=== PATIENT | female | born 1955 | race African-American/Black ===

== ENCOUNTER 2020-08-30 08:56 | Outpatient (REF) | payer MEDICARE, SELFPAY ==
[2020-08-30 11:25] LABS: Estimated Average Glucose 146 mg/dL; Hemoglobin A1c % 6.7 %
[2020-08-30 11:32] LABS: Alanine Aminotransferase 9 U/L (0-31); Albumin Level 4.3 g/dL (3.5-5.0); Alkaline Phosphatase 56 U/L (39-117); Anion Gap 15 (12-20); Aspartate Amino Transferase 13 U/L (5-31); Bilirubin Total 0.3 mg/dL (0.0-1.0); Blood Urea Nitrogen 20 mg/dL (9-16); Calcium 9.5 mg/dL (8.4-10.2); Carbon Dioxide 25 mmol/L (22-29); Chloride 104 mmol/L (96-108); Cholesterol 144 mg/dL; Estimated Glomerular Filt Rate 48; Glucose Fasting 126 mg/dL (60-99); HDL Cholesterol 45 mg/dL; LDL Cholesterol Calculated 78 mg/dl; Potassium 3.9 mmol/l (3.3-5.1); Sodium 140 mmol/L (135-145); Total Protein 7.3 g/dL (6.5-8.0); Triglycerides 109 mg/dL
[2020-08-30 12:05] LABS: Creatinine Urine 165.56 mg/dL; Microalbum/Creatinine Ratio Ur 262.7 ug/mg cr
== END 2020-08-30 08:57 | disposition home or self-care (01) ==
LOC: HO.HMGCLDS 08:56
PROVIDERS: PCP Internal Medicine; Visit Provider Internal Medicine
DX: R31.9 Hematuria, unspecified (principal); E11.9 Type 2 diabetes mellitus without complications; E78.5 Hyperlipidemia, unspecified; I10 Essential (primary) hypertension
CPT/HCPCS: 80053; 80061; 82043; 83036

== ENCOUNTER 2020-10-10 12:57 | Outpatient (REF) | payer MEDICARE, SELFPAY ==
[2020-10-10 14:23] LABS: Glucose Urine UA NEG (NEG); Leukocyte Esterase Urine NEG (NEG); Nitrite Urine NEG (NEG); Specific Gravity - Urine 1.025 (1.005-1.025); Urine Blood NEG (NEG); Urine Ketones NEG (NEG); Urine Protein TRACE MG/DL (NEG-TRACE)
[2020-10-10 14:26] LABS: Appearance Urine CLEAR; Color Urine YELLOW
== END 2020-10-10 12:58 | disposition home or self-care (01) ==
LOC: HO.HMGCLDS 12:57
PROVIDERS: PCP Internal Medicine; Visit Provider Internal Medicine
DX: R82.71 Bacteriuria (principal); I10 Essential (primary) hypertension
CPT/HCPCS: 81003

== ENCOUNTER 2020-11-24 15:08 | Outpatient (REF) | payer MEDICARE, SELFPAY ==
[2020-11-24 17:06] LABS: Alanine Aminotransferase 10 U/L (0-31); Albumin Level 4.4 g/dL (3.5-5.0); Alkaline Phosphatase 62 U/L (39-117); Anion Gap 18 (12-20); Aspartate Amino Transferase 12 U/L (5-31); Bilirubin Total 0.2 mg/dL (0.0-1.0); Blood Urea Nitrogen 16 mg/dL (9-16); Calcium 9.6 mg/dL (8.4-10.2); Carbon Dioxide 22 mmol/L (22-29); Chloride 102 mmol/L (96-108); Estimated Glomerular Filt Rate 39; Glucose Random 171 mg/dL (60-115); Potassium 4.3 mmol/l (3.3-5.1); Sodium 138 mmol/L (135-145); Total Protein 7.4 g/dL (6.5-8.0)
[2020-11-24 17:08] LABS: B Type Natriuretic Peptide 208 pg/mL (<100)
[2020-11-24 17:18] LABS: Digoxin 0.8 ng/mL (0.8-2.0)
[2020-11-24 17:22] LABS: TSH reflex Free T4 1.08 mIU/mL (0.32-4.0)
== END 2020-11-24 15:09 | disposition home or self-care (01) ==
LOC: HO.HMGCLDS 15:08
PROVIDERS: PCP Internal Medicine; Visit Provider Internal Medicine
DX: R10.9 Unspecified abdominal pain (principal); R00.2 Palpitations; C54.1 Malignant neoplasm of endometrium; I48.91 Unspecified atrial fibrillation; I11.9 Hypertensive heart disease without heart failure
CPT/HCPCS: 36415; 80053; 80162; 83880; 84443

== ENCOUNTER 2020-12-08 10:05 | Outpatient (REF) | payer MEDICARE, SELFPAY ==
--- NOTE | 2020-12-08 10:07 | CT_ITS ---
EXAMINATION: CT ABDOMEN AND PELVIS WITH CONTRAST CLINICAL INFORMATION: Malignant neoplasm of the endometrium. COMPARISON: None TECHNIQUE: Multidetector volumetric images were obtained from the superior aspect of the liver through the pubic symphysis following administration 85 mL of Omnipaque 350 intravenous contrast. Sagittal and coronal reformatted images were obtained on the technologist's workstation. Oral contrast: No This CT examination was performed using dose optimization techniques as appropriate, variously including the following: *Automated exposure control *Adjustment of mA and/or kV according to patient size (this includes techniques or standardized protocols for targeted exams where dose is matched to indication/reason for exam; i.e. extremities or head) *Use of iterative reconstruction technique DLP: 680 mGy-cm FINDINGS: LUNG BASES: The lung bases are clear. The heart size is normal. There is a small hiatal hernia. LIVER, GALLBLADDER, AND BILIARY TREE: The liver is normal in size, shape, and hypoattenuation. There is a punctate 6 mm nodule right hepatic lobe segment 7 image 14/3. A 4 mm hypodensity right hepatic lobe segment 6 image 25/3. These are too small to correctly characterized. The gallbladder is unremarkable with no evidence of radiopaque gallstones, gallbladder wall thickening, or obvious pericholecystic inflammatory changes. PANCREAS: Unremarkable. SPLEEN: Unremarkable. ADRENAL GLANDS: There is a right adrenal 1.3 cm lesion measuring 26 Hounsfield units. The left adrenal gland lateral limb is mildly enlarged without focal nodule. KIDNEYS AND URETERS: The kidneys are normal size, shape and position. No focal lesion, enhancement, radiopaque calculi or hydronephrosis seen. There is minimal cortical thinning along the posterior cortex upper pole right kidney. BLADDER: Unremarkable. GASTROINTESTINAL TRACT: There is scattered stool and gas seen throughout the colon without any significant distention. The small bowel loops are normal caliber. Appendix is not seen. The stomach is nondistended. ABDOMINAL WALL: No significant hernia is appreciated. LYMPH NODES: No abnormal retroperitoneal lymph node or mass seen. VASCULAR: There are arthritic changes involving both common iliac arteries with mild ectasia. The abdominal aorta is normal caliber. PELVIC VISCERA: The uterus is not visualized likely surgically removed or atrophic. No abnormal inguinal or iliac lymph nodes or free fluid seen. OSSEOUS STRUCTURES: No lytic or sclerotic process seen. There is vacuum disc phenomena with disc degenerative changes L3-L4, L4-L5 disc level. There is minimal grade 1 anterol[address] L4 over L5. [address]/CT abdomen pelvis w con IMPRESSION: No acute intra-abdominal process seen. No abnormal lymphadenopathy or mass visualized. The uterus is small or atrophic and appears neutral. Punctate hypodensities in the liver, too small to correctly characterize.
[2020-12-08] MEDS: iohexoL 350 MG/ML 100 ML INFUS..BTL 85 ML IV (10:41)
== END 2020-12-08 10:06 | disposition home or self-care (01) ==
LOC: HO.CT 10:05
PROVIDERS: PCP Internal Medicine; Visit Provider Internal Medicine
DX: R10.9 Unspecified abdominal pain (principal); C54.1 Malignant neoplasm of endometrium; R63.4 Abnormal weight loss
CPT/HCPCS: 74177; Q9967

== ENCOUNTER → 2020-12-27 09:37 | Outpatient (REF) | payer MEDICARE, SELFPAY ==
--- NOTE | 2020-12-27 09:40 | ECG_ITS ---
Hook-up date: 2020-12-27 11:03:00 Duration: 27:34:00 Test Indications: UNSPECIFIED AFIB Medications: 215598 QRS complexes 2345 Ventricular ectopics which represent 2 % of total QRS comp. * Supraventricular ectopics which represent % of total QRS comp. * Paced QRS complexs which represent % of total QRS comp. VENTRICULAR ECTOPY 2341 Isolated 3 Bigeminal Cycles 2 Couplets 0 Runs 0 Beats in Runs * Beats LONGEST at * BPM at :: -- * Beats FASTEST at * BPM at :: -- SUPRAVENTRICULAR ECTOPY * Isolated * Couplets * Runs * Beats in Runs * Beats LONGEST at * BPM at :: -- * Beats FASTEST at * BPM at :: -- HEART RATES 32 MIN at 04:53:25 2020-12-28 74 AVG 152 MAX at 22:20:00 2020-12-27 LONGEST RR 2.6880 secs at 06:50:47 2020-12-28 S-T LEVELS Channel 1 - 128 mm at 11:03:00 2020-12-27 - 128 mm at 11:03:00 2020-12-27 Channel 2 - 128 mm at 11:03:00 2020-12-27 - 128 mm at 11:03:00 2020-12-27 Channel 3 - 128 mm at 03:02:21 -- - 128 mm at 03:02:21 Underlying rhythm is atrial fibrillation; Average rate 74/min; range 32-152/min; Most of the rates seem to be 60-100/min; Occasional PVCs - about 2345 over 27 Hrs (2%); mostly isolated; 2 couplets; no runs; Patient did not report any symptoms in the diary Referred By: Marisela Oscar Overread By: SHARON CORDOBA
--- NOTE | 2020-12-27 09:40 | CA_ITS ---
Transthoracic Echocardiogram Patient (Last, First, Middle): Blaire Murray, Gender: Female Date of : 1955 Age: 65 Procedure Date: 12/27/2020 Procedure Type: Transthoracic Echocardiogram Location: OP Height: 162.56 cm Weight: 113.4 kg BSA: 2.15 m2 Heart Rate: bpm BP: 132 / 82 mmHg Linoleum Floor Installer: DSG Referring MD: Marisela Oscar MD Symptoms: I48.91 - Unspecified atrial fibrillation Study Quality: Fair ECG Rhythm: Atrial Fibrillation Conclusions: - The left ventricular systolic function is normal. The visually estimated ejection fraction is between 60-65%. - The left atrium is moderately dilated. - There is mild tricuspid valve regurgitation. - Moderate pulmonary hypertension is present. Findings Left Ventricle Normal left ventricular cavity size. There is mildly increased left ventricular wall thickness. The left ventricular systolic function is normal. The visually estimated ejection fraction is between 60-65%. There is no evidence of regional wall motion abnormalities. Diastolic function is indeterminate on the basis of available data. Right Ventricle Normal right ventricular cavity size. There is mildly decreased right ventricular systolic function. Atria The left atrium is moderately dilated. The right atrium is normal in size. Aortic Valve There is a normal trileaflet aortic valve. There is no aortic valve stenosis. There is no aortic valve regurgitation. Mitral Valve The mitral valve appears normal. There is trace mitral valve regurgitation. There is no mitral valve stenosis. Pulmonic Valve The pulmonic valve was not well visualized. Tricuspid Valve Normal tricuspid valve structure. There is mild tricuspid valve regurgitation. The right ventricular systolic pressure is 57 mmHg. Moderate pulmonary hypertension is present. Great Vessels The asc aorta is normal in size. Venous The inferior vena cava is normal in size and collapses greater than 50% with inspiration. Pericardium/Pleural There is no evidence of pericardial effusion. Prior Study Comparison No prior study available for comparison. Measurements 2D Linear Measurements IVSd: 1.10 0.6-0.9/0.6-1.0 cm LVIDd: 4.79 3.9-5.3/4.2-5.9 cm LVIDd Index: 2.23 2.4-3.2/2.2-3.1 cm/m2 LVIDs: 2.93 2.0-3.6 cm LVPWd: 1.08 0.7-1.1 cm Ao Root: 2.70 2.1-3.5 cm LA Diam: 4.80 2.7-3.8/3.0-4.0 cm LAIDs Index: 2.23 1.5-2.3 cm/m2 LV Mass: 237.85 67-162/88-224 g LV Mass Index: 110.63 43-95/49-115 g/m2 LVOT Diam: 2.00 3.0+(-)1.3 cm 2D Systolic Function EF 4C: 74.80 >55% Mitral Valve MV Pk E: 1.20 MV Decel Time: 232.00 E'Lateral: 9.55 E'Medial: 5.55 E/E' Med: 21.60 E/E' Lat: 12.60 PHT: 68.00 MVA PHT: 3.[address] [place]: 5.26 Aortic Valve AoV Pk Grayson: 1.49 AoV Mn Grayson: 0.74 AoV VTI: 0.21 AoV Pk Grad: 9.00 Aov Mn Grad: 3.00 ROSANNE Cont.VTI: 3.43 LVOT LVOT Pk Grayson: 1.13 LVOT Mn Grayson: 0.70 LVOT VTI: 0.23 LVOT Pk Grad: 5.00 LVOT Mn Grad: 2.00 LVOT Diam: 2.00 LVOT Area: 3.14 Diastolic Function MV Pk E: 1.20 E'Medial: 5.55 E/E' Med: 21.60 E' Laterial: 9.55 E/E' Lat: 12.60 Tricuspid Valve TR Pk Grayson: 3.66 TR Pk Grad: 54.00 RA Press: 3.00 RVSP: 57.00 Great Vessels Aorta Ao Root-2D: 2.70 2.0-3.7 cm Ao Asc: 2.60 2.1-3.4 cm Updated in Other Vendor System with Status of Final Philip Pacheco MD electronically signed on 12/27/2020 3:40:32 PM with status of Final
== END ==
LOC: HO.CARD 09:37
PROVIDERS: PCP Internal Medicine; Visit Provider Internal Medicine
DX: R00.2 Palpitations (principal); I48.91 Unspecified atrial fibrillation; I11.0 Hypertensive heart disease with heart failure; R10.9 Unspecified abdominal pain; C54.1 Malignant neoplasm of endometrium
CPT/HCPCS: 93226; 93306

== ENCOUNTER 2021-03-22 10:26 | Outpatient (REF) | payer MEDICARE, SELFPAY ==
[2021-03-22 14:08] LABS: Hematocrit 36.5 % (37-47); Hemoglobin 11.5 g/dl (12.0-16.0); Mean Corpuscular HGB Conc 31.5 g/dl (31.0-35.0); Mean Corpuscular Hemoglobin 30.3 pg (27.0-33.0); Mean Corpuscular Volume 96.1 fL (80-98); Mean Platelet Volume 11.6 fL (9.4-12.3); Platelet Count 290 X10*3/uL (160-400); Red Cell Distribution Width 14.2 % (11.0-16.0); White Blood Count 10.8 X10*3/uL (4.8-10.8)
[2021-03-22 14:20] LABS: Estimated Average Glucose 183 mg/dL
[2021-03-22 14:32] LABS: Alanine Aminotransferase 10 U/L (0-31); Albumin Level 4.3 g/dL (3.5-5.0); Alkaline Phosphatase 62 U/L (39-117); Anion Gap 19 (12-20); Aspartate Amino Transferase 12 U/L (5-31); Bilirubin Total 0.4 mg/dL (0.0-1.0); Blood Urea Nitrogen 22 mg/dL (9-16); Calcium 9.3 mg/dL (8.4-10.2); Carbon Dioxide 23 mmol/L (22-29); Chloride 103 mmol/L (96-108); Cholesterol 124 mg/dL; Estimated Glomerular Filt Rate 36; Glucose Fasting 189 mg/dL (60-99); HDL Cholesterol 46 mg/dL; LDL Cholesterol Calculated 51 mg/dl; Potassium 3.7 mmol/L (3.3-5.1); Sodium 141 mmol/L (135-145); Total Protein 7.2 g/dL (6.5-8.0); Triglycerides 137 mg/dL
[2021-03-22 14:41] LABS: Creatinine Urine 140.45 mg/dL; Microalbum/Creatinine Ratio Ur 217.8 ug/mg cr
== END 2021-03-22 10:27 | disposition home or self-care (01) ==
LOC: HO.HMGCLDS 10:26
PROVIDERS: PCP Internal Medicine; Visit Provider Internal Medicine
DX: E11.9 Type 2 diabetes mellitus without complications (principal); E78.5 Hyperlipidemia, unspecified; I10 Essential (primary) hypertension; I48.91 Unspecified atrial fibrillation
CPT/HCPCS: 36415; 80053; 80061; 82043; 83036; 85027

== ENCOUNTER 2021-03-31 10:01 | Outpatient (REF) | payer MEDICARE, SELFPAY ==
[2021-03-31 11:58] LABS: Anion Gap 16 (12-20); Blood Urea Nitrogen 32 mg/dL (9-16); Calcium 9.8 mg/dL (8.4-10.2); Carbon Dioxide 23 mmol/L (22-29); Chloride 105 mmol/L (96-108); Estimated Glomerular Filt Rate 32; Glucose Random 207 mg/dL (60-115); Potassium 4.4 mmol/L (3.3-5.1); Sodium 140 mmol/L (135-145)
== END 2021-03-31 10:02 | disposition home or self-care (01) ==
LOC: HO.HMGCLDS 10:01
PROVIDERS: PCP Internal Medicine; Visit Provider Internal Medicine
DX: N18.30 Chronic kidney disease, stage 3 unspecified (principal)
CPT/HCPCS: 36415; 80048

== ENCOUNTER 2021-06-21 10:21 | Outpatient (REF) | payer MEDICARE, SELFPAY ==
[2021-06-21 11:57] LABS: Estimated Average Glucose 183 mg/dL
[2021-06-21 15:35] LABS: Alanine Aminotransferase 11 U/L (0-31); Albumin Level 4.2 g/dL (3.5-5.0); Alkaline Phosphatase 47 U/L (39-117); Anion Gap 16 (12-20); Aspartate Amino Transferase 16 U/L (5-31); Bilirubin Total 0.4 mg/dL (0.0-1.0); Blood Urea Nitrogen 23 mg/dL (9-16); Calcium 9.1 mg/dL (8.4-10.2); Carbon Dioxide 22 mmol/L (22-29); Chloride 107 mmol/L (96-108); Estimated Glomerular Filt Rate 38; Glucose Fasting 181 mg/dL (60-99); Potassium 4.4 mmol/L (3.3-5.1); Sodium 141 mmol/L (135-145); Total Protein 6.9 g/dL (6.5-8.0)
== END 2021-06-21 10:22 | disposition home or self-care (01) ==
LOC: HO.HMGCLDS 10:21
PROVIDERS: PCP Internal Medicine; Visit Provider Internal Medicine
DX: E11.9 Type 2 diabetes mellitus without complications (principal); I10 Essential (primary) hypertension
CPT/HCPCS: 36415; 80053; 83036

== ENCOUNTER 2021-06-27 09:56 | Outpatient (REF) | payer MEDICARE, SELFPAY ==
--- NOTE | ~2021-06-27 | XR_ITS ---
EXAMINATION: XR HIP, RIGHT XR HIP, LEFT CLINICAL INFORMATION: Pain in each hip COMPARISON: CT abdomen and pelvis from 12/08/2020. TECHNIQUE: Right hip, 2 views Left hip, 2 views FINDINGS: At the right hip, the femoral head is well-positioned within the intact acetabulum. The joint space is normal. No degenerative or inflammatory changes at the hip. No proximal femoral fracture or osteonecrosis. At the right sacroiliac joint, there is vacuum joint phenomenon and subarticular sclerosis. Also, mild subarticular sclerosis and osteophytosis are noted at the pubic symphysis. Patient has a large body habitus. At the left hip, the femoral head is well-positioned within the intact acetabulum. The left hip joint space is maintained. There is no evidence of a significant degenerative or inflammatory arthropathy. No proximal femoral fracture or osteonecrosis. There is vacuum phenomenon, subarticular sclerosis and mild osteophyte formation at the left sacroiliac joint. XR/XR hip RT min 2V IMPRESSION: * No significant findings at either hip. No fracture or malalignment. * In this obese patient, there is chronic degenerative and/or stress related subarticular sclerosis at the sacroiliac joints and pubic symphysis. No acute osseous injury.
--- NOTE | ~2021-06-27 | XR_ITS ---
EXAMINATION: XR HIP, RIGHT XR HIP, LEFT CLINICAL INFORMATION: Pain in each hip COMPARISON: CT abdomen and pelvis from 12/08/2020. TECHNIQUE: Right hip, 2 views Left hip, 2 views FINDINGS: At the right hip, the femoral head is well-positioned within the intact acetabulum. The joint space is normal. No degenerative or inflammatory changes at the hip. No proximal femoral fracture or osteonecrosis. At the right sacroiliac joint, there is vacuum joint phenomenon and subarticular sclerosis. Also, mild subarticular sclerosis and osteophytosis are noted at the pubic symphysis. Patient has a large body habitus. At the left hip, the femoral head is well-positioned within the intact acetabulum. The left hip joint space is maintained. There is no evidence of a significant degenerative or inflammatory arthropathy. No proximal femoral fracture or osteonecrosis. There is vacuum phenomenon, subarticular sclerosis and mild osteophyte formation at the left sacroiliac joint. XR/XR hip LT min 2V IMPRESSION: * No significant findings at either hip. No fracture or malalignment. * In this obese patient, there is chronic degenerative and/or stress related subarticular sclerosis at the sacroiliac joints and pubic symphysis. No acute osseous injury.
== END 2021-06-27 09:57 | disposition home or self-care (01) ==
LOC: HO.HMGCX 09:56
PROVIDERS: PCP Internal Medicine; Visit Provider Internal Medicine
DX: M25.551 Pain in right hip (principal); M25.552 Pain in left hip; E11.9 Type 2 diabetes mellitus without complications; E78.5 Hyperlipidemia, unspecified; I48.91 Unspecified atrial fibrillation; N18.30 Chronic kidney disease, stage 3 unspecified
CPT/HCPCS: 73502

== ENCOUNTER → 2021-07-31 11:06 | Outpatient (BNVA) | payer MEDICARE, SELFPAY | PROVIDERS: Visit Provider Dietitian, Registered | DX: E11.9 Type 2 diabetes mellitus without complications (principal) | CPT/HCPCS: 97802 ==

== ENCOUNTER → 2021-08-01 08:52 | Outpatient (BNVA) | payer MEDICARE, SELFPAY | PROVIDERS: Visit Provider Physician Assistant | DX: M25.551 Pain in right hip (principal); M25.552 Pain in left hip; M54.16 Radiculopathy, lumbar region | CPT/HCPCS: 99202 ==

== ENCOUNTER 2021-08-16 10:34 | Outpatient (REF) | payer MEDICARE, SELFPAY | END 2021-08-16 10:35 | disposition home or self-care (01) | LOC: HO.HMGCLDS 10:34 | PROVIDERS: PCP Internal Medicine; Visit Provider Internal Medicine | DX: Z13.89 Encounter for screening for other disorder (principal) ==

== ENCOUNTER 2021-08-21 12:35 | Outpatient (REF) | payer MEDICARE, SELFPAY ==
[2021-08-21 14:27] LABS: Blood Urea Nitrogen 24 mg/dL (9-16); Estimated Glomerular Filt Rate 39
== END 2021-08-21 12:36 | disposition home or self-care (01) ==
LOC: HO.HMGCLDS 12:35
PROVIDERS: PCP Internal Medicine; Visit Provider Internal Medicine
DX: N18.30 Chronic kidney disease, stage 3 unspecified (principal)
CPT/HCPCS: 36415; 82565; 84520

== ENCOUNTER 2021-08-25 09:57 | Outpatient (REF) | payer MEDICARE, SELFPAY ==
--- NOTE | ~2021-08-25 | XR_ITS ---
EXAMINATION: XR LUMBOSACRAL SPINE CLINICAL INFORMATION: Spondylosis without myelopathy or radiculopathy. COMPARISON: None TECHNIQUE: Three views of the lumbosacral spine. FINDINGS: There is normal lumbar lordosis. There is grade 1 anterolisthesis at L4-L5. The rest of the vertebral alignment is normal. There is loss of the L3-L4 and L4-L5 disc heights with moderate right L4-L5 and T11-T12 facet joint arthropathy. No visible acute fracture or dislocation. No lytic process. The paravertebral soft tissues are normal. XR/XR lumbar spine 2-3V IMPRESSION: Grade 1 anterolisthesis L4 over L5 with degenerative disc changes at the L3-L4 and L5-S1 disc levels. Moderate right L4-L5 and T11-T12 facet joint arthropathy and hypertrophy.
== END 2021-08-25 09:58 | disposition home or self-care (01) ==
LOC: HO.XRAY 09:57
PROVIDERS: PCP Internal Medicine; Visit Provider Internal Medicine
DX: M47.817 Spondylosis without myelopathy or radiculopathy, lumbosacral region (principal); M46.1 Sacroiliitis, not elsewhere classified
CPT/HCPCS: 72100; 99202

== ENCOUNTER → 2021-09-11 11:48 | Outpatient (BNVA) | payer MEDICARE, SELFPAY | PROVIDERS: PCP Internal Medicine; Visit Provider Dietitian, Registered | DX: E11.9 Type 2 diabetes mellitus without complications (principal) | CPT/HCPCS: 97803 ==

== ENCOUNTER 2021-09-13 06:21 | Outpatient (REF) | payer MEDICARE, SELFPAY ==
--- NOTE | ~2021-09-13 | FL_ITS ---
EXAMINATION: XR FLUOROSCOPY WITH IMAGES CLINICAL INFORMATION: Sacroiliitis. COMPARISON: None. TECHNIQUE: Fluoroscopy performed by Nela Hughes NP. Fluoroscopy time: 0.2 minutes DAP: 2 Gycm2 Images: 2 FINDINGS: PA and lateral images of the left sacrum demonstrate a needle projecting over the inferior left sacroiliac joint. FL/FL guidance in treatment room IMPRESSION: Fluoroscopy guidance for pain management procedure.
== END 2021-09-13 06:22 | disposition home or self-care (01) ==
LOC: HO.RADIR 06:21
PROVIDERS: Visit Provider Internal Medicine
DX: M46.1 Sacroiliitis, not elsewhere classified (principal); Z79.899 Other long term (current) drug therapy
CPT/HCPCS: 27096; J1040

== ENCOUNTER → 2021-09-22 08:51 | Outpatient (BNVA) | payer MEDICARE, OTHER, SELFPAY | PROVIDERS: PCP Internal Medicine; Visit Provider Internal Medicine | DX: M47.817 Spondylosis without myelopathy or radiculopathy, lumbosacral region (principal); M54.16 Radiculopathy, lumbar region; M46.1 Sacroiliitis, not elsewhere classified | CPT/HCPCS: 99212 ==

== ENCOUNTER 2021-10-25 11:00 | Outpatient (RCR) | payer MEDICARE, OTHER, SELFPAY ==
--- NOTE | 2021-10-09 12:49 | MHC.PT.EP ---
[facility] [place] Office [place] Office [place] Office [address] Jules Altamirano [address] [phone] F: [phone] F: [phone] F: [phone] F: [phone] Physical Therapy Plan of Care Date of Evaluation: Date of Surgery: Diagnosis: This is a 66 yo female presenting to skilled PT with a script for sacroiliitis, lumbosacral spondylosis Assessment: This is a 66 yo female presenting to skilled PT with a script for sacroiliitis, lumbosacral spondylosis. Patient reporting her pain has been ongoing forever . 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 She had an injection in the SIJ at the end of August which improved intensity but pain increases with walking and laying on the L side still (seeing pain management and is returning there for a more formal injection on 11/01). Pain is located at the L low back/buttock, laterally down the L leg and into the L gastroc. Pain is achy, like a tooth ache in your leg . Denies numbness and tingling. Assessment reveals pain that ranges up to an 8/10. She demos decreased lumbar and hip ROM, decreased core and glut strength, impaired gait pattern with ? lateral shift and forward flexed posture, impaired joint mobility with s/s ? SIJ involvement as well as gross functional decline with sitting, walking and laying on the L side. She is a good candidate for skilled PT 2x/wk for 6 wks. Frequency and Duration: The patient will be seen 2x/wk for 6wks Short Term Goals: I in HEP Centralize symptoms in 2 weeks Demo proper TAC without cues from PT Sleep through the night without waking from pain Correction Goals: Demos functional ROM and strength Improve oswestry by at least 10 points Improve pain at the worst to no more than 2/10 Demo proper lifting techniques without increase in pain or radiating symptoms Treatment Plan: Modalities to reduce pain, spasms and effusion. Manual therapy to restore motion and function. Therapeutic exercise to improve strength and flexibility. Neuromuscular re-education for posture and balance. Therapeutic activities to return to functional activities of daily living. Electronically signed by: Blaire Rodgers PT Please sign and return to therapist. Thank you for your referral.
--- NOTE | 2021-11-06 13:12 | MHC.PT.DC ---
[facility] [place] Office [place] Office [place] Office [address] Jules Altamirano [address] [phone] F: [phone] F: [phone] F: [phone] F: [phone] Physical Therapy Discharge Report Diagnosis: This is a 66 yo female presenting to skilled PT with a script for sacroiliitis, lumbosacral spondylosis Date of Surgery: Date of Evaluation: 10/09/21 Date of Discharge: 11/06/21 Treatments to Date: 2 Cancellations to Date: 0 No Shows to Date: 0 Discharge Status: Independent with HEP Patient Elected to Stop Discharge Summary: DC 11/06: Patient called to DC for now. She is worried about covid varient. She reports that she has an HEP to continue in the mean time and will call to rebook when ready. DC to HEP 10/25: Patient needed rest breaks throughout the session. Her R knee is locked in slight flexion and she was educated on how this effects her pain and balance. Updated HEP once more with education on symptoms and rest breaks/days. Plan to add wall slides, sit<>stands next session, trial stepper This is a 66 yo female presenting to skilled PT with a script for sacroiliitis, lumbosacral spondylosis. Patient reporting her pain has been ongoing forever . 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 She had an injection in the SIJ at the end of August which improved intensity but pain increases with walking and laying on the L side still (seeing pain management and is returning there for a more formal injection on 11/01). Pain is located at the L low back/buttock, laterally down the L leg and into the L gastroc. Pain is achy, like a tooth ache in your leg . Denies numbness and tingling. Assessment reveals pain that ranges up to an 8/10. She demos decreased lumbar and hip ROM, decreased core and glut strength, impaired gait pattern with ? lateral shift and forward flexed posture, impaired joint mobility with s/s ? SIJ involvement as well as gross functional decline with sitting, walking and laying on the L side. She is a good candidate for skilled PT 2x/wk for 6 wks. Electronically signed by: Blaire Rodgers, PT Please sign and return to therapist. Thank you for your referral.
== END 2021-11-06 11:51 | disposition home or self-care (01) ==
LOC: HO.PTCHIC 11:00
PROVIDERS: Visit Provider Internal Medicine
DX: M46.1 Sacroiliitis, not elsewhere classified (principal); M47.817 Spondylosis without myelopathy or radiculopathy, lumbosacral region
CPT/HCPCS: 97110; 97112; 97162

== ENCOUNTER → 2021-10-30 11:29 | Outpatient (BNVA) | payer MEDICARE, SELFPAY | PROVIDERS: PCP Internal Medicine; Visit Provider Dietitian, Registered | DX: E11.22 Type 2 diabetes mellitus with diabetic chronic kidney disease (principal); N18.30 Chronic kidney disease, stage 3 unspecified | CPT/HCPCS: 97803 ==

== ENCOUNTER 2021-11-01 06:13 | Outpatient (REF) | payer MEDICARE, SELFPAY ==
--- NOTE | ~2021-11-01 | FL_ITS ---
EXAMINATION: XR FLUOROSCOPY WITH IMAGES CLINICAL INFORMATION: M47.817 - Spondylosis without myelopathy or radiculopathy COMPARISON: Radiographs lumbar spine 08/25/2021 TECHNIQUE: Fluoroscopy performed by Dr. Eb Tang. Fluoroscopy time: 0.9 minutes DAP: 12.5 Gycm2 Images: 4 FINDINGS: There are spinal needles overlying the outer left L4 and L5 neural foramen. There is contrast seen in the respective nerve sheaths. Some early transforaminal epidural extension is suggested. No visible vascular communication. Degenerative changes again seen lower lumbar spine similar to prior radiographs. FL/FL guidance in treatment room IMPRESSION: Fluoroscopy for pain management procedures.
== END 2021-11-01 06:14 | disposition home or self-care (01) ==
LOC: HO.RADIR 06:13
PROVIDERS: Visit Provider Internal Medicine
DX: M46.1 Sacroiliitis, not elsewhere classified (principal); M54.16 Radiculopathy, lumbar region; M47.817 Spondylosis without myelopathy or radiculopathy, lumbosacral region; I10 Essential (primary) hypertension; I48.91 Unspecified atrial fibrillation; E78.5 Hyperlipidemia, unspecified; Z88.8 Allergy status to other drugs, medicaments and biological substances; Z79.84 Long term (current) use of oral hypoglycemic drugs; Z79.899 Other long term (current) drug therapy
CPT/HCPCS: 64483; 64484; Q9967

== ENCOUNTER → 2021-11-24 09:36 | Outpatient (BNVA) | payer MEDICARE, SELFPAY | PROVIDERS: PCP Internal Medicine; Visit Provider Internal Medicine | DX: M54.16 Radiculopathy, lumbar region (principal) | CPT/HCPCS: Q3014 ==

== ENCOUNTER → 2022-01-29 11:40 | Outpatient (BNVA) | payer MEDICARE, SELFPAY | PROVIDERS: PCP Internal Medicine; Visit Provider Dietitian, Registered | DX: E11.22 Type 2 diabetes mellitus with diabetic chronic kidney disease (principal); N18.30 Chronic kidney disease, stage 3 unspecified; Z71.3 Dietary counseling and surveillance | CPT/HCPCS: 97803 ==

== ENCOUNTER 2022-01-30 07:44 | Outpatient (REF) | payer MEDICARE, SELFPAY ==
[2022-01-30 12:04] LABS: Estimated Average Glucose 169 mg/dL; Hemoglobin A1c % 7.5 %
[2022-01-30 12:18] LABS: Alanine Aminotransferase 13 U/L (0-31); Alkaline Phosphatase 49 U/L (39-117); Anion Gap 15 (12-20); Aspartate Amino Transferase 16 U/L (5-31); Bilirubin Total 0.2 mg/dL (0.0-1.0); Blood Urea Nitrogen 25 mg/dL (9-16); Calcium 9.5 mg/dL (8.4-10.2); Carbon Dioxide 22 mmol/L (22-29); Chloride 107 mmol/L (96-108); Cholesterol 120 mg/dL; Estimated Glomerular Filt Rate 32; Glucose Fasting 194 mg/dL (60-99); HDL Cholesterol 38 mg/dL; LDL Cholesterol Calculated 64 mg/dl; Potassium 4.4 mmol/L (3.3-5.1); Sodium 140 mmol/L (135-145); Total Protein 6.7 g/dL (6.5-8.0); Triglycerides 90 mg/dL
[2022-01-30 12:38] LABS: Microalbum/Creatinine Ratio Ur 86.5 ug/mg cr
== END 2022-01-30 07:45 | disposition home or self-care (01) ==
LOC: HO.HMGCLDS 07:44
PROVIDERS: Visit Provider Internal Medicine
DX: E11.9 Type 2 diabetes mellitus without complications (principal); E78.5 Hyperlipidemia, unspecified; N18.30 Chronic kidney disease, stage 3 unspecified
CPT/HCPCS: 36415; 80053; 80061; 82043; 83036

== ENCOUNTER 2022-05-02 09:21 | Outpatient (REF) | payer MEDICARE, SELFPAY ==
[2022-05-02 11:17] LABS: Estimated Average Glucose 160 mg/dL; Hemoglobin A1c % 7.2 %
[2022-05-02 11:19] LABS: Alanine Aminotransferase 12 U/L (0-31); Alkaline Phosphatase 53 U/L (39-117); Anion Gap 15 (12-20); Aspartate Amino Transferase 14 U/L (5-31); Bilirubin Total 0.3 mg/dL (0.0-1.0); Blood Urea Nitrogen 19 mg/dL (9-16); Calcium 8.9 mg/dL (8.4-10.2); Carbon Dioxide 22 mmol/L (22-29); Chloride 108 mmol/L (96-108); Cholesterol 112 mg/dL; Estimated Glomerular Filt Rate 34; Glucose Fasting 165 mg/dL (60-99); HDL Cholesterol 39 mg/dL; LDL Cholesterol Calculated 52 mg/dl; Potassium 3.9 mmol/L (3.3-5.1); Sodium 141 mmol/L (135-145); Total Protein 6.6 g/dL (6.5-8.0); Triglycerides 105 mg/dL
[2022-05-02 11:39] LABS: TSH reflex Free T4 1.16 uIU/mL (0.32-4.0)
[2022-05-02 11:57] LABS: Creatinine Urine 163.47 mg/dL; Microalbum/Creatinine Ratio Ur 176.7 ug/mg cr
== END 2022-05-02 09:22 | disposition home or self-care (01) ==
LOC: HO.HMGCLDS 09:21
PROVIDERS: Visit Provider Internal Medicine
DX: I12.9 Hypertensive chronic kidney disease with stage 1 through stage 4 chronic kidney disease, or unspecified chronic kidney disease (principal); E11.22 Type 2 diabetes mellitus with diabetic chronic kidney disease; N18.30 Chronic kidney disease, stage 3 unspecified
CPT/HCPCS: 36415; 80053; 80061; 82043; 83036; 84443

== ENCOUNTER 2022-08-15 10:56 | Outpatient (REF) | payer MEDICARE, SELFPAY ==
[2022-08-15 14:18] LABS: Estimated Average Glucose 169 mg/dL; Hemoglobin A1c % 7.5 %
[2022-08-15 14:52] LABS: Alanine Aminotransferase 19 U/L (0-31); Albumin Level 4.2 g/dL (3.5-5.0); Alkaline Phosphatase 55 U/L (39-117); Anion Gap 17 (12-20); Aspartate Amino Transferase 20 U/L (5-31); Bilirubin Total < 0.2 mg/dL (0.0-1.0); Blood Urea Nitrogen 29 mg/dL (9-16); Calcium 9.1 mg/dL (8.4-10.2); Carbon Dioxide 19 mmol/L (22-29); Chloride 108 mmol/L (96-108); Cholesterol 130 mg/dL; Estimated Glomerular Filt Rate 30; Glucose Fasting 208 mg/dL (60-99); HDL Cholesterol 43 mg/dL; LDL Cholesterol Calculated 69 mg/dl; Potassium 4.3 mmol/L (3.3-5.1); Sodium 140 mmol/L (135-145); Total Protein 6.8 g/dL (6.5-8.0); Triglycerides 91 mg/dL
[2022-08-15 15:04] LABS: Creatinine Urine 145.47 mg/dL; Microalbum/Creatinine Ratio Ur 129.9 ug/mg cr
== END 2022-08-15 10:57 | disposition home or self-care (01) ==
LOC: HO.HMGCLDS 10:56
PROVIDERS: PCP Internal Medicine; Visit Provider Internal Medicine
DX: E11.9 Type 2 diabetes mellitus without complications (principal); I10 Essential (primary) hypertension; I48.91 Unspecified atrial fibrillation; E78.5 Hyperlipidemia, unspecified
CPT/HCPCS: 36415; 80053; 80061; 82043; 83036

== ENCOUNTER 2022-09-21 13:22 | Outpatient (REF) | payer MEDICARE, SELFPAY ==
[2022-09-21 15:10] LABS: Anion Gap 16 (12-20); Blood Urea Nitrogen 21 mg/dL (9-16); Calcium 9.2 mg/dL (8.4-10.2); Carbon Dioxide 20 mmol/L (22-29); Chloride 110 mmol/L (96-108); Estimated Glomerular Filt Rate 32; Glucose Random 159 mg/dL (60-115); Potassium 4.3 mmol/L (3.3-5.1); Sodium 142 mmol/L (135-145)
== END 2022-09-21 13:23 | disposition home or self-care (01) ==
LOC: HO.HMGCLDS 13:22
PROVIDERS: PCP Internal Medicine; Visit Provider Internal Medicine
DX: I12.9 Hypertensive chronic kidney disease with stage 1 through stage 4 chronic kidney disease, or unspecified chronic kidney disease (principal); E11.22 Type 2 diabetes mellitus with diabetic chronic kidney disease; N18.30 Chronic kidney disease, stage 3 unspecified
CPT/HCPCS: 36415; 80048

== ENCOUNTER → 2022-11-14 11:15 | Outpatient (BNVA) | payer MEDICARE, SELFPAY | PROVIDERS: PCP Internal Medicine; Visit Provider Nurse Practitioner Family | DX: Z01.818 Encounter for other preprocedural examination (principal); K59.01 Slow transit constipation | CPT/HCPCS: 99202 ==

== ENCOUNTER 2022-12-21 11:46 | Outpatient (REF) | payer MEDICARE, SELFPAY ==
[2022-12-21 13:51] LABS: MANUAL DIFF FLAG NO
[2022-12-21 13:53] LABS: Hematocrit 38.3 % (37.0-47.0); Mean Corpuscular HGB Conc 31.3 g/dl (31.0-35.0); Mean Corpuscular Hemoglobin 29.8 pg (27.0-33.0); Red Blood Count 4.03 X10*6/uL (4.20-5.50); Red Cell Distribution Width 15.1 % (11.0-16.0); White Blood Count 8.3 X10*3/uL (4.8-10.8)
[2022-12-21 13:54] LABS: Basophils Absolute Auto 0.1 X10*3/uL (0.0-0.2); Basophils Percent Auto 0.8 % (0-2); Eosinophils Absolute Auto 0.4 X10*3/uL (0.0-0.4); Eosinophils Percent Auto 4.8 % (0-4); Imm Gran Abs Auto 0.02 X10*3/uL (0.00-0.03); Imm Gran Pct Auto 0.2 % (0.0-0.4); Lymphocytes Percent Auto 36.6 % (20-40); Mean Platelet Volume 11.5 fL (9.4-12.3); Monocytes Absolute Auto 0.7 X10*3/uL (0.1-1.2); Monocytes Percent Auto 8.5 % (2-11); Neutrophils Absolute Auto 4.1 x10*3/uL (2.0-8.3); Neutrophils Percent Auto 49.1 % (45-73); Platelet Count 247 X10*3/uL (160-400)
[2022-12-21 14:15] LABS: Alanine Aminotransferase 18 U/L (0-31); Albumin Level 3.9 g/dL (3.5-5.0); Alkaline Phosphatase 68 U/L (39-117); Anion Gap 14 (12-20); Aspartate Amino Transferase 17 U/L (5-31); Bilirubin Total 0.3 mg/dL (0.0-1.0); Blood Urea Nitrogen 25 mg/dL (9-16); Calcium 9.3 mg/dL (8.4-10.2); Carbon Dioxide 22 mmol/L (22-29); Chloride 110 mmol/L (96-108); Cholesterol 123 mg/dL; Estimated Glomerular Filt Rate 33; Glucose Fasting 110 mg/dL (60-99); HDL Cholesterol 38 mg/dL; LDL Cholesterol Calculated 71 mg/dl; Sodium 142 mmol/L (135-145); Total Protein 6.3 g/dL (6.5-8.0); Triglycerides 70 mg/dL
[2022-12-21 14:31] LABS: TSH reflex Free T4 0.91 uIU/mL (0.32-4.0)
[2022-12-21 14:39] LABS: Estimated Average Glucose 151 mg/dL; Hemoglobin A1c % 6.9 %
== END 2022-12-21 11:47 | disposition home or self-care (01) ==
LOC: HO.HMGCLDS 11:46
PROVIDERS: PCP Internal Medicine; Visit Provider Internal Medicine
DX: I12.9 Hypertensive chronic kidney disease with stage 1 through stage 4 chronic kidney disease, or unspecified chronic kidney disease (principal); E11.22 Type 2 diabetes mellitus with diabetic chronic kidney disease; N18.30 Chronic kidney disease, stage 3 unspecified; I48.91 Unspecified atrial fibrillation; E78.5 Hyperlipidemia, unspecified
CPT/HCPCS: 36415; 80053; 80061; 83036; 84443; 85025

== ENCOUNTER 2023-01-14 10:29 | Outpatient (REF) | payer MEDICARE, SELFPAY ==
--- NOTE | ~2023-01-14 | US_ITS ---
EXAMINATION: US SOFT TISSUE HEAD/NECK CLINICAL INFORMATION: Localized enlarged lymph nodes. COMPARISON: None. TECHNIQUE: Linear transducer grayscale and color Doppler examination of the neck lymph nodes. FINDINGS: There are bilateral neck lymph nodes visualized. Right Neck Lymph Nodes: Level II measures 0.94 x 0.4 cm 0.61 cm. There is normal architecture. Level II measures 0.8 x 0.56 x 0.73 cm. There is normal architecture. Level IB measures 0.65-0 0.42 x 0.57 cm. It has normal architecture. Level IB measures 0.59 x 0.46 x 0.40 cm and has normal architecture. Level IB measures 0.76 x 0.40 x 0.90 cm. It has normal architecture. Level IA measures 0.45 x 0.27 x 0.44 cm and has normal architecture. Level IA measures 0.36 x 0.41 x 0.40 cm and has normal architecture. Left Neck Lymph Nodes: Level IB node measures 1.1 x 0.62 x 1.1 cm. It has normal architecture. Level IB lymph node measures 1.1 x 0.45 x 0.4 cm. It has normal architecture. ADDITIONAL FINDINGS: No additional abnormality seen. US/US soft tiss head and/or neck IMPRESSION: Benign bilateral neck lymph nodes.
--- NOTE | ~2023-01-14 | US_ITS ---
EXAMINATION: Noninvasive assessment of the bilateral lower extremities with ARTERIAL DUPLEX CLINICAL INFORMATION: Peripheral arterial disease TECHNIQUE: Duplex Doppler techniques with waveform analysis and measurement of velocities in the bilateral common femoral, profunda femoris, superficial femoral, popliteal and tibial arteries were performed. COMPARISON: None FINDINGS: DIRECT DUPLEX DOPPLER FINDINGS: RIGHT LEG: Common femoral artery: 123 cm/s, phasicity: Triphasic Profunda femoris artery: 88.5 cm/s, phasicity: Triphasic Superficial femoral artery (proximal): 101 cm/s, phasicity: Triphasic Superficial femoral artery (mid): 78.0 cm/s, phasicity: Biphasic Superficial femoral artery (distal): 88.5 cm/s, phasicity: Triphasic Popliteal artery: 65.1 cm/s, phasicity: Biphasic Posterior tibial artery: 124 cm/s, phasicity: Triphasic Peroneal artery: 57.0 cm/s, phasicity: Biphasic LEFT LEG: Common femoral artery: 122 cm/s, phasicity: Triphasic Profunda femoris artery: 66 cm/s, phasicity: Biphasic Superficial femoral artery (proximal): 123 cm/s, phasicity: Triphasic Superficial femoral artery (mid): 73.9 cm/s, phasicity: Biphasic Superficial femoral artery (distal): 82.1 cm/s, phasicity: Biphasic Popliteal artery: 47.9 cm/s, phasicity: Biphasic Posterior tibial artery: 76.8 cm/s, phasicity: Biphasic Peroneal artery: 75.8 cm/s, phasicity: Biphasic US/US arterial duplex LE BI IMPRESSION: Right leg: Patent arterial duplex Doppler without significant stenosis or arterial occlusion Left leg: Patent arterial duplex Doppler without significant stenosis or arterial occlusion
== END 2023-01-14 10:30 | disposition home or self-care (01) ==
LOC: HO.HMGCX 10:29
PROVIDERS: PCP Internal Medicine; Visit Provider Internal Medicine
DX: R59.0 Localized enlarged lymph nodes (principal); E11.22 Type 2 diabetes mellitus with diabetic chronic kidney disease; I12.9 Hypertensive chronic kidney disease with stage 1 through stage 4 chronic kidney disease, or unspecified chronic kidney disease; N18.30 Chronic kidney disease, stage 3 unspecified; E78.5 Hyperlipidemia, unspecified; I48.91 Unspecified atrial fibrillation; I73.9 Peripheral vascular disease, unspecified
CPT/HCPCS: 76536; 93925

== ENCOUNTER → 2023-01-16 12:59 | Outpatient (BNVA) | payer MEDICARE, SELFPAY | PROVIDERS: PCP Internal Medicine; Referring Provider Internal Medicine; Visit Provider Internal Medicine | DX: Z01.810 Encounter for preprocedural cardiovascular examination (principal); I48.19 Other persistent atrial fibrillation; E11.9 Type 2 diabetes mellitus without complications; E78.5 Hyperlipidemia, unspecified; I10 Essential (primary) hypertension | CPT/HCPCS: 93005; 99202 ==

== ENCOUNTER → 2023-01-28 08:26 | Outpatient (REF) | payer MEDICARE, SELFPAY ==
--- NOTE | ~2023-01-28 | NM_ITS ---
Myocardial perfusion study Indication: Atrial fibrillation to evaluate for myocardial ischemia Technique: The patient was brought in for a Lexiscan perfusion study on 01/28/2023. Patient performed low-level exercise and was injected 0.4 mg of Lexiscan intravenously. Within a minute of injection, 35 mCi of sestamibi was given intravenously. Images were obtained using the SPECT gamma camera interlaced with the gating device. Images were obtained in supine position. Resting perfusion study was performed on 01/31/2023. Patient was administered 35 mCi of sestamibi intravenously at rest. Images were then obtained in supine position. Images obtained with and without CT attenuation. Total DLP 140 mGy-cm. Images were processed with the software and compared side to side in short axis, horizontal long axis and vertical long axis views. Findings: The stress perfusion study showed both attenuated as well as non attenuated corrected images show normal uptake of radiotracer in all segments of LV myocardium.. The gated study shows normal LV systolic function with calculated LVEF of 64%. LV cavity is normal in size. The gated study shows normal systolic wall thickening and contraction of segments. Resting study shows attenuated corrected images show normal uptake of radiotracer in all segments of LV myocardium. Gating at rest reveals normal systolic wall motion with ejection fraction at 59%. The findings are consistent with normal myocardial perfusion. NM/NM cassy perf SPECT rest & str Impression: 1. Myocardial perfusion imaging study shows normal myocardial perfusion 2. Gated LVEF is 4% 3. Transient ischemic dilatation not present EKG is nondiagnostic for ischemia
--- NOTE | 2023-01-28 08:28 | CA_ITS ---
Acquisition Time: 2023-01-28 08:30:21 Total Exercise Time: 00:02:00 Test Indications: Dyspnea Medications: SEE H Protocol: LEXISCAN Max HR: 072 BPM 47% of Pred: 153 BPM Max BP: 134/078 mmHG Max Work Load: 1.0 METS Pharmacological stress test with Lexiscan injection, while sitting and kicking her legs, with mild sob, no chest discomfort, with isolated PVCs, with normotensive response to injection, with nondiagnostic EKG for ischemia. In recovery she was treated with Aminophylline 75mg IVP to reverse Lexiscan. Nuclear images pending. Test reviewed with Dr Gray. Referred By: Philip Pacheco Overread By: VERN ALICIA
== END ==
LOC: HO.CARD 08:26
PROVIDERS: PCP Internal Medicine; Visit Provider Internal Medicine
DX: I48.19 Other persistent atrial fibrillation (principal)
CPT/HCPCS: 78452; 93017; A9500; J0280; J2785

== ENCOUNTER 2023-02-08 12:14 | Outpatient (REF) | payer MEDICARE, SELFPAY ==
[2023-02-08 16:15] LABS: Digoxin 0.3 ng/mL (0.8-2.0)
== END 2023-02-08 12:15 | disposition home or self-care (01) ==
LOC: HO.HMGCLDS 12:14
PROVIDERS: PCP Internal Medicine; Visit Provider Internal Medicine
DX: I48.19 Other persistent atrial fibrillation (principal); Z79.899 Other long term (current) drug therapy
CPT/HCPCS: 36415; 80162

== ENCOUNTER 2023-02-12 08:57 | Day surgery (SDC) | payer MEDICARE, SELFPAY ==
[2023-02-07 14:42] VITALS: BMI 36.2
--- NOTE | 2023-02-11 13:22 | P.CONAN_ITS ---
HPI - Anesthesia Eval Consult details Narrative: 67yo F for Colonoscopy Cardiac cleared after nuc stress Eliquis for afib PMFSH Active Problems Active Problems: All Active Problems (Updated 02/07/23 @ 14:49 by Elva Montoya RN) Lumbar radiculopathy (Acute) Axillary adenopathy (Acute) Claudication (Acute) Persistent atrial fibrillation (Acute) Preoperative cardiovascular examination (Acute) Lumbar and sacral spondyloarthritis (Acute) Sacroiliitis (Acute) Hip pain, bilateral (Acute) CKD (chronic kidney disease) stage 3, GFR 30-59 ml/min (Acute) Annual physical exam (Acute) Dysplastic nevus (Acute) Weight loss (Acute) Palpitations (Acute) Endometrial ca (Acute) Abdominal pain (Acute) Diastolic dysfunction (Acute) Hyperlipidemia (Acute) Diabetes (Acute) Atrial fibrillation (Acute) ASB (asymptomatic bacteriuria) (Acute) Hypertension (Acute) Past Medical History Medical History (Updated 02/25/23 @ 14:58 by Tania Lundberg NP) ASB (asymptomatic bacteriuria) Atrial fibrillation CKD (chronic kidney disease) stage 3, GFR 30-59 ml/min Diabetes Diastolic dysfunction Dysplastic nevus Endometrial ca GERD (gastroesophageal reflux disease) Hip pain, bilateral History of uterine cancer Hyperlipidemia Hypertension Lumbar and sacral spondyloarthritis Morbid obesity SUE on CPAP Palpitations Sacroiliitis Family History Family History Father No problems noted. Mother HTN (hypertension) Diabetes mellitus Breast cancer Surgical History Surgical History H/O colonoscopy History of total abdominal hysterectomy and bilateral salpingo-oophorectomy S/P MARGARITA (total abdominal hysterectomy) Social History Social History Housing: House Are you a primary child care lead teacher to a significant other at home: No Do you presently have visiting nurse or other home services: No Alcohol intake: current Alcohol intake frequency: holidays/special occasions only Patient Tobacco Use Status: Never used Tobacco e-Cigarette/Vaping Use: Never Used Advance Directives: Yes Advance Directives on File: Yes Advance Directives Date on File: 02/12/23 Current occupational status: retired Current occupation: rt handed Cognitive needs: No Hearing needs: No Vision needs: No Meds Allergies Allergy/AdvReac Type Severity Reaction Status Date / Time No Known Allergies Allergy Verified 02/07/23 14:47 Home Medications Medication Instructions Recorded Confirmed Last Taken Type metformin 500 mg tablet 500 mg PO BIDWM 01/16/23 02/25/23 02/24/23 History diltiazem HCl 360 mg capsule,24 360 mg PO BEDTIME 02/07/23 02/25/23 02/24/23 History hr,extended release (Tiadylt ER) metoprolol succinate 200 mg 200 mg PO BEDTIME 02/07/23 02/25/23 02/24/23 History tablet,extended release 24 hr rosuvastatin 40 mg tablet 40 mg PO BEDTIME 02/07/23 02/25/23 02/24/23 History polyethylene glycol 3350 17 17 g PO DAILY 02/25/23 02/25/23 02/24/23 History gram/dose oral powder (Gavilax) Exam Exam Date and Time: February 11, 2023 1322 Height,Weight and Vital Signs: Height 5 ft 4 in Weight 95.708 kg Pertinent Lab Results Pertinent Lab Results: Laboratory Tests 12/21/22 12/21/22 11:51 11:51 WBC 8.3 Hgb 12.0 Hct 38.3 Plt Count 247 Sodium 142 Potassium 4.0 Chloride 110 H Carbon Dioxide 22 BUN 25 H Creatinine 1.58 H Narrative Narrative: EKG 01/2023 atrial fibrillation at 78/Min; cannot exclude old anterior infarct; nonspecific ST-T changes ECHO 2020 Conclusions: - The left ventricular systolic function is normal.? The visually estimated ejection fraction is between 60-65%. ? - The left atrium is moderately dilated. ? - There is mild tricuspid valve regurgitation. ? - Moderate pulmonary hypertension is present.? ?? NM cassy perf SPECT rest & str 01/2023 Impression: ? 1.? Myocardial perfusion imaging study shows normal myocardial perfusion 2.? Gated LVEF is 4% 3. Transient ischemic dilatation not present ? EKG is nondiagnostic for ischemia Assessment and Plan Assessment Anesthesia Assessment: Chart Reviewed
--- NOTE | 2023-02-12 09:09 | HO.ANESPROP2 ---
[facility] Active Problems Active Problems: All Active Problems (Updated 02/07/23 @ 14:49 by Elva Montoya RN) Lumbar radiculopathy (Acute) Axillary adenopathy (Acute) Claudication (Acute) Persistent atrial fibrillation (Acute) Preoperative cardiovascular examination (Acute) Lumbar and sacral spondyloarthritis (Acute) Sacroiliitis (Acute) Hip pain, bilateral (Acute) CKD (chronic kidney disease) stage 3, GFR 30-59 ml/min (Acute) Annual physical exam (Acute) Dysplastic nevus (Acute) Weight loss (Acute) Palpitations (Acute) Endometrial ca (Acute) Abdominal pain (Acute) Diastolic dysfunction (Acute) Hyperlipidemia (Acute) Diabetes (Acute) Atrial fibrillation (Acute) ASB (asymptomatic bacteriuria) (Acute) Hypertension (Acute) Past Medical History Medical History Abdominal pain Annual physical exam ASB (asymptomatic bacteriuria) Atrial fibrillation CKD (chronic kidney disease) stage 3, GFR 30-59 ml/min Diabetes Diastolic dysfunction Dysplastic nevus Endometrial ca GERD (gastroesophageal reflux disease) Hip pain, bilateral History of postoperative nausea History of uterine cancer Hyperlipidemia Hypertension Lumbar and sacral spondyloarthritis Morbid obesity SUE on CPAP Palpitations Sacroiliitis Weight loss Family History Family History Father No problems noted. Mother HTN (hypertension) Diabetes mellitus Breast cancer Family history of problems with anesthesia: No Surgical History Surgical History H/O colonoscopy History of total abdominal hysterectomy and bilateral salpingo-oophorectomy S/P MARGARITA (total abdominal hysterectomy) History of Problems with Anesthesia: No Social History Social History Housing: House Are you a primary director long term care to a significant other at home: No Do you presently have visiting nurse or other home services: No Alcohol intake: current Alcohol intake frequency: holidays/special occasions only Patient Tobacco Use Status: Never used Tobacco e-Cigarette/Vaping Use: Never Used Have you been hit, kicked, punched, or otherwise hurt by someone within the past year? If so, by whom?: No Are you DNR?: No Advance Directives: No Advance Directives Information Provided: Yes Advance Directives on File: No Recently lost weight without trying: No Current occupational status: retired Current occupation: rt handed Cognitive needs: No Hearing needs: No Vision needs: No Meds Allergies Allergy/AdvReac Type Severity Reaction Status Date / Time No Known Allergies Allergy Verified 02/07/23 14:47 Active Medications: Current Medications Lactated Ringer's (Lr) 1,000 mls @ 100 mls/hr IVCONT .Q10H [facility] Home Medications Medication Instructions Recorded Confirmed Last Taken Type metformin 500 mg tablet 500 mg PO BID 01/16/23 02/07/23 Unknown History diltiazem HCl 360 mg capsule,24 360 mg PO DAILY 02/07/23 02/07/23 02/12/23 History hr,extended release (Tiadylt ER) metoprolol succinate 200 mg 200 mg PO BEDTIME 02/07/23 02/07/23 Unknown History tablet,extended release 24 hr rosuvastatin 40 mg tablet 40 mg PO BEDTIME 02/07/23 02/07/23 Unknown History Exam Exam Date and Time: February 12, 2023 0909 Height,Weight and Vital Signs: Height 5 ft 4 in Weight 95.708 kg Assessment and Plan Assessment Anesthesia Assessment: Anesthesia Plan Discussed, Smoking Cess. Discussed and Chart Reviewed Final Anesthetic Review Family History of Problems with Anesthesia: No History of Problems with Anesthesia: No NPO: Yes ASA Class: III Final Preanesthetic Review: No Changes in Pt Med Stat, Meds/Allgs Chart Reviewed, Consent Obtained/Reviewed and Anes Risks/Benef Reviewed Patient Risk: Low Procedure Risk: Low Anesthetic Plan Anesthetic Plan: MAC: Disposition: Standard PACU
[2023-02-12 09:14] VITALS: BP 157/85; PULSE 71; RESP 28; TEMP 36.9; O2SAT 92
[2023-02-12] MEDS: Lactated Ringers 1,000 ML 100 ML IVCONT (09:32)
[2023-02-12 09:39] LABS: Glucose, Whole Blood 95 mg/dL (60-115)
--- NOTE | 2023-02-12 09:39 | P.HPSUR_ITS ---
Pre-Procedural Eval Section A Date of Service: 02/12/23 Section B Chief Complaint: screening Relevant Family History (Specify if Yes): No Relevant Social History: None Present Medications: see Short Stay Collaborative assessment Medical History: Significant History (Abdominal pain Annual physical exam ASB (asymptomatic bacteriuria) Atrial fibrillation CKD (chronic kidney disease) stage 3, GFR 30-59 ml/min Diabetes Diastolic dysfunction Dysplastic nevus Endometrial ca GERD (gastroesophageal reflux disease) Hip pain, bilateral History of postoperative nausea Hist) History of Previous Operations: Relevant previous surgery/procedure and date(s) (H/O colonoscopy History of total abdominal hysterectomy and bilateral salpingo- oophorectomy S/P MARGARITA (total abdominal hysterectomy)) Allergies: Allergies Allergy/AdvReac Type Severity Reaction Status Date / Time No Known Allergies Allergy Verified 02/07/23 14:47 Review of Systems Sugical H&P ROS: Negative: Constitution, Cardiovascular, Respiratory, Neurological, Psychiatric, Hem-Onc, Allergic/Immunologic, Gastrointestinal, Genitourinary, Musculoskeletal, Integumentary, Endocrine and Eyes/Ears/Nose/Throat Exam Surgical H&P Exam: Normal: HEENT, Normal: Heart, Normal: Lungs, Normal: Extremities, Normal: Abdomen, Normal: Skin and Normal: Neurological Plan Diagnosis/Plan: Unchanged I have reviewed the history and physical and performed a pertinent physical examination on my patient. No changes have occurred unless specified. Time Spent With Patient Time: Total time managing care of this patient today ____ minutes.
--- NOTE | 2023-02-12 09:42 | W.PM.OPN ---
Operative Note Operative Note Date of Service: 02/12/23 Narrative: Operative Information Procedure Description: Colonoscopy Indication: screening Anesthesia: MAC COLONOSCOPY Instrument: Olympus variable stiffness pediatric scope 190L Colonoscopy Monitoring: Vital signs and clinical assessment, continuous EKG monitoring, Pulse oximetry, Carbon Dioxide monitoring and blood pressure monitoring were done throughout the procedure. Colon withdrawal time was 17 minutes. Procedure: The patient was placed in the left lateral decubitis position and pre-procedure medications were administered. After a digital rectal examination of the ano-rectum, the video colonoscope was inserted into the rectum and advanced through the colon to the cecum/TI. The colonoscope was slowly withdrawn in a retrograde panoramic fashion and the colon mucosa was carefully examined including a retroflexed view of the rectum. Findings and interventions are described below. Procedure Difficulty: moderate due to redundant colon Findings: Terminal Ileum-not intubated but valve was normal on retroflexion Cecum: 4-6 mm sessile polyp removed with cold forcpes Ascending Colon: few diverticula seen Transverse Colon -normal Descending Colon:normal Sigmoid Colon: few diverticula seen, 10-11 mm sessile polyp removed with cold snare Rectum: Retroflexion with small internal hemorrhoids, grade I Anorectum - normal Colon preparation: [place] Bowel Preparation Scale Right colon; 1-2 Transverse colon: 2 Left colon; 1-2 (0 = Unprepared colon segment with mucosa not seen due to solid stool that cannot be cleared. 1 = Portion of mucosa of the colon segment seen, but other areas of the colon segment not well seen due to staining, residual stool and/or opaque liquid. 2 = Minor amount of residual staining, small fragments of stool and/or opaque liquid, but mucosa of colon segment seen well. 3 = Entire mucosa of colon segment seen well with no residual staining, small fragments of stool or opaque liquid) Impression and Post Procedure Diagnosis: polyps internal hemorrhoids diverticular disease Plan: High fiber diet leaflet Avoid straining at stool, epsom salts and sitz bath, anusol supps or cream Repeat Colonoscopy in 3 years due to fair prep in some areas or earlier if clinically indicated restart apixiban tomorrow Above findings were reviewed with the patient and relevant handouts were provided if indicated.
--- NOTE | 2023-02-12 10:16 | HO.ANESPROP2 ---
[facility] Active Problems Active Problems: All Active Problems (Updated 02/07/23 @ 14:49 by Elva Montoya RN) Lumbar radiculopathy (Acute) Axillary adenopathy (Acute) Claudication (Acute) Persistent atrial fibrillation (Acute) Preoperative cardiovascular examination (Acute) Lumbar and sacral spondyloarthritis (Acute) Sacroiliitis (Acute) Hip pain, bilateral (Acute) CKD (chronic kidney disease) stage 3, GFR 30-59 ml/min (Acute) Annual physical exam (Acute) Dysplastic nevus (Acute) Weight loss (Acute) Palpitations (Acute) Endometrial ca (Acute) Abdominal pain (Acute) Diastolic dysfunction (Acute) Hyperlipidemia (Acute) Diabetes (Acute) Atrial fibrillation (Acute) ASB (asymptomatic bacteriuria) (Acute) Hypertension (Acute) Past Medical History Medical History Abdominal pain Annual physical exam ASB (asymptomatic bacteriuria) Atrial fibrillation CKD (chronic kidney disease) stage 3, GFR 30-59 ml/min Diabetes Diastolic dysfunction Dysplastic nevus Endometrial ca GERD (gastroesophageal reflux disease) Hip pain, bilateral History of postoperative nausea History of uterine cancer Hyperlipidemia Hypertension Lumbar and sacral spondyloarthritis Morbid obesity SUE on CPAP Palpitations Sacroiliitis Weight loss Family History Family History Father No problems noted. Mother HTN (hypertension) Diabetes mellitus Breast cancer Family history of problems with anesthesia: No Surgical History Surgical History H/O colonoscopy History of total abdominal hysterectomy and bilateral salpingo-oophorectomy S/P MARGARITA (total abdominal hysterectomy) History of Problems with Anesthesia: No Social History Social History Housing: House Are you a primary medicare sales executive to a significant other at home: No Do you presently have visiting nurse or other home services: No Alcohol intake: current Alcohol intake frequency: holidays/special occasions only Patient Tobacco Use Status: Never used Tobacco e-Cigarette/Vaping Use: Never Used Have you been hit, kicked, punched, or otherwise hurt by someone within the past year? If so, by whom?: No Are you DNR?: No Advance Directives: No Advance Directives Information Provided: Yes Advance Directives on File: No Recently lost weight without trying: No Current occupational status: retired Current occupation: rt handed Cognitive needs: No Hearing needs: No Vision needs: No Meds Allergies Allergy/AdvReac Type Severity Reaction Status Date / Time No Known Allergies Allergy Verified 02/07/23 14:47 Active Medications: Current Medications Lactated Ringer's (Lr) 1,000 mls @ 100 mls/hr IVCONT .Q10H [facility] Last Admin: 02/12/23 09:32 Dose: 100 mls/hr Home Medications Medication Instructions Recorded Confirmed Last Taken Type metformin 500 mg tablet 500 mg PO BID 01/16/23 02/07/23 Unknown History diltiazem HCl 360 mg capsule,24 360 mg PO DAILY 02/07/23 02/07/23 02/12/23 History hr,extended release (Tiadylt ER) metoprolol succinate 200 mg 200 mg PO BEDTIME 02/07/23 02/07/23 Unknown History tablet,extended release 24 hr rosuvastatin 40 mg tablet 40 mg PO BEDTIME 02/07/23 02/07/23 Unknown History Exam Exam Date and Time: February 12, 2023 1016 Height,Weight and Vital Signs: Height 5 ft 4 in Weight 95.708 kg Last Vital Signs Temp 98.4 F 02/12/23 09:14 Pulse 71 02/12/23 09:14 Resp 28 H 02/12/23 09:14 BP 157/85 H 02/12/23 09:14 Pulse Ox 92 02/12/23 09:14 O2 Del Method Room Air 02/12/23 09:14 Pertinent Lab Results Pertinent Lab Results: Laboratory Tests 02/12/23 09:35 POC Glucose 95 Airway Mallampati Class: II TM Dist: >3cm Neck ROM: Full Heart: irreg Lungs: CTA Assessment and Plan Final Anesthetic Review Family History of Problems with Anesthesia: No History of Problems with Anesthesia: No ASA Class: III Final Preanesthetic Review: Meds/Allgs Chart Reviewed, Consent Obtained/Reviewed and Anes Risks/Benef Reviewed Patient Risk: Intermediate Procedure Risk: Low Anesthetic Plan Anesthetic Plan: MAC: Disposition: Standard PACU
[2023-02-12 10:28] VITALS: BP 102/62; PULSE 90; RESP 18; TEMP 36.9; O2SAT 95
[2023-02-12 10:45] VITALS: BP 121/82; PULSE 124; RESP 20; TEMP 36.1; O2SAT 96
--- NOTE | 2023-02-12 10:48 | HO.POSTANES ---
Post Anesthesia Evaluation Post Anesthesia Evaluation Vital Signs: Vital Signs Temp Pulse Resp BP Pulse Ox O2 Del Method O2 Flow Rate 02/12/23 10:45 97.0 F 124 H 20 121/82 96 Room Air 02/12/23 10:28 98.5 F 90 18 102/62 95 Simple Mask 4 02/12/23 09:14 98.4 F 71 28 H 157/85 H 92 Room Air Anesthesia: Monitored Mental Status: Awake Pain Control: Satisfactory Nausea/Vomiting: None Hydration: Adequate Anesthesia-Related Issues: No Anes. Related Issues
== END 2023-02-12 11:21 | disposition home or self-care (01) ==
PROVIDERS: PCP Internal Medicine; Visit Provider Internal Medicine Gastroenterology
PROC: 0DJD8ZZ Inspection of Lower Intestinal Tract, Via Natural or Artificial Opening Endoscopic (ICD-10-PCS; CPT 45378; principal; 2023-02-12 10:10)
DX: Z12.11 Encounter for screening for malignant neoplasm of colon (principal); D12.0 Benign neoplasm of cecum; K63.5 Polyp of colon; K57.30 Diverticulosis of large intestine without perforation or abscess without bleeding; K64.0 First degree hemorrhoids; K59.01 Slow transit constipation; E11.22 Type 2 diabetes mellitus with diabetic chronic kidney disease; I12.9 Hypertensive chronic kidney disease with stage 1 through stage 4 chronic kidney disease, or unspecified chronic kidney disease; N18.30 Chronic kidney disease, stage 3 unspecified; E78.5 Hyperlipidemia, unspecified; G47.33 Obstructive sleep apnea (adult) (pediatric); I48.91 Unspecified atrial fibrillation; E66.01 Morbid (severe) obesity due to excess calories; Z68.34 Body mass index [BMI] 34.0-34.9, adult; R60.0 Localized edema; Z79.01 Long term (current) use of anticoagulants; Z99.89 Dependence on other enabling machines and devices; Z79.84 Long term (current) use of oral hypoglycemic drugs; Z79.899 Other long term (current) drug therapy; Z85.42 Personal history of malignant neoplasm of other parts of uterus; Z90.710 Acquired absence of both cervix and uterus
CPT/HCPCS: 45385; 45380; 82947; 88305

== ENCOUNTER 2023-02-25 11:07 | Inpatient (IN) | payer MEDICARE, SELFPAY ==
--- NOTE | ~2023-02-25 | XR_ITS ---
EXAMINATION: XR CHEST CLINICAL INFORMATION: CHF exacerbation COMPARISON: None available. TECHNIQUE: 2 views of the chest were obtained. FINDINGS: The cardiac silhouette is enlarged. There is pulmonary venous redistribution. The lungs are otherwise clear. There is a a small right pleural effusion. There is no left pleural effusion. There is no pneumothorax. There are degenerative changes of the spine. XR/XR chest 2V IMPRESSION: Enlarged cardiac silhouette, pulmonary venous redistribution and right pleural effusion. Findings are suggestive of CHF.
[2023-02-25 11:16] VITALS: BP 152/89; PULSE 74; RESP 20; TEMP 36.7; O2SAT 95; BMI 36.2
--- NOTE | 2023-02-25 11:20 | ECG_ITS ---
Test Reason : sob Blood Pressure : / mmHG Vent. Rate : 060 BPM Atrial Rate : 000 BPM P-R Int : 000 ms QRS Dur : 080 ms QT Int : 354 ms P-R-T Axes : 000 -12 191 degrees QTc Int : 354 ms Atrial fibrillation with premature ventricular or aberrantly conducted complexes Low voltage QRS Nonspecific T wave abnormality Abnormal ECG No previous ECGs available Referred By: Phuc [place] Electronically Signed By:OSIRIS CHRISTOPHER MD
--- NOTE | 2023-02-25 11:21 | ED_ITS ---
HPI - General Adult General Chief complaint: Dyspnea <CHHAYA Winters - Last Filed: 03/04/23 09:22> Stated complaint: sob <CHHAYA Winters - Last Filed: 03/04/23 09:22> Time Seen by Provider: 02/25/23 14:15 <CHHAYA Winters - Last Filed: 03/04/23 09:22> Source: patient <Rohini Marsh NP - Last Filed: 02/25/23 16:12> Mode of arrival: ambulatory <Rohini Marsh NP - Last Filed: 02/25/23 16:12> Limitations: no limitations <Rohini Marsh NP - Last Filed: 02/25/23 16:12> History of Present Illness HPI narrative: This is a 67-year-old female with a history AFib on Eliquis, chronic kidney disease, diabetes, high cholesterol, hypertension with no known history of congestive heart failure who presents to the ER with complaints of intermittent shortness of breath with exertion over the last 6 months. Since Saturday patient reports she has had worsening shortness of breath since Saturday with orthopnea and shortness of breath at rest with no reports of cough for fever or chest pain. She also reports she has had increasing leg swelling and weight gain but unable to quantify how much weight. <Rohini Marsh NP - Last Filed: 02/25/23 16:12> Related Data Home medications: Home Medications Medication Instructions Recorded Confirmed metformin 500 mg tablet 500 mg PO BIDWM 01/16/23 02/25/23 metoprolol succinate 200 mg 200 mg PO BEDTIME 02/07/23 02/25/23 tablet,extended release 24 hr rosuvastatin 40 mg tablet 40 mg PO BEDTIME 02/07/23 02/25/23 polyethylene glycol 3350 17 17 g PO DAILY 02/25/23 02/25/23 gram/dose oral powder (Gavilax) Previous Rx's Medication Instructions Recorded blood sugar diagnostic (Blood #100 ea 08/04/21 Glucose Test strips) lancets 28 gauge (FreeStyle #100 ea 08/04/21 Lancets) blood-glucose meter #1 ea 08/07/21 hydralazine 50 mg tablet 50 mg PO BID #180 tabs 07/24/22 apixaban 5 mg tablet (Eliquis) 5 mg PO BID #180 tabs 09/24/22 dapagliflozin 10 mg tablet 10 mg PO DAILY #90 tabs 09/24/22 (Farxiga) docusate sodium 100 mg capsule 100 mg PO BEDTIME #90 caps 11/14/22 digoxin 125 mcg (0.125 mg) tablet 125 mcg PO .QOD #45 tabs 01/21/23 (Digox) diltiazem HCl 180 mg 180 mg PO DAILY 30 days #30 caps 02/28/23 capsule,extended release 24 hr (Cardizem CD) furosemide 20 mg tablet (Lasix) 20 mg PO DAILY #45 tabs 02/28/23 lisinopril 20 mg tablet 20 mg PO DAILY 30 days #30 tabs 02/28/23 spironolactone 25 mg tablet 25 mg PO DAILY 30 days #30 tabs 02/28/23 <CHHAYA Winters - Last Filed: 03/04/23 09:22> Allergies/adverse reactions: Allergies Allergy/AdvReac Type Severity Reaction Status Date / Time No Known Allergies Allergy Verified 02/07/23 14:47 <CHHAYA Winters - Last Filed: 03/04/23 09:22> Review of Systems Review of Systems: Yes all other systems are reviewed and are negative <Rohini Marsh NP - Last Filed: 02/25/23 16:12> Constitutional: Constitutional: Reports no additional constitutional co mplaints, Denies body ache(s), Denies chills, Denies fever(s), Denies headache(s) and Denies weakness <Rohini Marsh NP - Last Filed: 02/25/23 16:12> Eyes: Eyes: Reports no additional eye complaints and Denies change in vision <Rohini Marsh NP - Last Filed: 02/25/23 16:12> ENT: Reports system reviewed and no additional complaints, except as documented, Denies dizziness, Denies headache(s), Denies nasal congestion, Denies nasal discharge and Denies neck pain <Rohini Marsh NP - Last Filed: 02/25/23 16:12> Cardiovascular: Cardiovascular: Reports no additional cardiovascular complaints, Denies chest pain, Reports leg edema, Reports dyspnea, Reports dyspnea on exertion and Reports orthopnea <Rohini Marsh NP - Last Filed: 02/25/23 16:12> Respiratory: Respiratory: Reports no additional respiratory complaints, Denies cough, Reports dyspnea and Reports dyspnea on exertion <Rohini Marsh NP - Last Filed: 02/25/23 16:12> Gastrointestinal: Gastrointestinal: Reports no additional gastrointestinal co mplaints, Denies abdominal pain, Denies diarrhea, Denies nausea and Denies vomiting <Rohini Marsh NP - Last Filed: 02/25/23 16:12> Genitourinary: Genitourinary: Reports no additional female genitourinary complaints and Denies urinary incontinence <Rohini Marsh NP - Last Filed: 02/25/23 16:12> Musculoskeletal: Musculoskeletal: Reports no additional musculoskeletal complaints, Denies back pain, Denies arthralgias, Denies joint swelling, Denies neck pain, Denies numbness and Denies tingling <Rohini Marsh NP - Last Filed: 02/25/23 16:12> Integumentary/Breasts: Skin/Breast: Reports system reviewed and no additional complaints, except as docu and Denies rash <Rohini Marsh NP - Last Filed: 02/25/23 16:12> Neurologic: Reports system reviewed and no additional complaints, except as documented, Denies dizziness, Denies headache(s), Denies numbness, Denies tingling and Denies weakness <Rohini Marsh NP - Last Filed: 02/25/23 16:12> FOR[facility]LY [facility], [facility] Past Medical History Attestation statement: The following information was validated with the patient. <Rohini Marsh NP - Last Filed: 02/25/23 16:12> Source: old records reviewed and nursing notes reviewed <JABARI Gutiérrez t Filed: 02/25/23 16:12> Medical History: Medical History ASB (asymptomatic bacteriuria) Atrial fibrillation CKD (chronic kidney disease) stage 3, GFR 30-59 ml/min Diabetes Diastolic dysfunction Dysplastic nevus Endometrial ca GERD (gastroesophageal reflux disease) Hip pain, bilateral History of uterine cancer Hyperlipidemia Hypertension Lumbar and sacral spondyloarthritis Morbid obesity SUE on CPAP Palpitations Sacroiliitis <CHHAYA Winters - Last Filed: 03/04/23 09:22> Surgical History: Surgical History H/O colonoscopy History of total abdominal hysterectomy and bilateral salpingo-oophorectomy S/P MARGARITA (total abdominal hysterectomy) <CHHAYA Winters - Last Filed: 03/04/23 09:22> Family History Family History: Family History Father No problems noted. Mother HTN (hypertension) Diabetes mellitus Breast cancer <CHHAYA Winters - Last Filed: 03/04/23 09:22> Social History Social History: Social History Household Members: Spouse Housing: House Are you a primary care transitions nurse to a significant other at home: No Do you presently have visiting nurse or other home services: No Alcohol intake: current Alcohol intake frequency: holidays/special occasions only Patient Tobacco Use Status: Never used Tobacco e-Cigarette/Vaping Use: Never Used Advance Directives Date on File: 02/12/23 service: No Current occupational status: retired Current occupation: rt handed Cognitive needs: No Hearing needs: No Vision needs: No <CHHAYA Winters - Last Filed: 03/04/23 09:22> Physical Exam ED Vital Signs: Vital Signs - 24 hr 02/25/23 11:16 02/25/23 14:21 Temperature 98.0 F Pulse Rate 74 77 Respiratory Rate 20 42 H Blood Pressure 152/89 H 164/106 H Pulse Oximetry 95 92 Oxygen Delivery Method Room Air BMI result Body Mass Index 36.2 <CHHAYA Winters - Last Filed: 03/04/23 09:22> Vital Signs - 24 hr 02/25/23 11:16 02/25/23 14:21 Temperature 98.0 F Pulse Rate 74 77 Respiratory Rate 20 42 H Blood Pressure 152/89 H 164/106 H Pulse Oximetry 95 92 Oxygen Delivery Method Room Air BMI result Body Mass Index 36.2 <Rohini Marsh NP - Last Filed: 02/25/23 16:12> Const General: cooperative, healthy appearing, comfortable and no acute distress <Rohini Marsh EMERGENCY VEHICLE DRIVER - Last Filed: 02/25/23 16:12> Orientation/consciousness: patient oriented x3 <Rohini Marsh EMERGENCY VEHICLE DRIVER - Last Filed: 02/25/23 16:12> Limitations: no limitations <Rohini Marsh EMERGENCY VEHICLE DRIVER - Last Filed: 02/25/23 16:12> HENMT Head: Yes normal to inspection <Rohini Marsh, EMERGENCY VEHICLE DRIVER - Last Filed: 02/25/23 16:12> Ears: hearing grossly normal bilaterally <Rohini Marsh EMERGENCY VEHICLE DRIVER - Last Filed: 02/25/23 16:12> Eyes General: appearance normal, both eyes and all related structures <Rohini Marsh EMERGENCY VEHICLE DRIVER - Last Filed: 02/25/23 16:12> Pupils: Equal, round and reactive pupils present <Rohini Marsh EMERGENCY VEHICLE DRIVER - Last Filed: 02/25/23 16:12> Neck Neck: Yes normal visual inspection, Yes full ROM and Yes JVD <Rohini Marsh EMERGENCY VEHICLE DRIVER - Last Filed: 02/25/23 16:12> Chest Chest palpation & inspection: normal inspection of the chest <Rohini Marsh EMERGENCY VEHICLE DRIVER - Last Filed: 02/25/23 16:12> Resp Other: Tachypnea, crackles <Rohini Marsh EMERGENCY VEHICLE DRIVER - Last Filed: 02/25/23 16:12> Cardio Rate: regular rate <Rohini Marsh EMERGENCY VEHICLE DRIVER - Last Filed: 02/25/23 16:12> Rhythm: abnormal rhythm irregularly irregular <Rohini Marsh EMERGENCY VEHICLE DRIVER - Last Filed: 02/25/23 16:12> Peripheral pulses: Peripheral pulses 2+ throughout <Rohini Marsh EMERGENCY VEHICLE DRIVER - Last Filed: 02/25/23 16:12> GI Inspection: Yes normal to inspection <Rohini Marsh EMERGENCY VEHICLE DRIVER - Last Filed: 02/25/23 16:12> Palpation (GI): Soft to palpation and nontender <Rohini Marsh EMERGENCY VEHICLE DRIVER - Last Filed: 02/25/23 16:12> General: Yes no CVA tenderness <Rohini Marsh NP - Last Filed: 02/25/23 16:12> Back/Spine/Pelvis Back: no CVA tenderness <Rohini Marsh NP - Last Filed: 02/25/23 16:12> Thoracic/Lumbar Spine: thoracic and lumbar spine normal to inspection <Rohini Marsh NP - Last Filed: 02/25/23 16:12> Skin General skin exam: no rashes or lesions noted <Rohini Marsh EMERGENCY VEHICLE DRIVER - Last Filed: 02/25/23 16:12> Neuro General: patient oriented x3 and moves all extremities <Rohini Marsh NP - Last Filed: 02/25/23 16:12> Cranial nerves: Yes Equal, round and reactive pupils present <Rohini Marsh NP - Last Filed: 02/25/23 16:12> Cognition (Neuro): normal cognition <Rohini Marsh NP - Last Filed: 02/25/23 16:12> Extrem Other: Bilateral pedal edema nonpitting <Rohini Marsh NP - Last Filed: 02/25/23 16:12> Course Course Course Narrative: RME: 67 yold female presents to the ED for SOB and bilateral leg swellings for one year. bilateral lower exam positive for pitting edema. 02 saturation 92 to 93% on room air. only use CPAP at night to sleep. pmh of sleep apena. Nurse Green spoke with nurse Block to bring patient in to next available bed. labs and chest xray orderd <CHHAYA Winters - Last Filed: 03/04/23 09:22> Reevaluation(s) Reevaluation #1: Labs show acute on chronic renal failure likely secondary to fluid overload, elevated BNP, indeterminate troponin. Will trend troponin. Will give 40 mg of IV Lasix. Chest x-ray consistent with fluid overload. Anticipate admission <Rohini Marsh NP - Last Filed: 02/25/23 16:12> Medications Administered Discontinued Medications Generic Name Dose Route Start Last Admin Trade Name Freq PRN Reason Stop Dose Admin Apixaban 5 mg 02/25/23 21:00 02/28/23 10:31 Apixaban 5 Mg Tablet PO 5 mg BID CHAD Administration Atorvastatin Calcium 80 mg 02/25/23 21:00 02/27/23 20:45 Atorvastatin Calcium 80 Mg Tablet PO 80 mg BEDTIME CHAD Administration Digoxin 0.125 mg 02/26/23 09:00 02/28/23 10:32 Digoxin 0.125 Mg Tablet PO 0.125 mg Q48H CHAD Administration Docusate Sodium 100 mg 02/25/23 21:00 02/27/23 20:46 Docusate Sodium 100 Mg Capsule PO 100 mg BEDTIME CHAD Administration Empagliflozin 10 mg 02/26/23 09:00 02/28/23 10:32 Empagliflozin 10 Mg Tablet PO 10 mg DAILY CHAD Administration Furosemide 40 mg 02/25/23 14:33 02/25/23 14:51 Furosemide 40 Mg/4 Ml Vial IVPUSH 02/25/23 14:34 40 mg STAT STA Administration Protocol Furosemide 40 mg 02/25/23 18:00 02/28/23 12:10 Furosemide 40 Mg/4 Ml Vial IVPUSH Not Given BID@0900,1800 [facility] Protocol Hydralazine HCl 50 mg 02/25/23 17:00 02/28/23 10:31 Hydralazine Hcl 50 Mg Tablet PO 50 mg TID CHAD Administration Protocol Insulin Human Lispro 0 unit 02/26/23 16:30 02/28/23 12:13 Insulin Lispro 100 Unit/Ml 3 Ml Vial SUBCUT 2 unit QIDACHS [facility] Administration Protocol Lidocaine 1 patch 02/28/23 10:41 02/28/23 12:19 Lidocaine 4 % Patch Adh..Patch TRANSDERMA 02/28/23 10:42 1 patch ONCE ONE Administration Protocol Magnesium Hydroxide 30 ml 02/27/23 14:51 02/27/23 15:27 Milk Of Magnesia 30 Ml Oral.Susp PO 02/27/23 14:52 30 ml ONCE ONE Administration Metoprolol Succinate 200 mg 02/25/23 21:00 02/27/23 20:45 Metoprolol Succinate Er 100 Mg Tab.Er.24h PO 200 mg BEDTIME CHAD Administration Protocol Polyethylene Glycol 17 gm 02/26/23 09:00 02/27/23 09:38 Polyethylene Glycol 3350 17 Gm Powd.Pack PO 17 gm DAILY CHAD Administration Polyethylene Glycol 17 gm 02/27/23 15:00 02/28/23 10:29 Polyethylene Glycol 3350 17 Gm Powd.Pack PO Not Given DAILY CHAD Sodium Chloride 3 ml 02/25/23 16:00 02/28/23 10:32 0.9 % Sodium Chloride Flush 3 Ml Syringe IVFLUSH 3 ml QSHIFT CHAD Administration Spironolactone 25 mg 02/28/23 09:00 02/28/23 10:32 Spironolactone 25 Mg Tablet PO 25 mg DAILY CHAD Administration Protocol <CHHAYA Winters - Last Filed: 03/04/23 09:22> Medications Administered Discontinued Medications Generic Name Dose Route Start Last Admin Trade Name Freq PRN Reason Stop Dose Admin Apixaban 5 mg 02/25/23 21:00 02/28/23 10:31 Apixaban 5 Mg Tablet PO 5 mg BID CHAD Administration Atorvastatin Calcium 80 mg 02/25/23 21:00 02/27/23 20:45 Atorvastatin Calcium 80 Mg Tablet PO 80 mg BEDTIME CHAD Administration Digoxin 0.125 mg 02/26/23 09:00 02/28/23 10:32 Digoxin 0.125 Mg Tablet PO 0.125 mg Q48H CHAD Administration Docusate Sodium 100 mg 02/25/23 21:00 02/27/23 20:46 Docusate Sodium 100 Mg Capsule PO 100 mg BEDTIME CHAD Administration Empagliflozin 10 mg 02/26/23 09:00 02/28/23 10:32 Empagliflozin 10 Mg Tablet PO 10 mg DAILY CHAD Administration Furosemide 40 mg 02/25/23 14:33 02/25/23 14:51 Furosemide 40 Mg/4 Ml Vial IVPUSH 02/25/23 14:34 40 mg STAT STA Administration Protocol Furosemide 40 mg 02/25/23 18:00 02/28/23 12:10 Furosemide 40 Mg/4 Ml Vial IVPUSH Not Given BID@0900,1800 [facility] Protocol Hydralazine HCl 50 mg 02/25/23 17:00 02/28/23 10:31 Hydralazine Hcl 50 Mg Tablet PO 50 mg TID CHAD Administration Protocol Insulin Human Lispro 0 unit 02/26/23 16:30 02/28/23 12:13 Insulin Lispro 100 Unit/Ml 3 Ml Vial SUBCUT 2 unit QIDACHS CHAD Administration Protocol Lidocaine 1 patch 02/28/23 10:41 02/28/23 12:19 Lidocaine 4 % Patch Adh..Patch TRANSDERMA 02/28/23 10:42 1 patch ONCE ONE Administration Protocol Magnesium Hydroxide 30 ml 02/27/23 14:51 02/27/23 15:27 Milk Of Magnesia 30 Ml Oral.Susp PO 02/27/23 14:52 30 ml ONCE ONE Administration Metoprolol Succinate 200 mg 02/25/23 21:00 02/27/23 20:45 Metoprolol Succinate Er 100 Mg Tab.Er.24h PO 200 mg BEDTIME CHAD Administration Protocol Polyethylene Glycol 17 gm 02/26/23 09:00 02/27/23 09:38 Polyethylene Glycol 3350 17 Gm Powd.Pack PO 17 gm DAILY CHAD Administration Polyethylene Glycol 17 gm 02/27/23 15:00 02/28/23 10:29 Polyethylene Glycol 3350 17 Gm Powd.Pack PO Not Given DAILY CHAD Sodium Chloride 3 ml 02/25/23 16:00 02/28/23 10:32 0.9 % Sodium Chloride Flush 3 Ml Syringe IVFLUSH 3 ml QSHIFT CHAD Administration Spironolactone 25 mg 02/28/23 09:00 02/28/23 10:32 Spironolactone 25 Mg Tablet PO 25 mg DAILY CHAD Administration Protocol <Rohini Marsh NP - Last Filed: 02/25/23 16:12> Medical Decision Making Medical Decision Making MDM Narrative: 67-year-old female with multiple medical problems who presents with acute on chronic shortness of breath since Saturday now with shortness of breath at rest and orthopnea with weight gain and leg swelling bilaterally with no known history of congestive heart failure. On exam patient has crackles, tachypnea, bilateral lower leg swelling, JVD. Patient will need EKG, labs, chest x-ray, COVID screen <Rohini Marsh NP - Last Filed: 02/25/23 16:12> Differential Diagnosis Differential Diagnoses: The differential diagnosis associated with the presentation includes < JABARI Gutiérrez Last Filed: 02/25/23 16:12> Low concern for PE as patient is anticoagulated on Eliquis and compliant with medication Congestive heart failure ACS <Rohini Marsh NP - Last Filed: 02/25/23 16:12> Consult Healthcare Provider Management of the patient was discussed with: Hospitalist <Rohini Marsh NP - Last Filed: 02/25/23 16:12> I spoke with Tania MELTON who accepted admission for diuresis, further management <Rohini Marsh NP - Last Filed: 02/25/23 16:12> Lab Data MDM Lab Attestation statement: I reviewed the patient's lab results. <Rohini Marsh NP - Last Filed: 02/25/23 16:12> Result Diagrams: 02/25/23 11:53 02/25/23 11:53 <Phuc Camarillo PA - Last Filed: 03/04/23 09:22> Labs: Lab Results 02/25/23 02/25/23 02/25/23 Range/Units 11:53 11:53 11:53 WBC 7.9 (4.8-10.8) X10*3/uL RBC 3.97 L (4.20-5.50) X10*6/uL Hgb 11.9 L (12.0-16.0) g/dl Hct 37.3 (37.0-47.0) % MCV 94.0 (80.0-98.0) fL MCH 30.0 (27.0-33.0) pg MCHC 31.9 (31.0-35.0) g/dl RDW 16.0 (11.0-16.0) % Plt Count 227 (160-400) X10*3/uL MPV 11.2 (9.4-12.3) fL Immature Gran % (Auto) 0.1 (0.0-0.4) % Neut % (Auto) 64.4 (45-73) % Lymph % (Auto) 23.7 (20-40) % [place] % (Auto) 7.8 (2-11) % Eos % (Auto) 3.4 (0-4) % Baso % (Auto) 0.6 (0-2) % Lymph # (Auto) 1.9 (1.2-4.9) X10*3/uL [place] # (Auto) 0.6 (0.1-1.2) X10*3/uL Eos # (Auto) 0.3 (0.0-0.4) X10*3/uL Baso # (Auto) 0.1 (0.0-0.2) X10*3/uL Abs Immat Gran (auto) 0.01 (0.00-0.03) X10*3/uL Absolute Neuts (auto) 5.1 (2.0-8.3) x10*3/uL Absolute Nucleated RBC 0.000 (0.0-0.012) X10*3/uL Nucleated RBC % (auto) 0.0 (0.0-0.2) /100WBC PT 17.0 H (10.0-13.1) SEC INR 1.5 H (0.9-1.1) APTT 34.0 (26.0-36.4) SEC Sodium 146 H (135-145) mmol/L Potassium 4.7 (3.3-5.1) mmol/L Chloride 115 H (96-108) mmol/L Carbon Dioxide 25 (22-29) mmol/L Anion Gap 11 L (12-20) BUN 24 H (9-16) mg/dL Creatinine 1.77 H (0.5-1.4) mg/dL Estim Creat Clear Calc 34.6 Estimated GFR 29 Random Glucose 149 H (60-115) mg/dL Calcium 9.4 (8.4-10.2) mg/dL Total Bilirubin 0.5 (0.0-1.0) mg/dL AST 29 (5-31) U/L ALT 27 (0-31) U/L Alkaline Phosphatase 77 (39-117) U/L Troponin I High Sens (<3.5-17.0) ng/L B-Natriuretic Peptide (<100) pg/mL Total Protein 6.3 L (6.5-8.0) g/dL Albumin 3.8 (3.5-5.0) g/dL Influenza Type A (PCR) (Negative) Influenza Type B (PCR) (Negative) RSV RNA Qual (PCR) (Negative) SARS-CoV-2 RNA (RT-PCR) (Negative) 02/25/23 02/25/23 02/25/23 Range/Units 11:53 11:53 11:53 WBC (4.8-10.8) X10*3/uL RBC (4.20-5.50) X10*6/uL Hgb (12.0-16.0) g/dl Hct (37.0-47.0) % MCV (80.0-98.0) fL MCH (27.0-33.0) pg MCHC (31.0-35.0) g/dl RDW (11.0-16.0) % Plt Count (160-400) X10*3/uL MPV (9.4-12.3) fL Immature Gran % (Auto) (0.0-0.4) % Neut % (Auto) (45-73) % Lymph % (Auto) (20-40) % [place] % (Auto) (2-11) % Eos % (Auto) (0-4) % Baso % (Auto) (0-2) % Lymph # (Auto) (1.2-4.9) X10*3/uL [place] # (Auto) (0.1-1.2) X10*3/uL Eos # (Auto) (0.0-0.4) X10*3/uL Baso # (Auto) (0.0-0.2) X10*3/uL Abs Immat Gran (auto) (0.00-0.03) X10*3/uL Absolute Neuts (auto) (2.0-8.3) x10*3/uL Absolute Nucleated RBC (0.0-0.012) X10*3/uL Nucleated RBC % (auto) (0.0-0.2) /100WBC PT (10.0-13.1) SEC INR (0.9-1.1) APTT (26.0-36.4) SEC Sodium (135-145) mmol/L Potassium (3.3-5.1) mmol/L Chloride (96-108) mmol/L Carbon Dioxide (22-29) mmol/L Anion Gap (12-20) BUN (9-16) mg/dL Creatinine (0.5-1.4) mg/dL Estim Creat Clear Calc Estimated GFR Random Glucose (60-115) mg/dL Calcium (8.4-10.2) mg/dL Total Bilirubin (0.0-1.0) mg/dL AST (5-31) U/L ALT (0-31) U/L Alkaline Phosphatase (39-117) U/L Troponin I High Sens 26.9 H (<3.5-17.0) ng/L B-Natriuretic Peptide 1498 H (<100) pg/mL Total Protein (6.5-8.0) g/dL Albumin (3.5-5.0) g/dL Influenza Type A (PCR) NEGATIVE (Negative) Influenza Type B (PCR) NEGATIVE (Negative) RSV RNA Qual (PCR) NEGATIVE (Negative) SARS-CoV-2 RNA (RT-PCR) NEGATIVE (Negative) <CHHAYA Winters - Last Filed: 03/04/23 09:22> Lab Results 02/25/23 02/25/23 02/25/23 Range/Units 11:53 11:53 11:53 WBC 7.9 (4.8-10.8) X10*3/uL RBC 3.97 L (4.20-5.50) X10*6/uL Hgb 11.9 L (12.0-16.0) g/dl Hct 37.3 (37.0-47.0) % MCV 94.0 (80.0-98.0) fL MCH 30.0 (27.0-33.0) pg MCHC 31.9 (31.0-35.0) g/dl RDW 16.0 (11.0-16.0) % Plt Count 227 (160-400) X10*3/uL MPV 11.2 (9.4-12.3) fL Immature Gran % (Auto) 0.1 (0.0-0.4) % Neut % (Auto) 64.4 (45-73) % Lymph % (Auto) 23.7 (20-40) % [place] % (Auto) 7.8 (2-11) % Eos % (Auto) 3.4 (0-4) % Baso % (Auto) 0.6 (0-2) % Lymph # (Auto) 1.9 (1.2-4.9) X10*3/uL [place] # (Auto) 0.6 (0.1-1.2) X10*3/uL Eos # (Auto) 0.3 (0.0-0.4) X10*3/uL Baso # (Auto) 0.1 (0.0-0.2) X10*3/uL Abs Immat Gran (auto) 0.01 (0.00-0.03) X10*3/uL Absolute Neuts (auto) 5.1 (2.0-8.3) x10*3/uL Absolute Nucleated RBC 0.000 (0.0-0.012) X10*3/uL Nucleated RBC % (auto) 0.0 (0.0-0.2) /100WBC PT 17.0 H (10.0-13.1) SEC INR 1.5 H (0.9-1.1) APTT 34.0 (26.0-36.4) SEC Sodium 146 H (135-145) mmol/L Potassium 4.7 (3.3-5.1) mmol/L Chloride 115 H (96-108) mmol/L Carbon Dioxide 25 (22-29) mmol/L Anion Gap 11 L (12-20) BUN 24 H (9-16) mg/dL Creatinine 1.77 H (0.5-1.4) mg/dL Estim Creat Clear Calc 34.6 Estimated GFR 29 Random Glucose 149 H (60-115) mg/dL Calcium 9.4 (8.4-10.2) mg/dL Total Bilirubin 0.5 (0.0-1.0) mg/dL AST 29 (5-31) U/L ALT 27 (0-31) U/L Alkaline Phosphatase 77 (39-117) U/L Troponin I High Sens (<3.5-17.0) ng/L B-Natriuretic Peptide (<100) pg/mL Total Protein 6.3 L (6.5-8.0) g/dL Albumin 3.8 (3.5-5.0) g/dL Influenza Type A (PCR) (Negative) Influenza Type B (PCR) (Negative) RSV RNA Qual (PCR) (Negative) SARS-CoV-2 RNA (RT-PCR) (Negative) 02/25/23 02/25/23 02/25/23 Range/Units 11:53 11:53 11:53 WBC (4.8-10.8) X10*3/uL RBC (4.20-5.50) X10*6/uL Hgb (12.0-16.0) g/dl Hct (37.0-47.0) % MCV (80.0-98.0) fL MCH (27.0-33.0) pg MCHC (31.0-35.0) g/dl RDW (11.0-16.0) % Plt Count (160-400) X10*3/uL MPV (9.4-12.3) fL Immature Gran % (Auto) (0.0-0.4) % Neut % (Auto) (45-73) % Lymph % (Auto) (20-40) % [place] % (Auto) (2-11) % Eos % (Auto) (0-4) % Baso % (Auto) (0-2) % Lymph # (Auto) (1.2-4.9) X10*3/uL [place] # (Auto) (0.1-1.2) X10*3/uL Eos # (Auto) (0.0-0.4) X10*3/uL Baso # (Auto) (0.0-0.2) X10*3/uL Abs Immat Gran (auto) (0.00-0.03) X10*3/uL Absolute Neuts (auto) (2.0-8.3) x10*3/uL Absolute Nucleated RBC (0.0-0.012) X10*3/uL Nucleated RBC % (auto) (0.0-0.2) /100WBC PT (10.0-13.1) SEC INR (0.9-1.1) APTT (26.0-36.4) SEC Sodium (135-145) mmol/L Potassium (3.3-5.1) mmol/L Chloride (96-108) mmol/L Carbon Dioxide (22-29) mmol/L Anion Gap (12-20) BUN (9-16) mg/dL Creatinine (0.5-1.4) mg/dL Estim Creat Clear Calc Estimated GFR Random Glucose (60-115) mg/dL Calcium (8.4-10.2) mg/dL Total Bilirubin (0.0-1.0) mg/dL AST (5-31) U/L ALT (0-31) U/L Alkaline Phosphatase (39-117) U/L Troponin I High Sens 26.9 H (<3.5-17.0) ng/L B-Natriuretic Peptide 1498 H (<100) pg/mL Total Protein (6.5-8.0) g/dL Albumin (3.5-5.0) g/dL Influenza Type A (PCR) NEGATIVE (Negative) Influenza Type B (PCR) NEGATIVE (Negative) RSV RNA Qual (PCR) NEGATIVE (Negative) SARS-CoV-2 RNA (RT-PCR) NEGATIVE (Negative) <Rohini Marsh NP - Last Filed: 02/25/23 16:12> Independent Interpretation I performed an independent interpretation of an: EKG and Plain X-Ray <Rohini Marsh NP - Last Filed: 02/25/23 16:12> Interpretation: I indepedentely reviewed the EKG which shows AFib with a rate of 60, normal QRS, normal QT I independently reviewed the chest x-ray and agree with radiologist's report of congestive heart failure <Rohini Marsh NP - Last Filed: 02/25/23 16:12> Radiology Impression Discussion of test interpretation with radiology: I have reviewed the radiologist's reading. <Rohini Marsh NP - Last Filed: 02/25/23 16:12> Discharge Plan Discharge Clinical Impression: Acute on chronic kidney failure, CHF (congestive heart failure) <CHHAYA Winters - Last Filed: 03/04/23 09:22> Patient Disposition: Admitted As Inpatient <CHHAYA Winters - Last Filed: 03/04/23 09:22> Interventions: Admission Worksheet (ED) Last Done: 02/25/23 16:16 <CHHAYA Winters - Last Filed: 03/04/23 09:22> Discharge Date/Time: 02/25/23 16:17 <CHHAYA Winters - Last Filed: 03/04/23 09:22>
[2023-02-25 11:57] LABS: MANUAL DIFF FLAG NO
[2023-02-25 11:59] LABS: Basophils Absolute Auto 0.1 X10*3/uL (0.0-0.2); Basophils Percent Auto 0.6 % (0-2); Eosinophils Absolute Auto 0.3 X10*3/uL (0.0-0.4); Eosinophils Percent Auto 3.4 % (0-4); Hematocrit 37.3 % (37.0-47.0); Hemoglobin 11.9 g/dl (12.0-16.0); Imm Gran Abs Auto 0.01 X10*3/uL (0.00-0.03); Imm Gran Pct Auto 0.1 % (0.0-0.4); Lymphocytes Absolute Auto 1.9 X10*3/uL (1.2-4.9); Lymphocytes Percent Auto 23.7 % (20-40); Mean Corpuscular HGB Conc 31.9 g/dl (31.0-35.0); Mean Platelet Volume 11.2 fL (9.4-12.3); Monocytes Absolute Auto 0.6 X10*3/uL (0.1-1.2); Monocytes Percent Auto 7.8 % (2-11); Neutrophils Absolute Auto 5.1 x10*3/uL (2.0-8.3); Neutrophils Percent Auto 64.4 % (45-73); Platelet Count 227 X10*3/uL (160-400); Red Blood Count 3.97 X10*6/uL (4.20-5.50); White Blood Count 7.9 X10*3/uL (4.8-10.8)
[2023-02-25 12:05] LABS: INTERNATIONAL NORM RATIO 1.5 (0.9-1.1)
[2023-02-25 12:13] LABS: Alanine Aminotransferase 27 U/L (0-31); Albumin Level 3.8 g/dL (3.5-5.0); Alkaline Phosphatase 77 U/L (39-117); Anion Gap 11 (12-20); Aspartate Amino Transferase 29 U/L (5-31); Bilirubin Total 0.5 mg/dL (0.0-1.0); Blood Urea Nitrogen 24 mg/dL (9-16); Calcium 9.4 mg/dL (8.4-10.2); Carbon Dioxide 25 mmol/L (22-29); Chloride 115 mmol/L (96-108); Creatinine Clr Calc Pharmacy 34.6; Estimated Glomerular Filt Rate 29; Glucose Random 149 mg/dL (60-115); Potassium 4.7 mmol/L (3.3-5.1); Sodium 146 mmol/L (135-145); Total Protein 6.3 g/dL (6.5-8.0)
[2023-02-25 12:19] LABS: B Type Natriuretic Peptide 1498 pg/mL (<100); Troponin-I High Sensitivity 26.9 ng/L (<3.5-17.0)
[2023-02-25 12:46] LABS: Influenza A PCR NEGATIVE (Negative); Influenza B PCR NEGATIVE (Negative); Resp Syncy Virus RNA Qual PCR NEGATIVE (Negative); SARS COV2 PCR INHOUSE NEGATIVE (Negative)
[2023-02-25 14:21] VITALS: BP 164/106; PULSE 77; RESP 42; O2SAT 92
--- NOTE | 2023-02-25 14:49 | PM.IMHP ---
History of Present Illness Date of Service: 02/25/23 Chief Complaint: SOB 67-year-old presenting to the ER with complaints intermittent shortness of breath over the last 6 months mostly with exertion and ambulation. No other symptoms other than that. She reported worsening dyspnea since Saturday, now with orthopnea. She did report some weight gain and increasing lower extremity edema. She denied chest pain, nausea, vomiting, diarrhea, fever, chills, sick contact, recent travel. In the ED, Sodium 146, BNP 1498, troponin 26.[address] wave abnormalities. Chest x-ray showing enlarged cardiac silhouette with pulmonary venous redistribution and right pleural effusion suggestive of congestive heart failure. Mild elevation in blood pressure. She was given IV Lasix in the ER. She will be on further management and treatment of acute congestive heart failure. Review of Systems Review of Systems: Denies any recent fever chills or decrease in appetite respiratory See HPI cardiovascular denied chest pain gastrointestinal denies any dysphagia abdominal pain nausea vomiting or diarrhea genitourinary denies any dysuria frequency or hematuria musculoskeletal denies any joint pain or swelling neuropsych denies any weakness or seizures all other systems reviewed are negative [facility] [place] Medical History (Updated 02/25/23 @ 14:58 by Tania Lundberg NP) ASB (asymptomatic bacteriuria) Atrial fibrillation CKD (chronic kidney disease) stage 3, GFR 30-59 ml/min Diabetes Diastolic dysfunction Dysplastic nevus Endometrial ca GERD (gastroesophageal reflux disease) Hip pain, bilateral History of uterine cancer Hyperlipidemia Hypertension Lumbar and sacral spondyloarthritis Morbid obesity SUE on CPAP Palpitations Sacroiliitis Family History Father No problems noted. Mother HTN (hypertension) Diabetes mellitus Breast cancer Surgical History H/O colonoscopy History of total abdominal hysterectomy and bilateral salpingo-oophorectomy S/P MARGARITA (total abdominal hysterectomy) Social History Household Members: Spouse Housing: House Are you a primary day care home provider to a significant other at home: No Do you presently have visiting nurse or other home services: No Alcohol intake: current Alcohol intake frequency: holidays/special occasions only Patient Tobacco Use Status: Never used Tobacco Smoked in Last 30 Days: No e-Cigarette/Vaping Use: Never Used Use of substances other than those prescribed or required for medical reasons: No Have you been hit, kicked, punched, or otherwise hurt by someone within the past year? If so, by whom?: No Do you feel safe in your current relationship?: Yes Is there a partner from a previous relationship who is making you feel unsafe now?: No Are you made to feel afraid or neglected: No Advance Directives: Yes Advance Directives on File: Yes Advance Directives Date on File: 02/12/23 Do you have thoughts of harming others: None Do you have a plan to hurt others: No Plan Recently lost weight without trying: No Nutrition Risks: No Nutritional Risk Patient : No : No Poor oral hygiene: No service: No Current occupational status: retired Current occupation: rt handed Cognitive needs: No Hearing needs: No Vision needs: No Meds Allergies Allergy/AdvReac Type Severity Reaction Status Date / Time No Known Allergies Allergy Verified 02/07/23 14:47 Active Medications: Current Medications Pharmacy Consult (Consult Rx Perform Med Rec) 1 each MISCELLANE ONCE PRN PRN Reason: Consult order Home Medications Medication Instructions Recorded Confirmed Last Taken Type metformin 500 mg tablet 500 mg PO BIDWM 01/16/23 02/25/23 02/24/23 History diltiazem HCl 360 mg capsule,24 360 mg PO BEDTIME 02/07/23 02/25/23 02/24/23 History hr,extended release (Tiadylt ER) metoprolol succinate 200 mg 200 mg PO BEDTIME 02/07/23 02/25/23 02/24/23 History tablet,extended release 24 hr rosuvastatin 40 mg tablet 40 mg PO BEDTIME 02/07/23 02/25/23 02/24/23 History polyethylene glycol 3350 17 17 g PO DAILY 02/25/23 02/25/23 02/24/23 History gram/dose oral powder (Gavilax) Physical Exam Vital Signs and Narrative: Vital Signs: Last Vital Signs Temp 98.0 F 02/25/23 11:16 Pulse 77 02/25/23 14:21 Resp 42 H 02/25/23 14:21 BP 164/106 H 02/25/23 14:21 Pulse Ox 92 02/25/23 14:21 O2 Del Method Room Air 02/25/23 14:21 BMI result Body Mass Index 36.2 Appearing in no acute distress head is normocephalic atraumatic eyes pupils are PERRLA sclera is anicteric mouth throat mucous membranes are intact and moist neck is supple no lymphadenopathy, no JVD noted lung sounds are clear to auscultation heart IRIR positive bowel sounds, abdomen is soft, nontender neuro patient is alert x3, no focal deficits Results Labs 02/25/23 11:53 02/25/23 11:53 Labs: Laboratory Results - last 24 hr 02/25/23 02/25/23 02/25/23 11:53 11:53 11:53 MCV 94.0 MCH 30.0 MCHC 31.9 RDW 16.0 Plt Count 227 MPV 11.2 Immature Gran % (Auto) 0.1 Neut % (Auto) 64.4 Lymph % (Auto) 23.7 Antelope % (Auto) 7.8 Eos % (Auto) 3.4 Baso % (Auto) 0.6 Lymph # (Auto) 1.9 Antelope # (Auto) 0.6 Eos # (Auto) 0.3 Baso # (Auto) 0.1 Abs Immat Gran (auto) 0.01 Absolute Neuts (auto) 5.1 Absolute Nucleated RBC 0.000 Nucleated RBC % (auto) 0.0 PT 17.0 H INR 1.5 H APTT 34.0 Anion Gap 11 L Estim Creat Clear Calc 34.6 Estimated GFR 29 Random Glucose 149 H Calcium 9.4 Total Bilirubin 0.5 AST 29 ALT 27 Alkaline Phosphatase 77 Troponin I High Sens B-Natriuretic Peptide Total Protein 6.3 L Albumin 3.8 Influenza Type A (PCR) Influenza Type B (PCR) RSV RNA Qual (PCR) SARS-CoV-2 RNA (RT-PCR) 02/25/23 02/25/23 02/25/23 11:53 11:53 11:53 MCV MCH MCHC RDW Plt Count MPV Immature Gran % (Auto) Neut % (Auto) Lymph % (Auto) Antelope % (Auto) Eos % (Auto) Baso % (Auto) Lymph # (Auto) Antelope # (Auto) Eos # (Auto) Baso # (Auto) Abs Immat Gran (auto) Absolute Neuts (auto) Absolute Nucleated RBC Nucleated RBC % (auto) PT INR APTT Anion Gap Estim Creat Clear Calc Estimated GFR Random Glucose Calcium Total Bilirubin AST ALT Alkaline Phosphatase Troponin I High Sens 26.9 H B-Natriuretic Peptide 1498 H Total Protein Albumin Influenza Type A (PCR) NEGATIVE Influenza Type B (PCR) NEGATIVE RSV RNA Qual (PCR) NEGATIVE SARS-CoV-2 RNA (RT-PCR) NEGATIVE Imaging Radiologist's Impressions: Impressions Chest X-Ray 02/25/23 11:30 IMPRESSION: Enlarged cardiac silhouette, pulmonary venous redistribution and right pleural effusion. Findings are suggestive of CHF. Assessment and Plan (1) Acute on chronic kidney failure: Status: Acute 67 year old women admitted with acute CHF worsening over the last 2 days but present with sob for over 6 months. Acute CHF, unspecified BNP 1498 IV lasix BID cardiology consult echocardiogram daily weights, intake and output Hypernatremia mild secondary to fluid overload diurese ABDOULAYE on CKD 4 Secondary to fluid overload diurese diabetes 2 ss, ada diet Afib On eliquis, digoxin, diltiazem, metoprolol Hypertension elevated bp continue home medications DVT prophylaxis with Sofíaquraquel Attending Dr. Healy full code Patient required 2 inpatient midnights for treatment of acute congestive heart failure requiring IV diuretics and Cardiology follow-up Time Spent With Patient Time: Total time managing care of this patient today ____ minutes. Quality Stroke Does the patient have a stroke diagnosis?: No VTE Prior VTE?: No VTE Risk Level:: Medical - moderate - high VTE Device Contraindication: Treatment Not Indicated VTE Drug Contraindication: N/A - Med Ordered
[2023-02-25] MEDS: Furosemide 40 MG/4 ML VIAL IVPUSH ×2 (14:51→18:21)
--- NOTE | 2023-02-25 14:58 | PHA.MEDREC ---
Pharmacy Consult ? Medication Reconciliation Pharmacy has completed the medication reconciliation. Med rec complete using list provided by patient. Spoke to patient to confirm medications and verified against claim history.
[2023-02-25 15:29] VITALS: BP 171/91; PULSE 94; RESP 40; O2SAT 92
[2023-02-25 16:28] VITALS: BMI 37.8
[2023-02-25] MEDS: 0.9 % Sodium Chloride Flush 3 ML SYRINGE IVFLUSH ×2 (16:33→21:34)
[2023-02-25 16:59] LABS: Glucose, Whole Blood 119 mg/dL (60-115)
[2023-02-25] MEDS: hydrALAZINE HCl 50 MG TABLET PO ×2 (18:21→21:33)
[2023-02-25 20:00] VITALS: BP 155/98; PULSE 100; RESP 20; TEMP 36.9; O2SAT 92
[2023-02-25 20:54] LABS: Glucose, Whole Blood 154 mg/dL (60-115)
[2023-02-25] MEDS: Metoprolol Succinate ER 100 MG TAB.ER.24H 200 MG PO (21:32)
[2023-02-25] MEDS: Apixaban 5 MG TABLET PO (21:33)
[2023-02-25] MEDS: Docusate Sodium 100 MG CAPSULE PO (21:33)
[2023-02-25] MEDS: Atorvastatin Calcium 80 MG TABLET PO (21:33)
[2023-02-25 23:58] VITALS: BP 145/81; PULSE 96; RESP 20; TEMP 36.1; O2SAT 91
[2023-02-26 03:30] VITALS: BP 137/86; PULSE 98; RESP 20; TEMP 36.6; O2SAT 91
--- NOTE | 2023-02-26 07:00 | CA_ITS ---
Transthoracic Echocardiogram Patient (Last, First, Middle): Blaire Murray, Gender: Female Date of : 1955 Age: 67 Procedure Date: 02/26/2023 Procedure Type: Transthoracic Echocardiogram Location: [facility] – [place] Height: 162.56 cm Weight: 95.71 kg BSA: 2.00 m2 Heart Rate: bpm BP: 171 / 91 mmHg [employer]or: EPI Referring MD: Tania Lundberg NP Research Assistant Professor: Brandon Dowell MD Symptoms: chf Study Quality: Fair ECG Rhythm: Atrial Fibrillation Conclusions: - 1. Normal LV systolic function with mild LVH with possible restrictive filling pattern 2. Severe biatrial enlargement 3. Moderately dilated right ventricle with reduced systolic function 4. Moderate to severe tricuspid regurgitation 5. Severely elevated right ventricular systolic pressure and significant elevated right atrial pressures 6. No gross pericardial effusion Findings Left Ventricle Normal left ventricular size and systolic function. There is mildly increased left ventricular wall thickness. The visually estimated ejection fraction is between 55-60%. There is a flattened septum in systole consistent with right ventricular pressure overload. Spectral Doppler is indicative of a restrictive filling pattern. Right Ventricle Moderately increased right ventricular cavity size. There is mildly decreased right ventricular systolic function. Atria The left atrium is severely dilated. There is no evidence of interatrial shunt. The right atrium is severely dilated. Aortic Valve Normal aortic valve structure and function. There is no aortic valve stenosis. There is no aortic valve regurgitation. Mitral Valve There is mild anterior and posterior mitral leaflet thickening. There is trace mitral valve regurgitation. There is no mitral valve stenosis. Pulmonic Valve The pulmonic valve is likely normal. There is mild to moderate pulmonic valve regurgitation. Tricuspid Valve Normal tricuspid valve structure. There is moderate to severe tricuspid valve regurgitation. Significantly elevated right atrial pressure. Severe pulmonary hypertension is present. Great Vessels All visible segments of the aorta are normal in size. The pulmonary artery was not well visualized. Venous The inferior vena cava is moderately dilated and does not collapse with inspiration. Pericardium/Pleural There is no evidence of pericardial effusion. Prior Study Comparison Changes noted compared to prior study dated: 12/27/2020. tricuspid regurgitation worse with significantly elevated right ventricular systolic pressure Measurements 2D Linear Measurements IVSd: 1.27 0.6-0.9/0.6-1.0 cm LVIDd: 4.27 3.9-5.3/4.2-5.9 cm LVIDd Index: 2.14 2.4-3.2/2.2-3.1 cm/m2 LVIDs: 2.67 2.0-3.6 cm LVPWd: 1.25 0.7-1.1 cm Ao Root: 2.80 2.1-3.5 cm LA Diam: 5.20 2.7-3.8/3.0-4.0 cm LAIDs Index: 2.60 1.5-2.3 cm/m2 LV Mass: 244.60 67-162/88-224 g LV Mass Index: 122.30 43-95/49-115 g/m2 LVOT Diam: 2.00 3.0+(-)1.3 cm Mitral Valve MV Pk E: 1.20 MV Decel Time: 189.00 E'Lateral: 10.20 E'Medial: 6.64 E/E' Med: 18.10 E/E' Lat: 11.80 PHT: 55.00 MVA PHT: 4.00 Decel [place]: 6.38 Aortic Valve AoV Pk Grayson: 1.46 AoV Mn Grayson: 0.83 AoV VTI: 0.24 AoV Pk Grad: 9.00 Aov Mn Grad: 4.00 ROSANNE Cont.VTI: 1.91 LVOT LVOT Pk Grayson: 0.83 LVOT Mn Grayson: 0.49 LVOT VTI: 0.15 LVOT Pk Grad: 3.00 LVOT Mn Grad: 1.00 LVOT Diam: 2.00 LVOT Area: 3.14 Diastolic Function MV Pk E: 1.20 E'Medial: 6.64 E/E' Med: 18.10 E' Laterial: 10.20 E/E' Lat: 11.80 Right Ventricle TAPSE (mm): 20.00 TVS' Grayson: 9.00 Tricuspid Valve TR Pk Grayson: 4.64 TR Pk Grad: 86.00 RA Press: 15.00 RVSP: 101.00 Great Vessels Aorta Ao Root-2D: 2.80 2.0-3.7 cm Ao Asc: 2.70 2.1-3.4 cm Pulmonary Valve PV Pk Grayson: 1.03 Peak PV Grad: 4.00 Updated in Other Vendor System with Status of Final Brandon Dowell MD electronically signed on 02/26/2023 11:51:28 AM with status of Final
[2023-02-26 07:24] LABS: Alanine Aminotransferase 24 U/L (0-31); Albumin Level 3.6 g/dL (3.5-5.0); Alkaline Phosphatase 73 U/L (39-117); Anion Gap 13 (12-20); Aspartate Amino Transferase 26 U/L (5-31); Bilirubin Total 0.4 mg/dL (0.0-1.0); Blood Urea Nitrogen 24 mg/dL (9-16); Calcium 9.1 mg/dL (8.4-10.2); Carbon Dioxide 25 mmol/L (22-29); Chloride 110 mmol/L (96-108); Estimated Glomerular Filt Rate 33; Glucose Random 118 mg/dL (60-115); Potassium 3.8 mmol/L (3.3-5.1); Sodium 144 mmol/L (135-145); Total Protein 5.8 g/dL (6.5-8.0)
[2023-02-26 08:00] VITALS: BP 125/75; PULSE 90; RESP 18; TEMP 36.6; O2SAT 94
--- NOTE | 2023-02-26 09:51 | MHC.CM.PN ---
IMM given 02/26/23. Pt admitted with dx CHF. D/C plan to return home self care once medically cleared. Pt independent, lives with /HCP Luis who will transport. PCP: Marisela Oscar Vax: x 3 PfizerCedric Moderna
[2023-02-26] MEDS: Digoxin 0.125 MG TABLET PO (09:58)
[2023-02-26] MEDS: polyethylene glycoL 3350 17 GM POWD.PACK PO (09:58)
[2023-02-26] MEDS: hydrALAZINE HCl 50 MG TABLET PO ×3 (09:58→20:44)
[2023-02-26] MEDS: Empagliflozin 10 MG TABLET PO (09:58)
[2023-02-26] MEDS: Furosemide 40 MG/4 ML VIAL IVPUSH ×2 (09:59→17:21)
[2023-02-26] MEDS: Apixaban 5 MG TABLET PO ×2 (09:59→20:43)
[2023-02-26] MEDS: 0.9 % Sodium Chloride Flush 3 ML SYRINGE IVFLUSH ×3 (09:59→20:45)
--- NOTE | 2023-02-26 10:49 | HO.PM.IMPN ---
Subjective Subjective Date of Service: 02/26/23 Review of Systems Follow up CHF still with some mild sob especially with ambulation no chest pain ambulating in room Physical Exam Vital Signs: Vital Signs: Last Vital Signs Temp 97.8 F 02/26/23 08:00 Pulse 90 02/26/23 08:00 Resp 18 02/26/23 08:00 BP 125/75 02/26/23 08:00 Pulse Ox 94 02/26/23 08:00 O2 Del Method Room Air 02/26/23 08:00 BMI result Body Mass Index 37.8 Appearing in no acute distress lung sounds are clear to auscultation heart regular rate rhythm, clear S1, S2 positive bowel sounds, abdomen is soft, nontender neuro patient is alert x3, no focal deficits Objective Data Active Medications Acetaminophen (Acetaminophen 325 Mg Tablet) 650 mg PO Q6H PRN PRN Reason: Pain, Mild (Pain Scale 1-3) Apixaban (Apixaban 5 Mg Tablet) 5 mg PO BID [facility] Last Admin: 02/26/23 09:59 Dose: 5 mg Documented By: LORI Atorvastatin Calcium (Atorvastatin Calcium 80 Mg Tablet) 80 mg PO BEDTIME [facility] Last Admin: 02/25/23 21:33 Dose: 80 mg Documented By: ANNIE Digoxin (Digoxin 0.125 Mg Tablet) 0.125 mg PO Q48H [facility] Last Admin: 02/26/23 09:58 Dose: 0.125 mg Documented By: LORI Diltiazem HCl (Diltiazem Hcl Cd 180 Mg Cap.Er.24h) 360 mg PO BEDTIME [facility]; Protocol Docusate Sodium (Docusate Sodium 100 Mg Capsule) 100 mg PO BEDTIME [facility] Last Admin: 02/25/23 21:33 Dose: 100 mg Documented By: ANNIE Empagliflozin (Empagliflozin 10 Mg Tablet) 10 mg PO DAILY [facility] Last Admin: 02/26/23 09:58 Dose: 10 mg Documented By: LORI Furosemide (Furosemide 40 Mg/4 Ml Vial) 40 mg IVPUSH BID@0900,1800 [facility]; Protocol Last Admin: 02/26/23 09:59 Dose: 40 mg Documented By: LORI Hydralazine HCl (Hydralazine Hcl 50 Mg Tablet) 50 mg PO TID [facility]; Protocol Last Admin: 02/26/23 09:58 Dose: 50 mg Documented By: LORI Lisinopril (Lisinopril 40 Mg Tablet) 40 mg PO DAILY [facility]; Protocol Metoprolol Succinate (Metoprolol Succinate Er 100 Mg Tab.Er.24h) 200 mg PO BEDTIME [facility]; Protocol Last Admin: 02/25/23 21:32 Dose: 200 mg Documented By: ANNIE Ondansetron HCl (Ondansetron Hcl 4 Mg/2 Ml Vial) 4 mg IVPUSH Q8H PRN PRN Reason: Nausea and Vomiting Pharmacy Consult (Consult Rx Perform Med Rec) 1 each MISCELLANE ONCE PRN PRN Reason: Consult order Polyethylene Glycol (Polyethylene Glycol 3350 17 Gm Powd.Pack) 17 gm PO DAILY [facility] Last Admin: 02/26/23 09:58 Dose: 17 gm Documented By: LORI Sodium Chloride (0.9 % Sodium Chloride Flush 3 Ml Syringe) 3 ml IVFLUSH QSHIFT [facility] Last Admin: 02/26/23 09:59 Dose: 3 ml Documented By: LORI Labs 02/25/23 11:53 02/26/23 06:34 Labs: Laboratory Results - last 24 hr 02/25/23 02/25/23 02/25/23 11:53 11:53 11:53 MCV 94.0 MCH 30.0 MCHC 31.9 RDW 16.0 Plt Count 227 MPV 11.2 Immature Gran % (Auto) 0.1 Neut % (Auto) 64.4 Lymph % (Auto) 23.7 Barton % (Auto) 7.8 Eos % (Auto) 3.4 Baso % (Auto) 0.6 Lymph # (Auto) 1.9 Barton # (Auto) 0.6 Eos # (Auto) 0.3 Baso # (Auto) 0.1 Abs Immat Gran (auto) 0.01 Absolute Neuts (auto) 5.1 Absolute Nucleated RBC 0.000 Nucleated RBC % (auto) 0.0 PT 17.0 H INR 1.5 H APTT 34.0 Anion Gap 11 L Estim Creat Clear Calc 34.6 Estimated GFR 29 POC Glucose Random Glucose 149 H Calcium 9.4 Total Bilirubin 0.5 AST 29 ALT 27 Alkaline Phosphatase 77 Troponin I High Sens B-Natriuretic Peptide Total Protein 6.3 L Albumin 3.8 Influenza Type A (PCR) Influenza Type B (PCR) RSV RNA Qual (PCR) SARS-CoV-2 RNA (RT-PCR) 02/25/23 02/25/23 02/25/23 11:53 11:53 11:53 MCV MCH MCHC RDW Plt Count MPV Immature Gran % (Auto) Neut % (Auto) Lymph % (Auto) Barton % (Auto) Eos % (Auto) Baso % (Auto) Lymph # (Auto) Barton # (Auto) Eos # (Auto) Baso # (Auto) Abs Immat Gran (auto) Absolute Neuts (auto) Absolute Nucleated RBC Nucleated RBC % (auto) PT INR APTT Anion Gap Estim Creat Clear Calc Estimated GFR POC Glucose Random Glucose Calcium Total Bilirubin AST ALT Alkaline Phosphatase Troponin I High Sens 26.9 H B-Natriuretic Peptide 1498 H Total Protein Albumin Influenza Type A (PCR) NEGATIVE Influenza Type B (PCR) NEGATIVE RSV RNA Qual (PCR) NEGATIVE SARS-CoV-2 RNA (RT-PCR) NEGATIVE 02/25/23 02/25/23 02/25/23 16:42 16:52 20:04 MCV MCH MCHC RDW Plt Count MPV Immature Gran % (Auto) Neut % (Auto) Lymph % (Auto) Barton % (Auto) Eos % (Auto) Baso % (Auto) Lymph # (Auto) Barton # (Auto) Eos # (Auto) Baso # (Auto) Abs Immat Gran (auto) Absolute Neuts (auto) Absolute Nucleated RBC Nucleated RBC % (auto) PT INR APTT Anion Gap Estim Creat Clear Calc Estimated GFR POC Glucose 119 H 154 H Random Glucose Calcium Total Bilirubin AST ALT Alkaline Phosphatase Troponin I High Sens 22.0 H B-Natriuretic Peptide Total Protein Albumin Influenza Type A (PCR) Influenza Type B (PCR) RSV RNA Qual (PCR) SARS-CoV-2 RNA (RT-PCR) 02/26/23 06:34 MCV MCH MCHC RDW Plt Count MPV Immature Gran % (Auto) Neut % (Auto) Lymph % (Auto) Barton % (Auto) Eos % (Auto) Baso % (Auto) Lymph # (Auto) Barton # (Auto) Eos # (Auto) Baso # (Auto) Abs Immat Gran (auto) Absolute Neuts (auto) Absolute Nucleated RBC Nucleated RBC % (auto) PT INR APTT Anion Gap 13 Estim Creat Clear Calc 40.0 Estimated GFR 33 POC Glucose Random Glucose 118 H Calcium 9.1 Total Bilirubin 0.4 AST 26 ALT 24 Alkaline Phosphatase 73 Troponin I High Sens B-Natriuretic Peptide Total Protein 5.8 L Albumin 3.6 Influenza Type A (PCR) Influenza Type B (PCR) RSV RNA Qual (PCR) SARS-CoV-2 RNA (RT-PCR) Assessment and Plan (1) CHF exacerbation: Status: Acute Plan 67 year old women admitted with acute CHF worsening over the last 2 days but present with sob for over 6 months. Acute HFpEF BNP 1498 initially IV lasix BID, if poor response consider lasix drip cardiology following daily weights, intake and output echo>pulm htn, will need right heart cath and other medication adjustments, to be discussed with cardiology o/p. EF 55-60%, severe biatrial enlargement Hypernatremia. Resolved mild secondary to fluid overload diurese ABDOULAYE on CKD 4. Trending down Secondary to fluid overload, cardiorenal syndrome continue to diurese add aldactone when renal function improves as per cardiology diabetes 2 ss, ada diet Afib on eliquis, digoxin, diltiazem (hold for acute CHF), metoprolol Hypertension elevated bp continue home medications DVT prophylaxis with Eliquis Attending Dr. Jean-Baptiste full code Patient required 2 inpatient midnights for treatment of acute congestive heart failure requiring IV diuretics and Cardiology follow-up Time Spent With Patient Time: Total time managing care of this patient today ____ minutes. Quality Stroke Does the patient have a stroke diagnosis?: No VTE Prior VTE?: No VTE Risk Level:: Medical - moderate - high VTE Device Contraindication: Treatment Not Indicated VTE Drug Contraindication: N/A - Med Ordered
--- NOTE | 2023-02-26 11:11 | PM.CNCAR ---
History of Present Illness History of Present Illness Date of Service: 02/26/23 Requesting physician: Tania Lundberg Consult reason: congestive heart failure Chief complaint: CHF Narrative: I was consulted to see Blaire in cardiology consultation today for worsening shortness of breath and congestive heart failure. She is a 67-year-old female who was seen recently by Dr. Pacheco for perioperative cardiovascular clearance prior to colonoscopy. As per the note patient has had chronic persistent atrial fibrillation for greater than 10 years. After discussing the patient she says she is to follow with the offal trimmer in [facility] she has not seen for many years and recently was referred here for preoperative cardiovascular risk stratification. That time she was having some leg edema but no significant worsening shortness of breath. She did always have exertional shortness of breath, however the last week or so she has sudden worsening of her shortness with exertion eventually culminating in shortness of breath at rest and orthopnea. She also had leg edema and says has about 9-10 lb weight gain. She came to the hospital for the symptoms. She had a recent myocardial perfusion imaging which was within normal limits. Echocardiogram done couple years ago at shown normal LV ejection fraction but moderate pulmonary hypertension biatrial enlargement. Echocardiogram being done at bedside while I was talking to her showed still preserved LV ejection fraction but shows dilated right-sided chambers with reduced systolic function and significantly elevated right ventricular systolic pressure consistent with severe pulmonary hypertension. Patient still appears to be mildly short of breath. Overnight appears to have had negative balance of 530 cc. She has received Lasix 40 mg IV push x1 and is getting b.i.d. dosing. Her creatinine on admission was 1.77 and this morning was 1.55 which has improved with diuresis which is expected. She does see Dr. Burris for Nephrology and chronic kidney disease. She also has diabetes, hypertension. No obvious history of myocardial infarction. History of rheumatologic disorder. Review of Systems Constitutional: Constitutional: Reports no additional constitutional complaints Cardiovascular: Cardiovascular: Denies chest pain, Reports leg edema, Denies palpitations, Reports dyspnea, Reports dyspnea on exertion and Reports orthopnea Respiratory: Respiratory: Reports dyspnea and Reports dyspnea on exertion Gastrointestinal: Gastrointestinal: Reports no additional gastrointestinal complaints Musculoskeletal: Musculoskeletal: Reports no additional musculoskeletal complaints Integumentary/Breasts: Skin/Breast: Reports system reviewed and no additional complaints, except as docu Neurologic: Reports system reviewed and no additional complaints, except as documented Psychiatric: Psychiatric: Reports no additional psychiatric complaints Endocrine: Endocrine: Reports no additional endocrine complaints and Denies palpitations PMFSH Past Medical History Medical History ASB (asymptomatic bacteriuria) Atrial fibrillation CKD (chronic kidney disease) stage 3, GFR 30-59 ml/min Diabetes Diastolic dysfunction Dysplastic nevus Endometrial ca GERD (gastroesophageal reflux disease) Hip pain, bilateral History of uterine cancer Hyperlipidemia Hypertension Lumbar and sacral spondyloarthritis Morbid obesity SUE on CPAP Palpitations Sacroiliitis Family History Family History Father No problems noted. Mother HTN (hypertension) Diabetes mellitus Breast cancer Surgical History Surgical History H/O colonoscopy History of total abdominal hysterectomy and bilateral salpingo-oophorectomy S/P MARGARITA (total abdominal hysterectomy) Social History Social History Household Members: Spouse Housing: House Are you a primary respiratory care program director to a significant other at home: No Do you presently have visiting nurse or other home services: No Alcohol intake: current Alcohol intake frequency: holidays/special occasions only Patient Tobacco Use Status: Never used Tobacco Smoked in Last 30 Days: No e-Cigarette/Vaping Use: Never Used Use of substances other than those prescribed or required for medical reasons: No Have you been hit, kicked, punched, or otherwise hurt by someone within the past year? If so, by whom?: No Do you feel safe in your current relationship?: Yes Is there a partner from a previous relationship who is making you feel unsafe now?: No Are you made to feel afraid or neglected: No Advance Directives: Yes Advance Directives on File: Yes Advance Directives Date on File: 02/12/23 Do you have thoughts of harming others: None Do you have a plan to hurt others: No Plan Recently lost weight without trying: No Nutrition Risks: No Nutritional Risk Patient : No : No Poor oral hygiene: No service: No Current occupational status: retired Current occupation: rt handed Cognitive needs: No Hearing needs: No Vision needs: No Meds Allergies Allergy/AdvReac Type Severity Reaction Status Date / Time No Known Allergies Allergy Verified 02/07/23 14:47 Active Medications: Current Medications Acetaminophen (Acetaminophen 325 Mg Tablet) 650 mg PO Q6H PRN PRN Reason: Pain, Mild (Pain Scale 1-3) Apixaban (Apixaban 5 Mg Tablet) 5 mg PO BID [facility] Last Admin: 02/26/23 09:59 Dose: 5 mg Atorvastatin Calcium (Atorvastatin Calcium 80 Mg Tablet) 80 mg PO BEDTIME [facility] Last Admin: 02/25/23 21:33 Dose: 80 mg Digoxin (Digoxin 0.125 Mg Tablet) 0.125 mg PO Q48H [facility] Last Admin: 02/26/23 09:58 Dose: 0.125 mg Diltiazem HCl (Diltiazem Hcl Cd 180 Mg Cap.Er.24h) 360 mg PO BEDTIME [facility]; Protocol Docusate Sodium (Docusate Sodium 100 Mg Capsule) 100 mg PO BEDTIME [facility] Last Admin: 02/25/23 21:33 Dose: 100 mg Empagliflozin (Empagliflozin 10 Mg Tablet) 10 mg PO DAILY [facility] Last Admin: 02/26/23 09:58 Dose: 10 mg Furosemide (Furosemide 40 Mg/4 Ml Vial) 40 mg IVPUSH BID@0900,1800 [facility]; Protocol Last Admin: 02/26/23 09:59 Dose: 40 mg Hydralazine HCl (Hydralazine Hcl 50 Mg Tablet) 50 mg PO TID [facility]; Protocol Last Admin: 02/26/23 09:58 Dose: 50 mg Lisinopril (Lisinopril 40 Mg Tablet) 40 mg PO DAILY [facility]; Protocol Metoprolol Succinate (Metoprolol Succinate Er 100 Mg Tab.Er.24h) 200 mg PO BEDTIME [facility]; Protocol Last Admin: 02/25/23 21:32 Dose: 200 mg Ondansetron HCl (Ondansetron Hcl 4 Mg/2 Ml Vial) 4 mg IVPUSH Q8H PRN PRN Reason: Nausea and Vomiting Pharmacy Consult (Consult Rx Perform Med Rec) 1 each MISCELLANE ONCE PRN PRN Reason: Consult order Polyethylene Glycol (Polyethylene Glycol 3350 17 Gm Powd.Pack) 17 gm PO DAILY [facility] Last Admin: 02/26/23 09:58 Dose: 17 gm Sodium Chloride (0.9 % Sodium Chloride Flush 3 Ml Syringe) 3 ml IVFLUSH QSHIFT [facility] Last Admin: 02/26/23 09:59 Dose: 3 ml Home Medications Medication Instructions Recorded Confirmed Last Taken Type metformin 500 mg tablet 500 mg PO BIDWM 01/16/23 02/25/23 02/24/23 History diltiazem HCl 360 mg capsule,24 360 mg PO BEDTIME 02/07/23 02/25/23 02/24/23 History hr,extended release (Tiadylt ER) metoprolol succinate 200 mg 200 mg PO BEDTIME 02/07/23 02/25/23 02/24/23 History tablet,extended release 24 hr rosuvastatin 40 mg tablet 40 mg PO BEDTIME 02/07/23 02/25/23 02/24/23 History polyethylene glycol 3350 17 17 g PO DAILY 02/25/23 02/25/23 02/24/23 History gram/dose oral powder (Gavilax) Physical Exam Vital Signs: Vital Signs: Last Vital Signs Temp 97.8 F 02/26/23 08:00 Pulse 90 02/26/23 08:00 Resp 18 02/26/23 08:00 BP 125/75 02/26/23 08:00 Pulse Ox 94 02/26/23 08:00 O2 Del Method Room Air 02/26/23 08:00 BMI result Body Mass Index 37.8 Const: General: cooperative, alert, awake and in distress mild and respiratory Nutritional Appearance: obese Orientation/consciousness: patient oriented x3 HEENT: Head: Yes normocephalic and Yes atraumatic Neck: Neck: Yes trachea midline, Yes supple and Yes JVD Resp: Effort & Inspection: normal respiratory effort Auscultation: no rales and diminished lung sounds Cardio: Jugular venous distension: JVD Palpation: heave (RV heave) Rhythm: abnormal rhythm irregularly irregular Heart sounds: S1 normal heart sound present, S2 normal heart sound present, no click, no gallops and Murmur heart sound present systolic GI: Auscultation: normal bowel sounds Skin: General skin exam: no rashes or lesions noted Neuro: General: patient oriented x3 and no focal motor deficits Extrem: General: No clubbing, No cyanosis and Yes edema Psych: Appearance: grossly normal Objective Labs and Meds 02/25/23 11:53 02/26/23 06:34 Lab results: Laboratory Results - last 24 hr 02/25/23 02/25/23 02/25/23 11:53 11:53 11:53 WBC 7.9 RBC 3.97 L Hgb 11.9 L Hct 37.3 MCV 94.0 MCH 30.0 MCHC 31.9 RDW 16.0 Plt Count 227 MPV 11.2 Immature Gran % (Auto) 0.1 Neut % (Auto) 64.4 Lymph % (Auto) 23.7 [place] % (Auto) 7.8 Eos % (Auto) 3.4 Baso % (Auto) 0.6 Lymph # (Auto) 1.9 [place] # (Auto) 0.6 Eos # (Auto) 0.3 Baso # (Auto) 0.1 Abs Immat Gran (auto) 0.01 Absolute Neuts (auto) 5.1 Absolute Nucleated RBC 0.000 Nucleated RBC % (auto) 0.0 PT 17.0 H INR 1.5 H APTT 34.0 Sodium 146 H Potassium 4.7 Chloride 115 H Carbon Dioxide 25 Anion Gap 11 L BUN 24 H Creatinine 1.77 H Estim Creat Clear Calc 34.6 Estimated GFR 29 POC Glucose Random Glucose 149 H Calcium 9.4 Total Bilirubin 0.5 AST 29 ALT 27 Alkaline Phosphatase 77 Troponin I High Sens B-Natriuretic Peptide Total Protein 6.3 L Albumin 3.8 Influenza Type A (PCR) Influenza Type B (PCR) RSV RNA Qual (PCR) SARS-CoV-2 RNA (RT-PCR) 02/25/23 02/25/23 02/25/23 11:53 11:53 11:53 WBC RBC Hgb Hct MCV MCH MCHC RDW Plt Count MPV Immature Gran % (Auto) Neut % (Auto) Lymph % (Auto) [place] % (Auto) Eos % (Auto) Baso % (Auto) Lymph # (Auto) [place] # (Auto) Eos # (Auto) Baso # (Auto) Abs Immat Gran (auto) Absolute Neuts (auto) Absolute Nucleated RBC Nucleated RBC % (auto) PT INR APTT Sodium Potassium Chloride Carbon Dioxide Anion Gap BUN Creatinine Estim Creat Clear Calc Estimated GFR POC Glucose Random Glucose Calcium Total Bilirubin AST ALT Alkaline Phosphatase Troponin I High Sens 26.9 H B-Natriuretic Peptide 1498 H Total Protein Albumin Influenza Type A (PCR) NEGATIVE Influenza Type B (PCR) NEGATIVE RSV RNA Qual (PCR) NEGATIVE SARS-CoV-2 RNA (RT-PCR) NEGATIVE 02/25/23 02/25/2302/25/23 16:42 16:52 20:04 WBC RBC Hgb Hct MCV MCH MCHC RDW Plt Count MPV Immature Gran % (Auto) Neut % (Auto) Lymph % (Auto) [place] % (Auto) Eos % (Auto) Baso % (Auto) Lymph # (Auto) [place] # (Auto) Eos # (Auto) Baso # (Auto) Abs Immat Gran (auto) Absolute Neuts (auto) Absolute Nucleated RBC Nucleated RBC % (auto) PT INR APTT Sodium Potassium Chloride Carbon Dioxide Anion Gap BUN Creatinine Estim Creat Clear Calc Estimated GFR POC Glucose 119 H 154 H Random Glucose Calcium Total Bilirubin AST ALT Alkaline Phosphatase Troponin I High Sens 22.0 H B-Natriuretic Peptide Total Protein Albumin Influenza Type A (PCR) Influenza Type B (PCR) RSV RNA Qual (PCR) SARS-CoV-2 RNA (RT-PCR) 02/26/23 06:34 WBC RBC Hgb Hct MCV MCH MCHC RDW Plt Count MPV Immature Gran % (Auto) Neut % (Auto) Lymph % (Auto) [place] % (Auto) Eos % (Auto) Baso % (Auto) Lymph # (Auto) [place] # (Auto) Eos # (Auto) Baso # (Auto) Abs Immat Gran (auto) Absolute Neuts (auto) Absolute Nucleated RBC Nucleated RBC % (auto) PT INR APTT Sodium 144 Potassium 3.8 Chloride 110 H Carbon Dioxide 25 Anion Gap 13 BUN 24 H Creatinine 1.57 H Estim Creat Clear Calc 40.0 Estimated GFR 33 POC Glucose Random Glucose 118 H Calcium 9.1 Total Bilirubin 0.4 AST 26 ALT 24 Alkaline Phosphatase 73 Troponin I High Sens B-Natriuretic Peptide Total Protein 5.8 L Albumin 3.6 Influenza Type A (PCR) Influenza Type B (PCR) RSV RNA Qual (PCR) SARS-CoV-2 RNA (RT-PCR) EKG shows atrial fibrillation with aberrantly conducted complexes with non specific ST T wave changes Imaging Radiologist's impression: Impressions Chest X-Ray 02/25/23 11:30 IMPRESSION: Enlarged cardiac silhouette, pulmonary venous redistribution and right pleural effusion. Findings are suggestive of CHF. Assessment and Plan (1) CHF exacerbation: Status: Acute Patient presents with congestive heart failure decompensation and echocardiogram shows severe pulmonary hypertension with predominant right heart failure findings although has pulmonary hypertension most likely related to chronic atrial fibrillation and LV diastolic dysfunction. Overall poor prognosis significant pulmonary hypertension was discussed with her. She requires continue diuresis. Will continue Lasix 40 mg IV b.i.d. and if she has tepid response continue consider switching to IV Lasix drip. Continue to monitor renal function which is improved with diuresis which is expected as her acute kidney injury is most likely related to cardiorenal syndrome from renal venous congestion as well as possible reduce forward stroke volume. Continue diuresis. Would add Jardiance 10 mg to her regimen. Continue rate control strategy. In the long run not sure if she would be able to pursue rhythm control approach given the chronic nature of atrial fibrillation biatrial enlargement. However this will need to be pursued. Given her significant pulmonary hypertension will require right heart catheterization which will be done as an outpatient. Will review the echocardiogram in details later today. If creatinine improves further would add Aldactone to her regimen as well. (2) Persistent atrial fibrillation: Status: Acute Persistent and appears to be chronic atrial fibrillation for greater than 10 years. Likelihood of maintaining rhythm is extremely low however given her heart failure syndrome and her age can consider pursuing it with amiodarone loading but to be done as an outpatient. Continue current rate control approach. Continue full oral anticoagulation. This will be a discussion that will need to have as an outpatient. Will follow with her. Thank you for allowing me to partake in the care Time Spent With Patient Time: Total time managing care of this patient today ____ minutes. Procedures Date of Service Date of Service: 02/26/23
[2023-02-26 11:15] VITALS: BP 137/82; PULSE 82; RESP 20; TEMP 36.1; O2SAT 95
--- NOTE | 2023-02-26 11:48 | PC.NURSE ---
pt had 11 beast of VT. pt is Afib on tele at the baseline. On assessment, pt is asymptomatic, denied SOB or chest pain. pt reported that she was using the commode and brushed her teeth at that time. JABARI Lundberg notified.
[2023-02-26 15:56] VITALS: BP 158/87; PULSE 98; RESP 18; TEMP 37.1; O2SAT 98
[2023-02-26 16:22] LABS: Glucose, Whole Blood 97 mg/dL (60-115)
[2023-02-26 20:00] VITALS: BP 158/78; PULSE 89; RESP 18; TEMP 36.7; O2SAT 100
[2023-02-26 20:12] LABS: Glucose, Whole Blood 146 mg/dL (60-115)
[2023-02-26] MEDS: Metoprolol Succinate ER 100 MG TAB.ER.24H 200 MG PO (20:43)
[2023-02-26] MEDS: Docusate Sodium 100 MG CAPSULE PO (20:44)
[2023-02-26] MEDS: Atorvastatin Calcium 80 MG TABLET PO (20:44)
[2023-02-27] VITALS (10 sets, daily range): BP systolic 133–165; BP diastolic 86–100; PULSE 74–106; RESP 17–20; TEMP 36.3–37; O2SAT 92–100
--- NOTE | 2023-02-27 04:14 | PC.NURSE ---
VSS. BP's trending up this am. Pt slept in bed with at bedside, sleeping in the recliner overnight. Telemetry remains Afib 80's-90's. HS POC did not require insulin coverage. Pt stated her stool softner is not working and would lie it increased. I told her I would pass this along in report. No c/o pain/sob. Will continue to monitor.
[2023-02-27 07:27] LABS: Anion Gap 15 (12-20); Blood Urea Nitrogen 23 mg/dL (9-16); Calcium 9.4 mg/dL (8.4-10.2); Carbon Dioxide 27 mmol/L (22-29); Chloride 107 mmol/L (96-108); Creatinine Clr Calc Pharmacy 46.8; Estimated Glomerular Filt Rate 39; Glucose Random 85 mg/dL (60-115); Potassium 3.4 mmol/L (3.3-5.1); Sodium 146 mmol/L (135-145)
[2023-02-27 07:32] LABS: B Type Natriuretic Peptide 2034 pg/mL (<100)
[2023-02-27 07:42] LABS: Glucose, Whole Blood 92 mg/dL (60-115)
--- NOTE | 2023-02-27 09:00 | P.PNIM_ITS ---
Subjective Subjective Date of Service: 02/27/23 Interval History: patient seen and examined at bedside. She states that she is feeling significantly better. Shortness of breath improved, lower extremity edema improved.complaining of constipation pt ambulating with some sob, no cp, no abd pain, no n/v, no diarrhea. no urinary symptoms Review of Systems Review of Systems: Yes all other systems are reviewed and are negative Physical Exam Vital Signs: Vital Signs: Last Vital Signs Temp 97.4 F 02/27/23 07:18 Pulse 87 02/27/23 07:18 Resp 17 02/27/23 07:18 BP 165/100 H 02/27/23 04:00 Pulse Ox 97 02/27/23 07:18 O2 Del Method Room Air 02/27/23 07:18 BMI result Body Mass Index 37.8 Const: Other: Alert and oriented x3 Resp: Other: clear to auscultations bilaterally, normal respiratory effort Cardio: Other: normal rate, GI: Other: abdomen is soft, nontender Extrem: Other: trace pedal edema Objective Data Active Medications Acetaminophen (Acetaminophen 325 Mg Tablet) 650 mg PO Q6H PRN PRN Reason: Pain, Mild (Pain Scale 1-3) Apixaban (Apixaban 5 Mg Tablet) 5 mg PO BID [facility] Last Admin: 02/26/23 20:43 Dose: 5 mg Documented By: LAYTON Atorvastatin Calcium (Atorvastatin Calcium 80 Mg Tablet) 80 mg PO BEDTIME [facility] Last Admin: 02/26/23 20:44 Dose: 80 mg Documented By: LAYTON Digoxin (Digoxin 0.125 Mg Tablet) 0.125 mg PO Q48H [facility] Last Admin: 02/26/23 09:58 Dose: 0.125 mg Documented By: LORI Diltiazem HCl (Diltiazem Hcl Cd 180 Mg Cap.Er.24h) 360 mg PO BEDTIME [facility]; Protocol Docusate Sodium (Docusate Sodium 100 Mg Capsule) 100 mg PO BEDTIME [facility] Last Admin: 02/26/23 20:44 Dose: 100 mg Documented By: LAYTON Empagliflozin (Empagliflozin 10 Mg Tablet) 10 mg PO DAILY [facility] Last Admin: 02/26/23 09:58 Dose: 10 mg Documented By: LORI Furosemide (Furosemide 40 Mg/4 Ml Vial) 40 mg IVPUSH BID@0900,1800 [facility]; Protocol Last Admin: 02/26/23 17:21 Dose: 40 mg Documented By: LORI Glucose (Glucose Gel 15 Gm Gel..Gram.) 15 gm PO Q15M PRN; Protocol PRN Reason: per Hypoglycemia Standing Ord. Hydralazine HCl (Hydralazine Hcl 50 Mg Tablet) 50 mg PO TID [facility]; Protocol Last Admin: 02/26/23 20:44 Dose: 50 mg Documented By: LAYTON Dextrose (D10) 250 mls @ 750 mls/hr IV Q15M PRN; Protocol PRN Reason: per Hypoglycemia Standing Ord. Insulin Human Lispro (Insulin Lispro 100 Unit/Ml 3 Ml Vial) 0 unit SUBCUT QIDACHS [facility]; Protocol Last Admin: 02/27/23 07:54 Dose: Not Given Documented By: KALEB Non-Admin Reason: No Insulin Coverage Lisinopril (Lisinopril 40 Mg Tablet) 40 mg PO DAILY [facility]; Protocol Metoprolol Succinate (Metoprolol Succinate Er 100 Mg Tab.Er.24h) 200 mg PO BEDTIME [facility]; Protocol Last Admin: 02/26/23 20:43 Dose: 200 mg Documented By: LAYTON Ondansetron HCl (Ondansetron Hcl 4 Mg/2 Ml Vial) 4 mg IVPUSH Q8H PRN PRN Reason: Nausea and Vomiting Pharmacy Consult (Consult Rx Perform Med Rec) 1 each MISCELLANE ONCE PRN PRN Reason: Consult order Polyethylene Glycol (Polyethylene Glycol 3350 17 Gm Powd.Pack) 17 gm PO DAILY [facility] Last Admin: 02/26/23 09:58 Dose: 17 gm Documented By: LORI Sodium Chloride (0.9 % Sodium Chloride Flush 3 Ml Syringe) 3 ml IVFLUSH QSHIFT [facility] Last Admin: 02/26/23 20:45 Dose: 3 ml Documented By: LAYTON Labs 02/25/23 11:53 02/27/23 06:29 Labs: Laboratory Results - last 24 hr 02/26/23 02/26/23 02/27/23 16:19 20:07 06:29 Anion Gap 15 Estim Creat Clear Calc 46.8 Estimated GFR 39 POC Glucose 97 146 H Random Glucose 85 Calcium 9.4 B-Natriuretic Peptide 02/27/23 02/27/23 06:29 07:22 Anion Gap Estim Creat Clear Calc Estimated GFR POC Glucose 92 Random Glucose Calcium B-Natriuretic Peptide 2034 H Assessment and Plan (1) CHF exacerbation: Status: Acute (2) Acute on chronic kidney failure: Status: Acute Plan 67 year old women admitted with acute CHF worsening over the last 2 days but present with sob for over 6 months. # Acute HFpEF exacerbation - BNP 1498 initially , increased today, although symptoms improving -will continue IV lasix BID - Daily weight, strict I&O, Low sodium diet - cardiology following - echo>pulm htn, will need right heart cath and other medication adjustments, to be discussed with cardiology o/p. EF 55-60%, severe biatrial enlargement - will add aldactone 25 mg - continue Jiardance # Hypernatremia - Resolved - mild, secondary to fluid overload - continue to diurese - follow bmp #ABDOULAYE on CKD 4. - improving to bl - Secondary to fluid overload, cardiorenal syndrome - continue to diurese - follow bmp #diabetes 2 - LDSSI - diabetic diet # hx of persistent Afib - continue on eliquis, digoxin, diltiazem on hold for acute CHF), metoprolol # Hypertension - elevated bp - continue home medications - will need better bp control - aldactone added DVT prophylaxis with Eliquis full code Patient required 2 inpatient midnights for treatment of acute congestive heart failure requiring IV diuretics and Cardiology follow-up Time Spent With Patient Time: Total time managing care of this patient today ____ minutes. Quality Stroke Does the patient have a stroke diagnosis?: No VTE Prior VTE?: No VTE Risk Level:: Medical - moderate - high VTE Device Contraindication: Treatment Not Indicated VTE Drug Contraindication: N/A - Med Ordered
[2023-02-27] MEDS: polyethylene glycoL 3350 17 GM POWD.PACK PO ×2 (09:38→15:27)
[2023-02-27] MEDS: Furosemide 40 MG/4 ML VIAL IVPUSH ×2 (09:39→17:28)
[2023-02-27] MEDS: 0.9 % Sodium Chloride Flush 3 ML SYRINGE IVFLUSH ×3 (09:39→23:50)
[2023-02-27] MEDS: Empagliflozin 10 MG TABLET PO (09:39)
[2023-02-27] MEDS: hydrALAZINE HCl 50 MG TABLET PO ×3 (09:39→20:45)
[2023-02-27] MEDS: Apixaban 5 MG TABLET PO ×2 (09:39→20:45)
--- NOTE | 2023-02-27 10:38 | P.PNCA_ITS ---
Subjective Subjective Date of Service: 02/27/23 Principal diagnosis: CHF, atrial fibrillation, hypertension Interval history: Patient is doing very well and has diuresed about 4 L since yesterday. Feeling a lot better. Her blood pressure is elevated, she thinks because she did not use her CPAP overnight. She uses every day at home and a blood pressure is generally well controlled. However her BNP is further increased, could be due to reduced clearance. However her creatinine is also improved Review of Systems Constitutional: Reports no additional constitutional complaints Cardiovascular: Denies chest pain, Reports leg edema, Denies lightheadedness, Denies Loss of Consciousness, Denies palpitations and Reports dyspnea on exertion Respiratory: Reports no additional respiratory complaints and Reports dyspnea on exertion Gastrointestinal: Reports no additional gastrointestinal complaints Reports system reviewed and no additional complaints, except as documented Endocrine: Denies palpitations Physical Exam Vital Signs: Last Vital Signs Temp 97.4 F 02/27/23 07:18 Pulse 106 H 02/27/23 09:42 Resp 17 02/27/23 07:18 BP 153/96 H 02/27/23 09:42 Pulse Ox 92 02/27/23 09:42 O2 Del Method Room Air 02/27/23 09:42 BMI result Body Mass Index 37.8 Const General: cooperative, comfortable, no acute distress, alert and awake Nutritional Appearance: obese Orientation/consciousness: patient oriented x3 Neck Neck: Yes trachea midline, Yes supple and Yes JVD Resp Effort & Inspection: normal respiratory effort Auscultation: clear to auscultation bilaterally Cardio Jugular venous distension: JVD Palpation: heave (RV) Rhythm: abnormal rhythm irregularly irregular Heart sounds: S1 normal heart sound present and S2 normal heart sound present GI Auscultation: normal bowel sounds Neuro General: patient oriented x3 and no focal motor deficits Extrem General: Yes no clubbing, cyanosis or edema Objective Labs and Meds 02/25/23 11:53 02/27/23 06:29 Lab results: Laboratory Results - last 24 hr 02/26/23 02/26/23 02/27/23 16:19 20:07 06:29 Sodium 146 H Potassium 3.4 Chloride 107 Carbon Dioxide 27 Anion Gap 15 BUN 23 H Creatinine 1.34 Estim Creat Clear Calc 46.8 Estimated GFR 39 POC Glucose 97 146 H Random Glucose 85 Calcium 9.4 B-Natriuretic Peptide 02/27/23 02/27/23 06:29 07:22 Sodium Potassium Chloride Carbon Dioxide Anion Gap BUN Creatinine Estim Creat Clear Calc Estimated GFR POC Glucose 92 Random Glucose Calcium B-Natriuretic Peptide 2033 H Progress Note: A&P Assessment and plan (1) CHF exacerbation: Status: Acute Assessment and Plan: Patient admitted with CHF exacerbation doing extremely well. Surprising degree of significant pulmonary hypertension which is out of proportion to heart failure syndrome. Will need further workup as an outpatient with right heart catheterization. Responding well to diuretics. Continue the same. Renal function is improved. Continue strict intake and output chart. Continue monitor BNP. BNP is significantly down trended tomorrow, can switch to p.o. Lasix and discharge a. Also start Aldactone 25 mg to her regimen as a n eurohormonal modulator as well as blood pressure control. Continue Jardiance. Start CPAP therapy at nighttime while in the hospital. CHF education to be provided. (2) Persistent atrial fibrillation: Status: Acute Assessment and Plan: Persistent long-standing atrial fibrillation, with biatrial enlargement. Likelihood of maintaining rhythm is low although given her age and now heart fa ilure syndrome should think about pursuing it more aggressively as an outpatient. I would perform this after cardiac catheterization in the near future to evaluate for hemodynamics and coronary angiogram. When she is on stable dose of oral anticoagulation therapy. Continue rate control strategy w ith for now. Will continue to follow with you Time Spent With Patient Time: Total time managing care of this patient today ____ minutes. Progress Note: Quality Stroke Does the patient have a stroke diagnosis?: No Procedures Date of Service Date of Service: 02/27/23
[2023-02-27 11:39] LABS: Glucose, Whole Blood 197 mg/dL (60-115)
[2023-02-27] MEDS: Insulin Lispro 100 UNIT/ML 3 ML VIAL SUBCUT (12:36)
[2023-02-27] MEDS: Milk of Magnesia 30 ML ORAL.SUSP PO (15:27)
[2023-02-27 15:38] LABS: Glucose, Whole Blood 130 mg/dL (60-115)
[2023-02-27 20:23] LABS: Glucose, Whole Blood 119 mg/dL (60-115)
[2023-02-27] MEDS: Metoprolol Succinate ER 100 MG TAB.ER.24H 200 MG PO (20:45)
[2023-02-27] MEDS: Atorvastatin Calcium 80 MG TABLET PO (20:45)
[2023-02-27] MEDS: Docusate Sodium 100 MG CAPSULE PO (20:46)
[2023-02-28 03:53] VITALS: BP 133/84; PULSE 82; RESP 18; TEMP 36.8; O2SAT 96
[2023-02-28 04:23] VITALS: PULSE 82; RESP 18; O2SAT 96
[2023-02-28 07:31] VITALS: BP 146/83; PULSE 95; RESP 18; TEMP 35.8; O2SAT 94
[2023-02-28 08:16] LABS: Glucose, Whole Blood 133 mg/dL (60-115)
[2023-02-28 08:45] LABS: Anion Gap 16 (12-20); Blood Urea Nitrogen 24 mg/dL (9-16); Calcium 9.4 mg/dL (8.4-10.2); Carbon Dioxide 29 mmol/L (22-29); Chloride 103 mmol/L (96-108); Creatinine Clr Calc Pharmacy 42.7; Estimated Glomerular Filt Rate 35; Glucose Random 110 mg/dL (60-115); Potassium 3.5 mmol/L (3.3-5.1); Sodium 144 mmol/L (135-145)
[2023-02-28 08:52] LABS: B Type Natriuretic Peptide 999 pg/mL (<100)
--- NOTE | 2023-02-28 10:18 | MHC.CM.PN ---
PER HOSPITALIST PT TO BE MEDICALLY CLEARED FOR D/C HOME NO SERVICES W/ [facility] FOR TRANSPORT
--- NOTE | 2023-02-28 10:27 | PM.PNCARD ---
Subjective Subjective Date of Service: 02/28/23 Principal diagnosis: CHF, atrial fibrillation, hypertension Interval history: Patient feeling a lot better today. Has diuresed very well overnight. Cumulative negative balance of 8.3 L. no worsening shortness of breath. No palpitations. Rate has remained controlled. Review of Systems Constitutional: Reports no additional constitutional complaints Eyes: Reports no additional eye complaints Cardiovascular: Reports no additional cardiovascular complaints Gastrointestinal: Reports no additional gastrointestinal complaints Musculoskeletal: Reports no additional musculoskeletal complaints Reports system reviewed and no additional complaints, except as documented Endocrine: Reports no additional endocrine complaints Hematologic/Lymphatic: Reports no additional hematologic/lymphatic complaints Physical Exam Vital Signs: Last Vital Signs Temp 96.5 F L 02/28/23 07:31 Pulse 95 02/28/23 07:31 Resp 18 02/28/23 07:31 BP 146/83 H 02/28/23 07:31 Pulse Ox 94 02/28/23 07:31 O2 Del Method Room Air 02/28/23 07:31 BMI result Body Mass Index 37.8 Const General: cooperative, comfortable, no acute distress, alert and awake Nutritional Appearance: obese Orientation/consciousness: patient oriented x3 Neck Neck: Yes trachea midline, Yes supple and Yes no JVD Resp Effort & Inspection: normal respiratory effort Auscultation: clear to auscultation bilaterally Cardio Jugular venous distension: no JVD Palpation: heave (RV) Rhythm: abnormal rhythm irregularly irregular Heart sounds: S1 normal heart sound present and S2 normal heart sound present GI Auscultation: normal bowel sounds Neuro General: patient oriented x3 and no focal motor deficits Extrem General: Yes no clubbing, cyanosis or edema Objective Labs and Meds 02/25/23 11:53 02/28/23 07:41 Lab results: Laboratory Results - last 24 hr 02/27/23 02/27/23 02/27/23 11:20 15:33 20:19 Sodium Potassium Chloride Carbon Dioxide Anion Gap BUN Creatinine Estim Creat Clear Calc Estimated GFR POC Glucose 197 H 130 H 119 H Random Glucose Calcium B-Natriuretic Peptide 02/28/23 02/28/23 02/28/23 07:41 07:41 08:08 Sodium 144 Potassium 3.5 Chloride 103 Carbon Dioxide 29 Anion Gap 16 BUN 24 H Creatinine 1.47 H Estim Creat Clear Calc 42.7 Estimated GFR 35 POC Glucose 133 H Random Glucose 110 Calcium 9.4 B-Natriuretic Peptide 999 H Progress Note: A&P Assessment and plan (1) CHF exacerbation: Status: Acute Assessment and Plan: CHF exacerbation this elderly woman with chronic atrial fibrillation with significant pulmonary hypertension which is out of proportion to heart failure. Will need further workup with right heart catheterization to evaluate for primary pulmonary hypertension addition to diastolic dysfunction. Will schedule this as outpatient. Further treatment based on the findings. She has done well with diuretic regimen with improving creatinine. Switch to Lasix 20 mg p.o.. She can continue her home dose of Farxiga and continue with Aldactone 25 mg daily. Follow-up will be set up in the next 10-14 days in the clinic after some blood work next week. Heart failure management was discussed with her. Continue CPAP therapy. In the long run if there are no other obvious target for treatment will pursue rhythm control approach although will be difficult, discussed with her. Continue aggressive blood pressure control. (2) Persistent atrial fibrillation: Status: Acute Assessment and Plan: Persistent rate control atrial fibrillation for many years. Developed heart failure syndrome at this point in time at her age should consider although difficult to pursue rhythm control approach if possible. Will follow up in the clinic in 10-14 days. Patient can be discharged home. Thank you for allowing me to partake in her care Time Spent With Patient Time: Total time managing care of this patient today ____ minutes. Progress Note: Quality Stroke Does the patient have a stroke diagnosis?: No Procedures Date of Service Date of Service: 02/28/23
[2023-02-28 10:28] VITALS: BP 160/98
[2023-02-28] MEDS: Apixaban 5 MG TABLET PO (10:31)
[2023-02-28] MEDS: hydrALAZINE HCl 50 MG TABLET PO (10:31)
[2023-02-28] MEDS: Empagliflozin 10 MG TABLET PO (10:32)
[2023-02-28] MEDS: Digoxin 0.125 MG TABLET PO (10:32)
[2023-02-28] MEDS: 0.9 % Sodium Chloride Flush 3 ML SYRINGE IVFLUSH (10:32)
[2023-02-28] MEDS: Spironolactone 25 MG TABLET PO (10:32)
--- NOTE | 2023-02-28 10:36 | P.DS_ITS ---
DS: Providers Provider Date of Service: 02/28/23 Date of admission: 02/25/23 15:10 Date of discharge: 02/28/23 Primary care physician: Marisela Oscar MD Consults: 02/25/23 15:10 Consult to Cardiology Routine Consulting Provider: [facility] [place] [facility] Reason for consultation: chf Has provider been notified: No Attending physician on discharge: Juancarlos Jean-Baptiste Discharging clinician: Tina Acosta DS: Diagnosis Discharge Diagnosis (1) CHF exacerbation: Status: Acute (2) Persistent atrial fibrillation: Status: Acute DS: Summary Hospital Course Hospital Course: From H&P on day of admission 67-year-old presenting to the ER with complaints intermittent shortness of breath over the last 6 months mostly with exertion and ambulation. No other symptoms other than that.? She reported worsening dyspnea since Saturday, now with orthopnea.? She did report some weight gain and increasing lower extremity edema. She denied chest pain, nausea, vomiting, diarrhea, fever, chills, sick contact, recent travel.? In the ED, Sodium 146, BNP 1498, troponin 26.[address] wave abnormalities.? Chest x-ray showing enlarged cardiac silhouette with pulmonary venous redistribution and right pleural effusion suggestive of congestive heart failure.? Mild elevation in blood pressure.? She was given IV Lasix in the ER.? She will be on further management and treatment of acute congestive heart failure. Acute HFpEF exacerbation. BNP 1498 initially. Treated with scheduled IV lasix. ECHO EF 55-60%, severe biatrial enlargement, pulmonary HTN. Seen in consultation by Cardiology, will need right heart cath as outpatient. Started on aldactone 25 mg. On farxiga at baseline. bnp down to 999, Diuresed over 8 L, respiratory symptoms improved significantly. will be discharged home with po lasix. ABDOULAYE on CKD 4. improving to baseline. Secondary to fluid overload, cardiorenal syndrome. will need outpatient follow up and close monitoring of renal function Time Spent with Patient Time attestation: Total time managing care of this patient today ____ minutes. Discharge coordination time: Greater than 30 minutes Quality: Safe Use of Opioids Does Pt have an Active Cancer Diagnosis on the Problem List?: No Quality: Stroke Does the patient have a stroke diagnosis?: No Physical Exam Vital Signs: Vital Signs: Last Vital Signs Temp 96.5 F L 02/28/23 07:31 Pulse 95 02/28/23 07:31 Resp 18 02/28/23 07:31 BP 160/98 H 02/28/23 10:28 Pulse Ox 94 02/28/23 07:31 O2 Del Method Room Air 02/28/23 07:31 BMI result Body Mass Index 37.8 Const: General: cooperative, comfortable, alert and awake Orientation/consciousness: patient oriented x3 Resp: Effort & Inspection: normal respiratory effort and able to speak in complete sentences Auscultation: clear to auscultation bilaterally Cardio: Other: irregularly irregular Rate: regular rate Neuro: General: patient oriented x3 Extrem: Other: mild ankle edema DS: Data Data Completed and Pending Labs on day of discharge: Laboratory Results - last 24 hr 02/27/23 02/27/23 02/27/23 11:20 15:33 20:19 Sodium Potassium Chloride Carbon Dioxide Anion Gap BUN Creatinine Estim Creat Clear Calc Estimated GFR POC Glucose 197 H 130 H 119 H Random Glucose Calcium B-Natriuretic Peptide 02/28/23 02/28/23 02/28/23 07:41 07:41 08:08 Sodium 144 Potassium 3.5 Chloride 103 Carbon Dioxide 29 Anion Gap 16 BUN 24 H Creatinine 1.47 H Estim Creat Clear Calc 42.7 Estimated GFR 35 POC Glucose 133 H Random Glucose 110 Calcium 9.4 B-Natriuretic Peptide 999 H Discharge Plan Discharge Anticipated Discharge Date/Time: 02/28/23 10:48 Patient Disposition: Home, Self-Care Discharge Diagnosis: acute CHF persistent atrial fibrillation Referrals: Marisela Oscar MD [Primary Care Provider] - 1 Week Brandon Dowell MD [Physician] - 1 Week Discharge Medications: New spironolactone 25 mg Tablet 25 mg PO DAILY 30 Days Qty: 30 0RF Protocol: Hold for SBP< HOLD for SBP < : 90 furosemide [Lasix] 20 mg tablet 20 mg PO DAILY Qty: 45 0RF Rx Instructions: Take 1 tab daily. take extra dose if weight gain 3lb or more in one day. lisinopril 20 mg tablet 20 mg PO DAILY 30 Days Qty: 30 0RF diltiazem HCl [Cardizem CD] 180 mg capsule,extended release 24hr 180 mg PO DAILY 30 Days Qty: 30 0RF Continued hydralazine 50 mg tablet 50 mg PO BID Qty: 180 3RF digoxin [Digox] 125 mcg (0.125 mg) tablet 125 mcg PO .QOD Qty: 45 3RF metoprolol succinate 200 mg tablet extended release 24 hr 200 mg PO BEDTIME rosuvastatin 40 mg tablet 40 mg PO BEDTIME polyethylene glycol 3350 [Gavilax] 17 gram/dose powder 17 g PO DAILY Farxiga 10 mg tablet 10 mg PO DAILY Qty: 90 3RF Eliquis 5 mg tablet 5 mg PO BID Qty: 180 3RF docusate sodium 100 mg capsule 100 mg PO BEDTIME Qty: 90 3RF metformin 500 mg tablet 500 mg PO BIDWM Discontinued lisinopril 40 mg tablet 40 mg PO DAILY Qty: 90 3RF diltiazem HCl [Tiadylt ER] 360 mg capsule,extended release 24 hr 360 mg PO BEDTIME No Action (DME) Blood Glucose Test Strip See Rx Instructions .Route Qty: 100 4RF Rx Instructions: Freestyle lite, 1 QD (DME) lancets [FreeStyle Lancets] 28 gauge misc See Rx Instructions .Route Qty: 100 3RF Rx Instructions: 1 QD (DME) blood-glucose meter Kit See Rx Instructions .Route Qty: 1 0RF Rx Instructions: check glucose once a day Discharge Orders: Discharge Order (Routine); Ordered 02/28/23 Ordered By: Tina Acosta Diet: Low salt diet Activity on Discharge: As tolerated Stand Alone Forms: Patient Portal Discharge page Care Plan Goals: see below Health Concerns: acute CHF persistent atrial fibrillation Plan of Treatment: Start taking oral Lasix once daily as prescribed. Weigh yourself daily, take an additional dose of Lasix if weight gain 3 lb or more in 1 day. Call PCP/ Cardiology if weight gain two days in a row or associated shortness of breath. Return to ED with SOB. Recommend to follow a low sodium diet dose of lisinopril has been decreased to 20 mg daily Dose of diltiazem has been decreased to 180 mg daily You have been started on Aldactone 25 mg daily, take as prescribed Repeat labs in one week - has outpatient labs ordered for 03/08 as ordered by PCP call to schedule follow-up appointment with Cardiology for further outpatient workup and close monitoring Assessment: see discharge summary
[2023-02-28 11:04] VITALS: BP 130/77; PULSE 94; RESP 20; TEMP 36.8; O2SAT 97
[2023-02-28 11:38] VITALS: BP 147/92; PULSE 82; RESP 18; TEMP 36.7; O2SAT 95
[2023-02-28 11:42] LABS: Glucose, Whole Blood 192 mg/dL (60-115)
[2023-02-28] MEDS: Insulin Lispro 100 UNIT/ML 3 ML VIAL SUBCUT (12:13)
[2023-02-28] MEDS: Lidocaine 4 % Patch ADH..PATCH 1 PATCH TRANSDERMA (12:19)
== END 2023-02-28 12:50 | disposition home or self-care (01) | DRG 291 ==
LOC: HO.ED 14:58 → HO.EDOVER 15:14 → HO.IMC 15:23
PROVIDERS: Internal Medicine; Nurse Practitioner Family; Physician Assistant; Admitting Provider Nurse Practitioner Acute Care; Emergency Provider Emergency Medicine; PCP Internal Medicine; Visit Provider Physician Assistant Medical
DX: I13.0 Hypertensive heart and chronic kidney disease with heart failure and stage 1 through stage 4 chronic kidney disease, or unspecified chronic kidney disease (principal); I50.33 Acute on chronic diastolic (congestive) heart failure; N17.9 Acute kidney failure, unspecified; I48.20 Chronic atrial fibrillation, unspecified; E87.0 Hyperosmolality and hypernatremia; N18.4 Chronic kidney disease, stage 4 (severe); E78.00 Pure hypercholesterolemia, unspecified; I27.29 Other secondary pulmonary hypertension; E11.22 Type 2 diabetes mellitus with diabetic chronic kidney disease; G47.33 Obstructive sleep apnea (adult) (pediatric); Z20.822 Contact with and (suspected) exposure to COVID-19; Z79.01 Long term (current) use of anticoagulants; Z79.84 Long term (current) use of oral hypoglycemic drugs; Z79.899 Other long term (current) drug therapy
CPT/HCPCS: 0241U; 36415; 71046; 80048; 80053; 82947; 83880; 84484; 85025; 85610; 85730; 93005; 93306; 94660; 99285; J1940

== ENCOUNTER 2023-03-18 11:17 | Outpatient (REF) | payer MEDICARE, SELFPAY ==
[2023-03-18 14:00] LABS: MANUAL DIFF FLAG NO
[2023-03-18 14:11] LABS: Basophils Absolute Auto 0.1 X10*3/uL (0.0-0.2); Basophils Percent Auto 0.7 % (0-2); Eosinophils Absolute Auto 0.5 X10*3/uL (0.0-0.4); Eosinophils Percent Auto 6.5 % (0-4); Hematocrit 41.4 % (37.0-47.0); Hemoglobin 13.1 g/dl (12.0-16.0); INTERNATIONAL NORM RATIO 1.4 (0.9-1.1); Imm Gran Abs Auto 0.01 X10*3/uL (0.00-0.03); Imm Gran Pct Auto 0.1 % (0.0-0.4); Lymphocytes Absolute Auto 2.9 X10*3/uL (1.2-4.9); Lymphocytes Percent Auto 41.5 % (20-40); Mean Corpuscular HGB Conc 31.6 g/dl (31.0-35.0); Mean Corpuscular Hemoglobin 29.2 pg (27.0-33.0); Mean Corpuscular Volume 92.2 fL (80.0-98.0); Mean Platelet Volume 11.6 fL (9.4-12.3); Monocytes Absolute Auto 0.5 X10*3/uL (0.1-1.2); Monocytes Percent Auto 7.8 % (2-11); Neutrophils Percent Auto 43.4 % (45-73); Platelet Count 281 X10*3/uL (160-400); Prothrombin Time 16.3 SEC (10.0-13.1); Red Blood Count 4.49 X10*6/uL (4.20-5.50); Red Cell Distribution Width 14.6 % (11.0-16.0); White Blood Count 6.9 X10*3/uL (4.8-10.8)
[2023-03-18 14:34] LABS: Alanine Aminotransferase 11 U/L (0-31); Albumin Level 4.1 g/dL (3.5-5.0); Alkaline Phosphatase 77 U/L (39-117); Anion Gap 14 (12-20); Aspartate Amino Transferase 16 U/L (5-31); Bilirubin Total 0.4 mg/dL (0.0-1.0); Blood Urea Nitrogen 34 mg/dL (9-16); Carbon Dioxide 21 mmol/L (22-29); Chloride 111 mmol/L (96-108); Estimated Glomerular Filt Rate 31; Glucose Fasting 89 mg/dL (60-99); Glucose Random 88 mg/dL (60-115); Potassium 4.5 mmol/L (3.3-5.1); Sodium 141 mmol/L (135-145); Total Protein 6.9 g/dL (6.5-8.0)
[2023-03-18 14:39] LABS: B Type Natriuretic Peptide 369 pg/mL (<100)
[2023-03-18 14:41] LABS: Estimated Average Glucose 146 mg/dL; Hemoglobin A1c % 6.7 %
[2023-03-18 14:48] LABS: Creatinine Urine 117.79 mg/dL; Microalbum/Creatinine Ratio Ur 74.7 ug/mg cr
== END 2023-03-18 11:18 | disposition home or self-care (01) ==
LOC: HO.HMGCLDS 11:17
PROVIDERS: PCP Internal Medicine; Visit Provider Internal Medicine Cardiovascular Disease
DX: Z01.810 Encounter for preprocedural cardiovascular examination (principal); E11.22 Type 2 diabetes mellitus with diabetic chronic kidney disease; I13.0 Hypertensive heart and chronic kidney disease with heart failure and stage 1 through stage 4 chronic kidney disease, or unspecified chronic kidney disease; N18.30 Chronic kidney disease, stage 3 unspecified; I50.9 Heart failure, unspecified; I48.19 Other persistent atrial fibrillation; K59.01 Slow transit constipation; D36.9 Benign neoplasm, unspecified site; Z79.01 Long term (current) use of anticoagulants; Z98.890 Other specified postprocedural states
CPT/HCPCS: 36415; 80048; 80053; 82043; 83036; 83880; 85025; 85027; 85610; 99212

== ENCOUNTER 2023-04-01 10:02 | Outpatient (REF) | payer MEDICARE, SELFPAY ==
[2023-04-01 12:09] LABS: Anion Gap 12 (12-20); Blood Urea Nitrogen 44 mg/dL (9-16); Calcium 9.7 mg/dL (8.4-10.2); Carbon Dioxide 21 mmol/L (22-29); Chloride 111 mmol/L (96-108); Estimated Glomerular Filt Rate 24; Glucose Random 98 mg/dL (60-115); Potassium 5.4 mmol/L (3.3-5.1); Sodium 139 mmol/L (135-145)
== END 2023-04-01 10:03 | disposition home or self-care (01) ==
LOC: HO.HMGCLDS 10:02
PROVIDERS: PCP Internal Medicine; Visit Provider Internal Medicine
DX: E11.9 Type 2 diabetes mellitus without complications (principal); I48.91 Unspecified atrial fibrillation
CPT/HCPCS: 36415; 80048

== ENCOUNTER 2023-04-05 14:49 | Outpatient (REF) | payer MEDICARE, SELFPAY ==
[2023-04-05 17:37] LABS: Digoxin 0.6 ng/mL (0.8-2.0)
[2023-04-05 17:38] LABS: Anion Gap 14 (12-20); Blood Urea Nitrogen 42 mg/dL (9-16); Calcium 9.4 mg/dL (8.4-10.2); Carbon Dioxide 19 mmol/L (22-29); Chloride 113 mmol/L (96-108); Estimated Glomerular Filt Rate 28; Glucose Random 99 mg/dL (60-115); Sodium 141 mmol/L (135-145)
[2023-04-08 04:36] LABS: HBS Num1 0.82 mIU/mL (0-7.99); HBc Num1 0.07 S/CO (0.00-0.79); HBsAGNum1 0.29 S/CO (0.00-0.99); HIV AB/AG Nonreactive (Nonreactive); HIV Num 1 0.08 S/CO (0.00-0.99); Hepatitis B Core Antibody Nonreactive (Nonreactive); Hepatitis B Surface Antigen Negative (Negative); ~Hepatitis B Surface Antibody NONREACTIVE (Nonreactive); ~Hepatitis C Antibody Nonreactive (Nonreactive)
[2023-04-09 15:13] LABS: Scleroderma 70 Antibody <1.0 NEG AI (<1.0 NEG)
[2023-04-14 11:19] LABS: Anti Nuclear Antibody Screen NEGATIVE (NEGATIVE)
== END 2023-04-05 14:50 | disposition home or self-care (01) ==
LOC: HO.HMGCLDS 14:49
PROVIDERS: PCP Internal Medicine; Visit Provider Internal Medicine
DX: Z11.4 Encounter for screening for human immunodeficiency virus [HIV] (principal); N17.9 Acute kidney failure, unspecified; N18.9 Chronic kidney disease, unspecified; I48.91 Unspecified atrial fibrillation; I27.20 Pulmonary hypertension, unspecified
CPT/HCPCS: 36415; 80048; 80162; 86038; 86235; 86704; 86706; 86803; 87340; 87389

== ENCOUNTER → 2023-04-10 14:16 | Outpatient (BNVA) | payer MEDICARE, SELFPAY | PROVIDERS: PCP Internal Medicine; Referring Provider Internal Medicine; Visit Provider Internal Medicine | DX: I48.19 Other persistent atrial fibrillation (principal); I27.20 Pulmonary hypertension, unspecified | CPT/HCPCS: 99212 ==

== ENCOUNTER → 2023-04-11 11:30 | Outpatient (REF) | payer MEDICARE, SELFPAY ==
--- NOTE | ~2023-04-11 | NM_ITS ---
EXAMINATION: NM LUNG IMAGE PERFUSION CLINICAL INFORMATION: Pulmonary hypertension, shortness of breath. COMPARISON: None available. TECHNIQUE: Following intravenous administration of 1 mCi of 99m technetium MAA pleural effusion imaging of both lungs were obtained in multiple projections. Ventilation study was not performed. FINDINGS: On perfusion imaging there is normal flow seen to all segments of both lungs. There is a nonsegmental defect centrally along the bilateral hilum. Chest x-ray obtained on the same date reveals no free lung abnormality. No pleural effusion. NM/NM pul perfusion IMPRESSION: No segmental or subsegmental perfusion defects seen.
--- NOTE | ~2023-04-11 | XR_ITS ---
EXAMINATION: XR CHEST CLINICAL INFORMATION: Pulmonary hypertension COMPARISON: Previous chest x-ray February 2023 TECHNIQUE: Frontal view of the chest was obtained. FINDINGS: The cardiac silhouette is enlarged but stable. The lung volumes are low. There is elevation of the right hemidiaphragm. There are prominent hilar markings questionable for pulmonary venous redistribution. The lungs are otherwise clear. There may be a small right pleural effusion. There is no left pleural effusion. There are degenerative changes of the spine. XR/XR chest 1V IMPRESSION: Stable chest x-ray exam from February 2023.
== END ==
LOC: HO.NUCMED 11:30
PROVIDERS: PCP Internal Medicine; Visit Provider Internal Medicine
DX: I27.20 Pulmonary hypertension, unspecified (principal); R06.02 Shortness of breath
CPT/HCPCS: 71045; 78580; A9540

== ENCOUNTER 2023-04-29 13:05 | Outpatient (REF) | payer MEDICARE, SELFPAY ==
[2023-04-29 17:09] LABS: Anion Gap 11 (12-20); Blood Urea Nitrogen 29 mg/dL (9-16); Calcium 9.4 mg/dL (8.4-10.2); Carbon Dioxide 23 mmol/L (22-29); Chloride 112 mmol/L (96-108); Estimated Glomerular Filt Rate 30; Glucose Random 98 mg/dL (60-115); Potassium 4.6 mmol/L (3.3-5.1); Sodium 141 mmol/L (135-145)
== END 2023-04-29 13:06 | disposition home or self-care (01) ==
LOC: HO.HMGCLDS 13:05
PROVIDERS: PCP Internal Medicine; Visit Provider Internal Medicine
DX: N18.30 Chronic kidney disease, stage 3 unspecified (principal)
CPT/HCPCS: 36415; 80048

== ENCOUNTER 2023-05-08 09:25 | Outpatient (REF) | payer MEDICARE, SELFPAY ==
--- NOTE | ~2023-05-08 | CT_ITS ---
EXAMINATION: CT CHEST WITHOUT CONTRAST CLINICAL INFORMATION: Shortness of breath. Pulmonary artery hypertension. Evaluate for interstitial lung disease. COMPARISON: None available. TECHNIQUE: Multidetector volumetric CT imaging of the chest was done. Axial MIP volume rendering provided. Sagittal and coronal reformatted images were obtained. This CT examination was performed using dose optimization techniques as appropriate, variously including the following: *Automated exposure control *Adjustment of mA and/or kV according to patient size (this includes techniques or standardized protocols for targeted exams where dose is matched to indication/reason for exam; i.e. extremities or head) *Use of iterative reconstruction technique DLP: 302 mGy-cm FINDINGS: LUNGS: There is no evidence of interstitial lung disease. There are scattered small predominantly upper lobe pulmonary nodules largest measuring 2 mm. [place] nodules the left upper lobe axial image 57 series 6 and right upper lobe axial image 60 series 6. There is a 2 mm peripheral or subpleural right middle lobe nodule axial image 106 series 6. This may represent a subpleural lymph node. There is a 2 mm calcified left lower lobe nodule axial image 229 series 6. Edema or bronchiectasis. MEDIASTINUM: The visualized thyroid gland is prominent. Small mediastinal lymph nodes. No enlarged lymph nodes. Enlarged heart. Enlarged pulmonary arteries, main pulmonary artery measuring 4 cm. No pericardial effusion. Mild coronary artery calcification. Normal caliber thoracic aorta. CORONARY ARTERY CALCIFICATION: Mild PLEURA: There is no pleural effusion. No pleural mass or thickening. AXILLA: Small bilateral axillary lymph nodes. No enlarged axillary lymph nodes or chest wall mass. UPPER ABDOMEN: Small low-attenuation lesion in the right lobe of the liver probably representing a cyst. OSSEOUS STRUCTURES: Degenerative changes of the spine. CT/CT chest wo IV con IMPRESSION: No evidence of interstitial lung disease. Enlarged pulmonary arteries. Enlarged heart. Small pulmonary nodules. According to the UPDATED 2017 Fleischner Society recommendations, the advised follow-up imaging for less than 6 mm solid nodule: Low risk, no chest CT follow-up and high risk, optional chest CT follow-up in one year. Fleischner guidelines were followed.
== END 2023-05-08 09:26 | disposition home or self-care (01) ==
LOC: HO.CT 09:25
PROVIDERS: Visit Provider Internal Medicine
DX: R06.02 Shortness of breath (principal)
CPT/HCPCS: 71250

== ENCOUNTER 2023-06-06 10:47 | Outpatient (AMB) | payer MEDICARE, SELFPAY ==
--- NOTE | 2023-06-06 10:49 | A.OFFPC_ITS ---
Vital Signs 06/06/23 10:50 Height 5 ft 4 in Weight 196 lb BMI 33.6 BP 124/82 Blood Pressure Location Lt brachial Position Sitting Pulse 89 Pulse Source Pulse Oximeter Pulse Oximetry (%) 96 Oxygen Delivery Method Room Air Intake Visit Reasons: 1m follow up HTN Intake Note: Pt is here today for a follow up visit on HTN. Allergies No Known Allergies Allergy (Verified 06/06/23 10:56) Medication List - Last Reconciled 06/06/23 by Marisela Oscar MD apixaban (Eliquis) 5 mg PO BID blood-glucose meter check glucose once a day dapagliflozin propanediol (Farxiga) 10 mg PO DAILY FreeStyle Ziyad 2 Sensor (flash glucose sensor) 1 tid NS hydralazine 50 mg PO TID lisinopril 20 mg PO DAILY 30 days metoprolol succinate ER 200 mg PO BEDTIME polyethylene glycol 3350 (Gavilax) 17 grams PO DAILY rosuvastatin 40 mg PO BEDTIME sennosides (Natural Senna Laxative) 17.2 mg (2 x 8.6 mg) PO BEDTIME spironolactone 25 mg See Protocol PO DAILY 30 days Tobacco use date assessed: 06/06/23 Fall risk assessment: No Falls in past year Last assessed Fall Risk: 06/06/23 Dental Screening Dental Screen Date: 06/06/23 Did you have a dental visit in the last 12 months?: Yes Did you have a dental problem in the last 6 months where you did not have access to dental care?: No Was dental information given to patient?: Patient has dentist HPI 1m follow up HTN HPI Details Patient presents for the follow-up on hypertension. She has been forgetting to take hydralazine 3 times a day but has been taking at least twice a day. Patient reports dyspnea on exertion and palpitation with exertion. She denies chest pain shortness of breath at rest. She follows up with house carpenter for AFib and CHF with preserved ejection fraction and has an appointment in July. Patient has an appointment in [place] with pulmonary hypertension specialist. [facility] Medical History ASB (asymptomatic bacteriuria) Atrial fibrillation CKD (chronic kidney disease) stage 3, GFR 30-59 ml/min Diabetes Diastolic dysfunction Dysplastic nevus Endometrial ca GERD (gastroesophageal reflux disease) Hip pain, bilateral History of uterine cancer Hyperlipidemia Hypertension Lumbar and sacral spondyloarthritis Morbid obesity SUE on CPAP Palpitations Sacroiliitis Surgical History H/O colonoscopy History of total abdominal hysterectomy and bilateral salpingo-oophorectomy Hx of cardiac cath S/P MARGARITA (total abdominal hysterectomy) Family History Father No problems noted. Mother HTN (hypertension) Diabetes mellitus Breast cancer Social History Household Members: Spouse Housing: House Are you a primary director long term care to a significant other at home: No Do you presently have visiting nurse or other home services: No Alcohol intake: current Alcohol intake frequency: holidays/special occasions only Patient Tobacco Use Status: Never used Tobacco e-Cigarette/Vaping Use: Never Used Advance Directives Date on File: 02/12/23 service: No Current occupational status: retired Current occupation: rt handed Cognitive needs: No Hearing needs: No Vision needs: Yes Questionnaire Thrive Questionnaire Date Thrive assessed: 12/25/22 GAEL-7 AMB Questionnaire GAEL-7 Date GAEL - 7 assessed: 12/25/22 Source: Developed by Drs. Watson Pop, Zara Kinney, Josh Weiss and colleagues, with an educational hollie from [employer]. Review of Systems Const All systems reviewed & are unremarkable except as noted in HPI and below Reports no additional complaints Eyes Reports no additional complaints ENT Reports no additional complaints Card Reports no additional complaints Resp Reports no additional complaints GI Reports no additional complaints Reports no additional complaints Physical exam (Primary Care) Vital Signs: Last Vital Signs Pulse 89 06/06/23 10:50 BP 124/82 06/06/23 10:50 Pulse Ox 96 06/06/23 10:50 Oxygen Delivery Method Room Air 06/06/23 10:50 BMI result Body Mass Index 33.6 Tobacco/Smoking Status: Tobacco use Status Tobacco use date assessed 06/06/23 06/06/23 11:00 Patient Tobacco Use Status Never used Tobacco 06/06/23 10:51 e-Cigarette/Vaping Use Never Used 06/06/23 10:51 Thrive Assessment: Date of Thrive Assessment Date Thrive assessed 12/25/22 06/06/23 10:51 Const General: no acute distress HENMT Face and sinus: Yes normal facial exam Neck Neck: Yes supple Resp Effort & Inspection: normal respiratory effort Auscultation: clear to auscultation bilaterally Cardio Rate: tachycardic Rhythm: abnormal rhythm irregularly irregular Heart sounds: S1 normal heart sound present and S2 normal heart sound present GI Inspection: Yes normal to inspection Palpation (GI): Soft to palpation Percussion: Yes normal to percussion Assessment and Plan Assessment & Plan (1) Atrial fibrillation: Code(s): I48.91 - Unspecified atrial fibrillation Plan: After 3 minute walk in the office patient's heart rate went up to 130 and O2 sat from 95-93 %. Patient follow-up with Cardiology of for chronic AFib and CHF in July. Twenty for Holter will be obtained (2) DM type 2 (diabetes mellitus, type 2): Code(s): E11.9 - Type 2 diabetes mellitus without complications Plan: Continue ADA diet and Farxiga return in July with fasting labs including A1c (3) Pulmonary HTN: Comment: cardiac cath 03/10 severe pul HTN, referred to Dr. Vanessa Sarabia 05/10, V/Q scan normal 04/09 Code(s): I27.20 - Pulmonary hypertension, unspecified Plan: As above (4) Acute on chronic kidney failure: Code(s): N17.9 - Acute kidney failure, unspecified; N18.9 - Chronic kidney disease, unspecified Plan: Avoid NSAIDs monitor renal function and follow-up with process excellence manager (5) CKD (chronic kidney disease) stage 3, GFR 30-59 ml/min: Code(s): N18.30 - Chronic kidney disease, stage 3 unspecified (6) Hypertension: Code(s): I10 - Essential (primary) hypertension Plan: Change hydralazine to 75 mg twice a day for better compliance and continue lisinopril spironolactone and metoprolol Orders: Orders ECG holter monitor 24 hour Today I48.91 - Unspecified atrial fibrillation Medications: Changed From hydralazine 50 mg PO TID I10 - Essential (primary) hypertension To hydralazine 1 1/2 orally every 12 hours; I10 - Essential (primary) hyperte nsion Discontinued metoprolol succinate ER 200 mg PO DAILY 90 tabs 3RF diltiazem HCl ER 360 mg PO DAILY 90 caps 3RF I10 - Essential (primary) hypertension rosuvastatin 40 mg PO DAILY 90 tabs 3RF Coding Level of Care Code Est Pt Level 4 (55430) Diagnoses Atrial fibrillation I48.91 DM type 2 (diabetes mellitus, type 2) E11.9 Pulmonary HTN I27.20 Acute on chronic kidney failure N17.9; N18.9 CKD (chronic kidney disease) stage 3, GFR 30-59 ml/min N18.30 Hypertension I10
[2023-06-06 10:50] VITALS: BP 124/82; PULSE 89; O2SAT 96; BMI 33.6
== END 2023-06-06 11:48 | disposition home or self-care (01) ==
PROVIDERS: PCP Internal Medicine; Visit Provider Internal Medicine
DX: I48.91 Unspecified atrial fibrillation (principal); E11.22 Type 2 diabetes mellitus with diabetic chronic kidney disease; I27.20 Pulmonary hypertension, unspecified; N18.30 Chronic kidney disease, stage 3 unspecified; N17.9 Acute kidney failure, unspecified; I12.9 Hypertensive chronic kidney disease with stage 1 through stage 4 chronic kidney disease, or unspecified chronic kidney disease
CPT/HCPCS: 99214

== ENCOUNTER 2023-06-18 07:14 | Outpatient (REF) | payer MEDICARE, SELFPAY ==
--- NOTE | 2023-06-18 08:08 | PFT_ITS ---
INDICATION: Dyspnea. SPIROMETRY: FEV1 to FVC of 83% with an FEV1 of 1.87 L, which is 115% predicted and an FVC of 2.29 L, which is 110% predicted. No significant response to bronchodilators noted. Maximum voluntary ventilation 56% predicted. LUNG VOLUMES: Total lung capacity 124% predicted with a residual volume 179% predicted. DIFFUSION CAPACITY: DLCO 76% predicted. COMPARISON: None. INTERPRETATION: No obstructive ventilatory defects and no significant response to bronchodilators noted, although there appears to be a moderate decrease in the maximum voluntary ventilation, which could be secondary to deconditioning, although neuromuscular conditions cannot be ruled out. Lung volumes are significant for a trend of hyperinflation and significant air trapping, which could be due to underlying small airway disease. There is a decrease in the expiratory reserve volume secondary to an elevated BMI. The patient has a mild diffusion impairment as well that should be corrected for hemoglobin. If asthma is in the differential, methacholine challenge may be helpful in assessing for hyperreactive airway disease. Otherwise, clinical correlation warranted. MD ITALO Mojica/MODOmi / [phone]
== END 2023-06-18 07:15 | disposition home or self-care (01) ==
LOC: HO.RESP 07:14
PROVIDERS: PCP Internal Medicine; Visit Provider Internal Medicine
DX: I27.20 Pulmonary hypertension, unspecified (principal); R06.02 Shortness of breath; I48.91 Unspecified atrial fibrillation
CPT/HCPCS: 93225; 94010; 94727; 94729

== ENCOUNTER → 2023-06-18 08:08 | Outpatient (BNV) | payer MEDICARE, SELFPAY | PROVIDERS: PCP Internal Medicine; Visit Provider Hospitalist | DX: R06.09 Other forms of dyspnea (principal) | CPT/HCPCS: 94060; 94727; 94729 ==

== ENCOUNTER 2023-07-29 13:26 | Outpatient (AMB) | payer MEDICARE, SELFPAY ==
[2023-07-29 13:30] VITALS: BP 152/74; PULSE 122; BMI 34.1
--- NOTE | 2023-07-29 13:30 | A.OFFVIS_ITS ---
Intake Vital Signs 07/29/23 13:30 Height 5 ft 4 in Weight 198 lb 13.711 oz BMI 34.1 BP 152/74 H Blood Pressure Location Lt brachial Position Sitting Pulse 122 H Pulse Source Pulse Oximeter Intake Visit Reasons: 3 mnth follow up Intake Note: Pt presents to the office today for a 3 month follow up. Pt states she is still having constipation issues. She states the only time she has relief of her bowels is when she takes the prescribed meds but pt wishes she doesn't have to take the constipation meds everyday for relief. Allergies No Known Allergies Allergy (Verified 07/29/23 13:33) HPI 3 mnth follow up HPI Details LAST VISIT Status post colonoscopy Patient denies any ill effects from the prep, anesthesia or procedure itself. Patient had suboptimal prep and will need to return for colonoscopy in 3 years due to tubular adenoma found. Sooner if clinically necessary. Constipation Will send patient script for senna, patient can take it 2 tablets every evening. Patient was just recently diagnosed with Congestive heart failure and unable to increase fluid, currently is on Lasix that could also be dehydrating and not helping with her feeling last constipated. If she continues to have constipation we will try Linzess the might be a better choice for her. Tubular adenoma Tubular adenoma found without high-grade dysplasia or carcinoma. Suboptimal prep and patient will need to return for colorectal screening in 3 years, sooner if clinically necessary. I will see her in 3 months, sooner on as needed basis. Patient is agreeable to this plan and verbalizes understanding of instructions. She was given the opportunity to ask questions and all questions answered. TODAY'S VISIT Patient is here today for follow-up. Patient reports that since last time I have seen her she underwent cardiac catheterization and was found to have severe pulmonary hypertension. Patient is following up with pulmonary hypertension specialist in [place]. Unable to go to [place] to to her insurance. Patient reports that she since been better. On new medications that is controlling her symptoms. Patient states that she is feeling better. Less shortness of breath. Her kidney functions continues to be compromised, patient is under care of cap coverer and cradle placer. Patient reports that she is constipated and uses Senokot on as needed basis. Patient denies melena, hematochezia, unintentional weight loss or ribbon like stools. Denies any dyspepsia, dysphagia or odynoph agia. If that she is feeling well from GI standpoint. ? PFSH Medical History History of uterine cancer GERD (gastroesophageal reflux disease) Lumbar and sacral spondyloarthritis Sacroiliitis Hip pain, bilateral CKD (chronic kidney disease) stage 3, GFR 30-59 ml/min Dysplastic nevus Palpitations Endometrial ca Diastolic dysfunction ASB (asymptomatic bacteriuria) Morbid obesity Atrial fibrillation Hyperlipidemia Hypertension Diabetes SUE on CPAP Surgical History Hx of cardiac cath S/P MARGARITA (total abdominal hysterectomy) H/O colonoscopy History of total abdominal hysterectomy and bilateral salpingo-oophorectomy Family History Father No problems noted. Mother HTN (hypertension) Diabetes mellitus Breast cancer Social History Household Members: Spouse Housing: House Are you a primary child care assistant to a significant other at home: No Do you presently have visiting nurse or other home services: No Alcohol intake: current Alcohol intake frequency: holidays/special occasions only Patient Tobacco Use Status: Never used Tobacco e-Cigarette/Vaping Use: Never Used Advance Directives Date on File: 02/12/23 service: No Current occupational status: retired Current occupation: rt handed Cognitive needs: No Hearing needs: No Vision needs: Yes Review of Systems Const Denies weight gain and Denies weight loss ENT Reports no additional complaints, Denies dysphagia and Denies odynophagia Card Reports no additional complaints Resp Reports no additional complaints GI Denies abdominal pain, Denies belching, Denies melena, Denies bloating, Reports constipation, Denies dysphagia, Denies excessive flatus, Denies dyspepsia, Denies heartburn, Denies diarrhea, Denies loose stools, Denies nausea, Denies odynophagia and Denies vomiting Reports no additional complaints Musc Reports no additional complaints Neuro Reports no additional complaints Psych Reports no additional complaints Endo Reports no additional complaints Physical Exam Vital Signs: Last Vital Signs Pulse 122 H 07/29/23 13:30 BP 152/74 H 07/29/23 13:30 BMI result Body Mass Index 34.1 Const General: healthy appearing, no acute distress and well developed Nutritional Appearance: obese Orientation/consciousness: patient oriented x3 HEENT Head: Yes normal to inspection, Yes normocephalic and Yes atraumatic Face and sinus: Yes normal facial exam Mouth: Normal oral and palatal mucosa present Throat: Yes posterior oropharynx normal, Yes tonsils normal and Yes uvula midline Eyes General: appearance normal, both eyes and all related structures Neck Neck: Yes normal visual inspection, Yes full ROM and Yes trachea midline Thyroid: Thyroid normal Resp Effort & Inspection: normal respiratory effort, able to speak in complete sente nces, no tracheal deviation and symmetric chest movement Auscultation: clear to auscultation bilaterally Cardio Rate: regular rate Heart sounds: S1 normal heart sound present and S2 normal heart sound present GI Inspection: Yes normal to inspection, No distended and Yes obesity Palpation (GI): Soft to palpation, not firm, nontender and No hepatosplenomegaly present Auscultation: normal bowel sounds General: Yes no CVA tenderness Back/Spine/Pelvis Back: no CVA tenderness Skin General skin exam: elasticity normal, turgor normal and dry skin Neuro General: patient oriented x3 Psych Appearance: grossly normal Mental Status: mental status grossly normal Assessment & Plan Assessment & Plan (1) Constipation: Code(s): K59.00 - Constipation, unspecified Qualifiers: Constipation type: slow transit constipation Qualified Code(s): K59.01 - Slow transit constipation Plan: Patient can take MiraLax daily. Patient can also take Senokot 2 tablets every evening. Patient was encouraged to discuss the amount of fluids that patient can take. She is not aware that she is on any fluid restrictions, however she should speak with her cap coverer and pulmonary hypertension specialist. Patient will follow-up with our office on as-needed basis. She is agreeable to this plan and verbalizes understanding of instructions. She was given the opportunity to ask questions and all questions answered. Thank you for allowing me to participate in her care Medications: New polyethylene glycol 3350 (Gavilax) 17 grams PO DAILY 510 grams 2RF Coding Level of Care Code Est Pt Level 3 (95181) Diagnoses Slow transit constipation K59.01 Constipation type: slow transit constipation Time Spent (min) 25 Comment 15 minutes spent with patient and additional 10 minutes spent reviewing her records
== END 2023-07-29 15:56 | disposition home or self-care (01) ==
PROVIDERS: Visit Provider Nurse Practitioner Family
DX: K59.01 Slow transit constipation (principal)
CPT/HCPCS: 99213

== ENCOUNTER → 2023-07-29 13:26 | Outpatient (BNVA) | payer MEDICARE, SELFPAY | PROVIDERS: Visit Provider Nurse Practitioner Family | DX: K59.01 Slow transit constipation (principal) | CPT/HCPCS: 99212 ==

== ENCOUNTER 2023-08-07 08:41 | Outpatient (REF) | payer MEDICARE, SELFPAY ==
[2023-08-07 10:30] LABS: Hematocrit 39.2 % (37.0-47.0); Hemoglobin 12.4 g/dl (12.0-16.0); Mean Corpuscular HGB Conc 31.6 g/dl (31.0-35.0); Mean Corpuscular Volume 94.7 fL (80.0-98.0); Mean Platelet Volume 10.9 fL (9.4-12.3); Platelet Count 204 X10*3/uL (160-400); Red Blood Count 4.14 X10*6/uL (4.20-5.50); Red Cell Distribution Width 13.3 % (11.0-16.0)
[2023-08-07 11:28] LABS: Microalbum/Creatinine Ratio Ur 23.7 ug/mg cr (<30)
[2023-08-07 11:33] LABS: Alanine Aminotransferase 12 U/L (0-31); Albumin Level 3.9 g/dL (3.5-5.0); Alkaline Phosphatase 66 U/L (39-117); Anion Gap 13 (12-20); Aspartate Amino Transferase 18 U/L (5-31); Bilirubin Total 0.3 mg/dL (0.0-1.0); Blood Urea Nitrogen 31 mg/dL (9-16); Calcium 9.8 mg/dL (8.4-10.2); Carbon Dioxide 23 mmol/L (22-29); Chloride 110 mmol/L (96-108); Cholesterol 149 mg/dL (<200); Estimated Glomerular Filt Rate 29; Glucose Fasting 100 mg/dL (60-99); HDL Cholesterol 51 mg/dL (>40); LDL Cholesterol Calculated 83 mg/dL (<100); Potassium 4.6 mmol/L (3.3-5.1); Sodium 141 mmol/L (135-145); Triglycerides 77 mg/dL (<150)
[2023-08-07 12:36] LABS: Estimated Average Glucose 146 mg/dL; Hemoglobin A1c % 6.7 % (<6.0)
== END 2023-08-07 08:42 | disposition home or self-care (01) ==
LOC: HO.LAB 08:41
PROVIDERS: PCP Internal Medicine; Visit Provider Internal Medicine
DX: I48.19 Other persistent atrial fibrillation (principal); I27.20 Pulmonary hypertension, unspecified; E11.9 Type 2 diabetes mellitus without complications; N18.30 Chronic kidney disease, stage 3 unspecified
CPT/HCPCS: 36415; 80053; 80061; 82043; 82570; 83036; 85027; 99212

== ENCOUNTER 2023-08-07 08:41 | Outpatient (AMB) | payer MEDICARE, SELFPAY ==
--- NOTE | 2023-08-07 08:44 | A.OFFVIS_ITS ---
Intake Vital Signs 08/07/23 08:45 Height 5 ft 4 in Weight 201 lb 8.04 oz BMI 34.6 BP 148/84 H Blood Pressure Location Lt brachial Position Sitting Pulse 88 Intake Visit Reasons: 6 month follow up Intake Note: 6 month follow up Title Assistant Required: No Accompanied by: Self / Same As Patient Allergies No Known Allergies Allergy (Verified 08/07/23 08:47) Medication List - Last Reconciled 08/07/23 by Philip Pacheco MD ambrisentan 5 mg PO DAILY apixaban (Eliquis) 5 mg PO BID blood-glucose meter check glucose once a day dapagliflozin propanediol (Farxiga) 10 mg PO DAILY digoxin 125 mcg PO DAILY FreeStyle Ziyad 2 Rogers (flash glucose scanning reader) As directed NS FreeStyle Ziyad 2 Sensor (flash glucose sensor) 1 tid NS furosemide 20 mg PO DAILY hydralazine 75 mg PO Q12H lisinopril 20 mg PO DAILY metoprolol succinate ER 50 mg PO DAILY polyethylene glycol 3350 (Gavilax) 17 grams PO DAILY rosuvastatin 40 mg PO BEDTIME sennosides (Natural Senna Laxative) 17.2 mg (2 x 8.6 mg) PO BEDTIME spironolactone 25 mg PO DAILY tadalafil (pulm. hypertension) 20 mg PO Q OTHER DAY HPI HPI Comments History of Present Illness Details Blaire returns for follow-up. She has long history of atrial fibrillation more than 10 years. Has seen Cardiology at [facility] but not recently. It seems that she was never cardioverted based on the duration of arrhythmia. Maintained only on rate control with beta-blockers and digoxin with anticoagulation. Otherwise, there was a recent hospitalization for congestive heart failure at that time, she was transferred to [facility] for cardiac workup. She underwent a diagnostic catheterization including right heart catheterization that showed significant pulmonary hypertension. It was felt to be all pulmonary arterial hypertension and not related to left heart dysfunction. Then sent to [facility] due to insurance coverage issues with [place]. She has seen pulmonary hypertension specialist and started on appropriate meds for the same. Overall, she states she is actually feeling better. Exertion shortness of breath and chest tightness are feeling better. Med list reviewed. She brought multiple is as well as showed as the [employer] meds from [place] and overall it seemed a bit confusing. [facility] Medical History History of uterine cancer GERD (gastroesophageal reflux disease) Lumbar and sacral spondyloarthritis Sacroiliitis Hip pain, bilateral CKD (chronic kidney disease) stage 3, GFR 30-59 ml/min Dysplastic nevus Palpitations Endometrial ca Diastolic dysfunction ASB (asymptomatic bacteriuria) Morbid obesity Atrial fibrillation Hyperlipidemia Hypertension Diabetes SUE on CPAP Surgical History Hx of cardiac cath S/P MARGARITA (total abdominal hysterectomy) H/O colonoscopy History of total abdominal hysterectomy and bilateral salpingo-oophorectomy Family History Father No problems noted. Mother HTN (hypertension) Diabetes mellitus Breast cancer Social History Household Members: Spouse Housing: House Are you a primary long term acute care registered nurse to a significant other at home: No Do you presently have visiting nurse or other home services: No Alcohol intake: current Alcohol intake frequency: holidays/special occasions only Patient Tobacco Use Status: Never used Tobacco e-Cigarette/Vaping Use: Never Used Advance Directives Date on File: 02/12/23 service: No Current occupational status: retired Current occupation: rt handed Cognitive needs: No Hearing needs: No Vision needs: Yes Review of Systems Const Denies weakness ENT Denies dizziness Card Denies chest pain, Denies chest pain with activity, Denies syncope, Denies rapid heart rate, Denies pedal edema, Denies edema, Denies leg edema, Denies lightheadedness, Denies palpitations, Denies dyspnea, Denies dyspnea on exertion and Denies orthopnea Resp Denies cough, Denies dyspnea and Denies dyspnea on exertion GI Denies hematochezia and Denies change in stool character Musc Denies abnormal gait, Denies muscle cramps, Denies muscle weakness, Denies numbness, Denies radiating pain into limb and Denies tingling Neuro Denies abnormal gait, Denies dizziness, Denies syncope, Denies numbness, Denies tingling and Denies weakness Endo Denies palpitations Physical Exam Vital Signs: Last Vital Signs Pulse 88 08/07/23 08:45 BP 148/84 H 08/07/23 08:45 BMI result Body Mass Index 34.6 Const General: comfortable and no acute distress Orientation/consciousness: patient oriented x3 HEENT Other: Unremarkable Head: Yes normal to inspection Neck Neck: Yes normal visual inspection Chest Chest palpation & inspection: normal inspection of the chest Resp Auscultation: clear to auscultation bilaterally Cardio Palpation: normal PMI Heart sounds: S1 normal heart sound present, S2 normal heart sound present, no gallops, no murmurs and no rubs GI Palpation (GI): Soft to palpation Back/Spine/Pelvis Other: unremarkable Skin General skin exam: no rashes or lesions noted Neuro General: patient oriented x3 Extrem General: Yes normal to inspection Psych Mental Status: mental status grossly normal Assessment & Plan Assessment & Plan (1) Persistent atrial fibrillation: Code(s): I48.19 - Other persistent atrial fibrillation Plan: As this has been present for more than 10 years in the atria are severely dilated, unlikely to benefit from cardioversion. During last visit, she was on metoprolol ER 200 mg daily but she states that her [facility] pulmonary hypertension specialist as slowly cut that down and she is only taking 50 mg daily. Also on digoxin. No further changes made today. Otherwise, remain on anticoagulation without changes. Cardiac catheterization data reviewed. Normal coronary arteries. (2) Pulmonary HTN: Code(s): I27.20 - Pulmonary hypertension, unspecified Plan: [facility] pulmonary hypertension notes reviewed. On ambrisentan as well as tadalafil. Plan With regard to further care, patient states that she has been advised to switch to [facility]iology to keep all the specialists under one system. In that case, we will see her as needed. Discussed about this with patient. Total time spent including review of all the outside records, counseling, documentation-35 minutes. Medications: Changed From hydralazine 75 mg (1.5 x 50 mg) PO Q12H 270 tabs 3RF I10 - Essential (primary) hypertension To hydralazine 75 mg PO Q12H I10 - Essential (primary) hypertension From dapagliflozin propanediol (Farxiga) 10 mg PO DAILY 90 tabs 3RF To dapagliflozin propanediol (Farxiga) 10 mg PO DAILY Coding Level of Care Code Est Pt Level 4 (99341) Diagnoses Persistent atrial fibrillation I48.19 Pulmonary HTN I27.20
[2023-08-07 08:45] VITALS: BP 148/84; PULSE 88; BMI 34.6
== END 2023-08-07 09:42 | disposition home or self-care (01) ==
PROVIDERS: PCP Internal Medicine; Visit Provider Internal Medicine
DX: I48.19 Other persistent atrial fibrillation (principal); I27.20 Pulmonary hypertension, unspecified
CPT/HCPCS: 99214

== ENCOUNTER 2023-08-15 10:01 | Outpatient (AMB) | payer MEDICARE, SELFPAY ==
[2023-08-15 10:24] VITALS: BP 104/66; PULSE 104; O2SAT 96; BMI 34.3
--- NOTE | 2023-08-15 10:24 | MHC.PC.OV ---
Vital Signs 08/15/23 10:24 Height 5 ft 4 in Weight 200 lb BMI 34.3 BP 104/66 Blood Pressure Location Rt brachial Position Sitting Pulse 104 H Pulse Source Pulse Oximeter Pulse Oximetry (%) 96 Oxygen Delivery Method Room Air Intake Visit Reasons: 3m follow up Intake Note: Pt is here today for 3 months follow up visit. Allergies No Known Allergies Allergy (Verified 08/27/23 09:26) Medication List - Last Reconciled 08/15/23 by Marisela Oscar MD ambrisentan 10 mg PO DAILY apixaban (Eliquis) 5 mg PO BID blood-glucose meter check glucose once a day dapagliflozin propanediol (Farxiga) 10 mg PO DAILY digoxin 125 mcg PO DAILY FreeStyle Ziyad 2 [place] (flash glucose scanning reader) As directed NS FreeStyle Ziyad 2 Sensor (flash glucose sensor) 1 tid NS furosemide 20 mg PO DAILY hydralazine 75 mg PO Q12H lisinopril 20 mg PO DAILY metoprolol succinate ER 50 mg PO DAILY polyethylene glycol 3350 (Gavilax) 17 grams PO DAILY rosuvastatin 40 mg PO BEDTIME selexipag (Uptravi) 200 mcg PO DAILY sennosides (Natural Senna Laxative) 17.2 mg (2 x 8.6 mg) PO BEDTIME spironolactone 12.5 mg PO DAILY tadalafil (pulm. hypertension) 40 mg PO DAILY Tobacco use date assessed: 06/06/23 HPI 3m follow up HPI Details Pt presents for f/u of HTN, A fib, HFpEF, pulmonary HTN started on Ambrisentan and Tadalafil. Pt feels better ,less RIDDLE. She has been decreasing Metoprolol dose from 200 mg to 50 mg last week as recommended by Dr. Brandon Irizarry. [facility] Medical History History of uterine cancer GERD (gastroesophageal reflux disease) Lumbar and sacral spondyloarthritis Sacroiliitis Hip pain, bilateral CKD (chronic kidney disease) stage 3, GFR 30-59 ml/min Dysplastic nevus Palpitations Endometrial ca Diastolic dysfunction ASB (asymptomatic bacteriuria) Morbid obesity Atrial fibrillation Hyperlipidemia Hypertension Diabetes SUE on CPAP Surgical History Hx of cardiac cath S/P MARGARITA (total abdominal hysterectomy) H/O colonoscopy History of total abdominal hysterectomy and bilateral salpingo-oophorectomy Family History Father No problems noted. Mother HTN (hypertension) Diabetes mellitus Breast cancer Social History Household Members: Spouse Housing: House Are you a primary assistant child care teacher to a significant other at home: No Do you presently have visiting nurse or other home services: No Alcohol intake: current Alcohol intake frequency: holidays/special occasions only Patient Tobacco Use Status: Never used Tobacco e-Cigarette/Vaping Use: Never Used Advance Directives Date on File: 02/12/23 service: No Current occupational status: retired Current occupation: rt handed Cognitive needs: No Hearing needs: No Vision needs: Yes Questionnaire Thrive Questionnaire Date Thrive assessed: 12/25/22 GAEL-7 AMB Questionnaire GAEL-7 Date GAEL - 7 assessed: 12/25/22 Source: Developed by Drs. Watson Pop, Zara Kinney, Josh Weiss and colleagues, with an educational hollie from [employer]. Review of Systems Const All systems reviewed & are unremarkable except as noted in HPI and below Reports no additional complaints Eyes Reports no additional complaints ENT Reports no additional complaints Card Reports no additional complaints Resp Reports no additional complaints GI Reports no additional complaints Physical exam (Primary Care) Vital Signs: Last Vital Signs Pulse 104 H 08/15/23 10:24 BP 104/66 08/15/23 10:24 Pulse Ox 96 08/15/23 10:24 Oxygen Delivery Method Room Air 08/15/23 10:24 BMI result Body Mass Index 34.3 Tobacco/Smoking Status: Tobacco use Status Tobacco use date assessed 06/06/23 08/15/23 10:25 Patient Tobacco Use Status Never used Tobacco 08/15/23 10:25 e-Cigarette/Vaping Use Never Used 08/15/23 10:25 Thrive Assessment: Date of Thrive Assessment Date Thrive assessed 12/25/22 08/15/23 10:25 Const General: no acute distress Neck Neck: Yes supple Resp Effort & Inspection: normal respiratory effort Auscultation: clear to auscultation bilaterally Cardio Rate: tachycardic Rhythm: abnormal rhythm irregularly irregular Heart sounds: S1 normal heart sound present and S2 normal heart sound present GI Inspection: Yes normal to inspection Palpation (GI): Soft to palpation Assessment and Plan Assessment & Plan (1) DM type 2 (diabetes mellitus, type 2): Code(s): E11.9 - Type 2 diabetes mellitus without complications Plan: A1C is 6.7, cont Farxiga and ADA diet, weight loss discussed (2) Pulmonary HTN: Comment: f/u Dr. Brandon Irizarry ,[facility] started on Abrisentan and tadalafil 07/10 Code(s): I27.20 - Pulmonary hypertension, unspecified Plan: cont current tx (3) Persistent atrial fibrillation: Code(s): I48.19 - Other persistent atrial fibrillation Plan: EKG showed A fib , HR 99, no acute ST-T, discussed with Dr. Irizarry, increasing Dig to 0.125 mg QD and checking the level in 1 week. Pt may need Amiodarone if not rate control, increasing Metoprolol dose not recommended because of poor RV function (4) CKD (chronic kidney disease) stage 3, GFR 30-59 ml/min: Code(s): N18.30 - Chronic kidney disease, stage 3 unspecified Plan: monitor renal function (5) Hypertension: Code(s): I10 - Essential (primary) hypertension Plan: BP is low ,decrease Hydralazine to 25 mg bid and check BP in 1 week (6) Atrial fibrillation: Code(s): I48.91 - Unspecified atrial fibrillation Orders: Orders Lipid Panel 3 Months E11.9 - Type 2 diabetes mellitus without complications, I27.20 - Pulmonary hypertension, unspecified, I48.19 - Other persistent atrial fibrillation, N18.30 - Chronic kidney disease, stage 3 unspecified Hemoglobin A1c 3 Months E11.9 - Type 2 diabetes mellitus without complications, I27.20 - Pulmonary hypertension, unspecified, I48.19 - Other persistent atrial fibrillation, N18.30 - Chronic kidney disease, stage 3 unspecified Complete Blood Count Auto Diff 3 Months E11.9 - Type 2 diabetes mellitus without complications, I27.20 - Pulmonary hypertension, unspecified, I48.19 - Other persistent atrial fibrillation, N18.30 - Chronic kidney disease, stage 3 unspecified Digoxin 08/21/23 I48.91 - Unspecified atrial fibrillation Comprehensive [place]. Panel Fast 3 Months E11.9 - Type 2 diabetes mellitus without complications, I27.20 - Pulmonary hypertension, unspecified, I48.19 - Other persistent atrial fibrillation, N18.30 - Chronic kidney disease, stage 3 unspecified Microalbumin, Random (w Creat) 3 Months E11.9 - Type 2 diabetes mellitus without complications, I27.20 - Pulmonary hypertension, unspecified, I48.19 - Other persistent atrial fibrillation, N18.30 - Chronic kidney disease, stage 3 unspecified AMB EKG-In Office 08/15/23 I27.20 - Pulmonary hypertension, unspecified, R06.02 - Shortness of breath, I48.91 - Unspecified atrial fibrillation Medications: New digoxin Every other day 125 mcg PO DAILY 30 tabs 3RF Changed From spironolactone 25 mg PO DAILY 90 tabs 3RF To spironolactone 12.5 mg PO DAILY Coding Level of Care Code Est Pt Level 4 (31361) Diagnoses DM type 2 (diabetes mellitus, type 2) E11.9 Pulmonary HTN I27.20 Persistent atrial fibrillation I48.19 CKD (chronic kidney disease) stage 3, GFR 30-59 ml/min N18.30 Hypertension I10 Atrial fibrillation I48.91
== END 2023-08-15 11:37 | disposition home or self-care (01) ==
PROVIDERS: PCP Internal Medicine; Visit Provider Internal Medicine
DX: I12.9 Hypertensive chronic kidney disease with stage 1 through stage 4 chronic kidney disease, or unspecified chronic kidney disease (principal); E11.22 Type 2 diabetes mellitus with diabetic chronic kidney disease; I27.20 Pulmonary hypertension, unspecified; N18.30 Chronic kidney disease, stage 3 unspecified; I48.19 Other persistent atrial fibrillation
CPT/HCPCS: 99214

== ENCOUNTER 2023-08-21 11:46 | Outpatient (REF) | payer MEDICARE, SELFPAY ==
[2023-08-21 14:13] LABS: Digoxin 0.8 ng/mL (0.8-2.0)
== END 2023-08-21 11:47 | disposition home or self-care (01) ==
LOC: HO.HMGCLDS 11:46
PROVIDERS: PCP Internal Medicine; Visit Provider Internal Medicine
DX: I48.91 Unspecified atrial fibrillation (principal)
CPT/HCPCS: 36415; 80162

== ENCOUNTER 2023-08-23 07:50 | Outpatient (AMB) | payer MEDICARE, SELFPAY ==
--- NOTE | 2023-08-23 08:05 | MHC.PC.OV ---
Vital Signs 08/23/23 08:06 Height 5 ft 4 in Weight 203 lb BMI 34.8 BP 120/72 Blood Pressure Location Lt brachial Position Sitting Pulse 99 Pulse Source Pulse Oximeter Pulse Oximetry (%) 97 Intake Visit Reasons: 1 week follow up complex Intake Note: pt is here for 1 week f/u Allergies No Known Allergies Allergy (Verified 08/23/23 08:08) Tobacco use date assessed: 06/06/23 Fall risk assessment: No Falls in past year Last assessed Fall Risk: 08/23/23 Dental Screening Dental Screen Date: 08/23/23 Did you have a dental visit in the last 12 months?: Yes Did you have a dental problem in the last 6 months where you did not have access to dental care?: No Was dental information given to patient?: Patient has dentist HPI 1 week follow up complex HPI Details Patient presents for the follow-up on hypertension AFib and pulmonary hypertension. She started ambrisentan and Uptravi but noticed increased weight. Patient was seen by marketing program manager at [facility] and was advised to increase furosemide to 80 mg a day for 1 week then decrease to 60 mg daily. She stopped taking hydralazine and decrease metoprolol to 25 mg 2 days ago because of negative inotropic affect of the right ventricle. Patient has been taking digoxin 0.125 mg daily. She denies palpitations lightheadedness or dizziness but reports bilateral thigh discomfort which she attributes to side effects from new medications. [facility] Medical History History of uterine cancer GERD (gastroesophageal reflux disease) Lumbar and sacral spondyloarthritis Sacroiliitis Hip pain, bilateral CKD (chronic kidney disease) stage 3, GFR 30-59 ml/min Dysplastic nevus Palpitations Endometrial ca Diastolic dysfunction ASB (asymptomatic bacteriuria) Morbid obesity Atrial fibrillation Hyperlipidemia Hypertension Diabetes SUE on CPAP Surgical History Hx of cardiac cath S/P MARGARITA (total abdominal hysterectomy) H/O colonoscopy History of total abdominal hysterectomy and bilateral salpingo-oophorectomy Family History Father No problems noted. Mother HTN (hypertension) Diabetes mellitus Breast cancer Social History Household Members: Spouse Housing: House Are you a primary medical care administrator to a significant other at home: No Do you presently have visiting nurse or other home services: No Alcohol intake: current Alcohol intake frequency: holidays/special occasions only Patient Tobacco Use Status: Never used Tobacco e-Cigarette/Vaping Use: Never Used Advance Directives Date on File: 02/12/23 service: No Current occupational status: retired Current occupation: rt handed Cognitive needs: No Hearing needs: No Vision needs: Yes Questionnaire Thrive Questionnaire Date Thrive assessed: 12/25/22 GAEL-7 AMB Questionnaire GAEL-7 Date GAEL - 7 assessed: 12/25/22 Source: Developed by Drs. Watson Pop, Zara Kinney, Josh Weiss and colleagues, with an educational hollie from [employer]. Review of Systems Const All systems reviewed & are unremarkable except as noted in HPI and below Reports no additional complaints Eyes Reports no additional complaints ENT Reports no additional complaints Card Reports no additional complaints Resp Reports no additional complaints GI Reports no additional complaints Reports no additional complaints Physical exam (Primary Care) Vital Signs: Last Vital Signs Pulse 99 08/23/23 08:06 BP 120/72 08/23/23 08:06 Pulse Ox 97 08/23/23 08:06 BMI result Body Mass Index 34.8 Tobacco/Smoking Status: Tobacco use Status Tobacco use date assessed 06/06/23 08/23/23 08:06 Patient Tobacco Use Status Never used Tobacco 08/23/23 08:06 e-Cigarette/Vaping Use Never Used 08/23/23 08:06 Thrive Assessment: Date of Thrive Assessment Date Thrive assessed 12/25/22 08/23/23 08:06 Const General: no acute distress HENMT Head: Yes normal to inspection Ears: hearing grossly normal bilaterally Eyes General: appearance normal, both eyes and all related structures Neck Neck: Yes supple Resp Effort & Inspection: normal respiratory effort Auscultation: clear to auscultation bilaterally Cardio Rhythm: regular rhythm Heart sounds: S1 normal heart sound present and S2 normal heart sound present Assessment and Plan Assessment & Plan (1) Pulmonary HTN: Comment: f/u Dr. Brandon Irizarry ,[facility] started on Abrisentan and tadalafil 07/10 Code(s): I27.20 - Pulmonary hypertension, unspecified Plan: Continue current treatment patient has an appointment in [facility] on September 03, she will have a blood work done the same day (2) DM type 2 (diabetes mellitus, type 2): Code(s): E11.9 - Type 2 diabetes mellitus without complications Plan: Continue ADA diet and Farxiga (3) Persistent atrial fibrillation: Code(s): I48.19 - Other persistent atrial fibrillation Plan: Continue digoxin. patient was told to taper off metoprolol. She may need to start amiodarone if needed for rate control. Patient will follow-up in 1 week for blood pressure check and heart rate (4) CKD (chronic kidney disease) stage 3, GFR 30-59 ml/min: Code(s): N18.30 - Chronic kidney disease, stage 3 unspecified Plan: Monitor renal function Coding Level of Care Code Est Pt Level 4 (18075) Diagnoses Pulmonary HTN I27.20 DM type 2 (diabetes mellitus, type 2) E11.9 Persistent atrial fibrillation I48.19 CKD (chronic kidney disease) stage 3, GFR 30-59 ml/min N18.30
[2023-08-23 08:06] VITALS: BP 120/72; PULSE 99; O2SAT 97; BMI 34.8
== END 2023-08-23 08:25 | disposition home or self-care (01) ==
PROVIDERS: PCP Internal Medicine; Visit Provider Internal Medicine
DX: I27.20 Pulmonary hypertension, unspecified (principal); E11.22 Type 2 diabetes mellitus with diabetic chronic kidney disease; N18.30 Chronic kidney disease, stage 3 unspecified; I48.19 Other persistent atrial fibrillation
CPT/HCPCS: 99214

== ENCOUNTER 2023-08-27 08:58 | Outpatient (AMB) | payer MEDICARE, SELFPAY ==
[2023-08-27 09:08] VITALS: BP 130/80; PULSE 85; O2SAT 96; BMI 34.5
--- NOTE | 2023-08-27 09:08 | MHC.PC.OV ---
Vital Signs 08/27/23 09:08 Height 5 ft 4 in Weight 201 lb BMI 34.5 BP 130/80 Blood Pressure Location Lt brachial Position Sitting Pulse 85 Pulse Source Pulse Oximeter Pulse Oximetry (%) 96 Oxygen Delivery Method Room Air Intake Visit Reasons: Follow up Intake Note: Pt is here today for a follow up visit. Allergies No Known Allergies Allergy (Verified 08/27/23 09:26) Medication List - Last Reconciled 08/27/23 by Marisela Oscar MD ambrisentan 10 mg PO DAILY apixaban (Eliquis) 5 mg PO BID blood-glucose meter check glucose once a day dapagliflozin propanediol (Farxiga) 10 mg PO DAILY digoxin 125 mcg PO DAILY FreeStyle Ziyad 2 [place] (flash glucose scanning reader) As directed NS FreeStyle Ziyad 2 Sensor (flash glucose sensor) 1 tid NS furosemide 60 mg PO DAILY lisinopril 10 mg PO DAILY metoprolol succinate ER 25 mg (1/2 x 50 mg) PO DAILY polyethylene glycol 3350 (Gavilax) 17 grams PO DAILY rosuvastatin 40 mg PO BEDTIME selexipag (Uptravi) 400 mcg PO DAILY sennosides (Natural Senna Laxative) 17.2 mg (2 x 8.6 mg) PO BEDTIME spironolactone 12.5 mg PO DAILY tadalafil (pulm. hypertension) 40 mg PO DAILY Tobacco use date assessed: 08/27/23 HPI Follow up HPI Details Patient presents for the follow-up on hypertension AFib and CHF. She has been tolerating medications well and denies palpitations chest pain or worsening of baseline shortness of breath. [facility] Medical History History of uterine cancer GERD (gastroesophageal reflux disease) Lumbar and sacral spondyloarthritis Sacroiliitis Hip pain, bilateral CKD (chronic kidney disease) stage 3, GFR 30-59 ml/min Dysplastic nevus Palpitations Endometrial ca Diastolic dysfunction ASB (asymptomatic bacteriuria) Morbid obesity Atrial fibrillation Hyperlipidemia Hypertension Diabetes SUE on CPAP Surgical History Hx of cardiac cath S/P MARGARITA (total abdominal hysterectomy) H/O colonoscopy History of total abdominal hysterectomy and bilateral salpingo-oophorectomy Family History Father No problems noted. Mother HTN (hypertension) Diabetes mellitus Breast cancer Social History Household Members: Spouse Housing: House Are you a primary physician primary care sports medicine to a significant other at home: No Do you presently have visiting nurse or other home services: No Alcohol intake: current Alcohol intake frequency: holidays/special occasions only Patient Tobacco Use Status: Never used Tobacco e-Cigarette/Vaping Use: Never Used Advance Directives Date on File: 02/12/23 service: No Current occupational status: retired Current occupation: rt handed Cognitive needs: No Hearing needs: No Vision needs: Yes Questionnaire Thrive Questionnaire Date Thrive assessed: 12/25/22 GAEL-7 AMB Questionnaire GAEL-7 Date GAEL - 7 assessed: 12/25/22 Source: Developed by Drs. Watson Pop, Zara Kinney, Josh Weiss and colleagues, with an educational hollie from [employer]. Review of Systems Const All systems reviewed & are unremarkable except as noted in HPI and below Reports no additional complaints Eyes Reports no additional complaints ENT Reports no additional complaints Card Reports no additional complaints Resp Reports no additional complaints GI Reports no additional complaints Reports no additional complaints Physical exam (Primary Care) Vital Signs: Last Vital Signs Pulse 85 08/27/23 09:08 BP 130/80 08/27/23 09:08 Pulse Ox 96 08/27/23 09:08 Oxygen Delivery Method Room Air 08/27/23 09:08 BMI result Body Mass Index 34.5 Tobacco/Smoking Status: Tobacco use Status Tobacco use date assessed 08/27/23 08/27/23 09:09 Patient Tobacco Use Status Never used Tobacco 08/27/23 09:09 e-Cigarette/Vaping Use Never Used 08/27/23 09:08 Thrive Assessment: Date of Thrive Assessment Date Thrive assessed 12/25/22 08/27/23 09:08 Const General: no acute distress Neck Neck: Yes no lymphadenopathy Resp Effort & Inspection: normal respiratory effort Auscultation: clear to auscultation bilaterally Cardio Rhythm: abnormal rhythm irregularly irregular Heart sounds: S1 normal heart sound present and S2 normal heart sound present Extrem General: Yes no clubbing, cyanosis or edema Assessment and Plan Assessment & Plan (1) DM type 2 (diabetes mellitus, type 2): Code(s): E11.9 - Type 2 diabetes mellitus without complications Plan: Continue Farxiga and ADA diet. Follow-up in October with a fasting labs before (2) Pulmonary HTN: Comment: f/u Dr. Brandon Irizarry ,[facility] started on Abrisentan and tadalafil 07/10 Code(s): I27.20 - Pulmonary hypertension, unspecified Plan: Continue current medications (3) Persistent atrial fibrillation: Code(s): I48.19 - Other persistent atrial fibrillation Plan: Continue digoxin and Eliquis for anticoagulation. (4) CKD (chronic kidney disease) stage 3, GFR 30-59 ml/min: Code(s): N18.30 - Chronic kidney disease, stage 3 unspecified Plan: Monitor renal function, patient will have blood work in 3 days (5) Hypertension: Code(s): I10 - Essential (primary) hypertension Plan: Continue current medications, patient will be off metoprolol tomorrow as recommended by communications programmer Medications: Changed From lisinopril 20 mg PO DAILY 90 tabs 3RF To lisinopril 10 mg PO DAILY Coding Level of Care Code Est Pt Level 3 (51797) Diagnoses DM type 2 (diabetes mellitus, type 2) E11.9 Pulmonary HTN I27.20 Persistent atrial fibrillation I48.19 CKD (chronic kidney disease) stage 3, GFR 30-59 ml/min N18.30 Hypertension I10
== END 2023-08-27 10:06 | disposition home or self-care (01) ==
PROVIDERS: PCP Internal Medicine; Visit Provider Internal Medicine
DX: I12.9 Hypertensive chronic kidney disease with stage 1 through stage 4 chronic kidney disease, or unspecified chronic kidney disease (principal); E11.22 Type 2 diabetes mellitus with diabetic chronic kidney disease; I27.20 Pulmonary hypertension, unspecified; I48.19 Other persistent atrial fibrillation; N18.30 Chronic kidney disease, stage 3 unspecified
CPT/HCPCS: 99213

== ENCOUNTER 2023-10-30 08:04 | Outpatient (REF) | payer MEDICARE, SELFPAY ==
[2023-10-30 11:24] LABS: MANUAL DIFF FLAG NO
[2023-10-30 11:36] LABS: Basophils Percent Auto 0.5 % (0-2); Eosinophils Absolute Auto 0.4 X10*3/uL (0.0-0.4); Eosinophils Percent Auto 5.4 % (0-4); Hematocrit 39.8 % (37.0-47.0); Hemoglobin 12.6 g/dl (12.0-16.0); Imm Gran Abs Auto 0.02 X10*3/uL (0.00-0.03); Imm Gran Pct Auto 0.3 % (0.0-0.4); Lymphocytes Absolute Auto 2.7 X10*3/uL (1.2-4.9); Lymphocytes Percent Auto 35.4 % (20-40); Mean Corpuscular HGB Conc 31.7 g/dl (31.0-35.0); Mean Corpuscular Volume 94.8 fL (80.0-98.0); Mean Platelet Volume 11.3 fL (9.4-12.3); Monocytes Absolute Auto 0.7 X10*3/uL (0.1-1.2); Monocytes Percent Auto 9.3 % (2-11); Neutrophils Absolute Auto 3.7 x10*3/uL (2.0-8.3); Neutrophils Percent Auto 49.1 % (45-73); Platelet Count 229 X10*3/uL (160-400); Red Cell Distribution Width 12.9 % (11.0-16.0); White Blood Count 7.6 X10*3/uL (4.8-10.8)
[2023-10-30 11:42] LABS: Estimated Average Glucose 171 mg/dL; Hemoglobin A1c % 7.6 % (<6.0)
[2023-10-30 11:52] LABS: Alanine Aminotransferase 9 U/L (0-31); Albumin Level 3.9 g/dL (3.5-5.0); Alkaline Phosphatase 69 U/L (39-117); Anion Gap 12 (12-20); Aspartate Amino Transferase 15 U/L (5-31); Bilirubin Total 0.3 mg/dL (0.0-1.0); Blood Urea Nitrogen 34 mg/dL (9-16); Calcium 9.6 mg/dL (8.4-10.2); Carbon Dioxide 22 mmol/L (22-29); Chloride 108 mmol/L (96-108); Cholesterol 133 mg/dL (<200); Estimated Glomerular Filt Rate 27; Glucose Fasting 124 mg/dL (60-99); HDL Cholesterol 38 mg/dL (>40); LDL Cholesterol Calculated 66 mg/dL (<100); Sodium 138 mmol/L (135-145); Total Protein 7.2 g/dL (6.5-8.0); Triglycerides 148 mg/dL (<150)
[2023-10-30 12:51] LABS: Creatinine Urine 141.79 mg/dL; Microalbum/Creatinine Ratio Ur 11.2 ug/mg cr (<30)
== END 2023-10-30 08:05 | disposition home or self-care (01) ==
LOC: HO.HMGCLDS 08:04
PROVIDERS: PCP Internal Medicine; Visit Provider Internal Medicine
DX: E11.22 Type 2 diabetes mellitus with diabetic chronic kidney disease (principal); N18.30 Chronic kidney disease, stage 3 unspecified; I27.20 Pulmonary hypertension, unspecified; I48.19 Other persistent atrial fibrillation
CPT/HCPCS: 36415; 80053; 80061; 82043; 82570; 83036; 85025

== ENCOUNTER 2023-11-04 09:07 | Outpatient (AMB) | payer MEDICARE, SELFPAY ==
[2023-11-04 09:22] VITALS: BP 126/80; PULSE 74; O2SAT 96; BMI 34.3
--- NOTE | 2023-11-04 09:22 | MHC.PC.OV ---
Vital Signs 11/04/23 09:22 Height 5 ft 4 in Weight 200 lb BMI 34.3 BP 126/80 Blood Pressure Location Lt brachial Position Sitting Pulse 74 Pulse Source Pulse Oximeter Pulse Oximetry (%) 96 Oxygen Delivery Method Room Air Intake Visit Reasons: PE Intake Note: Pt is here today for PE. Allergies No Known Allergies Allergy (Verified 11/04/23 09:23) Medication List - Last Reconciled 11/04/23 by Marisela Oscar MD ambrisentan 5 mg PO DAILY apixaban (Eliquis) 5 mg PO BID blood-glucose meter check glucose once a day cholecalciferol (vitamin D3) 50 mcg PO DAILY clobetasol 0.05% 1 appl topical DAILY dapagliflozin propanediol (Farxiga) 10 mg PO DAILY digoxin 125 mcg PO DAILY FreeStyle Ziyad 2 [place] (flash glucose scanning reader) As directed NS FreeStyle Ziyad 2 Sensor (flash glucose sensor) 1 tid NS furosemide 60 mg PO DAILY lisinopril 10 mg PO DAILY polyethylene glycol 3350 (Gavilax) 17 grams PO DAILY rosuvastatin 40 mg PO BEDTIME selexipag (Uptravi) 1,400 mcg PO DAILY sennosides (Natural Senna Laxative) 17.2 mg (2 x 8.6 mg) PO BEDTIME spironolactone 12.5 mg PO DAILY tadalafil (pulm. hypertension) 40 mg PO DAILY Tobacco use date assessed: 11/04/23 Dental Screening Dental Screen Date: 11/04/23 Did you have a dental visit in the last 12 months?: Yes Did you have a dental problem in the last 6 months where you did not have access to dental care?: No Was dental information given to patient?: Patient has dentist HPI PE HPI Details Patient presents for physical. Hypertension AFib hyperlipidemia type 2 diabetes pulmonary hypertension, controlled on current medications. Patient reports improved dyspnea on exertion. She denies palpitation chest pain PND orthopnea. [facility] Medical History History of uterine cancer GERD (gastroesophageal reflux disease) Lumbar and sacral spondyloarthritis Sacroiliitis Hip pain, bilateral CKD (chronic kidney disease) stage 3, GFR 30-59 ml/min Dysplastic nevus Palpitations Endometrial ca Diastolic dysfunction ASB (asymptomatic bacteriuria) Morbid obesity Atrial fibrillation Hyperlipidemia Hypertension Diabetes SUE on CPAP Surgical History Hx of cardiac cath S/P MARGARITA (total abdominal hysterectomy) H/O colonoscopy History of total abdominal hysterectomy and bilateral salpingo-oophorectomy Family History Father No problems noted. Mother HTN (hypertension) Diabetes mellitus Breast cancer Social History Household Members: Spouse Housing: House Are you a primary manager medicare to a significant other at home: No Do you presently have visiting nurse or other home services: No Alcohol intake: current Alcohol intake frequency: holidays/special occasions only Patient Tobacco Use Status: Never used Tobacco e-Cigarette/Vaping Use: Never Used Advance Directives Date on File: 02/12/23 service: No Current occupational status: retired Current occupation: rt handed Cognitive needs: No Hearing needs: No Vision needs: Yes Questionnaire Thrive Questionnaire Date Thrive assessed: 12/25/22 GAEL-7 AMB Questionnaire GAEL-7 Date GAEL - 7 assessed: 12/25/22 Source: Developed by Drs. Watson Pop, Zara Kinney, Josh Weiss and colleagues, with an educational hollie from [employer]. Review of Systems Const All systems reviewed & are unremarkable except as noted in HPI and below Reports no additional complaints Eyes Reports no additional complaints ENT Reports no additional complaints Card Reports no additional complaints Resp Reports no additional complaints GI Reports no additional complaints Reports no additional complaints Physical exam (Primary Care) Vital Signs: Last Vital Signs Pulse 74 11/04/23 09:22 BP 126/80 11/04/23 09:22 Pulse Ox 96 11/04/23 09:22 Oxygen Delivery Method Room Air 11/04/23 09:22 BMI result Body Mass Index 34.3 Tobacco/Smoking Status: Tobacco use Status Tobacco use date assessed 11/04/23 11/04/23 09:23 Patient Tobacco Use Status Never used Tobacco 11/04/23 09:23 e-Cigarette/Vaping Use Never Used 11/04/23 09:23 Thrive Assessment: Date of Thrive Assessment Date Thrive assessed 12/25/22 11/04/23 09:23 Const General: no acute distress HENMT Ears: hearing grossly normal bilaterally Mouth: Normal oral and palatal mucosa present Resp Effort & Inspection: normal respiratory effort Auscultation: breath sounds absent Cardio Rhythm: regular rhythm Heart sounds: S1 normal heart sound present and S2 normal heart sound present GI Inspection: Yes normal to inspection Palpation (GI): Soft to palpation Percussion: Yes normal to percussion Auscultation: normal bowel sounds Skin Other: Diabetic foot exam: skin is intact monofilament and vibration sensation intact bilaterally Assessment and Plan Assessment & Plan (1) DM type 2 (diabetes mellitus, type 2): Code(s): E11.9 - Type 2 diabetes mellitus without complications Plan: A1c is up to 7.6 but patient was on vacation for 2 weeks. ADA diet increase physical activity discussed with the patient. She will continue Jardiance and follow-up in 3 months with a fasting labs before (2) Persistent atrial fibrillation: Code(s): I48.19 - Other persistent atrial fibrillation Plan: Continue current medications and Eliquis (3) CKD (chronic kidney disease) stage 3, GFR 30-59 ml/min: Comment: Follow-up with nephrology Code(s): N18.30 - Chronic kidney disease, stage 3 unspecified Plan: Monitor renal function follow-up with nephrology (4) Annual physical exam: Code(s): Z00.00 - Encounter for general adult medical examination without abnormal findings Plan: Well-balanced diet regular physical active weight loss discussed with the patient. She is up-to-date with mammogram and colonoscopy (5) Pulmonary HTN: Comment: f/u Dr. Brandon Irizarry ,[facility] started on Abrisentan and tadalafil 07/10 Code(s): I27.20 - Pulmonary hypertension, unspecified Plan: Symptom medically improving follow-up with Dr. Irizarry Orders: Orders Complete Blood Count Auto Diff 3 Months E11.9 - Type 2 diabetes mellitus without complications, I27.20 - Pulmonary hypertension, unspecified, I48.19 - Other persistent atrial fibrillation, N18.30 - Chronic kidney disease, stage 3 unspecified, Z00.00 - Encounter for general adult medical examination without abnormal findings Hemoglobin A1c 3 Months E11.9 - Type 2 diabetes mellitus without complications, I27.20 - Pulmonary hypertension, unspecified, I48.19 - Other persistent atrial fibrillation, N18.30 - Chronic kidney disease, stage 3 unspecified, Z00.00 - Encounter for general adult medical examination without abnormal findings Lipid Panel 3 Months E11.9 - Type 2 diabetes mellitus without complications, I27.20 - Pulmonary hypertension, unspecified, I48.19 - Other persistent atrial fibrillation, N18.30 - Chronic kidney disease, stage 3 unspecified, Z00.00 - Encounter for general adult medical examination without abnormal findings Microalbumin, Random (w Creat) 3 Months E11.9 - Type 2 diabetes mellitus without complications, I27.20 - Pulmonary hypertension, unspecified, I48.19 - Other persistent atrial fibrillation, N18.30 - Chronic kidney disease, stage 3 unspecified, Z00.00 - Encounter for general adult medical examination without abnormal findings Comprehensive [place]. Panel Fast 3 Months E11.9 - Type 2 diabetes mellitus without complications, I27.20 - Pulmonary hypertension, unspecified, I48.19 - Other persistent atrial fibrillation, N18.30 - Chronic kidney disease, stage 3 unspecified, Z00.00 - Encounter for general adult medical examination without abnormal findings Medications: New clobetasol 0.05% 1 appl topical DAILY 30 grams 0RF Coding Level of Care Code Est Pt Prev Care >65y(03326) Diagnoses DM type 2 (diabetes mellitus, type 2) E11.9 Persistent atrial fibrillation I48.19 CKD (chronic kidney disease) stage 3, GFR 30-59 ml/min N18.30 Annual physical exam Z00.00 Pulmonary HTN I27.20
== END 2023-11-04 09:54 | disposition home or self-care (01) ==
PROVIDERS: PCP Internal Medicine; Visit Provider Internal Medicine
DX: Z00.00 Encounter for general adult medical examination without abnormal findings (principal); E11.22 Type 2 diabetes mellitus with diabetic chronic kidney disease; N18.30 Chronic kidney disease, stage 3 unspecified; I27.20 Pulmonary hypertension, unspecified; I48.19 Other persistent atrial fibrillation
CPT/HCPCS: 99397

== ENCOUNTER 2024-01-29 09:34 | Outpatient (REF) | payer MEDICARE, SELFPAY ==
[2024-01-29 11:25] LABS: MANUAL DIFF FLAG NO
[2024-01-29 11:35] LABS: Basophils Percent Auto 0.5 % (0-2); Eosinophils Absolute Auto 0.4 X10*3/uL (0.0-0.4); Eosinophils Percent Auto 5.6 % (0-4); Hematocrit 38.7 % (37.0-47.0); Hemoglobin 12.5 g/dl (12.0-16.0); Imm Gran Abs Auto 0.01 X10*3/uL (0.00-0.03); Imm Gran Pct Auto 0.2 % (0.0-0.4); Lymphocytes Absolute Auto 2.4 X10*3/uL (1.2-4.9); Lymphocytes Percent Auto 37.2 % (20-40); Mean Corpuscular HGB Conc 32.3 g/dl (31.0-35.0); Mean Corpuscular Hemoglobin 30.3 pg (27.0-33.0); Mean Corpuscular Volume 93.9 fL (80.0-98.0); Mean Platelet Volume 11.3 fL (9.4-12.3); Monocytes Absolute Auto 0.6 X10*3/uL (0.1-1.2); Monocytes Percent Auto 8.6 % (2-11); Neutrophils Absolute Auto 3.1 x10*3/uL (2.0-8.3); Neutrophils Percent Auto 47.9 % (45-73); Platelet Count 219 X10*3/uL (160-400); Red Blood Count 4.12 X10*6/uL (4.20-5.50); Red Cell Distribution Width 12.9 % (11.0-16.0); White Blood Count 6.4 X10*3/uL (4.8-10.8)
[2024-01-29 12:31] LABS: Alanine Aminotransferase 8 U/L (0-31); Alkaline Phosphatase 87 U/L (39-117); Anion Gap 10 (12-20); Aspartate Amino Transferase 16 U/L (5-31); Bilirubin Total 0.3 mg/dL (0.0-1.0); Blood Urea Nitrogen 44 mg/dL (9-16); Calcium 9.6 mg/dL (8.4-10.2); Carbon Dioxide 23 mmol/L (22-29); Chloride 110 mmol/L (96-108); Cholesterol 127 mg/dL (<200); Estimated Glomerular Filt Rate 28; Glucose Fasting 149 mg/dL (60-99); HDL Cholesterol 39 mg/dL (>40); LDL Cholesterol Calculated 68 mg/dL (<100); Potassium 4.1 mmol/L (3.3-5.1); Sodium 139 mmol/L (135-145); Total Protein 7.2 g/dL (6.5-8.0); Triglycerides 100 mg/dL (<150)
[2024-01-29 12:34] LABS: Creatinine Urine 120.57 mg/dL; Microalbum/Creatinine Ratio Ur 27.3 ug/mg cr (<30)
[2024-01-29 15:31] LABS: Estimated Average Glucose 197 mg/dL; Hemoglobin A1c % 8.5 % (<6.0)
== END 2024-01-29 09:35 | disposition home or self-care (01) ==
LOC: HO.HMGCLDS 09:34
PROVIDERS: PCP Internal Medicine; Visit Provider Internal Medicine
DX: Z00.00 Encounter for general adult medical examination without abnormal findings (principal); E11.9 Type 2 diabetes mellitus without complications; I48.19 Other persistent atrial fibrillation; N18.30 Chronic kidney disease, stage 3 unspecified; I27.20 Pulmonary hypertension, unspecified
CPT/HCPCS: 36415; 80053; 80061; 82043; 82570; 83036; 85025

== ENCOUNTER 2024-02-03 10:46 | Outpatient (AMB) | payer MEDICARE, SELFPAY ==
--- NOTE | 2024-02-03 11:07 | A.OFFPC_ITS ---
Vital Signs 02/03/24 11:09 Height 5 ft 4 in Weight 198 lb BMI 34.0 BP 116/74 Blood Pressure Location Rt brachial Position Sitting Pulse 110 H Pulse Source Pulse Oximeter Pulse Oximetry (%) 98 Oxygen Delivery Method Room Air Intake Visit Reasons: 3 Month follow up Allergies No Known Allergies Allergy (Verified 11/04/23 09:23) Tobacco use date assessed: 02/03/24 Fall risk assessment: No Falls in past year Last assessed Fall Risk: 02/03/24 Dental Screening Dental Screen Date: 02/03/24 Did you have a dental visit in the last 12 months?: Yes Did you have a dental problem in the last 6 months where you did not have access to dental care?: No Was dental information given to patient?: Patient has dentist HPI 3 Month follow up HPI Details Patient presents for the follow-up of hypertension type 2 diabetes chronic AFib stage III/4 kidney disease pulmonary hypertension. Patient has not been compliant with ADA diet eating, a lot of granola bars.. PFSH Medical History (Updated 02/03/24 @ 11:26 by Marisela Oscar MD) History of uterine cancer GERD (gastroesophageal reflux disease) Lumbar and sacral spondyloarthritis Sacroiliitis Hip pain, bilateral CKD (chronic kidney disease) stage 3, GFR 30-59 ml/min Dysplastic nevus Palpitations Endometrial ca Diastolic dysfunction ASB (asymptomatic bacteriuria) Morbid obesity Atrial fibrillation Hyperlipidemia Hypertension Diabetes SUE on CPAP Surgical History Hx of cardiac cath S/P MARGARITA (total abdominal hysterectomy) H/O colonoscopy History of total abdominal hysterectomy and bilateral salpingo-oophorectomy Family History Father No problems noted. Mother HTN (hypertension) Diabetes mellitus Breast cancer Social History Household Members: Spouse Housing: House Are you a primary aged or disabled care worker to a significant other at home: No Do you presently have visiting nurse or other home services: No Alcohol intake: current Alcohol intake frequency: holidays/special occasions only Patient Tobacco Use Status: Never used Tobacco e-Cigarette/Vaping Use: Never Used Advance Directives Date on File: 02/12/23 service: No Current occupational status: retired Current occupation: rt handed Cognitive needs: No Hearing needs: No Vision needs: Yes Questionnaire PHQ-9 Over the last 2 weeks, how often have you been bothered by any of the following problems? 1. Little interest or pleasure in doing things: not at all 2. Feeling down, depressed, or hopeless: not at all 3. Trouble falling or staying asleep, or sleeping too much: not at all 4. Feeling tired or having little energy: several days 5. Poor appetite or overeating: not at all 6. Feeling bad about yourself - or that you are a failure or have let yourself or your family down: not at all 7. Trouble concentrating on things, such as reading the newspaper or watching television: not at all 8. Moving or speaking so slowly that other people could have noticed. Or the opp osite - being so fidgety or restless that you have been moving around a lot more than usual: not at all 9. Thoughts that you would be better off or of hurting yourself in some way: not at all Total score: 1 Depression Screening Interpretation: Negative Depression Screening Done: Yes Source: Developed by Drs. Watson Pop, Zara Kinney, Josh Weiss and colleagues, with an educational hollie from [employer]. Thrive Questionnaire Date Thrive assessed: 02/03/24 I am a: Patient What is your living situation today?: I have a steady place to live Within the past 12 months, did the food you bought not last and you didn't have the money to get more?: Never true Within the past 12 months, did you worry whether your food would run out before you got money to buy more?: Never true Do you have trouble paying for medicines?: Yes Do you have trouble getting transportation to medical appointments?: No Do you have trouble paying your heating and electricity bill?: Yes Do you have trouble taking care of your child, family member or friend?: No Do you have trouble with day-to-day activities such as bathing, preparing meals, shopping, managing finances, etc.?: No Are you currently unemployed and looking for a job?: No Are you interested in more education?: No Please select the resources that you would like help with: None Currently or been in a relationship where the following occur: no concerns reported THRIVE Score: 1 AUDIT C Alcohol Use Questionnaire (AUDIT-C) 1. How often do you have a drink containing alcohol?: Monthly or less 2. How many drinks containing alcohol do you have on a typical day when you are drinking?: 1 or 2 3. How often do you have six or more drinks on one occasion?: Never Total Score: 1 GAEL-7 AMB Questionnaire GAEL-7 Date GAEL - 7 assessed: 02/03/24 Feeling nervous, anxious, or on edge: 0 = Not at all Not being able to stop or control worryin = Not at all Worrying too much about different things: 1 = Several days Trouble relaxin = Not at all Being so restless that it is hard to sit still: 0 = Not at all Becoming easily annoyed or irritable: 0 = Not at all Feeling afraid as if something awful might happen: 0 = Not at all Total GAEL-7 score (0-4 normal; 5-9 mild; 10-14 moderate; 15-21 severe): 1 Source: Developed by Drs. Watson Pop, Zara Kinney, Josh Weiss and colleagues, with an educational hollie from [employer]. GAEL-7 Assessment Billing GAEL-7 Assessment Tool: GAEL-7 Assessment 09242 Review of Systems Const All systems reviewed & are unremarkable except as noted in HPI and below Reports no additional complaints Eyes Reports no additional complaints ENT Reports no additional complaints Card Reports no additional complaints Resp Reports no additional complaints GI Reports no additional complaints Reports no additional complaints Physical exam (Primary Care) Vital Signs: Last Vital Signs Pulse 110 H 02/03/24 11:09 BP 116/74 02/03/24 11:09 Pulse Ox 98 02/03/24 11:09 Oxygen Delivery Method Room Air 02/03/24 11:09 BMI result Body Mass Index 34.0 Tobacco/Smoking Status: Tobacco use Status Tobacco use date assessed 02/03/24 02/03/24 11:17 Patient Tobacco Use Status Never used Tobacco 02/03/24 11:17 e-Cigarette/Vaping Use Never Used 02/03/24 11:10 PHQ-9: PHQ-9 Score PHQ-9: Total score 1 02/03/24 11:17 Depression Screening Interpretation: Negative Thrive Assessment: Date of Thrive Assessment Date Thrive assessed 02/03/24 02/03/24 11:17 Currently or been in a relationship where the following occur: no concerns reported Const General: no acute distress HENMS Head: Yes normal to inspection Face and sinus: Yes normal facial exam Neck Neck: Yes no lymphadenopathy and Yes supple Resp Effort & Inspection: normal respiratory effort Auscultation: clear to auscultation bilaterally Cardio Rhythm: regular rhythm Heart sounds: S1 normal heart sound present and S2 normal heart sound present GI Inspection: Yes normal to inspection Palpation (GI): Soft to palpation Percussion: Yes normal to percussion Auscultation: normal bowel sounds Assessment and Plan Assessment & Plan (1) DM type 2 (diabetes mellitus, type 2): Code(s): E11.9 - Type 2 diabetes mellitus without complications Plan: A1c is up to 8.5, ADA diet increase exercise weight loss discussed with the patient. She requested referral to performing arts technicians. Adding GLP 1 receptor agonist discussed with the patient but she declined patient will follow-up in 3 months with a fasting labs before (2) Pulmonary HTN: Comment: f/u Dr. Brandon Irizarry ,[facility] started on Abrisentan and tadalafil 07/10 Code(s): I27.20 - Pulmonary hypertension, unspecified Plan: Continue current treatment and follow-up obtain copy of the most recent echo from [facility] (3) Persistent atrial fibrillation: Code(s): I48.19 - Other persistent atrial fibrillation Plan: Anticoagulated on Eliquis and rate controlled on digoxin (4) CKD (chronic kidney disease) stage 3, GFR 30-59 ml/min: Comment: Follow-up with nephrology Code(s): N18.30 - Chronic kidney disease, stage 3 unspecified Plan: Avoid nephrotoxins monitor renal function follow-up with nephrology Orders: Orders Hemoglobin A1c 3 Months E11.9 - Type 2 diabetes mellitus without complications, I48.19 - Other persistent atrial fibrillation, N18.30 - Chronic kidney disease, stage 3 unspecified Lipid Panel 3 Months E11.9 - Type 2 diabetes mellitus without complications, I48.19 - Other persistent atrial fibrillation, N18.30 - Chronic kidney disease, stage 3 unspecified Microalbumin, Random (w Creat) 3 Months E11.9 - Type 2 diabetes mellitus without complications Complete Blood Count Auto Diff 3 Months E11.9 - Type 2 diabetes mellitus without complications, I48.19 - Other persistent atrial fibrillation, N18.30 - Chronic kidney disease, stage 3 unspecified Comprehensive [place]. Panel Fast 3 Months E11.9 - Type 2 diabetes mellitus without complications, I48.19 - Other persistent atrial fibrillation, N18.30 - Chronic kidney disease, stage 3 unspecified Referrals [employer] Referral E11.9 - Type 2 diabetes mellitus without complications, I48.19 - Other persistent atrial fibrillation, N18.30 - Chronic kidney disease, stage 3 unspecified Coding Level of Care Code Est Pt Level 4 (51042) Diagnoses DM type 2 (diabetes mellitus, type 2) E11.9 Pulmonary HTN I27.20 Persistent atrial fibrillation I48.19 CKD (chronic kidney disease) stage 3, GFR 30-59 ml/min N18.30 Additional Codes GAEL-7 Assessment Billing - GAEL-7 Assessment Tool: GAEL-7 Assessment 31689 ([id number])
[2024-02-03 11:09] VITALS: BP 116/74; PULSE 110; O2SAT 98; BMI 34.0
== END 2024-02-03 11:38 | disposition home or self-care (01) ==
PROVIDERS: PCP Internal Medicine; Visit Provider Internal Medicine
DX: E11.22 Type 2 diabetes mellitus with diabetic chronic kidney disease (principal); I27.20 Pulmonary hypertension, unspecified; I48.19 Other persistent atrial fibrillation; N18.30 Chronic kidney disease, stage 3 unspecified
CPT/HCPCS: 99214

== ENCOUNTER 2024-03-17 12:24 | Outpatient (AMB) | payer MEDICARE, SELFPAY ==
--- NOTE | 2024-03-17 12:32 | A.OFFVIS_ITS ---
Intake VS Expanded 03/19/24 10:24 Height 5 ft 4 in Weight 200 lb BMI 34.3 Intake Visit Reasons: DM, CKD Allergies No Known Allergies Allergy (Verified 03/17/24 13:50) HPI Nutrition Presentation Details Pt presents for MNT for T2DM with stage 4 kidney disease , Pulmonary HTN , PT reports she prepares own meals Typical meal 10 am B: raisin toast , 2 scrambled egg s, water and coffee creamer ( light ) 3-4pm dark chocolate walnuts 2 or popcor n or granola/osito bars dinner: 6-8 pm: meat (chicken/fish /vegetable/salad physical activity: limited reports leg pain - will be going to ER smoking/etoh: denies KOE-Ncfqfxh-Eo.Jeor Equation Height 5 ft 4 in Weight 200 lb Resting Metabolic Rate 1426.72 Calculated Activity Level Sedentary Calories Needed to Maintain Weight 1712.06 Diagnosis Nutrition problem #1 food nutri know defi As related to (etiology) #1 diagnosis As evidenced by (sign/symptom) #1 knowledge deficit of diet Monitoring/Goals Nutrition problem monitoring HgbA1c, level of knowledge/skill and total CHO intake Nutrition goal/outcome list 3 CHO foods Most Recent Diabetes Results: Microalb/Creat Ratio 27.3 ug/mg cr (<30) 01/29/24 Cholesterol 127 mg/dL (<200) 01/29/24 HDL Cholesterol 39 mg/dL (>40) L 01/29/24 Triglycerides 100 mg/dL (<150) 01/29/24 Creatinine 1.80 mg/dL (0.5-1.4) H 01/29/24 Blood Urea Nitrogen 44 mg/dL (9-16) H 01/29/24 Sodium 139 mmol/L (135-145) 01/29/24 Potassium 4.1 mmol/L (3.3-5.1) 01/29/24 Chloride 110 mmol/L (96-108) H 01/29/24 Carbon Dioxide 23 mmol/L (22-29) 01/29/24 Calcium 9.6 mg/dL (8.4-10.2) 01/29/24 AST 16 U/L (5-31) 01/29/24 ALT 8 U/L (0-31) 01/29/24 Total Protein 7.2 g/dL (6.5-8.0) 01/29/24 Albumin 4.0 g/dL (3.5-5.0) 01/29/24 PFSH Medical History (Updated 03/18/24 @ 00:01 by Morenita Garza) History of uterine cancer GERD (gastroesophageal reflux disease) Lumbar and sacral spondyloarthritis Sacroiliitis Hip pain, bilateral CKD (chronic kidney disease) stage 3, GFR 30-59 ml/min Dysplastic nevus Palpitations Endometrial ca Diastolic dysfunction ASB (asymptomatic bacteriuria) Morbid obesity Atrial fibrillation Hyperlipidemia Hypertension Diabetes SUE on CPAP Surgical History Hx of cardiac cath S/P MARGARITA (total abdominal hysterectomy) H/O colonoscopy History of total abdominal hysterectomy and bilateral salpingo-oophorectomy Family History Father No problems noted. Mother HTN (hypertension) Diabetes mellitus Breast cancer Social History Household Members: Spouse Housing: House Are you a primary resident care aid to a significant other at home: No Do you presently have visiting nurse or other home services: No Alcohol intake: current Alcohol intake frequency: holidays/special occasions only Patient Tobacco Use Status: Never used Tobacco e-Cigarette/Vaping Use: Never Used Advance Directives Date on File: 02/12/23 service: No Current occupational status: retired Current occupation: rt handed Cognitive needs: No Hearing needs: No Vision needs: Yes Assessment & Plan Assessment & Plan (1) DM type 2 (diabetes mellitus, type 2): Code(s): E11.9 - Type 2 diabetes mellitus without complications Plan: Wt: 91 Kg ( 03/2024 ) Est kcal needs as per MSJ: 1700 (40% carb, 30% protein/fat) Est fluid needs as per 25-30 ml/d: 2730 Est prot per day as per 1 g/kg bw: 91 Recommend fiber intake : 8-10 g per day and gradually increase to 25-28 g per day for women and 35-38 g for men or as tolerated Recommend sodium intake per day : less than 2000 mg Educated patient on: ( R = reviewed V = verbalizes understanding N/R = needs review N/A = not applicable * Food sources of carbohydrate, adequate serving sizes and its role in various health conditions: R * Differences between complex carbohydrates a simple carbohydrates, role of fiber in diet: R * Lean protein sources of foods: R * Differences between types of fats and role in diet (mono on saturated fat fatty acids, saturated fatty acids, trans fats): N/R * Food sources of sodium in salt and healthy modifications for heart health in kidney health: NR * Vitamins and minerals: R V N/R * Healthy plate method concept: R * Physical activity: Benefits a precaution: N/R * Hypoglycemia protocol (rule of 15): R * Dietary prevention of Hyperglycemia: R Patient Instructions: Work on having 3 balanced meals per day,following healthy plate method and re ducing on snacks Become familiar with amount of carbohydrate consumed at dinner , reducing total carb to 45-60 g , see meal ideas as reference Coding Level of Care Code Nutr Indiv Intake (50479) Diagnoses DM type 2 (diabetes mellitus, type 2) E11.9 Time Spent (min) 30
[2024-03-19 10:24] VITALS: BMI 34.3
== END 2024-03-17 13:06 | disposition home or self-care (01) ==
PROVIDERS: PCP Internal Medicine; Visit Provider Dietitian, Registered
DX: E11.9 Type 2 diabetes mellitus without complications (principal)

== ENCOUNTER 2024-03-17 13:14 | Emergency (ER) | payer MEDICARE, MEDICAID, SELFPAY ==
--- NOTE | ~2024-03-17 | US_ITS ---
EXAMINATION: US VENOUS ULTRASOUND WITH DOPPLER LOWER EXTREMITY, RIGHT CLINICAL INFORMATION: Posterior knee pain. Swelling. COMPARISON: None available. TECHNIQUE: Ultrasound of the deep veins is performed from the hip to the calf with compression sonography and color and pulse Doppler assessment. Spectral analysis with color-flow imaging is performed. FINDINGS: There is normal venous compression and respiratory variation and augmented flow. The visualized common femoral vein, superficial femoral vein, profunda femoral vein, popliteal vein, and the trifurcation region shows no evidence of deep venous thrombosis. There is no significant popliteal fossa cyst. If the patient's symptoms persist, followup ultrasound in 5 days 7 days might be of value to exclude proximal propagation from a non-visualized calf vein. US/US venous duplex LE RT IMPRESSION: No DVT demonstrated in the right lower extremity.
[2024-03-17 13:48] VITALS: BP 136/70; PULSE 84; RESP 16; TEMP 36.6; O2SAT 96; BMI 34.3
--- NOTE | 2024-03-17 13:48 | ED.EXTPRO ---
HPI - Extremity Problem General Chief complaint: Extremity Injury, Lower Stated complaint: R Leg Pain No Injury Time Seen by Provider: 03/17/24 15:46 Source: patient Mode of arrival: ambulatory Limitations: physical limitation History of Present Illness HPI Narrative: 68 year old female with a past medical history of diabetes, pulmonary hypertension, and AFib on Eliquis presents to the emergency department, with family, for complaints of right posterior knee pain starting yesterday with difficulty bearing weight. Unsure if the leg is swollen but reports mild swelling at the posterior knee. Denies any trauma or overuse injury. Pertinent positives and negatives discussed in HPI Related Data Home Medications ?Medication ?Instructions ?Recorded ?Confirmed spironolactone 25 mg tablet 12.5 mg PO DAILY 08/15/23 11/04/23 tadalafil (pulm. hypertension) 20 40 mg PO DAILY 08/15/23 11/04/23 mg tablet (pulmonary hypertension) furosemide 20 mg tablet 60 mg PO DAILY 08/23/23 11/04/23 ambrisentan 5 mg tablet 5 mg PO DAILY 11/04/23 11/04/23 cholecalciferol (vitamin D3) 50 50 mcg PO DAILY 11/04/23 11/04/23 mcg (2,000 unit) capsule selexipag 200 mcg tablet (Uptravi) 1,400 mcg PO DAILY 11/04/23 11/04/23 Previous Rx's ?Medication ?Instructions ?Recorded blood-glucose meter #1 ea 08/07/21 FreeStyle Ziyad 2 Sensor (flash #2 ea 06/13/23 glucose sensor) FreeStyle Ziyad 2 [place] (flash #1 ea 06/19/23 glucose scanning reader) polyethylene glycol 3350 17 17 g PO DAILY #510 grams 07/29/23 gram/dose oral powder (Gavilax) apixaban 5 mg tablet (Eliquis) 5 mg PO BID #180 tabs 08/30/23 dapagliflozin propanediol 10 mg 10 mg PO DAILY #90 tabs 08/30/23 tablet (Farxiga) rosuvastatin 40 mg tablet 40 mg PO BEDTIME #90 tabs 01/05/24 clobetasol 0.05 % topical cream 1 appl topical DAILY #30 grams 01/13/24 sennosides 8.6 mg tablet (Natural 17.2 mg (2 x 8.6 mg) PO BEDTIME 01/14/24 Senna Laxative) constipation #60 tabs digoxin 125 mcg (0.125 mg) tablet 125 mcg PO DAILY #90 tabs 02/21/24 Allergies Allergy/AdvReac Type Severity Reaction Status Date / Time No Known Allergies Allergy Verified 03/17/24 13:50 Review of Systems Review of Systems: Yes all other systems are reviewed and are negative [facility] Past Medical History Medical History (Updated 03/17/24 @ 15:54 by Rosetta Mena NP) History of uterine cancer GERD (gastroesophageal reflux disease) Lumbar and sacral spondyloarthritis Sacroiliitis Hip pain, bilateral CKD (chronic kidney disease) stage 3, GFR 30-59 ml/min Dysplastic nevus Palpitations Endometrial ca Diastolic dysfunction ASB (asymptomatic bacteriuria) Morbid obesity Atrial fibrillation Hyperlipidemia Hypertension Diabetes SUE on CPAP Surgical History Hx of cardiac cath S/P MARGARITA (total abdominal hysterectomy) H/O colonoscopy History of total abdominal hysterectomy and bilateral salpingo-oophorectomy Family History Family History Father No problems noted. Mother HTN (hypertension) Diabetes mellitus Breast cancer Social History Social History Household Members: Spouse Housing: House Are you a primary home visit field care manager to a significant other at home: No Do you presently have visiting nurse or other home services: No Alcohol intake: current Alcohol intake frequency: holidays/special occasions only Patient Tobacco Use Status: Never used Tobacco e-Cigarette/Vaping Use: Never Used Advance Directives: Yes Advance Directives on File: Yes Advance Directives Date on File: 02/12/23 service: No Current occupational status: retired Current occupation: rt handed Cognitive needs: No Hearing needs: No Vision needs: Yes Physical Exam Vital Signs: Vital Signs: Last Vital Signs Temp 96.4 F L 03/17/24 17:49 Pulse 62 03/17/24 17:49 Resp 16 03/17/24 17:49 BP 133/69 03/17/24 17:49 Pulse Ox 99 03/17/24 17:49 O2 Del Method Room Air 03/17/24 17:49 BMI result Body Mass Index 34.3 Nursing notes and vital signs reviewed. GENERAL APPEARANCE: A&0 x 4, generally well appearing, no acute distress HENMT: Normal to inspection, atraumatic, face symmetrical. Normal external ears, nose, and oropharynx clear. EYE: PERRLA, EOM intact, structures appear normal NECK: Supple without stiffness or restricted ROM. HEART: Normal rate and regular rhythm, normal S1/S2, no M/R/G LUNGS: LS CTA, moving air well. Able to speak in complete sentences. No crackles, wheezes, or rhonchi auscultated BACK: No CVAT, no obvious deformity EXTREMITIES: TTP to right posterior knee. Normal capillary refill. No edema NEUROLOGICAL: Alert and oriented, moving all 4 extremities with equal strength. CN not formally tested but appearing grossly intact. Observed to ambulate with normal gait. Cognition normal SKIN: Warm and dry without any lesions, rash, or visible sores Medical Decision Making Medical Decision Making MDM Narrative: Old records reviewed for previous imaging, lab studies, ECGs, and notes. Patient was assessed the emergency department with no acute distress or toxicity noted. Ultrasound RLE completed showing no evidence of DVT. Radiologist recommends a repeat ultrasound in 5-7 days if supports do not resolve although patient is on an anticoagulant decreasing her risk of DVT. Patient educated to follow up with her primary care provider and given radiology recommendations. Patient educated to rest, ice, compress, and elevate knee for comprehensive with Benigno wrap provided. Patient is safe for discharge at this time with plan for [id number] Tylenol and/or NSAID such as ibuprofen or naproxen for fever/discomfort with dosing as per packaging. HPI, PE, diagnostics, and plan discussed with patient and family with no unanswered questions at this time. Strict return precautions given to return to the emergency department with new, worsening, or concerning emergent symptoms. Recommended to follow-up with there primary care provider in 24-48 hours for further treatment and management. Differential Diagnosis Differential Diagnoses: The differential diagnosis associated with the presentation includes But not limited to luna cyst, DVT, strain, sprain, bursitis, effusion, sepsis, malignancy Independent Interpretation I performed an independent interpretation of an: Ultrasound Interpretation: As negative for DVT Independent Historian Clinical information obtained from an independent historian. History obtained from or confirmed by: Spouse Chronic Conditions Patient?s care impacted by: Diabetes and Hypertension Discharge Plan Discharge Clinical Impression: Acute knee pain Qualifiers: Laterality: right Qualified Code(s): M25.561 - Pain in right knee Patient Disposition: Home, Self-Care Instructions: Knee Pain (ED), R.I.C.E. Treatment (ED) Additional Instructions: Your seen in the emergency department for concerns of right knee pain. An ultrasound was completed showing no signs of blood clots or fluid in the knee. If your symptoms persist, follow up with your primary care provider for a repeat ultrasound in 5-7 days. Is recommended that you rest, ice, elevate your knee for comfort in addition to using [id number] pain medication. An Benigno wrap has been provided to you today. You may use this for knee compression as needed You are safe for discharge at this time with plan for management of fever or discomfort with [id number] Tylenol and/or NSAID such as ibuprofen or naproxen with dosing as per packaging. Please return to the emergency department with new, worsening, or concerning emergent symptoms. Recommended to follow-up with your primary care provider in 24-48 hours for further treatment and management. Thank you for choosing [facility]. Prescriptions: No Action (DME) blood-glucose meter Kit See Rx Instructions .Route Qty: 1 0RF Rx Instructions: check glucose once a day (DME) FreeStyle Ziyad 2 Sensor Kit See Rx Instructions .Route Qty: 2 11RF Rx Instructions: 1 tid (DME) FreeStyle Ziyad 2 [place] Misc See Rx Instructions .Route Qty: 1 0RF Rx Instructions: As directed Eliquis 5 mg tablet 5 mg PO BID Qty: 180 3RF Farxiga 10 mg tablet 10 mg PO DAILY Qty: 90 3RF rosuvastatin 40 mg tablet 40 mg PO BEDTIME Qty: 90 3RF clobetasol 0.05 % cream 1 appl topical DAILY Qty: 30 0RF sennosides [Natural Senna Laxative] 8.6 mg tablet 17.2 mg PO BEDTIME Qty: 60 3RF digoxin 125 mcg (0.125 mg) tablet 125 mcg PO DAILY Qty: 90 3RF spironolactone 25 mg tablet 12.5 mg PO DAILY Uptravi 200 mcg tablet 1,400 mcg PO DAILY Rx Instructions: swallow whole; do not crush, chew, open, break/cut or dissolve cholecalciferol (vitamin D3) 50 mcg (2,000 unit) capsule 50 mcg PO DAILY polyethylene glycol 3350 [Gavilax] 17 gram/dose powder 17 g PO DAILY Qty: 510 2RF tadalafil (pulm. hypertension) 20 mg tablet 40 mg PO DAILY furosemide 20 mg tablet 60 mg PO DAILY ambrisentan 5 mg tablet 5 mg PO DAILY Referrals: Marisela Oscar MD [Primary Care Provider] - Interventions: ED Discharge Assessment Last Done: 03/17/24 17:49 Discharge Date/Time: 03/17/24 17:57 Print Language: Moroccan
[2024-03-17 17:49] VITALS: BP 133/69; PULSE 62; RESP 16; TEMP 35.8; O2SAT 99
== END 2024-03-17 17:57 | disposition home or self-care (01) ==
LOC: HO.ED 17:54
PROVIDERS: Emergency Provider Student in an Organized Health Care Education/Training Program; PCP Internal Medicine
DX: M25.561 Pain in right knee (principal); I48.91 Unspecified atrial fibrillation; E11.22 Type 2 diabetes mellitus with diabetic chronic kidney disease; I12.9 Hypertensive chronic kidney disease with stage 1 through stage 4 chronic kidney disease, or unspecified chronic kidney disease; N18.30 Chronic kidney disease, stage 3 unspecified; Z79.01 Long term (current) use of anticoagulants; Z71.3 Dietary counseling and surveillance
CPT/HCPCS: 93971; 97802; 99282; 99284

== ENCOUNTER 2024-04-02 11:07 | Outpatient (AMB) | payer MEDICARE, MEDICAID, SELFPAY ==
--- NOTE | 2024-04-02 11:27 | A.OFFPC_ITS ---
Vital Signs 04/02/24 11:28 Height 5 ft 4 in Weight 201 lb BMI 34.5 BP 110/66 Blood Pressure Location Rt brachial Position Sitting Pulse 68 Pulse Source Pulse Oximeter Pulse Oximetry (%) 97 Oxygen Delivery Method Room Air Intake Visit Reasons: Follow up from emergency room from March 17 [facility] Intake Note: Pt is here today for ER follow up visit. Allergies No Known Allergies Allergy (Verified 04/02/24 11:30) Medication List - Last Reconciled 04/02/24 by Marisela Oscar MD ambrisentan 5 mg PO DAILY apixaban (Eliquis) 5 mg PO BID blood-glucose meter check glucose once a day cholecalciferol (vitamin D3) 50 mcg PO DAILY clobetasol 0.05% 1 appl topical DAILY dapagliflozin propanediol (Farxiga) 10 mg PO DAILY digoxin 125 mcg PO DAILY FreeStyle Ziyad 2 [place] (flash glucose scanning reader) As directed NS FreeStyle Ziyad 2 Sensor (flash glucose sensor) 1 tid NS furosemide 60 mg PO DAILY polyethylene glycol 3350 (Gavilax) 17 grams PO DAILY rosuvastatin 40 mg PO BEDTIME selexipag (Uptravi) 1,400 mcg PO DAILY sennosides (Natural Senna Laxative) 17.2 mg (2 x 8.6 mg) PO BEDTIME spironolactone 12.5 mg PO DAILY tadalafil (pulm. hypertension) 40 mg PO DAILY Tobacco use date assessed: 04/02/24 Dental Screening Dental Screen Date: 02/03/24 HPI Follow up from emergency room from March 17 [facility] Details Patient presents for the follow-up of ER visit for right knee pain. Patient denies any injury she woke up with severe right knee pain was not able to bear the weight. She denies joint swelling redness or warmth. Patient had an ultrasound to rule out DVT despite being on Eliquis. She has been taking Tylenol with some relief. Patient continues to experience pain when walking but not at rest. Hypertension type 2 diabetes stable on current medications. [facility]LY [facility], [facility] Medical History (Updated 04/02/24 @ 13:18 by Marisela Oscar MD) History of uterine cancer GERD (gastroesophageal reflux disease) Lumbar and sacral spondyloarthritis Hip pain, bilateral CKD (chronic kidney disease) stage 3, GFR 30-59 ml/min Dysplastic nevus Palpitations Endometrial ca Diastolic dysfunction ASB (asymptomatic bacteriuria) Morbid obesity Hyperlipidemia Hypertension Diabetes SUE on CPAP Surgical History Hx of cardiac cath S/P MARGARITA (total abdominal hysterectomy) H/O colonoscopy History of total abdominal hysterectomy and bilateral salpingo-oophorectomy Family History Father No problems noted. Mother HTN (hypertension) Diabetes mellitus Breast cancer Social History Household Members: Spouse Housing: House Are you a primary caregiver services home to a significant other at home: No Do you presently have visiting nurse or other home services: No Alcohol intake: current Alcohol intake frequency: holidays/special occasions only Patient Tobacco Use Status: Never used Tobacco e-Cigarette/Vaping Use: Never Used Advance Directives Date on File: 02/12/23 service: No Current occupational status: retired Current occupation: rt handed Cognitive needs: No Hearing needs: No Vision needs: Yes Questionnaire Thrive Questionnaire Date Thrive assessed: 02/03/24 GAEL-7 AMB Questionnaire GAEL-7 Date GAEL - 7 assessed: 02/03/24 Source: Developed by Drs. Watson Pop, Zara Kinney, Josh Weiss and colleagues, with an educational hollie from [employer]. Review of Systems Const All systems reviewed & are unremarkable except as noted in HPI and below Eyes Reports no additional complaints ENT Reports no additional complaints Card Reports no additional complaints Resp Reports no additional complaints GI Reports no additional complaints Physical exam (Primary Care) Vital Signs: Last Vital Signs Pulse 115 H 04/02/24 11:28 BP 110/66 04/02/24 11:28 Pulse Ox 97 04/02/24 11:28 Oxygen Delivery Method Room Air 04/02/24 11:28 BMI result Body Mass Index 34.5 Tobacco/Smoking Status: Tobacco use Status Tobacco use date assessed 04/02/24 04/02/24 11:33 Patient Tobacco Use Status Never used Tobacco 04/02/24 11:33 e-Cigarette/Vaping Use Never Used 04/02/24 11:33 Thrive Assessment: Date of Thrive Assessment Date Thrive assessed 03/18/24 05/16/24 11:33 Const General: no acute distress [facility] Ears: hearing grossly normal bilaterally Eyes General: appearance normal, both eyes and all related structures Resp Effort & Inspection: normal respiratory effort Auscultation: clear to auscultation bilaterally Cardio Rhythm: regular rhythm Heart sounds: S1 normal heart sound present and S2 normal heart sound present GI Inspection: Yes normal to inspection Palpation (GI): Soft to palpation Auscultation: normal bowel sounds Extrem Other: Study decreased range of motion and crepitus in the right knee, no soft tissue swelling erythema or warmth Assessment and Plan Assessment & Plan (1) Knee pain, right: Code(s): M25.561 - Pain in right knee Plan: Obtain x-ray of right knee to evaluate for osteoarthritis, referred for physical therapy. Patient will continue to take Tylenol as needed (2) DM type 2 (diabetes mellitus, type 2): Code(s): E11.9 - Type 2 diabetes mellitus without complications Plan: Continue Farxiga (3) Pulmonary HTN: Comment: f/u Dr. Brandon Irizarry ,[facility] started on Abrisentan and tadalafil 07/10 Code(s): I27.20 - Pulmonary hypertension, unspecified Plan: Continue current medications and follow-up with wire winding machine tender (4) Persistent atrial fibrillation: Code(s): I48.19 - Other persistent atrial fibrillation Plan: Continue Eliquis and digoxin (5) CKD (chronic kidney disease) stage 3, GFR 30-59 ml/min: Comment: Follow-up with nephrology Code(s): N18.30 - Chronic kidney disease, stage 3 unspecified Plan: Avoid nephrotoxins monitor renal function Orders: Orders XR knee RT 2V Today M25.561 - Pain in right knee PT Evaluation and Treatment Today M25.561 - Pain in right knee Coding Level of Care Code Est Pt Level 4 (40483) Diagnoses Knee pain, right M25.561 DM type 2 (diabetes mellitus, type 2) E11.9 Pulmonary HTN I27.20 Persistent atrial fibrillation I48.19 CKD (chronic kidney disease) stage 3, GFR 30-59 ml/min N18.30
[2024-04-02 11:28] VITALS: BP 110/66; PULSE 68; O2SAT 97; BMI 34.5
== END 2024-04-02 13:20 | disposition home or self-care (01) ==
PROVIDERS: PCP Internal Medicine; Visit Provider Internal Medicine
DX: E11.22 Type 2 diabetes mellitus with diabetic chronic kidney disease (principal); N18.30 Chronic kidney disease, stage 3 unspecified; I27.20 Pulmonary hypertension, unspecified; I48.19 Other persistent atrial fibrillation; M25.561 Pain in right knee
CPT/HCPCS: 99214

== ENCOUNTER 2024-04-02 12:06 | Outpatient (REF) | payer MEDICARE, OTHER, SELFPAY ==
--- NOTE | ~2024-04-02 | XR_ITS ---
EXAMINATION: XR KNEE, RIGHT CLINICAL INFORMATION: Pain in the right knee. COMPARISON: None available. TECHNIQUE: 2 views of the right knee. FINDINGS: Medial compartment: Prominent marginal osteophytes and joint space narrowing indicative of jzylyeov-[id number]-tohxhk osteoarthritis. Lateral compartment: Prominent marginal osteophytes and joint space narrowing indicative of zupkytwd-yd-monxho osteoarthritis. Patellofemoral compartment: Limited evaluation without patella view. However, there does appear to be severe joint space narrowing and some remodeling of the patella indicative of severe osteoarthritis. There is ossification distal to the patella of uncertain etiology and significance. This could be located within the patella tendon perhaps related to old partial tear with ossification resulting or old distal pole patella fracture. There also appears to be ossification adjacent to the lateral aspect of the patella perhaps related to old retinacular tear. XR/XR knee RT 2V IMPRESSION: 1. Advanced osteoarthritis of the right knee. 2. Ossification adjacent to the patella perhaps related to old patella tendon fracture or old distal pole patella fracture and possible old lateral retinacular tear. No acute abnormality.
== END 2024-04-02 12:07 | disposition home or self-care (01) ==
LOC: HO.HMGCX 12:06
PROVIDERS: PCP Internal Medicine; Visit Provider Internal Medicine
DX: M25.561 Pain in right knee (principal)
CPT/HCPCS: 73560

== ENCOUNTER 2024-04-20 08:13 | Outpatient (REF) | payer MEDICARE, MEDICAID, SELFPAY ==
[2024-04-20 10:19] LABS: MANUAL DIFF FLAG NO
[2024-04-20 10:38] LABS: Basophils Percent Auto 0.4 % (0-2); Eosinophils Absolute Auto 0.5 X10*3/uL (0.0-0.4); Eosinophils Percent Auto 6.8 % (0-4); Hematocrit 38.3 % (37.0-47.0); Hemoglobin 12.3 g/dl (12.0-16.0); Imm Gran Abs Auto 0.02 X10*3/uL (0.00-0.03); Imm Gran Pct Auto 0.3 % (0.0-0.4); Lymphocytes Absolute Auto 2.7 X10*3/uL (1.2-4.9); Mean Corpuscular HGB Conc 32.1 g/dl (31.0-35.0); Mean Corpuscular Hemoglobin 30.1 pg (27.0-33.0); Mean Corpuscular Volume 93.9 fL (80.0-98.0); Mean Platelet Volume 11.2 fL (9.4-12.3); Monocytes Absolute Auto 0.6 X10*3/uL (0.1-1.2); Monocytes Percent Auto 8.1 % (2-11); Neutrophils Absolute Auto 3.5 x10*3/uL (2.0-8.3); Neutrophils Percent Auto 47.4 % (45-73); Platelet Count 227 X10*3/uL (160-400); Red Blood Count 4.08 X10*6/uL (4.20-5.50); Red Cell Distribution Width 13.4 % (11.0-16.0); White Blood Count 7.4 X10*3/uL (4.8-10.8)
[2024-04-20 10:57] LABS: Alanine Aminotransferase 7 U/L (0-31); Alkaline Phosphatase 80 U/L (39-117); Anion Gap 11 (12-20); Aspartate Amino Transferase 12 U/L (5-31); Bilirubin Total 0.3 mg/dL (0.0-1.0); Blood Urea Nitrogen 43 mg/dL (9-16); Calcium 9.2 mg/dL (8.4-10.2); Carbon Dioxide 20 mmol/L (22-29); Chloride 110 mmol/L (96-108); Cholesterol 154 mg/dL (<200); Estimated Glomerular Filt Rate 27; Glucose Fasting 134 mg/dL (60-99); HDL Cholesterol 41 mg/dL (>40); LDL Cholesterol Calculated 88 mg/dL (<100); Potassium 4.4 mmol/L (3.3-5.1); Sodium 137 mmol/L (135-145); Triglycerides 127 mg/dL (<150)
[2024-04-20 11:05] LABS: Estimated Average Glucose 186 mg/dL; Hemoglobin A1c % 8.1 % (<6.0)
[2024-04-20 11:07] LABS: Creatinine Urine 108.99 mg/dL; Microalbum/Creatinine Ratio Ur 26.6 ug/mg cr (<30)
== END 2024-04-20 08:14 | disposition home or self-care (01) ==
LOC: HO.HMGCLDS 08:13
PROVIDERS: PCP Internal Medicine; Visit Provider Internal Medicine
DX: E11.9 Type 2 diabetes mellitus without complications (principal); I48.19 Other persistent atrial fibrillation; N18.30 Chronic kidney disease, stage 3 unspecified
CPT/HCPCS: 36415; 80053; 80061; 82043; 82570; 83036; 85025

== ENCOUNTER 2024-04-24 11:02 | Outpatient (AMB) | payer MEDICARE, SELFPAY ==
[2024-04-24 11:21] VITALS: BP 120/66; PULSE 106; O2SAT 98; BMI 34.5
--- NOTE | 2024-04-24 11:21 | MHC.PC.OV ---
Vital Signs 04/24/24 11:21 Height 5 ft 4 in Weight 201 lb BMI 34.5 BP 120/66 Blood Pressure Location Rt brachial Position Sitting Pulse 106 H Pulse Source Pulse Oximeter Pulse Oximetry (%) 98 Oxygen Delivery Method Room Air Intake Visit Reasons: 3M F/U Intake Note: Pt is here today for 3 months follow up visit. Allergies No Known Allergies Allergy (Verified 04/24/24 11:21) Medication List - Last Reconciled 04/24/24 by Marisela Oscar MD ambrisentan 5 mg PO DAILY apixaban (Eliquis) 5 mg PO BID blood-glucose meter check glucose once a day cholecalciferol (vitamin D3) 50 mcg PO DAILY clobetasol 0.05% 1 appl topical DAILY dapagliflozin propanediol (Farxiga) 10 mg PO DAILY digoxin 125 mcg PO DAILY FreeStyle Ziyad 2 [place] (flash glucose scanning reader) As directed NS FreeStyle Ziyad 2 Sensor (flash glucose sensor) 1 tid NS furosemide 60 mg PO DAILY polyethylene glycol 3350 (Gavilax) 17 grams PO DAILY rosuvastatin 40 mg PO BEDTIME selexipag (Uptravi) 1,400 mcg PO DAILY sennosides (Natural Senna Laxative) 17.2 mg (2 x 8.6 mg) PO BEDTIME spironolactone 12.5 mg PO DAILY tadalafil (pulm. hypertension) 40 mg PO DAILY Tobacco use date assessed: 04/02/24 Dental Screening Dental Screen Date: 02/03/24 HPI 3M F/U HPI Details Pt presents for HTN, type 2 diabetes chronic kidney disease stage 4 pulmonary hypertension hyperlipidemia. PFSH Medical History (Updated 04/24/24 @ 12:20 by Marisela Oscar MD) History of uterine cancer GERD (gastroesophageal reflux disease) Lumbar and sacral spondyloarthritis Hip pain, bilateral CKD (chronic kidney disease) stage 3, GFR 30-59 ml/min Dysplastic nevus Palpitations Endometrial ca Diastolic dysfunction ASB (asymptomatic bacteriuria) Morbid obesity Hyperlipidemia Hypertension SUE on CPAP Surgical History Hx of cardiac cath S/P MARGARITA (total abdominal hysterectomy) H/O colonoscopy History of total abdominal hysterectomy and bilateral salpingo-oophorectomy Family History Father No problems noted. Mother HTN (hypertension) Diabetes mellitus Breast cancer Social History Household Members: Spouse Housing: House Are you a primary career development coordinator/teacher to a significant other at home: No Do you presently have visiting nurse or other home services: No Alcohol intake: current Alcohol intake frequency: holidays/special occasions only Patient Tobacco Use Status: Never used Tobacco e-Cigarette/Vaping Use: Never Used Advance Directives Date on File: 02/12/23 service: No Current occupational status: retired Current occupation: rt handed Cognitive needs: No Hearing needs: No Vision needs: Yes Questionnaire Thrive Questionnaire Date Thrive assessed: 02/03/24 AUDIT C Alcohol Use Questionnaire (AUDIT-C) 1. How often do you have a drink containing alcohol?: Monthly or less 2. How many drinks containing alcohol do you have on a typical day when you are drinking?: 1 or 2 3. How often do you have six or more drinks on one occasion?: Never Total Score: 1 GAEL-7 AMB Questionnaire GAEL-7 Date GAEL - 7 assessed: 02/03/24 Feeling nervous, anxious, or on edge: 0 = Not at all Not being able to stop or control worryin = Several days Worrying too much about different things: 0 = Not at all Trouble relaxin = Not at all Being so restless that it is hard to sit still: 0 = Not at all Becoming easily annoyed or irritable: 0 = Not at all Feeling afraid as if something awful might happen: 0 = Not at all Total GAEL-7 score (0-4 normal; 5-9 mild; 10-14 moderate; 15-21 severe): 1 Source: Developed by Drs. Watson Pop, Zara Kinney, Josh Weiss and colleagues, with an educational hollie from [employer]. Review of Systems Const All systems reviewed & are unremarkable except as noted in HPI and below ENT Reports no additional complaints Card Reports no additional complaints Resp Reports no additional complaints GI Reports no additional complaints Reports no additional complaints Physical exam (Primary Care) Vital Signs: Last Vital Signs Pulse 106 H 04/24/24 11:21 BP 120/66 04/24/24 11:21 Pulse Ox 98 04/24/24 11:21 Oxygen Delivery Method Room Air 04/24/24 11:21 BMI result Body Mass Index 34.5 Tobacco/Smoking Status: Tobacco use Status Tobacco use date assessed 04/02/24 04/24/24 11:22 Patient Tobacco Use Status Never used Tobacco 04/24/24 11:22 e-Cigarette/Vaping Use Never Used 04/24/24 11:22 Thrive Assessment: Date of Thrive Assessment Date Thrive assessed 02/03/24 04/24/24 11:22 Const General: no acute distress HENMT Head: Yes normal to inspection Eyes General: appearance normal, both eyes and all related structures Resp Effort & Inspection: normal respiratory effort Auscultation: clear to auscultation bilaterally Cardio Rhythm: regular rhythm Heart sounds: S1 normal heart sound present and S2 normal heart sound present GI Inspection: Yes normal to inspection Palpation (GI): Soft to palpation Assessment and Plan Assessment & Plan (1) Persistent atrial fibrillation: Code(s): I48.19 - Other persistent atrial fibrillation Plan: Continue current medications follow-up with Cardiology (2) Pulmonary HTN: Comment: f/u Dr. Brandon Irizarry ,[facility] started on Abrisentan and tadalafil 07/10 Code(s): I27.20 - Pulmonary hypertension, unspecified Plan: Follow-up with medical receptionist biller (3) DM type 2 (diabetes mellitus, type 2): Code(s): E11.9 - Type 2 diabetes mellitus without complications Plan: A1c is 8.1, ADA diet increase exercise weight loss discussed with the patient she was advised to start insulin but patient declined. She would like to try improve her diet increase exercise follow-up in 3 months with a fasting labs before. Patient will continue Farxiga (4) CKD (chronic kidney disease) stage 3, GFR 30-59 ml/min: Comment: Follow-up with nephrology Code(s): N18.30 - Chronic kidney disease, stage 3 unspecified Plan: Avoid nephrotoxins monitor renal function follow-up with nephrology (5) Endometrial ca: Comment: s/p [facility] 2014 Code(s): C54.1 - Malignant neoplasm of endometrium Plan: In remission Orders: Orders Comprehensive Walker. Panel Fast 3 Months E11.9 - Type 2 diabetes mellitus without complications, I27.20 - Pulmonary hypertension, unspecified, I48.19 - Other persistent atrial fibrillation Complete Blood Count Auto Diff 3 Months E11.9 - Type 2 diabetes mellitus without complications, I27.20 - Pulmonary hypertension, unspecified, I48.19 - Other persistent atrial fibrillation Hemoglobin A1c 3 Months E11.9 - Type 2 diabetes mellitus without complications, I27.20 - Pulmonary hypertension, unspecified, I48.19 - Other persistent atrial fibrillation Medications: New rosuvastatin (Crestor) 20 mg PO DAILY 90 tabs 0RF Discontinued rosuvastatin Discontinued Reason: Doctor's Order 40 mg PO BEDTIME 90 tabs 3RF Coding Level of Care Code Est Pt Level 4 (54715) Diagnoses Persistent atrial fibrillation I48.19 Pulmonary HTN I27.20 DM type 2 (diabetes mellitus, type 2) E11.9 CKD (chronic kidney disease) stage 3, GFR 30-59 ml/min N18.30 Endometrial ca C54.1
== END 2024-04-24 12:09 | disposition home or self-care (01) ==
PROVIDERS: PCP Internal Medicine; Visit Provider Internal Medicine
DX: I48.19 Other persistent atrial fibrillation (principal); I27.20 Pulmonary hypertension, unspecified; E11.22 Type 2 diabetes mellitus with diabetic chronic kidney disease; N18.30 Chronic kidney disease, stage 3 unspecified; C54.1 Malignant neoplasm of endometrium
CPT/HCPCS: 99214

== ENCOUNTER 2024-04-28 12:39 | Outpatient (AMB) | payer MEDICARE, SELFPAY ==
[2024-04-28 13:09] VITALS: BMI 34.5
--- NOTE | 2024-04-28 13:09 | A.OFFVIS_ITS ---
VS Expanded 04/28/24 13:09 Height 5 ft 4 in Weight 201 lb 4.513 oz BMI 34.5 Intake Visit Reasons: DM, CKD/CONFIRMED Allergies No Known Allergies Allergy (Verified 04/24/24 11:21) Nutrition Presentation Details: Pt presents for MNT f/u for T2DM with CKD Pt reports having misplaced info related to meal planning ideas Pt reports working on reducing on snacks BS Monitoring Most Recent Diabetes Results: Microalb/Creat Ratio 26.6 ug/mg cr (<30) 04/20/24 Cholesterol 154 mg/dL (<200) 04/20/24 HDL Cholesterol 41 mg/dL (>40) 04/20/24 Triglycerides 127 mg/dL (<150) 04/20/24 Creatinine 1.83 mg/dL (0.5-1.4) H 04/20/24 Blood Urea Nitrogen 43 mg/dL (9-16) H 04/20/24 Sodium 137 mmol/L (135-145) 04/20/24 Potassium 4.4 mmol/L (3.3-5.1) 04/20/24 Chloride 110 mmol/L (96-108) H 04/20/24 Carbon Dioxide 20 mmol/L (22-29) L 04/20/24 Calcium 9.2 mg/dL (8.4-10.2) 04/20/24 AST 12 U/L (5-31) 04/20/24 ALT 7 U/L (0-31) 04/20/24 Total Protein 7.0 g/dL (6.5-8.0) 04/20/24 Albumin 4.0 g/dL (3.5-5.0) 04/20/24 PFSH Medical History (Updated 04/24/24 @ 12:20 by Marisela Oscar MD) History of uterine cancer GERD (gastroesophageal reflux disease) Lumbar and sacral spondyloarthritis Hip pain, bilateral CKD (chronic kidney disease) stage 3, GFR 30-59 ml/min Dysplastic nevus Palpitations Endometrial ca Diastolic dysfunction ASB (asymptomatic bacteriuria) Morbid obesity Hyperlipidemia Hypertension SUE on CPAP Surgical History Hx of cardiac cath S/P MARGARITA (total abdominal hysterectomy) H/O colonoscopy History of total abdominal hysterectomy and bilateral salpingo-oophorectomy Family History Father No problems noted. Mother HTN (hypertension) Diabetes mellitus Breast cancer Social History Household Members: Spouse Housing: House Are you a primary lead care manager to a significant other at home: No Do you presently have visiting nurse or other home services: No Alcohol intake: current Alcohol intake frequency: holidays/special occasions only Patient Tobacco Use Status: Never used Tobacco e-Cigarette/Vaping Use: Never Used Advance Directives Date on File: 02/12/23 service: No Current occupational status: retired Current occupation: rt handed Cognitive needs: No Hearing needs: No Vision needs: Yes Assessment & Plan Assessment & Plan (1) DM type 2 (diabetes mellitus, type 2): Code(s): E11.9 - Type 2 diabetes mellitus without complications Category: Medical Plan: Wt: 91 Kg ( 03/2024 ) 91 kg (04/2024) Est kcal needs as per MSJ: 1700 (40% carb, 30% protein/fat) Est fluid needs as per 25-30 ml/d: 2730 Est prot per day as per 1 g/kg bw: 91 Recommend fiber intake : 8-10 g per day and gradually increase to 25-28 g per day for women and 35-38 g for men or as tolerated Recommend sodium intake per day : less than 2000 mg Educated patient on: ( R = reviewed V = verbalizes understanding N/R = needs review N/A = not applicable * Food sources of carbohydrate, adequate serving sizes and its role in various health conditions: R * Differences between complex carbohydrates a simple carbohydrates, role of fiber in diet: R * Lean protein sources of foods: R * Differences between types of fats and role in diet (mono on saturated fat f atty acids, saturated fatty acids, trans fats): N/R * Food sources of sodium in salt and healthy modifications for heart health in kidney health: NR * Vitamins and minerals: R V N/R * Healthy plate method concept: R * Physical activity: Benefits a precaution: N/R * Hypoglycemia protocol (rule of 15): R * Dietary prevention of Hyperglycemia: R Patient Instructions: Follow healthy plate method SEe meal plan consisting of 45 -60 g carb at meal Choose yogurt or fruit as snack , reducing on highly processed foods Coding Level of Care Code Nutr Indiv Subseq (06790) Diagnoses DM type 2 (diabetes mellitus, type 2) E11.9 Time Spent (min) 30
== END 2024-04-28 13:36 | disposition home or self-care (01) ==
PROVIDERS: PCP Internal Medicine; Visit Provider Dietitian, Registered
DX: E11.9 Type 2 diabetes mellitus without complications (principal)

== ENCOUNTER → 2024-04-28 12:39 | Outpatient (BNVA) | payer MEDICARE, SELFPAY | PROVIDERS: PCP Internal Medicine; Visit Provider Dietitian, Registered | DX: E11.9 Type 2 diabetes mellitus without complications (principal) | CPT/HCPCS: 97803 ==

== ENCOUNTER 2024-06-17 11:00 | Outpatient (RCR) | payer MEDICARE, OTHER, SELFPAY ==
--- NOTE | 2024-06-01 11:43 | MHC.PT.EP ---
[facility] [place] Office [place] Office [place] Office [address] Jules Altamirano [address] [phone] F: [phone] F: [phone] F: [phone] F: [phone] Physical Therapy Plan of Care Date of Evaluation: 06/01/24 Date of Surgery: Diagnosis: This is a 68 yo female presenting to skilled PT with a script for pain in R knee. Assessment: This is a 68 yo female presenting to skilled PT with a script for pain in R knee. Patient presented [place] [facility] [place] on 03/17 when she woke up with severe pain. ED intake states: complaints of right posterior knee pain starting the day prior with difficulty bearing weight. Unsure if the leg is swollen but reports mild swelling at the posterior knee. Denies any trauma or overuse injury. DC note states: An ultrasound was completed showing no signs of blood clots or fluid in the knee. If your symptoms persist, follow up with your primary care provider for a repeat ultrasound in 5-7 days. Is recommended that you rest, ice, elevate your knee for comfort in addition to using [id number] pain medication. An Benigno wrap has been provided to you today. You may use this for knee compression as needed. No referral to ortho has been made yet. Today she is reporting that her pain is moderate, located laterally at the joint line and distal ITB. Pain is described as throbbing however was severe back when she went to the ED. Pain increases with standing, walking and going up/down stairs. Assessment reveals pain that ranges from up to a 8/10 at the worst. Patient demos decreased R knee ROM as well as associated hip and ankle limitations, strength of R LE, TTP at posterior knee, decreased patella mobility and impaired posture with forward head and rounded shoulders as well as decreased gait pattern causing deficits on balance. Based on functional limitations, impaired QOL and pain tolerance patient is a good candidate for skilled PT 2x/wk for 4wks. I did educate her on the extent of her OA, she does not want surgery so her goals are related to being as functional as possible without other intervention. Frequency and Duration: The patient will be seen 2x/wk for 4wks Short Term Goals: (in 2 weeks) Patient will improve knee AROM by at least 10 degs without assist Patient will demo good understanding and performance of quad set in multiple different planes without cues from PT Patient will be I in HEP Sheriffs Officer Goals: (in 4 weeks) Patient will report 75% improvement in balance and strength of LLE as evidenced by reports no of falls or buckling in LE Patient will improve LEFs by 10 points Patient will demo WFL AROM of knee and ankle Patient will demo proper squat and lift techniques without increase in pain Treatment Plan: Modalities to reduce pain, spasms and effusion. Manual therapy to restore motion and function. Therapeutic exercise to improve strength and flexibility. Neuromuscular re-education for posture and balance. Therapeutic activities to return to functional activities of daily living. Electronically signed by: Blaire Rodgers PT Please sign and return to therapist. Thank you for your referral.
--- NOTE | 2024-07-15 08:43 | MHC.PT.DC ---
[facility] [place] Office [place] Office [place] Office [address] Altamirano [address] [phone] F: [phone] F: [phone] F: [phone] F: [phone] Physical Therapy Discharge Report Diagnosis: This is a 68 yo female presenting to skilled PT with a script for pain in R knee. Date of Surgery: Date of Evaluation: 06/01/24 Date of Discharge: 07/15/24 Treatments to Date: 5 Cancellations to Date: 0 No Shows to Date: 0 Discharge Status: Achieved Goals Improved Function Independent with HEP Patient Elected to Stop Recommend MD Follow-up Discharge Summary: Patient has come to 5 sessions of PT, she is I in her program and compliant. I did recommend to her that she may want to talk with an orthopedic surgeon as her joint is very limited due to arthritis. She still demos -15 degs lack in extension and 105 degs knee flexion. She is limited in her gait, balance and functional tolerance and would benefit from a referral to talk about TKR vs alternative options as exercise will only be able to take her so far. DC to HEP and referred back to PCP. Electronically signed by: Blaire Rodgers PT Please sign and return to therapist. Thank you for your referral.
== END 2024-07-15 08:43 | disposition home or self-care (01) ==
LOC: HO.PTCHIC 11:00
PROVIDERS: PCP Internal Medicine; Visit Provider Internal Medicine
DX: M25.561 Pain in right knee (principal)
CPT/HCPCS: 97110; 97162

== ENCOUNTER 2024-07-31 10:41 | Outpatient (REF) | payer MEDICARE, MEDICAID, SELFPAY ==
[2024-07-31 13:56] LABS: MANUAL DIFF FLAG NO
[2024-07-31 14:04] LABS: Basophils Percent Auto 0.4 % (0-2); Eosinophils Absolute Auto 0.3 X10*3/uL (0.0-0.4); Eosinophils Percent Auto 4.4 % (0-4); Hemoglobin 12.5 g/dl (12.0-16.0); Imm Gran Abs Auto 0.02 X10*3/uL (0.00-0.03); Imm Gran Pct Auto 0.3 % (0.0-0.4); Lymphocytes Absolute Auto 2.4 X10*3/uL (1.2-4.9); Lymphocytes Percent Auto 30.8 % (20-40); Mean Corpuscular HGB Conc 32.1 g/dl (31.0-35.0); Mean Corpuscular Volume 93.8 fL (80.0-98.0); Monocytes Absolute Auto 0.6 X10*3/uL (0.1-1.2); Monocytes Percent Auto 8.2 % (2-11); Neutrophils Absolute Auto 4.3 x10*3/uL (2.0-8.3); Neutrophils Percent Auto 55.9 % (45-73); Platelet Count 228 X10*3/uL (160-400); Red Blood Count 4.16 X10*6/uL (4.20-5.50); Red Cell Distribution Width 13.1 % (11.0-16.0); White Blood Count 7.7 X10*3/uL (4.8-10.8)
[2024-07-31 14:10] LABS: Estimated Average Glucose 189 mg/dL; Hemoglobin A1c % 8.2 % (<6.0)
[2024-07-31 14:21] LABS: Alanine Aminotransferase 10 U/L (0-31); Albumin Level 4.1 g/dL (3.5-5.0); Alkaline Phosphatase 78 U/L (39-117); Anion Gap 11 (12-20); Aspartate Amino Transferase 14 U/L (5-31); Bilirubin Total 0.3 mg/dL (0.0-1.0); Blood Urea Nitrogen 35 mg/dL (9-16); Calcium 9.6 mg/dL (8.4-10.2); Carbon Dioxide 23 mmol/L (22-29); Chloride 109 mmol/L (96-108); Estimated Glomerular Filt Rate 25; Glucose Fasting 162 mg/dL (60-99); Potassium 4.2 mmol/L (3.3-5.1); Sodium 139 mmol/L (135-145); Total Protein 7.3 g/dL (6.5-8.0)
== END 2024-07-31 10:42 | disposition home or self-care (01) ==
LOC: HO.HMGCLDS 10:41
PROVIDERS: PCP Internal Medicine; Visit Provider Internal Medicine
DX: E11.9 Type 2 diabetes mellitus without complications (principal); I27.20 Pulmonary hypertension, unspecified; I48.19 Other persistent atrial fibrillation
CPT/HCPCS: 36415; 80053; 83036; 85025

== ENCOUNTER 2024-08-03 12:42 | Outpatient (AMB) | payer MEDICARE, MEDICAID, SELFPAY ==
[2024-08-03 12:52] VITALS: BP 104/66; PULSE 94; O2SAT 96; BMI 34.5
--- NOTE | 2024-08-03 12:52 | A.OFFPC_ITS ---
Vital Signs 08/03/24 12:52 Height 5 ft 4 in Weight 201 lb BMI 34.5 BP 104/66 Blood Pressure Location Lt brachial Position Sitting Pulse 94 Pulse Source Pulse Oximeter Pulse Oximetry (%) 96 Oxygen Delivery Method Room Air Intake Visit Reasons: 3M F/U Intake Note: Pt is here today for 3 months follow up visit. Allergies No Known Allergies Allergy (Verified 08/03/24 12:54) Medication List - Last Reconciled 08/03/24 by Marisela Oscar MD ambrisentan 5 mg PO DAILY apixaban (Eliquis) 5 mg PO BID blood-glucose meter check glucose once a day cholecalciferol (vitamin D3) 50 mcg PO DAILY clobetasol 0.05% 1 appl topical DAILY dapagliflozin propanediol (Farxiga) 10 mg PO DAILY digoxin 125 mcg PO DAILY FreeStyle Ziyad 2 R[place] (flash glucose scanning reader) As directed NS FreeStyle Ziyad 2 Sensor (flash glucose sensor) Test blood sugar TID, change sensor every 14 days NS furosemide 60 mg PO DAILY polyethylene glycol 3350 (Gavilax) 17 grams PO DAILY rosuvastatin (Crestor) 20 mg PO DAILY selexipag (Uptravi) 1,400 mcg PO DAILY sennosides (Natural Senna Laxative) 17.2 mg (2 x 8.6 mg) PO BEDTIME spironolactone 12.5 mg (1/2 x 25 mg) PO DAILY 90 days tadalafil (pulm. hypertension) 40 mg PO DAILY Tobacco use date assessed: 08/03/24 Fall risk assessment: No Falls in past year Last assessed Fall Risk: 08/03/24 Dental Screening Dental Screen Date: 02/03/24 HPI 3M F/U HPI Details Patient presents for type 2 diabetes, chronic kidney disease stage 3 pulmonary hypertension persistent AFib PFSH Medical History History of uterine cancer GERD (gastroesophageal reflux disease) Lumbar and sacral spondyloarthritis Hip pain, bilateral CKD (chronic kidney disease) stage 3, GFR 30-59 ml/min Dysplastic nevus Palpitations Endometrial ca Diastolic dysfunction ASB (asymptomatic bacteriuria) Morbid obesity Hyperlipidemia Hypertension SUE on CPAP Surgical History Hx of cardiac cath S/P MARGARITA (total abdominal hysterectomy) H/O colonoscopy History of total abdominal hysterectomy and bilateral salpingo-oophorectomy Family History Father No problems noted. Mother HTN (hypertension) Diabetes mellitus Breast cancer Social History Household Members: Spouse Housing: House Are you a primary career professional to a significant other at home: No Do you presently have visiting nurse or other home services: No Alcohol intake: current Alcohol intake frequency: holidays/special occasions only Patient Tobacco Use Status: Never used Tobacco e-Cigarette/Vaping Use: Never Used Advance Directives Date on File: 02/12/23 service: No Current occupational status: retired Current occupation: rt handed Cognitive needs: No Hearing needs: No Vision needs: Yes Questionnaire Thrive Questionnaire Date Thrive assessed: 08/01/24 I am a: Patient What is your living situation today?: I have a steady place to live Within the past 12 months, did the food you bought not last and you didn't have the money to get more?: Never true Within the past 12 months, did you worry whether your food would run out before you got money to buy more?: Never true Do you have trouble paying for medicines?: No Do you have trouble getting transportation to medical appointments?: No Do you have trouble paying your heating and electricity bill?: Yes Do you have trouble taking care of your child, family member or friend?: No Do you have trouble with day-to-day activities such as bathing, preparing meals, shopping, managing finances, etc.?: No Are you interested in more education?: No Please select the resources that you would like help with: Utilities Currently or been in a relationship where the following occur: No concerns reported THRIVE Score: 1 AUDIT C Alcohol Use Questionnaire (AUDIT-C) 1. How often do you have a drink containing alcohol?: Monthly or less 2. How many drinks containing alcohol do you have on a typical day when you are drinking?: 1 or 2 3. How often do you have six or more drinks on one occasion?: Never Total Score: 1 GAEL-7 AMB Questionnaire GAEL-7 Date GAEL - 7 assessed: 02/03/24 Not being able to stop or control worryin = Not at all Worrying too much about different things: 0 = Not at all Trouble relaxin = Not at all Being so restless that it is hard to sit still: 0 = Not at all Becoming easily annoyed or irritable: 0 = Not at all Feeling afraid as if something awful might happen: 0 = Not at all Source: Developed by Drs. Watson Pop, Zara Kinney, Josh Weiss and colleagues, with an educational hollie from [employer]. Review of Systems Const All systems reviewed & are unremarkable except as noted in HPI and below ENT Reports no additional complaints Card Reports no additional complaints Resp Reports no additional complaints GI Reports no additional complaints Reports no additional complaints Physical exam (Primary Care) Vital Signs: Last Vital Signs Pulse 94 08/03/24 12:52 BP 104/66 08/03/24 12:52 Pulse Ox 96 08/03/24 12:52 Oxygen Delivery Method Room Air 08/03/24 12:52 BMI result Body Mass Index 34.5 Tobacco/Smoking Status: Tobacco use Status Tobacco use date assessed 08/03/24 08/03/24 12:57 Patient Tobacco Use Status Never used Tobacco 08/03/24 12:57 e-Cigarette/Vaping Use Never Used 08/03/24 12:57 Thrive Assessment: Date of Thrive Assessment Date Thrive assessed 08/01/24 08/03/24 12:57 Currently or been in a relationship where the following occur: No concerns reported Const General: no acute distress HENMT Face and sinus: Yes normal facial exam Neck Neck: Yes supple Resp Effort & Inspection: normal respiratory effort Auscultation: clear to auscultation bilaterally Cardio Rhythm: abnormal rhythm irregularly irregular Heart sounds: S1 normal heart sound present and S2 normal heart sound present GI Inspection: Yes normal to inspection Palpation (GI): Soft to palpation Percussion: Yes normal to percussion Auscultation: normal bowel sounds Extrem General: Yes no clubbing, cyanosis or edema Assessment and Plan Assessment & Plan (1) Knee pain, right: Code(s): M25.561 - Pain in right knee Plan: For chronic right knee pain and advanced osteoarthritis patient will be referred to [place] [facility] (2) CKD (chronic kidney disease) stage 3, GFR 30-59 ml/min: Comment: Follow-up with nephrology Code(s): N18.30 - Chronic kidney disease, stage 3 unspecified Plan: Avoid nephrotoxins monitor renal function follow-up with nephrology (3) Persistent atrial fibrillation: Code(s): I48.19 - Other persistent atrial fibrillation Plan: On digoxin and Eliquis. Patient follows up with a environmental attorney in [place] (4) Pulmonary HTN: Comment: f/u Dr. Brandon Irizarry ,[facility] started on Abrisentan and tadalafil 07/10 Code(s): I27.20 - Pulmonary hypertension, unspecified Plan: Follow-up with machine egg washer in [place] (5) DM type 2 (diabetes mellitus, type 2): Code(s): E11.9 - Type 2 diabetes mellitus without complications Plan: A1c is 8.2, ADA diet increase physical activity discussed with the patient she was advised to start long-acting insulin but patient declined. She will continue [facility] follow-up with boiler tenders supervisor and return in 3 months with a fasting labs before Orders: Orders XR knee LT 2V Today M25.561 - Pain in right knee Comprehensive [place]. Panel Fast 3 Months E11.9 - Type 2 diabetes mellitus without complications, I27.20 - Pulmonary hypertension, unspecified, I48.19 - Other persistent atrial fibrillation, N18.30 - Chronic kidney disease, stage 3 unspecified Hemoglobin A1c 3 Months E11.9 - Type 2 diabetes mellitus without complications, I27.20 - Pulmonary hypertension, unspecified, I48.19 - Other persistent atrial fibrillation, N18.30 - Chronic kidney disease, stage 3 unspecified Lipid Panel 3 Months E11.9 - Type 2 diabetes mellitus without complications, I27.20 - Pulmonary hypertension, unspecified, I48.19 - Other persistent atrial fibrillation, N18.30 - Chronic kidney disease, stage 3 unspecified Microalbumin, Random (w Creat) 3 Months E11.9 - Type 2 diabetes mellitus without complications, I27.20 - Pulmonary hypertension, unspecified, I48.19 - Other persistent atrial fibrillation, N18.30 - Chronic kidney disease, stage 3 unspecified XR knee LT 2V Today M25.562 - Pain in left knee Complete Blood Count Auto Diff 3 Months E11.9 - Type 2 diabetes mellitus without complications, I27.20 - Pulmonary hypertension, unspecified, I48.19 - Other persistent atrial fibrillation, N18.30 - Chronic kidney disease, stage 3 unspecified Referrals Orthopedics Referral M25.561 - Pain in right knee Coding Level of Care Code Est Pt Level 4 (16490) Diagnoses Knee pain, right M25.561 CKD (chronic kidney disease) stage 3, GFR 30-59 ml/min N18.30 Persistent atrial fibrillation I48.19 Pulmonary HTN I27.20 DM type 2 (diabetes mellitus, type 2) E11.9
== END 2024-08-03 13:43 | disposition home or self-care (01) ==
PROVIDERS: PCP Internal Medicine; Visit Provider Internal Medicine
DX: M25.561 Pain in right knee (principal); N18.30 Chronic kidney disease, stage 3 unspecified; I48.19 Other persistent atrial fibrillation; I27.20 Pulmonary hypertension, unspecified; E11.9 Type 2 diabetes mellitus without complications

== ENCOUNTER → 2024-08-03 12:42 | Outpatient (BNVA) | payer MEDICARE, MEDICAID, SELFPAY | PROVIDERS: PCP Internal Medicine; Visit Provider Internal Medicine ==

== ENCOUNTER 2024-08-03 13:34 | Outpatient (REF) | payer MEDICARE, MEDICAID, SELFPAY ==
--- NOTE | ~2024-08-03 | XR_ITS ---
EXAMINATION: XR KNEE, LEFT CLINICAL INFORMATION: Pain left knee. COMPARISON: None available. TECHNIQUE: Two views of the left knee. FINDINGS: Lmprtkwe-ku-vjsokj narrowing of the medial and patellofemoral compartments with prominent osteophytes. Mild narrowing of the lateral compartment with prominent osteophytes. Possible additional ossification/calcification medial to the medial femoral condyle. Joint effusion with prepatellar soft tissue swelling. Subtle oval lucency in the suprapatellar region. XR/XR knee LT 2V IMPRESSION: 1. Taoiqwpj-gq-xxazpi degenerative changes. 2. Joint effusion with prepatellar soft tissue swelling. Subtle oval lucency in the suprapatellar region. Electronically signed by: Mandy Chi MD 09/14/2024 05:26 AM EDT
== END 2024-08-03 13:35 | disposition home or self-care (01) ==
LOC: HO.HMGCX 13:34
PROVIDERS: PCP Internal Medicine; Visit Provider Internal Medicine
DX: M25.561 Pain in right knee (principal)
CPT/HCPCS: 73560; 99212

== ENCOUNTER 2024-12-17 10:06 | Outpatient (REF) | payer MEDICARE, MEDICAID, SELFPAY ==
[2024-12-17 13:03] LABS: MANUAL DIFF FLAG NO
[2024-12-17 13:13] LABS: Basophils Percent Auto 0.5 % (0-2); Eosinophils Absolute Auto 0.3 X10*3/uL (0.0-0.4); Eosinophils Percent Auto 3.8 % (0-4); Hematocrit 37.5 % (37.0-47.0); Imm Gran Abs Auto 0.01 X10*3/uL (0.00-0.03); Imm Gran Pct Auto 0.2 % (0.0-0.4); Lymphocytes Absolute Auto 2.2 X10*3/uL (1.2-4.9); Lymphocytes Percent Auto 33.2 % (20-40); Mean Corpuscular Hemoglobin 29.8 pg (27.0-33.0); Mean Corpuscular Volume 93.1 fL (80.0-98.0); Mean Platelet Volume 11.1 fL (9.4-12.3); Monocytes Absolute Auto 0.6 X10*3/uL (0.1-1.2); Monocytes Percent Auto 9.2 % (2-11); Neutrophils Absolute Auto 3.5 x10*3/uL (2.0-8.3); Neutrophils Percent Auto 53.1 % (45-73); Platelet Count 228 X10*3/uL (160-400); Red Blood Count 4.03 X10*6/uL (4.20-5.50); Red Cell Distribution Width 13.2 % (11.0-16.0); White Blood Count 6.5 X10*3/uL (4.8-10.8)
--- OUTSIDE RECORDS SUMMARY | 2024-12-17 13:18 | XMS_ITS | Patient Health Record ---
Author Organization [facility] [place] Address [address] [place] [address] Care Team Providers Care Lumber Kiln Operator Name Role Phone Marisela Oscar MD Primary Care Provider Unavaila ble Black, Taylor Unavailable [phone] Allergies No Known Allergies Reason For Referral No Information Medications Medication SIG (Take, Route, Frequency, Duration) Notes Start Date End Date Status Eliquis Active Olmesartan Medoxomil 40 MG 1 tablet Oral ly Once a day for 30 day(s) Active Lisinopril 40 MG 1 tablet Orally Once a day for 30 day(s) Active metFORMIN HCl 1000 MG 1 tablet with a me al Orally Once a day for 30 day(s) Active dilTIAZem HCl ER Coated Beads 360 MG 1 capsule Orally Once a day for 30 day(s) Active Hydralazine-HCTZ Act aman Pradaxa 150 MG 1 capsule Orally Twi ce a day for 30 day(s) Active Digoxin Active Acetaminophen Extra Strength 500 MG 2 tablet as needed Orally every 6 hrs for 10 days 08/07/2021 Not-Taking Rosuvastatin Calcium Active Metoprolol Succinate 200 MG 1 capsule Orally Once a day for 30 day(s) Active Triamterene-HCTZ 37.5-25 MG 1 tablet in the morning Orally Once a day for 30 day(s) Active Atorvastatin Calcium 80 MG 1 tablet Oral ly Once a day for 30 day(s) Active Immunizations Vaccine Route Administration Date Status Comme nts COVID-19 Cedric & Cedric/Shavon Unknown 02/24/2021 A dministered Influenza Unknown 08/01/2018 Administered Influenza Unknown 07/19/2020 Administered Social History Tobacco Use: Social History Observation Description Date Details (start date - stop date) Never Smoker NA - NA Tobacco Use/Smoking Question Answer Notes Are you a: nonsmoker Additional Findings: Tobacco Non-User Current no n-smoker Alcohol Screen Question Answer Notes Did you have a drink contain ing alcohol in the past year? Yes How often did you have a dri nk containing alcohol in the past year? Monthly or less (1 point) How many drinks did you have on a typical day when you were drinking in the past year? 1 or 2 drinks (0 point) How often did you have 6 or more drinks on one occasion in the past year? Never (0 point) Points 1 Interpretation Negative Tobacco use other than smoking: Question Answer Notes Are you an other tobacco user? No Problems Problem Type SNOMED Code ICD Code Onset Dates Problem Status W/U Status Risk Notes Problem Localized, primary osteoarthritis of the ankle and/or foot (866779805) Primary osteoarthritis, right ankle and foot (M19.071) Active confirmed Problem Localized, primary osteoarthritis of the ankle and/or foot (274633627) Primary osteoarthritis, left ankle and foot (M19.072) Active confirmed Problem Non-pressure ulcer lower limb (036191199) Non-pressure chronic ulcer of other part of left foot limited to breakdown of skin (L97.521) Active confirmed Problem Type II diabetes mellitus without complication (993211435) Type 2 diabetes mellitus without complications (E11.9) Active confirmed Plan Of Treatment Pending Test Test Name Order Date [id number] NAIL, 6 OR MORE 09/29/2021 [id number] Plate 08/14/2019 [id number]- Debride <25 sq cm 08/28/2019 [id number] DYSTROPHIC NAILS ANY # Insurance Providers Payer Name Payer Address Payer Phone Subscriber Number Group Number Insured Name Patient Relationship to Insured Coverage Start Date Coverage End Date [employer] [place] [employer]vantage [facility] [address] [place] [address] [id number] Blaire Gold Self - patient is the insured 0 Medical (General) History Medical History History ICD Code Arthritis Back,Hip,and Knee pain Diabetic High blood pressure Keloid/Thick Scar Reflux ( GERD) Measles Mumps Chicken pox A fib Surgical History Surgery Date(Month/Year) hysterectomy 2013 Keliod Ears 70's excision of skin lesion 5th R 08/30/2021
--- OUTSIDE RECORDS SUMMARY | 2024-12-17 13:18 | XMS_ITS | Encounter Summary ---
Author Organization [facility] Address [address] [place] [address] Care Team Providers Care Help Desk Supervisor Name Role Phone Marisela Oscar MD Primary Care Provider [phone] Claudia Jean-Baptiste MD Unavailable [phone] Reason for Visit * Reason Comments Medication Refill Encounter Details Date Type Department Care Team (Late st Contact Info) Description 12/15/2024 Refill [facility] [address] [phone] Brandon Irizarry MD [address] [phone] PAH (pulmonary artery hypertension) (HCC) Social History Tobacco Use Types Packs/Day Years Used Date Smoking Tobacco: Unknown Sex and Gender Information Value Date Recorded Sex Assigned at Female 07/11/2023 6:56 AM EDT Gender Identity Female 07/11/2023 6:56 AM EDT Sexual Orientation Heterosexual (straight) 07/11 6:56 AM EDT documented as of this encounter Plan of Treatment Upcoming Encounters Date Type Department Care Team (Late st Contact Info) Description 02/03/2025 8:30 AM EDT Procedure visit [facility] [place] [address] [place] [address] [address] [place] [address] 02/08/2025 11:00 AM EDT Office Visit [facility] [address] [phone] Brandon Irizarry MD [address] [place] [phone] 06/28/2025 1:40 PM EDT Office Visit [facility] [place] [address] [place] [phone] Claudia Jean-Baptiste MD [address] [phone] documented as of this encounter Visit Diagnoses Diagnosis PAH (pulmonary artery hypertension) (HCC) Other chronic pulmonary heart diseases documented in this encounter Care Teams Help Desk Supervisor Relationship Specialty Start Date End Date Marisela Oscar MD [address] [place] [address] PCP - General 05/10/23 Claudia Jean-Baptiste MD [address] [place] [phone] Primary Membership Sales Representative Cardiovascular Disease 09/03/23 documented as of this encounter
--- OUTSIDE RECORDS SUMMARY | 2024-12-17 13:18 | XMS_ITS | Clinical Summary ---
Author Organization [facility] Address [address] [place] [address] Care Team Providers Care Yard Spotter Name Role Phone Marisela Oscar MD Primary Care Provider Claudia Jean-Baptiste MD Unavailable [phone] Allergies No known active allergies Medications Medication Sig Dispensed Refills Start Date End Date Status Continuous Blood Gluc Tactical Air Control Party (FreeStyle Ziyad 2 [place]) Device See Admin Instructions. 3 Active Continuous Blood Gluc Sensor (FreeStyle Ziyad 2 Sensor) Misc 3 TIMES A DAY 3 Active dapagliflozin 10 MG tablet Take 1 tablet (10 mg total) by mouth. 2 Active digoxin (LANOXIN) 0.125 mg tablet Take 1 tablet (0.125 mg total) by mouth. Active Senna-Time 8.6 MG Tab tablet TAKE 2 TABLETS BY MOUTH AT BEDTIME FOR CONSTIPATION 3 Active apixaban (ELIQUIS) 5 MG tablet Take 1 tablet (5 mg total) by mouth 2 (two) times a day. Active tadalafil, PAH, (ADCIRCA) 20 mg tabletIndications: PAH (pulmonary artery hypertension) (HCC) Take 2 tablets (40 mg total) by mouth daily. 180 tablet 3 3 Active selexipag (UPTRAVI) 600 MCG tabletIndications: PAH (pulmonary artery hypertension) (HCC) Take 1 tablet (600 mcg total) by mouth 2 (two) times a day. 60 tablet 3 3 Active GaviLAX 17 GM/SCOOP powder DISSOLVE 1 CAPFUL (17G) IN WATER AND DRINK BY MOUTH ONCE DAILY *NC* 3 Active Cholecalciferol (Vitamin D) 50 MCG (1999 [place]) tablet TAKE 1 TABLET BY MOUTH 1 TIME EACH DAY. 4 Active clobetasol (TEMOVATE) 0.05 % cream APPLY TOPICALLY ONCE DAILY 4 Active spironolactone (ALDACTONE) 25 MG tabletIndications: PAH (pulmonary artery hypertension) (HCC) Take 1 tablet (25 mg total) by mouth daily. 90 tablet 3 4 Active Additional Information Patient taking differently: 12.5 mgOral Daily, Reported on 09/28/2024 ambrisentan (LETAIRIS) 5 MG tabletIndications: PAH (pulmonary artery hypertension) (HCC) TAKE 1 TABLET BY MOUTH 1 TIME A DAY. DO NOT HANDLE IF . 30 tablet 4 4 Active atorvastatin (LIPITOR) 40 MG tabletIndications: At risk for heart disease,Hyperlipid emia, unspecified hyperlipidemia type Take 1 tablet (40 mg total) by mouth daily. 90 tablet 3 4 Active furosemide (LASIX) 20 MG tabletIndications: PAH (pulmonary artery hypertension) (HCC) TAKE 3 TABLETS BY MOUTH EVERY DAY 270 tablet 3 5 Active furosemide (LASIX) 20 MG tabletIndications: PAH (pulmonary artery hypertension) (HCC) Take 3 tablets (60 mg total) by mouth daily. 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 11/27/2022 09/09/2023 Obstructive sleep apnea syndrome 11/27/2022 09/09/2023 Stage 3 chronic kidney disease 11/27/2022 1 Type 2 diabetes mellitus without complication 09/09/2023 Encounters Date Type Department Care Team Description 12/15/2024 Refill [facility] Pul[facility] [place] [address] [facility] [address] [place] [phone] Brandon Irizarry MD PAH (pulmonary artery hypertension) (HCC) 10/30/2024 12:49 PM EST - 10/30/2024 11:59 PM EST Hospital Encounter [facility] Heart & Vascular [place] [facility] - Echocardiography Laboratory [address] [place] [phone] Luisana Lomas PA-C Discharge Disposition: Home or Self Care 10/30/2024 Travel 10/21/[address] [place] [phone] Brandon Irizarry MD Advice Only 10/14/2024 Orders Only [facility] [place] [facility] [address] [phone] Kassandra Campbell APRN At risk for heart disease (Primary Dx); Hyperlipidemia, unspecified hyperlipidemia type 10/13/2024 Telephone [facility] [place] [facility] [address] [phone] Claudia Jean-Baptiste MD Other 09/28/2024 1:20 PM EST Office Visit [facility] [place] [facility] [address] [phone] Claudia Jean-Baptiste MD PAH (pulmonary artery hypertension) (HCC) (Primary Dx); Permanent atrial fibrillation (HCC); Current use of chcf anticoagulation; Essential hypertension; Secondary hypercoagulable state (HCC); At risk for heart disease 09/28/2024 Travel 09/21/2024 11:00 AM EST Office Visit [address] [place] [phone] Brandon Irizarry MD PAH (pulmonary artery hypertension) (HCC) (Primary Dx); Right ventricular failure (HCC); SUE (obstructive sleep apnea) 09/21/2024 Scanned Document [facility] [address] [place] [address] Raheem Lynne RN 09/21/2024 Travel from Last 3 Months Social History Tobacco Use Types Packs/Day Years Used Date Smoking Tobacco: Unknown Tobacco Cessation:Counseling Given: Not Answered Sex and Gender Information Value Date Recorded Sex Assigned at Female 07/11/2023 6:56 AM EDT Gender Identity Female 07/11/2023 6:56 AM EDT Sexual Orientation Heterosexual (straight) 07/11 6:56 AM EDT Last Filed Vital Signs Vital Sign Reading Time Taken Comments Blood Pressure 118/72 09/28/2024 1:25 PM EST Pulse 86 09/28/2024 1:25 PM EST Temperature 36.6 ??C (97.8 ??F) 03/31/2024 11:35 AM E DT Respiratory Rate 17 07/11/2023 11:10 AM EDT Oxygen Saturation 98% 09/28/2024 1:25 PM EST Inhaled Oxygen Concentration - - Weight 90.9 kg (200 lb 6.4 oz) 09/28/2024 1:25 P M EST Height 162.6 cm (5' 4 ) 09/28/2024 1:25 PM EST Body Mass Index 34.4 09/28/2024 1:25 PM EST Plan of Treatment Upcoming Encounters Date Type Department Care Team (Late st Contact Info) Description 02/03/2025 8:30 AM EDT Procedure visit [facility] Pulmonary [address] [place] [phone] 02/08/2025 11:00 AM EDT Office Visit [facility] Pulmonary [address] [phone] Brandon Irizarry MD [address] [place] [address] 06/28/2025 1:40 PM EDT Office Visit [facility] Heart & Vascular [place] [address] [phone] Claudia Jean-Baptiste MD [address] [facility] [place] [address] Health Maintenance Due Date Last Done Comments Hepatitis C Virus Screening 1955 Foot Exam 1965 Hemoglobin A1C 1965 Lipid Panel 1965 Ophthalmology Exam 1965 Microalbumin/Creatinine Ratio Urine 1973 DTaP/Tdap/Td Vaccines (1 - Tdap) 1974 Pneumococcal Vaccines 50+ (1 of 2 - PCV) 1974 Zoster (Shingles) Vaccine (1 of 2) 1974 Mammogram 1995 Colonoscopy 2000 RSV Vaccine 60 years and older and Patients (1 - Risk 60-74 years 1-dose series) 2015 DXA Bone Density (Females,Ages 65 and older) 2020 COVID-19 Vaccine (2 - Shavon risk series) 03/24/2021 02/24/2021 Diabetic Self-Management Training (DSMT) 09/09/2023 Influenza Vaccine 06/18/2024 07/19/2020, 08/01/2018 Medical Nutrition Therapy (MNT) 11/18/2024 Creatinine with GFR 09/14/2025 09/14/2024, 04/27/2024, 03/26/2024, Additional history exists Hepatitis B Vaccines Aged Out No long er eligible based on patient's age to complete this topic Procedures Procedure Name Priority Date/Time Associated Diagnosis Comments ECHOCARDIOGRAM (TTE) COMPREHENSIVE (CONTRAST PRN) Routine 10/30/2024 1:40 PM EST PAH (pulmonary artery hypertension) (HCC) Right ventricular failure (HCC) ECG 12-LEAD Routine 09/28/2024 1:27 PM EST PAH (pulmonary artery hypertension) (HCC) Permanent atrial fibrillation (HCC) Current use of buttermaker helper anticoagulation Essential hypertension COMPREHENSIVE METABOLIC PANEL Routine 09/14/2024 9:36 AM EDT PAH (pulmonary artery hypertension) (HCC) from Last 3 Months or Most Recently Relevant to Health Maintenance Results * ECHOCARDIOGRAM COMPREHENSIVE (10/30/2024 1:40 PM EST) LV Diastolic Volume 83 mL LV Systolic Volume 33 mL IVS (F:0.6-0.9, M:0.6-1.0) 0.9 cm IVS Mean (F:0.6-0.9, M:0.6-1.0) 0.9 cm LVIDD (F:3.8-5.2, M:4.2-5.8) 4.4 cm LVIDD Mean (F:3.8-5.2, M:4.2-5.8) 4.4 cm LVIDS (F:2.2-3.5, M:2.5-4.0) 3.3 cm LVIDS (F:2.2-3.5, M:2.5-4.0) 3.3 cm LVOT diameter 1.9 cm LVOT diameter mean 1.9 cm LVOT mn grad mean 3.0 mmHg LVOT VTI MEAN 22.7 cm LVOT mn grad 3.0 mmHg LVOT VTI 22.7 cm LVOT peak grayson 1.1 m/s LVOT peak grayson mean 1.1 m/s PW (F:0.6-0.9, M:0.6-1.0) 1.2 cm PW Mean (F:0.6-0.9, M:0.6-1.0) 1.2 cm MV E' Lateral Velocity 4.00 cm/s MV E' Lateral Velocity Mean 11.20 cm/s MV E' Septal Velocity 5.66 cm/s MV E' Septal Velocity Mean 8.81 cm/s LA sup-inf (apical 2-ch view) 7.36 cm LA volume 100.0 mL RA area 22.1 cm2 RA 2D Volume 63.7 mL AV mean gradient 4.0 mmHg Ao VTI 27.8 cm Ao peak grayson 1.5 m/s Ao peak grayson mean 1.5 m/s Sinuses of Valsalva 3.0 cm Sinuses of Valsalva Mean 3.0 cm Ascending aorta 2.8 cm Ascending aorta mean 2.8 cm Inferior Vena Cava Diameter 2.0 cm Inferior Vena Cava Diameter Mean 2.0 cm MV Peak E-Wave 122.0 cm/s MV Peak E-Wave Mean 122.0 cm/s RVOT peak VTI Mean 15.1 cm RVOT peak VTI 15.1 cm RVID d 4.1 cm RVID d Mean 4.1 cm RV Free wall pk S' 11.5 cm/s RV Free wall pk S' Mean 11.5 cm/s Tapse 1.7 cm Tapse Mean 1.7 cm TR Peak Grayson 2.7 m/s Heart Rate 70 bpm BP Systolic 112 mmHg BP Diastolic 68 mmHg Height 64.00 inches Weight 200.00 lbs LV Mass Index (F:43-95, M:49-115) 80.9 g/m2 LA Volume Index (16-34) 51.1 mL/m2 LV Diastolic Volume Index (F:29-61, M:35-75) 42.4 mL/m2 LV Systolic Volume Index (F:8-24, M:11-31) 16.9 mL/m2 E/E' ratio 30.50 AV peak gradient 9.0 mmHg LVOT stroke volume 64 mL LVOT area 2.8 cm2 AV LVOT peak gradient 4.8 mmHg Dimensionless Index 0.82 SVI 32 mL/m2 AV area by cont VTI 2.3 cm2 Ascending aorta Index 1.4 cm/m2 Sinuses of Valsalva Index 1.5 cm/m2 Valve area - Index 1.2 cm2/m2 LV mass 158.2 g Shah BP EF (55-75) 60 % LA Volume Index 32.6 mL/m2 E/E' Average 26.0 E/E' Septal 21.6 E/E' Lateral 30.5 LVOT SI 32.89 mL/m2 LV RWT 0.55 Left Ventricular Cardiac Index 2.3 L/min/m2 Left Ventricular Cardiac Output 4.5 L/min BSA 1.96 m2 TR Peak Gradient 29 mmHg Est. RA pres 3 mmHg RVSP 32 mmHg PASP 32.2 mmHg Anatomical Region Laterality Modality Ultrasound Narrative 10/30/2024 2:21 PM EST ?The left ventricle is normal in size. Wall thickness is normal. Left ventricular systolic function is normal. The quantitative EF by 2D Shah biplane is 60%. No wall motion abnormalities are present. Diastolic function is normal. ?The right ventricle is normal in size. Right ventricular systolic function is normal. ?The left atrial cavity is severely dilated. Right atrial cavity is mildly dilated. ?There is mild tricuspid regurgitation. The estimated right ventricular systolic pressure is normal at 32 mmHg. ?Compared to previous study on 02/13/2024, there is no significant change. Technical Details Overall the study quality was adequate. The study was technically difficult. Left Ventricle The left ventricle is normal in size. Wall thickness is normal. Left ventricular systolic function is normal. The quantitative EF by 2D Shah biplane is 60%. No wall motion abnormalities are present. Diastolic function is normal. Right Ventricle The right ventricle is normal in size. Right ventricular systolic function is normal. Normal tricuspid annular plane systolic excursion (TAPSE) >1.6 cm. Normal systolic excursion velocity by TDI (>9.5 cm/s). Left Atrium The left atrial cavity is severely dilated. Right Atrium Right atrial cavity is mildly dilated. Based on IVC diameter and collapse, right atrial pressure is estimated to be normal (3 mmHg). Mitral Valve The mitral leaflets are mildly thickened. There is mild mitral posterior annular calcification. There is trace mitral regurgitation. Tricuspid Valve The tricuspid valve is structurally normal. There is mild tricuspid regurgitation. The estimated right ventricular systolic pressure is normal at 32 mmHg. Aortic Valve The aortic valve is tricuspid. There is no aortic regurgitation or stenosis. Pulmonic Valve The pulmonic valve was not well visualized. There is no pulmonic regurgitation. Ascending Aorta The aortic root and ascending aorta are normal in dimension. The aortic root measures 3.0 cm (1.5 cm/m2) and the ascending aorta measures 2.8 cm (1.4 cm/m2). Pericardium Echogenic material is seen in the anterior pericardial space, consistent with a fat pad. There is no pericardial effusion. Prior Study Compared to previous study on 02/13/2024, there is no significant change. Luisana Lomas PA-C CV ECHO ORDERABLES * ECG 12 lead (09/28/2024 1:27 PM EST) Ventricular rate 89 BPM EKG [facility] QRS duration 78 ms EKG [facility] Q-T interval 344 ms EKG [facility] QTC calculation (Bazett) 418 ms EKG [facility] R axis -18 degrees EKG [facility] T axis 175 degrees EKG [facility] 09/28/2024 1:27 PM EST Narrative EKG [facility] - 09/28/2024 2:00 PM EST Atrial fibrillation Poor R wave progression Nonspecific ST and T wave abnormality Abnormal ECG When compared with ECG of 16-Mar-2024 13:13, No significant change was found Confirmed by MD Jean-Baptiste Tracy ([id number]) on 09/28/2024 2:00:42 PM Procedure Note Claudia Jean-Baptiste MD - 09/28/2024 Atrial fibrillation Poor R wave progression Nonspecific ST and T wave abnormality Abnormal ECG When compared with ECG of 16-Mar-2024 13:13, No significant change was found Confirmed by MD Jean-Baptiste Tracy ([id number]) on 09/28/2024 2:00:42 PM Claudia Jean-Baptiste MD ECG ORDERABLES [facility] * (ABNORMAL) Comprehensive Metabolic Panel (09/14/2024 9:36 AM EDT) Glucose 192(H) 65 - 99 mg/dL [employer] Comment: ? Fasting reference interval For someone without known diabetes, a glucose value >125 mg/dL indicates that they may have diabetes and this should be confirmed with a follow-up test. Blood Urea Nitrogen (BUN) 35(H) 7 - 25 mg/dL [employer] Creatinine 1.89(H) 0.50 - 1.05 mg/dL [employer] Creatinine w/ eGFR 28(L) > OR = 60 mL/min/1. 73m2 [employer] BUN/Creatinine Ratio 19 6 - 22 (calc) [employer] Sodium 139 135 - 146 mmol/L [employer] Potassium 4.0 3.5 - 5.3 mmol/L [employer] Chloride 107 98 - 110 mmol/L [employer] CO2 23 20 - 32 mmol/L [employer] Calcium 8.9 8.6 - 10.4 mg/dL [employer] Protein, Total 6.5 6.1 - 8.1 g/dL [employer] Albumin 3.9 3.6 - 5.1 g/dL [employer] Globulin 2.6 1.9 - 3.7 g/dL (calc) [employer] Albumin/Globulin Ratio 1.5 1.0 - 2.5 (calc) [employer] Bilirubin, Total 0.3 0.2 - 1.2 mg/dL [employer] Alkaline Phosphatase 74 37 - 153 U/L [employer] Aspartate Aminotrans (AST) 10 10 - 35 U/L [employer] Alanine Aminotrans (ALT) 7 6 - 29 U/L [employer] Blood Blood specimen / Unknown 09/14/2024 9:36 AM EDT 09/14/2024 9:37 AM EDT Narrative [facility] - 09/18/2024 5:10 AM EDT FASTING:YES FASTING: YES Brandon Irizarry MD LAB BLOOD ORDERABLES [employer] [address] [place] [phone] from Last 3 Months or Most Recently Relevant to Health Maintenance Advance Directives * Full Code (Latest Code Status on File) Date Activated Date Inactivated Comments 07/11/2023 7:23 AM Care Teams Yard Spotter Relationship Specialty Start Date End Date Marisela Oscar MD [address] [place] [address] PCP - General 05/10/23 Claudia Jean-Baptiste MD [address] [place] [address] Primary Emergency Physician Cardiovascular Disease 09/03/23
--- OUTSIDE RECORDS SUMMARY | 2024-12-17 13:18 | XMS_ITS | Encounter Summary ---
Author Organization [facility] Address [address] [place] [address] Care Team Providers Care Police Captain Name Role Phone Marisela Oscar MD Primary Care Provider [phone] Claudia Jean-Baptiste MD Unavailable [phone] Encounter Details Date Type Department Care Team (Late st Contact Info) Description 08/09/2023 Scanned Document [facility] Pulmonary [address] [phone] Pulmonology, Scan Social History Tobacco Use Types Packs/Day Years Used Date Smoking Tobacco: Unknown Sex and Gender Information Value Date Recorded Sex Assigned at Female 07/11/2023 6:56 AM EDT Gender Identity Female 07/11/2023 6:56 AM EDT Sexual Orientation Heterosexual (straight) 07/11 6:56 AM EDT documented as of this encounter Plan of Treatment Upcoming Encounters Date Type Department Care Team ([facility] Contact Info) Description 02/03/2025 8:30 AM EDT Procedure visit [facility] Pulmonary [address] [place] [address] 02/08/2025 11:00 AM EDT Office Visit [facility] Pulmonary [address] [phone] Brandon Irizarry MD [address] [facility] [place] [address] [place] [phone] 06/28/2025 1:40 PM EDT Office Visit [facility] Heart & Vascular [place] [address] [place] [phone] Claudia Jean-Baptiste MD [address] [place] [address] documented as of this encounter Visit Diagnoses Not on filedocumented in this encounter Care Teams Police Captain Relationship Specialty Start Date End Date Marisela Oscar MD [address] [place] [phone] PCP - General 05/10/23 Claudia Jean-Baptiste MD [address] [place] [phone] Primary Accounts Payable Representative Cardiovascular Disease 09/03/23 documented as of this encounter
--- OUTSIDE RECORDS SUMMARY | 2024-12-17 13:18 | XMS_ITS | Encounter Summary ---
Author Organization [facility] Address [address] [place] [address] Care Team Providers Care Utility Person Name Role Phone Marisela Oscar MD Primary Care Provider [phone] Claudia Jean-Baptiste MD Unavailable [phone] Encounter Details Date Type Department Care Team (Late st Contact Info) Description 09/21/2024 Scanned Document [facility] Pulmonary [address] [phone] Raheem Lynne, RN [address] [place] [phone] Social History Tobacco Use Types Packs/Day Years [...] Description 02/03/2025 8:30 AM EDT Procedure visit [facility] Pulmonary [address] [place] [phone] 02/08/2025 11:00 AM EDT Office Visit [facility] Pulmonary [address] [phone] Brandon Irizarry MD [address] [place] [phone] 06/28/2025 1:40 PM EDT Office Visit [facility] Heart & Vascular [place] [address] [place] [phone] Claudia Jean-Baptiste MD [address] [place] [phone] documented as of this encounter Visit Diagnoses Not on filedocumented in this encounter Care Teams Utility Person Relationship Specialty Start Date End Date Marisela Oscar MD [address] [place] [phone] PCP - General 05/10/23 Claudia Jean-Baptiste MD [address] [place] [phone] Primary Model And Mold Maker Plaster Cardiovascular Disease 09/03/23 documented as of this encounter
--- OUTSIDE RECORDS SUMMARY | 2024-12-17 13:18 | XMS_ITS ---
Author Name [facility] Organization Unknown History of Medication Use Medication Directions Dispensed Refills Start Date End Date Stat furosemide (LASIX) 20 MG tablet Take 4 tablets (80 mg total) by mouth daily. 08/21/2023 09/03/2023 aborted spironolactone (ALDACTONE) 25 MG tablet Take 0.5 tablets (12.5 mg total) by mouth daily. 09/03/2023 06/09/2024 active furosemide (LASIX) 20 MG tablet Take 2 tablets (40 mg total) by mouth daily. 08/14/2023 08/21/2023 active spironolactone (ALDACTONE) 25 MG tablet Take 1 tablet (25 mg total) by mouth daily. 06/09/2024 07/15/2024 active selexipag (UPTRAVI) 1400 MCG tablet Take 1 tablet (1,400 mcg total) by mouth 2 (two) times a day. 10/14/2023 active apixaban (Eliquis) 5 MG tablet Take 1 tablet (5 mg total) by mouth. 09/24/2022 09/03/2023 active ambrisentan (LETAIRIS) 5 MG tablet TAKE 1 TABLET BY MOUTH 1 TIME A DAY. DO NOT HANDLE IF . 08/02/2023 11/24/2024 active ambrisentan (LETAIRIS) 5 MG tablet Take 1 tablet (5 mg total) by mouth daily. 07/17/2023 09/03/2023 active selexipag (UPTRAVI) 600 MCG tablet Take 1 tablet (600 mcg total) by mouth 2 (two) times a day. 09/03/2023 active Senna-Time 8.6 MG Tab tablet TAKE 2 TABLETS BY MOUTH AT BEDTIME FOR CONSTIPATION 06/23/2023 active atorvastatin (LIPITOR) 40 MG tablet Take 1 tablet (40 mg total) by mouth daily. 10/14/2024 active metoPROLOL SUCCINATE (TOPROL-XL) 200 MG 24 hr tablet Take 1 tablet (200 mg total) by mouth. 09/03/2023 active furosemide (LASIX) 20 MG tablet Take 3 tablets (60 mg total) by mouth daily. 09/03/2023 active Continuous Blood Gluc Sales Engagement Executive ([employer] Ziyad 2 [place]) Device See Admin Instructions. 06/13/2023 active Problems Problem Status Onset Date Problem Type Date of Resoluti on Source PAH (pulmonary artery hypertension) active 2023-07-09 ProblemAct [facility] Primary localized osteoarthrosis of ankle and foot active 2023-09-09 ProblemAct [facility] Hypertension active 2022-11-27 ProblemAct [facility] Stage 3 chronic kidney disease active 2022-11-27 ProblemAct [facility] Atrial fibrillation active 2022-11-27 ProblemAct [facility] Non-pressure chronic ulcer of other part of left foot limited to breakdown of skin active 2022-11-27 ProblemAct [facility] Endometrial carcinoma active 2022-11-27 ProblemAct [facility] Diabetic glomerulonephritis active 2022-11-27 ProblemAct [facility] Obstructive sleep apnea syndrome active 2022-11-27 ProblemAct [facility] Type 2 diabetes mellitus without complication active 2022-11-27 ProblemAct [facility]
--- OUTSIDE RECORDS SUMMARY | 2024-12-17 13:18 | XMS_ITS | Clinical Summary ---
Author Organization [facility] Address [address] [place] [phone] Phone Care Team Providers Care Metal Furniture Polisher Name Role Phone Marisela Oscar MD Primary Care Provider [phone] Allergies No known active allergies Medications acetaminophen (TYLENOL) 500 MG tablet Take 2 tablets by mouth every 6 (six) hours if needed 08/07/2021 Active Rosuvastatin Calcium 40 MG capsule sprinkle Take 20 mg by mouth 1 (one) time each day Active digoxin (LANOXIN) 125 MCG tablet Take 0.125 mg by mouth every other day Active Eliquis 5 MG tablet Take 5 mg by mouth 2 (two) times a day 09/24/2022 Active Farxiga 10 MG tablet Take 10 mg by mouth 1 (one) time each day 10/09/2022 Active furosemide (LASIX) 20 MG tablet Take 60 mg by mouth 1 (one) time each day Active spironolactone (ALDACTONE) 25 MG tablet Take 25 mg by mouth 1 (one) time each day Active ambrisentan (LETAIRIS) 5 MG tablet Take 10 mg by mouth in the morning. 09/03/2023 Active Tadalafil, PAH, 20 MG tablet Take 40 mg by mouth in the morning. 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 11/27/2022 Type 2 diabetes mellitus without complication Chronic kidney disease stage 3B 11/27/2022 Diabetic glomerulonephritis 11/27/2022 Hypertension 11/27/2022 Obstructive sleep apnea syndrome 11/27/2022 Atrial fibrillation, not otherwise specified 08/2023 Renal scarring 11/27/2022 Endometrial carcinoma 11/27/2022 Encounters Date Type Department Care Team Description 10/01/2024 10:00 AM EST Office Visit [facility] [address] [phone] Torsten Burris MD Chronic kidney disease stage 3B (HCC) (Primary Dx); Diabetic glomerulonephritis (HCC); Hypertension; Renal scarring; Type 2 diabetes mellitus without complication (HCC); Obstructive sleep apnea syndrome 10/01/2024 Travel 09/23/2024 Orders Only [facility] [address] [phone] Torsten Burris MD from Last 3 Months Family History Medical History Relation Comments Cancer Mother breast Diabetes Mother Hypertension Mother Relation Status Comments Father Mother Social History Tobacco Use Types Packs/Day Years Used Date Smoking Tobacco: Never Smokeless Tobacco: Never Tobacco Cessation:Counseling Given: Not Answered Alcohol Use Standard Drinks/Week Comments Not Currently 0 (1 standard drink = 0.6 oz pure alcohol) holidays/special occasions only Comments Unknown Sex and Gender Information Value Date Recorded Sex Assigned at Not on file Legal Sex Female 8:37 AM EDT Gender Identity Not on file Sexual Orientation Not on file Last Filed Vital Signs Vital Sign Reading Time Taken Comments Blood Pressure 129/98 10/01/2024 9:58 AM EST Pulse 80 10/01/2024 9:58 AM EST Temperature - - Respiratory Rate - - Oxygen Saturation 94% 10/01/2024 9:58 AM EST Inhaled Oxygen Concentration - - Weight 90.5 kg (199 lb 9.6 oz) 10/01/2024 9:58 A M EST Height 162.6 cm (5' 4 ) 10/01/2024 9:58 AM EST Body Mass Index 34.26 10/01/2024 9:58 AM EST Plan of Treatment Upcoming Encounters Date Type Department Care Team (Late st Contact Info) Description 04/05/2025 10:20 AM EDT [facility] [address] [phone] Torsten Burris MD [address] [phone] Health Maintenance Due Date Last Done Comments Breast Cancer Screening 1955 Pneumococcal Vaccine: 65+ Years (1 of 2 - PCV) 1961 Colorectal Cancer Screening: Annual FOBT 2004 Colorectal Cancer Screening: Colonoscopy 2004 Colorectal Cancer Screening: Sigmoidoscopy 2004 Diabetes: Ophthalmology Exam 08/23/2022 Diabetes: Pedal Pulse Checked 08/23/2022 Diabetes: Sensory Foot Exam 08/23/2022 Diabetes: Visual Foot Exam 08/23/2022 Diabetes: Hemoglobin A1C 06/14/2023 03/15/2023 Influenza Vaccine (#1) 2024 0, 08/01/2018 Hepatitis B Vaccine Aged Out No longe r eligible based on patient's age to complete this topic Procedures Procedure Name Priority Date/Time Associated Diagnosis Comments PTH, INTACT Routine 09/23/2024 10:37 AM EST MAGNESIUM Routine 09/23/2024 10:37 AM EST PHOSPHATE ( PHOSPHORUS) Routine 09/23/2024 10:37 AM EST URIC ACID Routine 09/23/2024 10:37 AM EST VITAMIN D 25 HYDROXY Routine 09/23/2024 10:37 AM EST PROTEIN / CREATININE RATIO, URINE Routine 09/23/2024 10:37 AM EST COMPREHENSIVE METABOLIC PANEL Routine 09/23/2024 10:37 AM EST CBC AND DIFFERENTIAL Routine 09/23/2024 10:37 AM EST HEMOGLOBIN A1C Routine 03/15/2023 10:00 AM EDT from Last 3 Months or Most Recently Relevant to Health Maintenance Results * (ABNORMAL) Protein, Total, Random Urine w/Creatinine (Protein/Creat Ratio) (09/23/2024 10:37 AM EST) Creatinine, Ur 107.1 Not Estab. mg/dL [facility] Protein, Ur 38.3 Not Estab. mg/dL [facility] Urine Protein/Creati nine Ratio 358(H) 0 - 200 mg/g creat [facility] 09/23/2024 10:3 7 AM EST 09/23/2024 Torsten Burris MD LAB URINE ORDERABLES Final Re sult [facility] [place] [address] [place] [address] * Vitamin D 25 Hydroxy (09/23/2024 10:37 AM EST) Vitamin D, 25-OH, Total 36.7 30.0 - 100.0 ng/mL [facility] Comment: Vitamin D deficiency has been defined by the [place] of Medicine and an Endocrine Society practice guideline as a level of serum 25-OH vitamin D less than 20 ng/mL (1,2). The Endocrine Society went on to further define vitamin D insufficiency as a level between 21 and 29 ng/mL (2). 1. IOM ([place] of Medicine). 2010. Dietary reference ?? intakes for calcium and D. [place]: The ?? National AcademB2B-Center Press. 2. Blake MF, Sagrario [place], Niesha [place], et al. ?? Evaluation, treatment, and prevention of vitamin D ?? deficiency: an Endocrine Society clinical practice ?? guideline. JCEM. 2010; 96(7):1911-30. 09/23/2024 10:3 7 AM EST 09/23/2024 us Torsten Burris MD LAB BLOOD ORDERABLES Final Re sult [facility] [address] [place] [address] * (ABNORMAL) CBC and Differential (09/23/2024 10:37 AM EST) WBC 6.3 3.4 - 10.8 x10E3/uL [facility] RBC 4.18 3.77 - 5.28 x10E6/uL [facility] Hemoglobin 12.3 11.1 - 15.9 g/dL [facility] Hematocrit 39.3 34.0 - 46.6 % [facility] MCV 94 79 - 97 fL [facility] MCH 29.4 26.6 - 33.0 pg [facility] MCHC 31.3(L) 31.5 - 35.7 g/dL [facility] RDW 12.3 11.7 - 15.4 % [facility] Platelets 222 150 - 450 x10E3/uL [facility] Neutrophils Relative 51 Not Estab. % [facility] Lymphocytes Relative 36 Not Estab. % [facility] Monocytes 8 Not Estab. % [facility] Eosinophils Relative 4 Not Estab. % [facility] Basophils Relative 1 Not Estab. % [facility] Neutrophils Absolute 3.2 1.4 - 7.0 x10E3/uL [facility] Lymphocytes Absolute 2.3 0.7 - 3.1 x10E3/uL [facility] Monocytes Absolute 0.5 0.1 - 0.9 x10E3/uL [facility] Eosinophils Absolute 0.3 0.0 - 0.4 x10E3/uL [facility] Basophils Absolute 0.0 0.0 - 0.2 x10E3/uL [facility] Immature Granulocytes 0 Not Estab. % [facility] Immature Grans (Absolute) 0.0 0.0 - 0.1 x10E3/uL [facility] 09/23/2024 10:3 7 AM EST 09/23/2024 Torsten Burris MD LAB BLOOD ORDERABLES Final Re sult Performing Organization Address [facility] Co de Phone Number [facility] [address] [place] [phone] * Uric Acid (09/23/2024 10:37 AM EST) Uric Acid 6.8 3.0 - 7.2 mg/dL [facility] Comment:Therapeutic target f or gout patients: <6.0 09/23/2024 10:3 7 AM EST 09/23/2024 Torsten Burris MD LAB BLOOD ORDERABLES Final Re sult Performing Organization Address [facility]/ZIP Co de Phone Number [facility] [address] [place] [address] * Phosphorus (09/23/2024 10:37 AM EST) Phosphorus 3.2 3.0 - 4.3 mg/dL [facility] 09/23/2024 10:3 7 AM EST 09/23/2024 Torsten Burris MD LAB BLOOD ORDERABLES Final Re sult Performing Organization Address City/[facility]/ZIP Co de Phone Number [facility] [place] [address] [place] [address] * (ABNORMAL) PTH, Intact (09/23/2024 10:37 AM EST) Pathologist [facility] PTH 215(H) 15 - 65 pg/mL [facility] 09/23/2024 10:3 7 AM EST 09/23/2024 Torsten Burris MD LAB BLOOD ORDERABLES Final Re sult [facility] [address] [place] [address] * Magnesium (09/23/2024 10:37 AM EST) Pathologist [facility] Magnesium 2.0 1.6 - 2.3 mg/dL [facility] 09/23/2024 10:3 7 AM EST 09/23/2024 Torsten Burris MD LAB BLOOD ORDERABLES Final Re sult [facility] [place] [address] [place] [address] * (ABNORMAL) Comprehensive Metabolic Panel (09/23/2024 10:37 AM EST) Pathologist [facility] Glucose 147(H) 70 - 99 mg/dL [facility] BUN 37(H) 8 - 27 mg/dL [facility] Creatinine 1.78(H) 0.57 - 1.00 mg/dL [facility] eGFR CKD-EPI CR 2020 31(L) >59 mL/min/1.7 3 [facility] BUN/Creatinine Ratio 21 12 - 28 [facility] Sodium 138 134 - 144 mmol/L [facility] Potassium 4.5 3.5 - 5.2 mmol/L [facility] Chloride 104 96 - 106 mmol/L [facility] Bicarbonate (CO2) 16(L) 20 - 29 mmol/L [facility] Calcium 8.7 8.7 - 10.3 mg/dL [facility] Total Protein 6.4 6.0 - 8.5 g/dL [facility] Albumin 4.0 3.9 - 4.9 g/dL [facility] Globulin 2.4 1.5 - 4.5 g/dL [facility] Total Bilirubin 0.2 0.0 - 1.2 mg/dL [facility] Alkaline Phosphatase 85 44 - 121 IU/L [facility] AST (SGOT) 16 0 - 40 IU/L [facility] ALT (SGPT) 10 0 - 32 IU/L [facility] 09/23/2024 10:3 7 AM EST 09/23/2024 us Torsten Burris MD LAB BLOOD ORDERABLES Final Re sult [facility] [address] [place] [address] * (ABNORMAL) Hemoglobin A1c (03/15/2023 10:00 AM EDT) Pathologist [facility] Hemoglobin A1C 6.9(H) (4.0-5.6) % [facility] Comment: MONITORING: In known diabetic patients, hemoglobin A1c targets should be discussed with health care provider. DIAGNOSTIC USE: ??The [place] Diabetes Association (ADA) and the World Health Organization (WHO) recommend the use of HbA1c to diagnose diabetes using a threshold of 6.5%. Patients who have an HbA1c between 5.7% and 6.4% are considered at increased risk for developing diabetes in the future. CAUTION: Falsely low HbA1c results may be observed in patients with hemolytic anemia, homozygous forms of abnormal hemoglobin (e.g. SS, CC, SC), , recent blood loss or hemoglobin F greater than 7%. Fructosamine may be used as an alternate test in these cases. REFERENCE: ADA: Standards of Medical Care in Diabetes 2020, The Journal of Clinical and Applied Research and Education Volume 43, Supplement 1 Testing performed or reported by [facility], a Service of [facility], [address] [place] [address] Beverley Moulton MD, Mold Breaker [facility]# [id number] 03/15/2023 10:0 0 AM EDT 03/15/2023 10:03 AM EDT us Torsten Burris MD LAB BLOOD ORDERABLES Final Re sult [facility] from Last 3 Months or Most Recently Relevant to Health Maintenance Insurance [facility] [place]ICAID [place] Care Teams Metal Furniture Polisher Relationship Specialty Start Date End Date Marisela Oscar MD [address] [place], [place] [phone] PCP - General Internal Medicine 08/23/22
--- OUTSIDE RECORDS SUMMARY | 2024-12-17 13:18 | XMS_ITS | Encounter Summary ---
Author Organization [facility] Address [address] [place] [address] Care Team Providers Care Milk Tester Name Role Phone Marisela Oscar MD Primary Care Provider [phone] Claudia Jean-Baptiste MD Unavailable [phone] Encounter Details Date Type Department Care Team (Late st Contact Info) Description 05/10/2023 Scanned Document [facility] Pul[facility] [address] [phone] Pulmonary, Scan Social History Tobacco Use Types Packs/Day Years Used Date Smoking Tobacco: Never Assessed Sex and Gender Information Value Date Recorded Sex Assigned at Female 07/11/2023 6:56 AM EDT Gender Identity Female 07/11/2023 6:56 AM EDT Sexual Orientation Heterosexual (straight) 07/11 6:56 AM EDT documented as of this encounter Plan of Treatment Upcoming Encounters Date Type Department Care Team (Late st Contact Info) Description 02/03/2025 8:30 AM EDT Procedure visit [facility] Pulmonary [place] [address] [place] [address] [address] [place] [address] 02/08/2025 11:00 AM EDT Office Visit [facility] Pulmonary [address] [phone] Brandon Irizarry MD [address] [facility] [place] [address] [place] [phone] 06/28/2025 1:40 PM EDT Office Visit [facility] [place] [address] [place] [phone] Claudia Jean-Baptiste MD [address] [place] [address] documented as of this encounter Visit Diagnoses Not on filedocumented in this encounter Care Teams Milk Tester Relationship Specialty Start Date End Date Marisela Oscar MD [address] [place] [address] PCP - General 05/10/23 Claudia Jean-Baptiste MD [address] [place] [phone] Primary Cafe Team Member Cardiovascular Disease 09/03/23 documented as of this encounter
--- OUTSIDE RECORDS SUMMARY | 2024-12-17 13:18 | XMS_ITS | Encounter Summary ---
Author Organization [facility] Address [address] [place] [address] Care Team Providers Care Aerospace Engineer Officer Armament Name Role Phone Marisela Oscar MD Primary Care Provider [phone] Claudia Jean-Baptiste MD Unavailable [phone] Reason for Visit * Reason Comments Advice Only Encounter Details Date Type Department Care Team (Late st Contact Info) Description 10/21/2024 Telephone [facility] Pulmonary [address] [place] [phone] Brandon Irizarry MD [address] [place] [address] Advice Only Social History Tobacco Use Types Packs/Day Years Used Date Smoking Tobacco: Unknown Sex and Gender Information Value Date Recorded Sex Assigned at Female 07/11/2023 6:56 AM EDT Gender Identity Female 07/11/2023 6:56 AM EDT Sexual Orientation Heterosexual (straight) 07/11 6:56 AM EDT documented as of this encounter Plan of Treatment Upcoming Encounters Date Type Department Care Team (Late Contact Info) Description 02/03/2025 8:30 AM EDT Procedure visit [facility] Pulmonary [address] [place] [phone] 02/08/2025 11:00 AM EDT Office Visit [facility] Pulmonary [address] [phone] Brandon Irizarry MD [address] [place] [phone] 06/28/2025 1:40 PM EDT Office Visit [facility] [place] [address] [place] [phone] Claudia Jean-Baptiste MD [address] [place] [address] documented as of this encounter Visit Diagnoses Not on filedocumented in this encounter Care Teams Aerospace Engineer Officer Armament Relationship Specialty Start Date End Date Marisela Oscar MD [address] [place] [phone] PCP - General 05/10/23 Claudia Jean-Baptiste MD [address] [place] [phone] Primary Packaging Inspector Cardiovascular Disease 09/03/23 documented as of this encounter
[2024-12-17 13:27] LABS: Estimated Average Glucose 146 mg/dL; Hemoglobin A1C 153.4941 umol/L; Hemoglobin A1c % 6.7 % (<6.0)
[2024-12-17 14:00] LABS: Alanine Aminotransferase 7 U/L (0-31); Alkaline Phosphatase 67 U/L (39-117); Anion Gap 10 (12-20); Aspartate Amino Transferase 23 U/L (5-31); Bilirubin Total 0.3 mg/dL (0.0-1.0); Blood Urea Nitrogen 33 mg/dL (9-16); Calcium 8.8 mg/dL (8.4-10.2); Carbon Dioxide 21 mmol/L (22-29); Chloride 114 mmol/L (96-108); Cholesterol 125 mg/dL (<200); Estimated Glomerular Filt Rate 40; Glucose Fasting 98 mg/dL (60-99); HDL Cholesterol 40 mg/dL (>40); LDL Cholesterol Calculated 68 mg/dL (<100); Potassium 4.2 mmol/L (3.3-5.1); Sodium 141 mmol/L (135-145); Total Protein 7.4 g/dL (6.5-8.0); Triglycerides 85 mg/dL (<150)
[2024-12-17 14:10] LABS: Creatinine Urine 143.44 mg/dL; Microalbum/Creatinine Ratio Ur 34.1 ug/mg cr (<30)
== END 2024-12-17 10:07 | disposition home or self-care (01) ==
LOC: HO.HMGCLDS 10:06
PROVIDERS: PCP Internal Medicine; Visit Provider Internal Medicine
DX: E11.9 Type 2 diabetes mellitus without complications (principal); I27.20 Pulmonary hypertension, unspecified; I48.19 Other persistent atrial fibrillation; N18.30 Chronic kidney disease, stage 3 unspecified
CPT/HCPCS: 36415; 80053; 80061; 82043; 82570; 83036; 85025

== ENCOUNTER 2024-12-30 10:11 | Outpatient (REF) | payer MEDICARE, MEDICAID, SELFPAY ==
--- OUTSIDE RECORDS SUMMARY | 2024-12-30 13:23 | XMS_ITS | Encounter Summary ---
Author Organization Formerly [facility] Address [address] [place] [address] Care Team Providers Care Brusher Name Role Phone Marisela Oscar MD Primary Care Provider [phone] Claudia Jean-Baptiste MD Unavailable [phone] Encounter Details Date Type Department Care Team (Late st Contact Info) Description 08/09/2023 Scanned Document [facility] Pulmonary [address] [phone] Pulmonology, Scan Social History Tobacco Use Types Packs/Day Years Used Date Smoking Tobacco: Unknown Sex and Gender Information Value Date Recorded Sex Assigned at Female 07/11/2023 6:56 AM EDT Gender Identity Female 07/11/2023 6:56 AM EDT Sexual Orientation Heterosexual (straight) 07/11 6:56 AM EDT documented as of this encounter Plan of Treatment Upcoming Encounters Date Type Department Care Team ([facility] Contact Info) Description 02/03/2025 8:30 AM EDT Procedure visit [facility] Pulmonary [address] [place] [address] Luisana Lomas PA-C [address] [place] [address] 02/08/2025 11:00 AM EDT Office Visit [facility] Pulmonary [address] [phone] Brandon Irizarry MD [address] [place] [address] 06/28/2025 1:40 PM EDT Office Visit [facility] Heart & Vascular [place] [address] [place] [address] Claudia Jean-Baptiste MD [address] [place] [address] [phone] documented as of this encounter Visit Diagnoses Not on filedocumented in this encounter Care Teams Brusher Relationship Specialty Start Date End Date Marisela Oscar MD [address] [place] [address] PCP - General 05/10/23 Claudia Jean-Baptiste MD [address] [place] [address] Primary Driver Courier Cardiovascular Disease 09/03/23 documented as of this encounter
--- OUTSIDE RECORDS SUMMARY | 2024-12-30 13:23 | XMS_ITS | Encounter Summary ---
Author Organization [facility] Address [address] [place] [address] Care Team Providers Care Welfare Supervisor Name Role Phone Marisela Oscar MD Primary Care Provider [phone] Claudia Jean-Baptiste MD Unavailable [phone] Encounter Details Date Type Department Care Team (Late st Contact Info) Description 09/21/2024 Scanned Document [facility] Pulmonary [address] [place] [phone] Raheem Lynne, RN [address] [address] Social History Tobacco Use Types Packs/Day Years [...] Description 02/03/2025 8:30 AM EDT Procedure visit [facility] Pulmonary [address] [place] [phone] Luisana Lomas PA-C [address] [address] 02/08/2025 11:00 AM EDT Office Visit [facility] Pulmonary [place] [address] [place] [address] Brandon Irizarry MD [address] [place] [phone] 06/28/2025 1:40 PM EDT Office Visit [facility] Heart & Vascular [place] [address] [place] [address] Claudia Jean-Baptiste MD [address] [place] [address] documented as of this encounter Visit Diagnoses Not on filedocumented in this encounter Care Teams Welfare Supervisor Relationship Specialty Start Date End Date Marisela Oscar MD [address] [place] [address] PCP - General 05/10/23 Claudia Jean-Baptiste MD [address] [place] [address] Primary Wrecker Driver Cardiovascular Disease 09/03/23 documented as of this encounter
--- OUTSIDE RECORDS SUMMARY | 2024-12-30 13:24 | XMS_ITS | Encounter Summary ---
Author Organization [facility] Address [address] [place] [address] Care Team Providers Care Stapler Machine Name Role Phone Marisela Oscar MD Primary Care Provider [phone] Claudia Jean-Baptiste MD Unavailable [phone] Encounter Details Date Type Department Care Team (Late st Contact Info) Description 05/10/2023 Scanned Document [facility] [place] Pulmonary [address] [phone] Pulmonary, Scan Social History Tobacco Use Types Packs/Day Years Used Date Smoking Tobacco: Never Assessed Sex and Gender Information Value Date Recorded Sex Assigned at Female 07/11/2023 6:56 AM EDT Gender Identity Female 07/11/2023 6:56 AM EDT Sexual Orientation Heterosexual (straight) 07/11 6:56 AM EDT documented as of this encounter Plan of Treatment Upcoming Encounters Date Type Department Care Team ([facility] Contact Info) Description 02/03/2025 8:30 AM EDT Procedure visit [facility] [place] Pulmonary [place] [address] [place] [address] [address] [place] [phone] Luisana Lomas PA-C [address] [place] [address] 02/08/2025 11:00 AM EDT Office Visit [facility] [place] Pulmonary [address] [phone] Brandon Irizarry MD [address] [place] [address] 06/28/2025 1:40 PM EDT Office Visit [facility] Heart & Vascular [place] [address] [place] [phone] Claudia Jean-Baptiste MD [address] [place] [phone] documented as of this encounter Visit Diagnoses Not on filedocumented in this encounter Care Teams Stapler Machine Relationship Specialty Start Date End Date Marisela Oscar MD [address] [place] [address] PCP - General 05/10/23 Claudia Jean-Baptiste MD [address] [place] [address] Primary Director Inpatient Headache Program Cardiovascular Disease 09/03/23 documented as of this encounter
--- OUTSIDE RECORDS SUMMARY | 2024-12-30 13:24 | XMS_ITS | Clinical Summary ---
Author Organization [facility] Address [address] [place] [phone] Phone Care Team Providers Care Pit Hand Name Role Phone Marisela Oscar MD Primary Care Provider [phone] Allergies No known active allergies Medications acetaminophen [...] Office Visit [facility] [address] [address] Torsten Burris MD Chronic kidney [...] Office Visit [facility] [address] [address] Torsten Burris MD [address] [address] Health Maintenance Due Date Last [...] EDT) Hemoglobin A1C 6.9(H) (4.0-5.6) % [facility] Comment: MONITORING: In known diabetic patients, hemoglobin A1c targets should be discussed with health care provider. DIAGNOSTIC USE: ??The [place] Diabetes Association (ADA) and the World Health [...] Supplement 1 Testing performed or reported by [facility] Reference [employer], a Service of [facility], [address] [place] [address] Beverley Moulton MD, Broadcast Supervisor [facility]# [id number] 03/15/2023 10:0 0 AM EDT 03/15/2023 10:03 AM EDT Torsten Burirs MD LAB BLOOD ORDERABLES Final Re sult [facility] from Last 3 Months or Most Recently Relevant to Health Maintenance Insurance [facility] Member Subscriber Plan / Payer (Ef fective 2024-Present) Name:Trevor Blaire Relation to Subscriber:Self Name:Trevor Blaire Payer ID:Not on file Group ID:Not on file Type:Not on file Address: [address] [id number] MEDICAID [place] Care Teams Pit Hand Relationship Specialty Start Date End Date Marisela Oscar MD [address] [place] [address] PCP - General Internal Medicine 08/23/22
--- OUTSIDE RECORDS SUMMARY | 2024-12-30 13:24 | XMS_ITS | Encounter Summary ---
Author Organization [facility] Address [address] [place] [address] Care Team Providers Care Supervisor In Charge Name Role Phone Marisela Oscar MD Primary Care Provider [phone] Claudia Jean-Baptiste MD Unavailable [phone] Reason for Visit * Reason Comments Advice Only Encounter Details Date Type Department Care Team (Late st Contact Info) Description 10/21/2024 Telephone [facility] Pulmonary [address] [place] [phone] Brandon Irizarry MD [address] [place] [address] Advice Only Social History Tobacco Use Types [...] Description 02/03/2025 8:30 AM EDT Procedure visit [facility] Pulmonary [address] [place] [phone] Luisana Lomas PA-C [address] [address] 02/08/2025 11:00 AM EDT Office Visit [facility] Pulmonary [place] [address] [place] [phone] Brandon Irizarry MD [address] [place] [address] 06/28/2025 1:40 PM EDT Office Visit [facility] Heart & Vascular [place] [address] [place] [phone] Claudia Jean-Baptiste MD [address] [place] [phone] documented as of this encounter Visit Diagnoses Not on filedocumented in this encounter Care Teams Supervisor In Charge Relationship Specialty Start Date End Date Marisela Oscar MD [address] [place] [address] PCP - General 05/10/23 Claudia Jean-Baptiste MD [address] [place] [address] Primary Maintenance Tech Cardiovascular Disease 09/03/23 documented as of this encounter
--- OUTSIDE RECORDS SUMMARY | 2024-12-30 13:24 | XMS_ITS | Encounter Summary ---
Author Organization [facility] Address [address] [place] [address] Care Team Providers Care Dog Pound Attendant Name Role Phone Marisela Oscar MD Primary Care Provider Claudia Jean-Baptiste MD Unavailable [phone] Reason for Visit * Reason Comments Medication Refill Encounter Details Date Type Department Care Team (Late st Contact Info) Description 12/15/2024 Refill [facility] Pulmonary [place] [address] [phone] Brandon Irizarry MD [address] [address] PAH (pulmonary artery hypertension) (HCC) Social History [...] Description 02/03/2025 8:30 AM EDT Procedure visit [facility] Pulmonary [address] [place] [phone] Luisana Lomas PA-C [address] [address] 02/08/2025 11:00 AM EDT Office Visit [facility] Pulmonary [place] [address] [place] [address] Brandon Irizarry MD [address] [place] [address] 06/28/2025 1:40 PM EDT Office Visit [facility] Heart & Vascular [place] [address] [place] [phone] Claudia Jean-Baptiste MD [address] [place] [phone] documented as of this encounter Visit Diagnoses Diagnosis PAH (pulmonary artery hypertension) (HCC) Other chronic pulmonary heart diseases documented in this encounter Care Teams Dog Pound Attendant Relationship Specialty Start Date End Date Marisela Oscar MD [address] [place] [address] PCP - General 05/10/23 Claudia Jean-Baptiste MD [address] [place] [address] Primary Automotive Manager Cardiovascular Disease 09/03/23 documented as of this encounter
--- OUTSIDE RECORDS SUMMARY | 2024-12-30 13:24 | XMS_ITS | Clinical Summary ---
Author Organization [facility] Address [address] [place] [address] Care Team Providers Care Golf Course Patroller Name Role Phone Marisela Oscar MD Primary Care Provider [phone] Claudia Jean-Baptiste MD Unavailable [phone] Allergies No known active allergies Medications Medication Sig Dispensed Refills Start Date End Date Status Continuous Blood Gluc Tick Inspector (FreeStyle Ziyad 2 Vida) Device See Admin Instructions. 3 Active Continuous [...] Team Description 12/15/2024 Refill [facility] [place] 85 [facility] [address] [place] [address] Brandon Irizarry MD PAH (pulmonary artery hypertension) (HCC) 10/30/2024 12:49 PM EST - 10/30/2024 11:59 PM EST Hospital Encounter [facility] Heart & Vascular [place] [facility] - Echocardiography Laboratory [address] [place] [address] Luisana Lomas PA-C Discharge Disposition: Home or Self Care 10/30/2024 Travel 10/21/2024 Telephone [facility] Pulmonary [address] [place] [address] Brandon Irizarry MD Advice Only 10/14/2024 Orders Only [facility] Vascular [address] [address] Kassandra Campbell APRN At risk for heart disease (Primary Dx); Hyperlipidemia, unspecified hyperlipidemia type 10/13/2024 Telephone [facility] Vascular [address] [address] Claudia Jean-Baptiste MD Other from [...] AM EDT Procedure visit [facility] Pulmonary [place] [address] [place] [address] [address] [place] [phone] Luisana Lomas PA-C [address] [address] 02/08/2025 11:00 AM EDT Office Visit [facility] Pul[facility] [place] [address] [place] [phone] Brandon Irizarry MD [address] [address] 06/28/2025 1:40 PM EDT Office Visit [facility] Heart & Vascular [place] [address] [address] Claudia Jean-Baptiste MD [address] [place] [address] Health Maintenance Due Date Last Done Comments [...] EDT) Glucose 192(H) 65 - 99 mg/dL [facility] Comment: ? Fasting reference interval For someone without known diabetes, a glucose value >125 mg/dL indicates that they may have diabetes and this should be confirmed with a follow-up test. Blood Urea Nitrogen (BUN) 35(H) 7 - 25 mg/dL [facility] Creatinine 1.89(H) 0.50 - 1.05 mg/dL [facility] Creatinine w/ eGFR 28(L) > OR = 60 mL/min/1. 73m2 [facility] BUN/Creatinine Ratio 19 6 - 22 (calc) [facility] Sodium 139 135 - 146 mmol/L [facility] Potassium 4.0 3.5 - 5.3 mmol/L [facility] Chloride 107 98 - 110 mmol/L [facility] CO2 23 20 - 32 mmol/L [facility] Calcium 8.9 8.6 - 10.4 mg/dL [facility] Protein, Total 6.5 6.1 - 8.1 g/dL [facility] Albumin 3.9 3.6 - 5.1 g/dL [facility] Globulin 2.6 1.9 - 3.7 g/dL (calc) [facility] Albumin/Globulin Ratio 1.5 1.0 - 2.5 (calc) [facility] Bilirubin, Total 0.3 0.2 - 1.2 mg/dL [facility] Alkaline Phosphatase 74 37 - 153 U/L [facility] Aspartate Aminotrans (AST) 10 10 - 35 U/L [facility] Alanine Aminotrans (ALT) 7 6 - 29 U/L [facility] Blood Blood specimen / Unknown 09/14/2024 9:36 AM EDT 09/14/2024 9:37 AM EDT Narrative [facility] - 09/18/2024 5:10 AM EDT FASTING:YES FASTING: YES Brandon Irizarry MD LAB BLOOD ORDERABLES [facility] [address] [place] [address] from Last 3 Months or Most Recently Relevant to Health Maintenance Advance Directives * Full Code (Latest Code Status on File) Date Activated Date Inactivated Comments 07/11/2023 7:23 AM Care Teams Golf Course Patroller Relationship Specialty Start Date End Date Marisela Oscar MD [address] [place] [address] PCP - General 05/10/23 Claudia Jean-Baptiste MD [address] [place] [address] Primary Tumbler Machine Operator Helper Cardiovascular Disease 09/03/23
== END 2024-12-30 10:12 | disposition home or self-care (01) ==
LOC: HO.HMGCLDS 10:11
PROVIDERS: PCP Internal Medicine; Visit Provider Internal Medicine
DX: Z00.01 Encounter for general adult medical examination with abnormal findings (principal); R31.9 Hematuria, unspecified; E11.9 Type 2 diabetes mellitus without complications; I27.20 Pulmonary hypertension, unspecified; I48.19 Other persistent atrial fibrillation; N18.30 Chronic kidney disease, stage 3 unspecified; C54.1 Malignant neoplasm of endometrium
CPT/HCPCS: 87086; 96127; 99397

== ENCOUNTER 2024-12-30 10:11 | Outpatient (AMB) | payer MEDICARE, MEDICAID, SELFPAY ==
[2024-12-30 10:22] VITALS: BP 112/66; PULSE 81; RESP 18; TEMP 36.8; O2SAT 99; BMI 34.0
--- NOTE | 2024-12-30 10:22 | A.OFFPC_ITS ---
Vital Signs 12/30/24 10:22 Height 5 ft 4 in Weight 198 lb BMI 34.0 BP 112/66 Blood Pressure Location Rt brachial Position Sitting Respiration 18 Pulse 81 Pulse Source Pulse Oximeter Temp 98.3 F Temp Source Oral Pulse Oximetry (%) 99 Oxygen Delivery Method Room Air Intake Visit Reasons: PE Intake Note: Pt is here today for PE. Pt states that she had hysterectomy and on Saturday she her vaginal bleeding. Allergies No Known Allergies Allergy (Verified 12/30/24 10:24) Medication List - Last Reconciled 12/30/24 by Marisela Oscar MD apixaban (Eliquis) 5 mg PO BID atorvastatin 40 mg PO BEDTIME blood-glucose meter check glucose once a day cholecalciferol (vitamin D3) 50 mcg PO DAILY clobetasol 0.05% 1 appl topical DAILY coenzyme Q10 (H2Q CoQ10) 200 mg dapagliflozin propanediol (Farxiga) 10 mg PO DAILY digoxin 125 mcg PO DAILY FreeStyle Ziyad 2 [place] (flash glucose scanning reader) As directed NS FreeStyle Ziyad 2 Sensor (flash glucose sensor) Test blood sugar TID, change sensor every 14 days NS furosemide 60 mg PO DAILY macitentan-tadalafil 10-40 mg (Opsynvi) 1 tab PO DAILY polyethylene glycol 3350 (Gavilax) 17 grams PO DAILY selexipag (Uptravi) 1,400 mcg PO DAILY sennosides (Natural Senna Laxative) 17.2 mg (2 x 8.6 mg) PO BEDTIME spironolactone 12.5 mg (1/2 x 25 mg) PO DAILY 90 days Tobacco use date assessed: 12/30/24 Fall risk assessment: No Falls in past year Last assessed Fall Risk: 12/30/24 Dental Screening Dental Screen Date: 12/30/24 Did you have a dental visit in the last 12 months?: Yes Did you have a dental problem in the last 6 months where you did not have access to dental care?: No Was dental information given to patient?: Patient has dentist HPI PE HPI Details Patient presents for physical. She has been following keto diet and lost 5 lb since last visit. Patient reports blood glucose readings down to 120 in the mornings. She was on a cruise and 1 day she noticed some pinkish discoloration of her urine with cramps which resolved. She denies any vaginal discharge abdominal pain rectal bleeding. she reports chronic constipation on and off controlled mainly with MiraLax and stool softeners [facility] Medical History History of uterine cancer GERD (gastroesophageal reflux disease) Lumbar and sacral spondyloarthritis Hip pain, bilateral CKD (chronic kidney disease) stage 3, GFR 30-59 ml/min Dysplastic nevus Palpitations Endometrial ca Diastolic dysfunction ASB (asymptomatic bacteriuria) Morbid obesity Hyperlipidemia Hypertension SUE on CPAP Surgical History Hx of cardiac cath S/P MARGARITA (total abdominal hysterectomy) H/O colonoscopy History of total abdominal hysterectomy and bilateral salpingo-oophorectomy Family History Father No problems noted. Mother HTN (hypertension) Diabetes mellitus Breast cancer Social History Household Members: Spouse Housing: House Are you a primary clinical care manager to a significant other at home: No Do you presently have visiting nurse or other home services: No Alcohol intake: current Alcohol intake frequency: holidays/special occasions only Patient Tobacco Use Status: Never used Tobacco e-Cigarette/Vaping Use: Never Used Advance Directives Date on File: 02/12/23 service: No Current occupational status: retired Current occupation: rt handed Cognitive needs: No Hearing needs: No Vision needs: Yes Questionnaire PHQ-9 Over the last 2 weeks, how often have you been bothered by any of the following problems? 1. Little interest or pleasure in doing things: not at all 2. Feeling down, depressed, or hopeless: not at all 3. Trouble falling or staying asleep, or sleeping too much: not at all 4. Feeling tired or having little energy: not at all 5. Poor appetite or overeating: not at all 6. Feeling bad about yourself - or that you are a failure or have let yourself or your family down: not at all 7. Trouble concentrating on things, such as reading the newspaper or watching television: not at all 8. Moving or speaking so slowly that other people could have noticed. Or the opposite - being so fidgety or restless that you have been moving around a lot more than usual: not at all 9. Thoughts that you would be better off or of hurting yourself in some way: not at all Total score: 0 Depression Screening Interpretation: Negative Depression Screening Done: Yes 01996 - PHQ-9 Billing: Yes Source: Developed by Drs. Watson Pop, Zara Kinney, Josh Weiss and colleagues, with an educational hollie from [employer]. Thrive Questionnaire Date Thrive assessed: 12/30/24 I am a: Patient What is your living situation today?: I have a steady place to live Within the past 12 months, did the food you bought not last and you didn't have the money to get more?: Never true Within the past 12 months, did you worry whether your food would run out before you got money to buy more?: Sometimes True Do you have trouble paying for medicines?: No Do you have trouble getting transportation to medical appointments?: No Do you have trouble paying your heating and electricity bill?: Yes Do you have trouble taking care of your child, family member or friend?: No Do you have trouble with day-to-day activities such as bathing, preparing meals, shopping, managing finances, etc.?: No Are you currently unemployed and looking for a job?: No Are you interested in more education?: No Please select the resources that you would like help with: Utilities Currently or been in a relationship where the following occur: No concerns reported THRIVE Score: 2 AUDIT C Alcohol Use Questionnaire (AUDIT-C) 1. How often do you have a drink containing alcohol?: Monthly or less 2. How many drinks containing alcohol do you have on a typical day when you are drinking?: 1 or 2 3. How often do you have six or more drinks on one occasion?: Never Total Score: 1 GAEL-7 AMB Questionnaire GAEL-7 Date GAEL - 7 assessed: 12/30/24 Feeling nervous, anxious, or on edge: 0 = Not at all Not being able to stop or control worryin = Not at all Worrying too much about different things: 0 = Not at all Trouble relaxin = Not at all Being so restless that it is hard to sit still: 0 = Not at all Becoming easily annoyed or irritable: 0 = Not at all Feeling afraid as if something awful might happen: 0 = Not at all Total GAEL-7 score (0-4 normal; 5-9 mild; 10-14 moderate; 15-21 severe): 0 Source: Developed by Drs. Watson Pop, Zara Kinney, Josh Weiss and colleagues, with an educational hollie from [employer]. GAEL-7 Assessment Billing GAEL-7 Assessment Tool: GAEL-7 Assessment 06506 Review of Systems Const All systems reviewed & are unremarkable except as noted in HPI and below Eyes Reports no additional complaints ENT Reports no additional complaints Card Reports no additional complaints Resp Reports no additional complaints GI Reports no additional complaints Reports no additional complaints Physical exam (Primary Care) Vital Signs: Last Vital Signs Temp 98.3 F 12/30/24 10:22 Pulse 81 12/30/24 10:22 Resp 18 12/30/24 10:22 BP 112/66 12/30/24 10:22 Pulse Ox 99 12/30/24 10:22 Oxygen Delivery Method Room Air 12/30/24 10:22 BMI result Body Mass Index 34.0 Tobacco/Smoking Status: Tobacco use Status Tobacco use date assessed 12/30/24 12/30/24 10:33 Patient Tobacco Use Status Never used Tobacco 12/30/24 10:28 e-Cigarette/Vaping Use Never Used 12/30/24 10:28 PHQ-9: PHQ-9 Score PHQ-9: Total score 0 12/30/24 11:13 Depression Screening Interpretation: Negative Thrive Assessment: Date of Thrive Assessment Date Thrive assessed 12/30/24 12/30/24 10:41 Currently or been in a relationship where the following occur: No concerns reported Const General: no acute distress HENMT Head: Yes normal to inspection Ears: hearing grossly normal bilaterally Mouth: Normal oral and palatal mucosa present Eyes General: appearance normal, both eyes and all related structures Neck Neck: Yes no lymphadenopathy and Yes supple Resp Effort & Inspection: normal respiratory effort Auscultation: clear to auscultation bilaterally Cardio Rhythm: regular rhythm Heart sounds: S1 normal heart sound present and S2 normal heart sound present GI Inspection: Yes normal to inspection Palpation (GI): Soft to palpation Percussion: Yes normal to percussion Auscultation: normal bowel sounds Extrem Other: DM foot exam: skin is intact monofilament and vibration sensation intact bilaterally Coding Level of Care Code Est Pt Prev Care >65y(27043) Diagnoses Hematuria R31.9 DM type 2 (diabetes mellitus, type 2) E11.9 Pulmonary HTN I27.20 Persistent atrial fibrillation I48.19 CKD (chronic kidney disease) stage 3, GFR 30-59 ml/min N18.30 Annual physical exam Z00.00 Endometrial ca C54.1 Additional Codes GAEL-7 Assessment Billing - GAEL-7 Assessment Tool: GAEL-7 Assessment 75816 ([id number]) PHQ-9 - 91122 - PHQ-9 Billing: Yes ([id number]) Assessment & Plan Assessment & Plan (1) Hematuria: Code(s): R31.9 - Hematuria, unspecified Category: Medical Plan: Check urine culture for any recurrent symptoms patient was advised to follow-up with tank truck driver (2) DM type 2 (diabetes mellitus, type 2): Code(s): E11.9 - Type 2 diabetes mellitus without complications Category: Medical Plan: A1c is down to 6.7, ADA diet increase exercise weight loss discussed with the patient she will continue Farxiga and Ozempic 0.25 mg weekly will be started. Follow-up in 3 months with a fasting labs before (3) Pulmonary HTN: Comment: f/u Dr. Brandon Irizarry ,[facility] started on Abrisentan and tadalafil 07/10 Code(s): I27.20 - Pulmonary hypertension, unspecified Category: Medical Plan: Continue current medications follow-up with second steward (4) Persistent atrial fibrillation: Code(s): I48.19 - Other persistent atrial fibrillation Category: Medical Plan: Anticoagulated on Eliquis and rate controlled on digoxin (5) CKD (chronic kidney disease) stage 3, GFR 30-59 ml/min: Comment: Follow-up with nephrology Code(s): N18.30 - Chronic kidney disease, stage 3 unspecified Category: Medical Plan: Avoid nephrotoxins monitor renal function (6) Annual physical exam: Code(s): Z00.00 - Encounter for general adult medical examination without abnormal findings Category: Medical Plan: Well-balanced diet regular exercise weight loss discussed with the patient she is up-to-date with the mammogram colonoscopy (7) Endometrial ca: Comment: s/p [facility] 2014 Code(s): C54.1 - Malignant neoplasm of endometrium Category: Medical Plan: Follow-up with tank truck driver Orders: Orders Urine Culture Today R31.9 - Hematuria, unspecified Lipid Panel 3 Months E11.9 - Type 2 diabetes mellitus without complications, E78.5 - Hyperlipidemia, unspecified, N18.30 - Chronic kidney disease, stage 3 unspecified Hemoglobin A1c 3 Months E11.9 - Type 2 diabetes mellitus without complications, E78.5 - Hyperlipidemia, unspecified, N18.30 - Chronic kidney disease, stage 3 unspecified UA w Microscopic 3 Months E11.9 - Type 2 diabetes mellitus without complications, E78.5 - Hyperlipidemia, unspecified, N18.30 - Chronic kidney disease, stage 3 unspecified Complete Blood Count Auto Diff 3 Months E11.9 - Type 2 diabetes mellitus without complications, E78.5 - Hyperlipidemia, unspecified, N18.30 - Chronic kidney disease, stage 3 unspecified Comprehensive [place]. Panel Fast 3 Months E11.9 - Type 2 diabetes mellitus without complications, E78.5 - Hyperlipidemia, unspecified, N18.30 - Chronic kidney disease, stage 3 unspecified Microalbumin, Random (w Creat) 3 Months E11.9 - Type 2 diabetes mellitus without complications, E78.5 - Hyperlipidemia, unspecified, N18.30 - Chronic kidney disease, stage 3 unspecified Medications: New Ozempic (semaglutide) 0.25 mg (0.368 mL) subcut QWEEK 3 mL 2RF NS Ozempic (semaglutide) for 4 weeks 0.25 mg (0.368 mL) subcut QWEEK 3 mL 2RF NS
--- OUTSIDE RECORDS SUMMARY | 2024-12-30 12:03 | XMS_ITS | Encounter Summary ---
Author Organization [facility] Address [address] [place] [address] Care Team Providers Care Roller Coaster Engineer Name Role Phone Marisela Oscar MD Primary Care Provider [phone] Claudia Jean-Baptiste MD Unavailable [phone] Encounter Details Date Type Department Care Team (Late st Contact Info) Description 05/10/2023 Scanned Document [facility] Pulmonary [address] [phone] Pulmonary, Scan Social History Tobacco Use Types Packs/Day Years Used Date Smoking Tobacco: Never Assessed Sex and Gender Information Value Date Recorded Sex Assigned at Female 07/11/2023 6:56 AM EDT Gender Identity Female 07/11/2023 6:56 AM EDT Sexual Orientation Heterosexual (straight) 07/11 6:56 AM EDT documented as of this encounter Plan of Treatment Upcoming Encounters Date Type Department Care Team ([facility] Contact Info) Description 02/03/2025 8:30 AM EDT Procedure visit [facility] Pulmonary [place] [address] [place] [address] [address] [place] [phone] Luisana Lomas PA-C [address] [place] [phone] 02/08/2025 11:00 AM EDT Office Visit [facility] Pulmonary [address] [phone] Brandon Irizarry MD [address] [place] [address] 06/28/2025 1:40 PM EDT Office Visit [facility] Heart & Vascular [place] [address] [place] [phone] Claudia Jean-Baptiste MD [address] [phone] documented as of this encounter Visit Diagnoses Not on filedocumented in this encounter Care Teams Roller Coaster Engineer Relationship Specialty Start Date End Date Marisela Oscar MD [address] [place] [address] PCP - General 05/10/23 Claudia Jean-Baptiste MD [address] [place] [address] Primary Voltmeter Operator Cardiovascular Disease 09/03/23 documented as of this encounter
--- OUTSIDE RECORDS SUMMARY | 2024-12-30 12:03 | XMS_ITS | Encounter Summary ---
Author Organization [facility] Address [address] [place] [address] Care Team Providers Care Drier Operator Name Role Phone Marisela Oscar MD Primary Care Provider [phone] Claudia Jean-Baptiste MD Unavailable [phone] Encounter Details Date Type Department Care Team (Late st Contact Info) Description 08/09/2023 Scanned Document [facility] Pulmonary [address] [phone] Pulmonology, Scan Social History Tobacco Use Types Packs/Day Years Used Date Smoking Tobacco: Unknown Sex and Gender Information Value Date Recorded Sex Assigned at Female 07/11/2023 6:56 AM EDT Gender Identity Female 07/11/2023 6:56 AM EDT Sexual Orientation Heterosexual (straight) 07/11 6:56 AM EDT documented as of this encounter Plan of Treatment Upcoming Encounters Date Type Department [facility] Description 02/03/2025 8:30 AM EDT Procedure visit [facility] Pulmonary [address] [place] [phone] Luisana Lomas PA-C [address] [place] [phone] 02/08/2025 11:00 AM EDT Office Visit [facility] Pulmonary [address] [phone] Brandon Irizarry MD [address] [place] [address] 06/28/2025 1:40 PM EDT Office Visit [facility] Heart & Vascular [place] [address] [place] [phone] Claudia Jean-Baptiste MD [address] [phone] documented as of this encounter Visit Diagnoses Not on filedocumented in this encounter Care Teams Drier Operator Relationship Specialty Start Date End Date Marisela Oscar MD [address] [place] [address] PCP - General 05/10/23 Claudia Jean-Baptiste MD [address] [place] [address] Primary Assistant Store Manager Trainee Cardiovascular Disease 09/03/23 documented as of this encounter
--- OUTSIDE RECORDS SUMMARY | 2024-12-30 12:03 | XMS_ITS | Encounter Summary ---
Author Organization [facility] Address [address] [place] [address] Care Team Providers Care Prison Psychiatrist Name Role Phone Marisela Oscar MD Primary Care Provider [phone] Claudia Jean-Baptiste MD Unavailable [phone] Reason for Visit * Reason Comments Advice Only Encounter Details Date Type Department Care Team (Late st Contact Info) Description 10/21/2024 Telephone [facility] Pulmonary [address] [place] [phone] Brandon Irizarry MD [address] [place] [phone] Advice Only Social History Tobacco Use Types [...] Description 02/03/2025 8:30 AM EDT Procedure visit [facility] Pulmonary [address] [place] [phone] Luisana Lomas PA-C [address] [address] 02/08/2025 11:00 AM EDT Office Visit [facility] Pulmonary [place] [address] [place] [phone] Brandon Irizarry MD [address] [place] [address] 06/28/2025 1:40 PM EDT Office Visit [facility] Heart & Vascular [place] [address] [place] [phone] Claudia Jean-Baptiste MD [address] [phone] documented as of this encounter Visit Diagnoses Not on filedocumented in this encounter Care Teams Prison Psychiatrist Relationship Specialty Start Date End Date Marisela Oscar MD [address] [place] [address] PCP - General 05/10/23 Claudia Jean-Baptiste MD [address] [place] [address] Primary Contract Implementation Analyst Cardiovascular Disease 09/03/23 documented as of this encounter
--- OUTSIDE RECORDS SUMMARY | 2024-12-30 12:03 | XMS_ITS | Encounter Summary ---
Author Organization [facility] Address [address] [place] [address] Care Team Providers Care Kettle Loader Name Role Phone Marisela Oscar MD Primary Care Provider [phone] Claudia Jean-Baptiste MD Unavailable Encounter Details Date Type Department Care Team (Late st Contact Info) Description 09/21/2024 Scanned Document [facility] Pulmonary [address] [place] [phone] Raheem Lynne, RN [address] [address] Social History Tobacco Use Types Packs/Day Years [...] Description 02/03/2025 8:30 AM EDT Procedure visit [facility] Pulmonary [address] [place] [phone] Luisana Lomas PA-C [address] [address] 02/08/2025 11:00 AM EDT Office Visit [facility] Pulmonary [place] [address] [place] [phone] Brandon Irizarry MD [address] [place] [phone] 06/28/2025 1:40 PM EDT Office Visit [facility] Heart & Vascular [place] [address] [place] [phone] Claudia Jean-Baptiste MD [address] [place] [address] documented as of this encounter Visit Diagnoses Not on filedocumented in this encounter Care Teams Kettle Loader Relationship Specialty Start Date End Date Marisela Oscar MD [address] [place] [address] PCP - General 05/10/23 Claudia Jean-Baptiste MD [address] [place] [address] Primary Transport Corps Officer Cardiovascular Disease 09/03/23 documented as of this encounter
--- OUTSIDE RECORDS SUMMARY | 2024-12-30 12:03 | XMS_ITS | Patient Health Record ---
Author Organization [facility] [place] Address [address] [place] [address] Care Team Providers Care Hospital Product Specialist Name Role Phone Marisela sOcar MD Primary Care Provider Unavaila ble Black, Taylor Unavailable [phone] Allergies No Known Allergies Reason For Referral [...] primary osteoarthritis of the ankle and/or foot (892768909) Primary osteoarthritis, right ankle and foot (M19.071) Active confirmed Problem Localized, primary osteoarthritis of the ankle and/or foot (260242378) Primary osteoarthritis, left ankle and foot (M19.072) Active confirmed Problem Non-pressure ulcer lower limb (612200613) Non-pressure chronic ulcer of other part of left foot limited to breakdown of skin (L97.521) Active confirmed Problem Type II diabetes mellitus without complication (979862699) Type 2 diabetes mellitus without complications (E11.9) Active confirmed Plan Of Treatment Pending Test Test Name Order Date [id number] NAIL, 6 OR MORE 09/29/2021 [id number] Plate 08/14/2019 [id number]- Debride <25 sq cm 08/28/2019 [id number] DYSTROPHIC NAILS ANY # Insurance Providers Payer Name Payer Address Payer Phone Subscriber Number Group Number Insured Name Patient Relationship to Insured Coverage Start Date Coverage End Date [employer] [place] [employer]age [facility] [address] [place] [address] [phone] [id number] Blaire Gold Self - patient is the insured 0 Medical (General) History Medical History History ICD Code Arthritis Back,Hip,and Knee pain Diabetic High blood pressure Keloid/Thick Scar Reflux ( GERD) Measles Mumps Chicken pox A fib Surgical History Surgery Date(Month/Year) hysterectomy 2013 Keliod Ears 70's excision of skin lesion 5th R 08/30/2021
--- OUTSIDE RECORDS SUMMARY | 2024-12-30 12:03 | XMS_ITS | Clinical Summary ---
Author Organization Formerly [facility] Address [address] [place] [address] Care Team Providers Care Cascara Bark Cutter Name Role Phone Marisela Oscar MD Primary Care Provider [phone] Claudia Jean-Baptiste MD Unavailable Allergies No known active allergies Medications Medication Sig Dispensed Refills Start Date End Date Status Continuous Blood Gluc Branch Employment Coordinator (FreeStyle Ziyad 2 Exira) Device See Admin Instructions. 3 Active Continuous [...] Type Department Care Team Description 12/15/2024 Refill [facility] [place] [address] [facility] [address] [place] [address] Brandon Irizarry MD PAH (pulmonary artery hypertension) (HCC) 10/30/2024 12:49 PM EST - 10/30/2024 11:59 PM EST Hospital Encounter [facility] Heart & Vascular [place] [facility] - Echocardiography Laboratory [address] [place] [address] Luisana Lomas PA-C Discharge Disposition: Home or Self Care 10/30/2024 Travel 10/21/2024 Telephone [facility] Pulmonary [address] [place] [address] Brandon Irizarry MD Advice Only 10/14/2024 Orders Only [facility] Vascular [address] [address] Kassandra Campbell APRN At risk for heart disease (Primary Dx); Hyperlipidemia, unspecified hyperlipidemia type 10/13/2024 Telephone [facility] Vascular [address] [address] Claudia Jean-Baptiste MD Other from Last 3 Months Social History Tobacco [...] AM EDT Procedure visit [facility] [place] [place] [address] [place] [address] [address] [place] [phone] Luisana Lomas PA-C [address] [address] 02/08/2025 11:00 AM EDT Office Visit [facility] Pulmonary [place] [address] [place] [phone] Brandon Irizarry MD [address] [address] 06/28/2025 1:40 PM EDT Office Visit [facility] Heart & Vascular [place] [address] [address] Claudia Jean-Baptiste MD [address] [place] [address] Health Maintenance Due Date Last Done Comments Hepatitis C Virus Screening 1955 COVID-19 Vaccine (#1) 1960 Foot Exam 1965 Hemoglobin A1C 1965 Lipid [...] Bone Density (Females,Ages 65 and older) 2020 Diabetic Self-Management Training (DSMT) 09/09/2023 Influenza Vaccine 06/18/2024 Medical Nutrition Therapy (MNT) 11/18/2024 Creatinine with GFR 09/14/2025 09/14/2024, 04/27/2024, 03/26/2024, Additional history exists Hepatitis B Vaccines Aged Out No long er eligible based on patient's age to complete this topic Procedures Procedure Name Priority Date/Time Associated Diagnosis Comments ECHOCARDIOGRAM (TTE) COMPREHENSIVE (CONTRAST PRN) Routine 10/30/2024 1:40 PM EST PAH (pulmonary artery hypertension) (HCC) Right ventricular failure (HCC) COMPREHENSIVE METABOLIC PANEL Routine 09/14/2024 9:36 AM [...] Luisana Lomas PA-C CV ECHO ORDERABLES * (ABNORMAL) Comprehensive Metabolic Panel (09/14/2024 9:36 AM EDT) Glucose 192(H) 65 - 99 mg/dL [facility] Comment: ? Fasting reference interval For someone without known diabetes, a glucose value >125 mg/dL indicates that they may have diabetes and this should be confirmed with a follow-up test. Blood Urea Nitrogen (BUN) 35(H) 7 - 25 mg/dL [facility] Creatinine 1.89(H) 0.50 - 1.05 mg/dL [facility] Creatinine w/ eGFR 28(L) > OR = 60 mL/min/1. 73m2 [facility] BUN/Creatinine Ratio 19 6 - 22 (calc) [facility] Sodium 139 135 - 146 mmol/L [facility] Potassium 4.0 3.5 - 5.3 mmol/L [facility] Chloride 107 98 - 110 mmol/L [facility] CO2 23 20 - 32 mmol/L [facility] Calcium 8.9 8.6 - 10.4 mg/dL [facility] Protein, Total 6.5 6.1 - 8.1 g/dL [facility] Albumin 3.9 3.6 - 5.1 g/dL [facility] Globulin 2.6 1.9 - 3.7 g/dL (calc) [facility] Albumin/Globulin Ratio 1.5 1.0 - 2.5 (calc) [facility] Bilirubin, Total 0.3 0.2 - 1.2 mg/dL [facility] Alkaline Phosphatase 74 37 - 153 U/L [facility] Aspartate Aminotrans (AST) 10 10 - 35 U/L [facility] Alanine Aminotrans (ALT) 7 6 - 29 U/L [facility] Blood Blood specimen / Unknown 09/14/2024 9:36 AM EDT 09/14/2024 9:37 AM EDT Narrative [facility] - 09/18/2024 5:10 AM EDT FASTING:YES FASTING: YES Brandon Irizarry MD LAB BLOOD ORDERABLES [facility] [address] [place] [address] from Last 3 Months or Most Recently Relevant to Health Maintenance Advance Directives * Full Code (Latest Code Status on File) Date Activated Date Inactivated Comments 07/11/2023 7:23 AM Care Teams Cascara Bark Cutter Relationship Specialty Start Date End Date Marisela Oscar MD [address] [place] [address] PCP - General 05/10/23 Claudia Jean-Baptiste MD [address] [place] [address] Primary Aquacultural Worker Supervisor Cardiovascular Disease 09/03/23
--- OUTSIDE RECORDS SUMMARY | 2024-12-30 12:03 | XMS_ITS | Encounter Summary ---
Author Organization [facility] Address [address] [place] [address] Care Team Providers Care Bakery Team Member Name Role Phone Marisela Oscar MD Primary Care Provider [phone] Claudia Jean-Baptiste MD Unavailable [phone] Reason for Visit * Reason Comments Medication Refill Encounter Details Date Type Department Care Team (Late st Contact Info) Description 12/15/2024 Refill [facility] Pulmonary [place] [address] [address] Brandon Irizarry MD [address] [address] PAH (pulmonary artery hypertension) (HCC) Social History [...] Description 02/03/2025 8:30 AM EDT Procedure visit [facility] Pulmonary [address] [place] [address] Luisana Lomas PA-C [address] [address] 02/08/2025 11:00 AM EDT Office Visit [facility] Pulmonary [place] [address] [place] [address] Brandon Irizarry MD [address] [place] [address] 06/28/2025 1:40 PM EDT Office Visit [facility] Heart & Vascular [place] [address] [place] [address] Claudia Jean-Baptiste MD [address] [place] [phone] documented as of this encounter Visit Diagnoses Diagnosis PAH (pulmonary artery hypertension) (HCC) Other chronic pulmonary heart diseases documented in this encounter Care Teams Bakery Team Member Relationship Specialty Start Date End Date Marisela Oscar MD [address] [place] [address] PCP - General 05/10/23 Claudia Jean-Baptiste MD [address] [place] [address] Primary Bladder Cleaner Cardiovascular Disease 09/03/23 documented as of this encounter
--- OUTSIDE RECORDS SUMMARY | 2024-12-30 12:03 | XMS_ITS | Clinical Summary ---
Author Organization [facility] Address [address] [place] [phone] Phone Care Team Providers Care Snapper On Name Role Phone Marisela Oscar MD Primary Care Provider [phone] Allergies No known active allergies Medications acetaminophen [...] EST Office Visit [facility] [address] [address] Torsten Burris MD Chronic kidney disease stage 3B (HCC) (Primary Dx); Diabetic glomerulonephritis (HCC); Hypertension; Renal scarring; Type 2 diabetes mellitus without complication (HCC); Obstructive sleep apnea syndrome 10/01/2024 Travel from Last 3 Months Family History Medical [...] EDT Office Visit [facility] [address] [address] Torsten Burris MD [address] [address] Health Maintenance Due Date Last Done Comments [...] Procedure Name Priority Date/Time Associated Diagnosis Comments HEMOGLOBIN A1C Routine 03/15/2023 10:00 AM EDT from Last 3 Months or Most Recently Relevant to Health Maintenance Results * (ABNORMAL) Hemoglobin A1c (03/15/2023 10:00 AM EDT) Hemoglobin A1C 6.9(H) (4.0-5.6) % [facility] Comment: MONITORING: In known diabetic patients, hemoglobin A1c targets should be discussed with health care provider. DIAGNOSTIC USE: ??The [place] Diabetes Association (ADA) and the World Health [...] Supplement 1 Testing performed or reported by [facility] Reference [employer], a Service of [facility], [address] [place] [address] Beverley Moulton MD, Shearing Machine Tender [facility]# [id number] 03/15/2023 10:0 0 AM EDT 03/15/2023 10:03 AM EDT Torsten Burris MD LAB BLOOD ORDERABLES Final Re sult [facility] from Last 3 Months or Most Recently Relevant to Health Maintenance Insurance [facility] Member Subscriber Plan / Payer (Ef fective 2024-Present) Name:Trevor Blaire Relation to Subscriber:Self Name:Trevor Blaire Payer ID:Not on file Group ID:Not on file Type:Not on file Address: [address] [id number] MEDICAID [place] Care Teams Snapper On Relationship Specialty Start Date End Date Marisela Osacr MD [address] [place] [address] PCP - General Internal Medicine 08/23/22
== END 2024-12-30 11:30 | disposition home or self-care (01) ==
PROVIDERS: PCP Internal Medicine; Visit Provider Internal Medicine
DX: Z00.00 Encounter for general adult medical examination without abnormal findings (principal); E11.9 Type 2 diabetes mellitus without complications; N18.30 Chronic kidney disease, stage 3 unspecified; I27.20 Pulmonary hypertension, unspecified; I48.19 Other persistent atrial fibrillation; C54.1 Malignant neoplasm of endometrium; R31.9 Hematuria, unspecified

== ENCOUNTER → 2025-01-07 11:00 | Outpatient (BNVA) | payer MEDICARE, MEDICAID, SELFPAY | PROVIDERS: PCP Internal Medicine; Visit Provider Internal Medicine ==

== ENCOUNTER 2025-03-19 10:12 | Outpatient (REF) | payer MEDICARE, MEDICAID, SELFPAY ==
--- OUTSIDE RECORDS SUMMARY | 2025-03-19 11:11 | XMS_ITS | Patient Health Record ---
Author Organization [facility] Edward giraldo [place] Address [address] [place] [address] Care Team Providers Care Partnership Manager Name Role Phone Marisela Oscar MD Primary Care Provider Unavaila ble Black, Taylor Unavailable [phone] Allergies No Known Allergies Reason For Referral [...] primary osteoarthritis of the ankle and/or foot (551833037) Primary osteoarthritis, right ankle and foot (M19.071) Active confirmed Problem Localized, primary osteoarthritis of the ankle and/or foot (324815485) Primary osteoarthritis, left ankle and foot (M19.072) Active confirmed Problem Non-pressure ulcer lower limb (569218958) Non-pressure chronic ulcer of other part of left foot limited to breakdown of skin (L97.521) Active confirmed Problem Type II diabetes mellitus without complication (428359406) Type 2 diabetes mellitus without complications (E11.9) Active confirmed Plan Of Treatment Pending Test Test Name Order Date [id number] NAIL, 6 OR MORE 09/29/2021 [id number] Plate 08/14/2019 25355- Debride <25 sq cm 08/28/2019 [id number] DYSTROPHIC NAILS ANY # Insurance Providers Payer Name Payer Address Payer Phone Subscriber Number Group Number Insured Name Patient Relationship to Insured Coverage Start Date Coverage End Date [employer] [place] Medicare Advantage [facility] [address] [place] [address] [id number] Blaire Gold Self - patient is the insured 0 Medical (General) History Medical History History ICD Code Arthritis Back,Hip,and Knee pain Diabetic High blood pressure Keloid/Thick Scar Reflux ( GERD) Measles Mumps Chicken pox A fib Surgical History Surgery Date(Month/Year) hysterectomy 2013 Keliod Ears 70's excision of skin lesion 5th R 08/30/2021
[2025-03-19 13:17] LABS: MANUAL DIFF FLAG NO
[2025-03-19 13:34] LABS: Appearance Urine Clear; Color Urine Yellow; Glucose Urine UA >=1000 mg/dL (Negative); Leukocyte Esterase Urine Moderate (2+) (Negative); Nitrite Urine Negative (Negative); PH 5.5 (5.0-9.0); Specific Gravity - Urine 1.025 (1.005-1.025); UMIC TRIGGER UA YES; Urine Blood Negative (Negative); Urine Ketones Negative (Negative); Urine Protein 30 (1+) mg/dL (Neg-Trace)
[2025-03-19 13:39] LABS: Bacteria Urine None Seen (None Seen); Hyaline Casts Urine 0-2 /LPF (0-2); RBC Urine 0-2 /HPF (0-2); Squamous Epithelial Cell Urine 0-2 /HPF (0-2); WBC Urine >50 /HPF (0-5)
[2025-03-19 13:42] LABS: Creatinine Urine 156.31 mg/dL; Microalbum/Creatinine Ratio Ur 28.1 ug/mg cr (<30)
[2025-03-19 13:47] LABS: Basophils Percent Auto 0.3 % (0-2); Eosinophils Absolute Auto 0.1 X10*3/uL (0.0-0.4); Eosinophils Percent Auto 1.1 % (0-4); Hematocrit 39.6 % (37.0-47.0); Hemoglobin 12.5 g/dl (12.0-16.0); Imm Gran Abs Auto 0.03 X10*3/uL (0.00-0.03); Imm Gran Pct Auto 0.3 % (0.0-0.4); Lymphocytes Percent Auto 23.2 % (20-40); Mean Corpuscular HGB Conc 31.6 g/dl (31.0-35.0); Mean Corpuscular Hemoglobin 29.9 pg (27.0-33.0); Mean Corpuscular Volume 94.7 fL (80.0-98.0); Mean Platelet Volume 11.1 fL (9.4-12.3); Monocytes Absolute Auto 0.8 X10*3/uL (0.1-1.2); Monocytes Percent Auto 9.1 % (2-11); Neutrophils Absolute Auto 5.8 x10*3/uL (2.0-8.3); Platelet Count 271 X10*3/uL (160-400); Red Blood Count 4.18 X10*6/uL (4.20-5.50); Red Cell Distribution Width 13.5 % (11.0-16.0); White Blood Count 8.8 X10*3/uL (4.8-10.8)
[2025-03-19 13:51] LABS: Estimated Average Glucose 140 mg/dL; Hemoglobin A1C 158.2775 umol/L; Hemoglobin A1c % 6.5 % (<6.0); Total Hemoglobin (HGBA1C) 3296.2076 umol/L
[2025-03-19 14:01] LABS: Alanine Aminotransferase 11 U/L (0-31); Albumin Level 4.1 g/dL (3.5-5.0); Alkaline Phosphatase 67 U/L (39-117); Anion Gap 14 (12-20); Aspartate Amino Transferase 17 U/L (5-31); Bilirubin Total 0.3 mg/dL (0.0-1.0); Blood Urea Nitrogen 38 mg/dL (9-16); Calcium 9.2 mg/dL (8.4-10.2); Carbon Dioxide 24 mmol/L (22-29); Chloride 108 mmol/L (96-108); Cholesterol 137 mg/dL (<200); Estimated Glomerular Filt Rate 31; Glucose Fasting 141 mg/dL (60-99); HDL Cholesterol 44 mg/dL (>40); LDL Cholesterol Calculated 76 mg/dL (<100); Potassium 4.4 mmol/L (3.3-5.1); Sodium 142 mmol/L (135-145); Total Protein 7.1 g/dL (6.5-8.0); Triglycerides 87 mg/dL (<150)
== END 2025-03-19 10:13 | disposition home or self-care (01) ==
LOC: HO.HMGCLDS 10:12
PROVIDERS: PCP Internal Medicine; Visit Provider Internal Medicine
DX: E11.9 Type 2 diabetes mellitus without complications (principal); N18.30 Chronic kidney disease, stage 3 unspecified; E78.5 Hyperlipidemia, unspecified
CPT/HCPCS: 36415; 80053; 80061; 81001; 82043; 82570; 83036; 85025

== ENCOUNTER 2025-03-25 10:36 | Outpatient (REF) | payer MEDICARE, MEDICAID, SELFPAY | END 2025-03-25 10:37 | disposition home or self-care (01) | LOC: HO.HMGCLDS 10:36 | PROVIDERS: PCP Internal Medicine; Visit Provider Internal Medicine | DX: E11.22 Type 2 diabetes mellitus with diabetic chronic kidney disease (principal); N18.30 Chronic kidney disease, stage 3 unspecified; I27.20 Pulmonary hypertension, unspecified; I48.19 Other persistent atrial fibrillation; R82.71 Bacteriuria; Z79.01 Long term (current) use of anticoagulants | CPT/HCPCS: 87086; 99212 ==

== ENCOUNTER 2025-03-25 10:36 | Outpatient (AMB) | payer MEDICARE, MEDICAID, SELFPAY ==
[2025-03-25 10:49] VITALS: BP 114/74; PULSE 108; RESP 18; TEMP 36.9; O2SAT 97; BMI 33.8
--- NOTE | 2025-03-25 10:49 | MHC.PC.OV ---
Vital Signs 03/25/25 10:49 Height 5 ft 4 in Weight 197 lb BMI 33.8 BP 114/74 Blood Pressure Location Lt brachial Position Sitting Respiration 18 Pulse 108 H Pulse Source Pulse Oximeter Temp 98.4 F Temp Source Oral Pulse Oximetry (%) 97 Oxygen Delivery Method Room Air Oxygen Flow Rate 108 Intake Visit Reasons: 3 months f/up - see comments-r/s from 03/29 Intake Note: Pt is here today for 3 months follow up visit on labs. Allergies No Known Allergies Allergy (Verified 03/25/25 10:51) Medication List - Last Reconciled 03/25/25 by Marisela Oscar MD apixaban (Eliquis) 5 mg PO BID atorvastatin 40 mg PO BEDTIME blood-glucose meter check glucose once a day cholecalciferol (vitamin D3) 50 mcg PO DAILY clobetasol 0.05% 1 appl topical DAILY coenzyme Q10 (H2Q CoQ10) 200 mg dapagliflozin propanediol (Farxiga) 10 mg PO DAILY digoxin 125 mcg PO DAILY FreeStyle Ziyad 2 [place] (flash glucose scanning reader) As directed NS FreeStyle Ziyad 2 Sensor (flash glucose sensor) Test blood sugar TID, change sensor every 14 days NS furosemide 60 mg PO DAILY macitentan-tadalafil 10-40 mg (Opsynvi) 1 tab PO DAILY Ozempic (semaglutide) 0.5 mg (0.736 mL) subcut QWEEK NS polyethylene glycol 3350 (Gavilax) 17 grams PO DAILY selexipag (Uptravi) 1,400 mcg PO DAILY sennosides (Natural Senna Laxative) 17.2 mg (2 x 8.6 mg) PO BEDTIME spironolactone 12.5 mg (1/2 x 25 mg) PO DAILY 90 days Tobacco use date assessed: 03/25/25 Fall risk assessment: No Falls in past year Last assessed Fall Risk: 03/25/25 Dental Screening Dental Screen Date: 12/30/24 HPI 3 months f/up - see comments-r/s from 03/29 HPI Details Patient presents for the follow-up of type 2 diabetes chronic kidney disease stage 3 paroxysmal AFib pulmonary hypertension PFSH Medical History History of uterine cancer GERD (gastroesophageal reflux disease) Lumbar and sacral spondyloarthritis Hip pain, bilateral CKD (chronic kidney disease) stage 3, GFR 30-59 ml/min Dysplastic nevus Palpitations Endometrial ca Diastolic dysfunction ASB (asymptomatic bacteriuria) Morbid obesity Hyperlipidemia Hypertension SUE on CPAP Surgical History Hx of cardiac cath S/P MARGARITA (total abdominal hysterectomy) H/O colonoscopy History of total abdominal hysterectomy and bilateral salpingo-oophorectomy Family History Father No problems noted. Mother HTN (hypertension) Diabetes mellitus Breast cancer Social History Household Members: Spouse Housing: House Are you a primary dialysis patient care technician to a significant other at home: No Do you presently have visiting nurse or other home services: No Alcohol intake: current Alcohol intake frequency: holidays/special occasions only Patient Tobacco Use Status: Never used Tobacco e-Cigarette/Vaping Use: Never Used Advance Directives Date on File: 02/12/23 service: No Current occupational status: retired Current occupation: rt handed Cognitive needs: No Hearing needs: No Vision needs: Yes Questionnaire Thrive Questionnaire Date Thrive assessed: 12/30/24 I am a: Patient What is your living situation today?: I have a steady place to live Within the past 12 months, did the food you bought not last and you didn't have the money to get more?: Never true Within the past 12 months, did you worry whether your food would run out before you got money to buy more?: Sometimes True Do you have trouble paying for medicines?: No Do you have trouble getting transportation to medical appointments?: No Do you have trouble paying your heating and electricity bill?: Yes Do you have trouble taking care of your child, family member or friend?: No Do you have trouble with day-to-day activities such as bathing, preparing meals, shopping, managing finances, etc.?: No Are you currently unemployed and looking for a job?: No Are you interested in more education?: No Please select the resources that you would like help with: Utilities Currently or been in a relationship where the following occur: No concerns reported THRIVE Score: 2 GAEL-7 AMB Questionnaire GAEL-7 Date GAEL - 7 assessed: 12/30/24 Source: Developed by DrsChirag Pop, Zara Kinney, Josh Weiss and colleagues, with an educational hollie from [employer]. Review of Systems Const All systems reviewed & are unremarkable except as noted in HPI and below Eyes Reports no additional complaints ENT Reports no additional complaints Card Reports no additional complaints Resp Reports no additional complaints GI Reports no additional complaints Reports no additional complaints Physical exam (Primary Care) Vital Signs: Last Vital Signs Temp 98.4 F 03/25/25 10:49 Pulse 108 H 03/25/25 10:49 Resp 18 03/25/25 10:49 BP 114/74 03/25/25 10:49 Pulse Ox 97 03/25/25 10:49 Oxygen Delivery Method Room Air 03/25/25 10:49 Oxygen Flow Rate 108 03/25/25 10:49 BMI result Body Mass Index 33.8 Tobacco/Smoking Status: Tobacco use Status Tobacco use date assessed 03/25/25 03/25/25 10:54 Patient Tobacco Use Status Never used Tobacco 03/25/25 10:54 e-Cigarette/Vaping Use Never Used 03/25/25 10:51 Thrive Assessment: Date of Thrive Assessment Date Thrive assessed 12/30/24 03/25/25 10:51 Currently or been in a relationship where the following occur: No concerns reported Const General: no acute distress HENMT Mouth: Normal oral and palatal mucosa present Neck Neck: Yes supple Resp Effort & Inspection: normal respiratory effort Auscultation: clear to auscultation bilaterally Cardio Rhythm: regular rhythm Heart sounds: S1 normal heart sound present and S2 normal heart sound present GI Inspection: Yes normal to inspection Palpation (GI): Soft to palpation Percussion: Yes normal to percussion Coding Level of Care Code Est Pt Level 4 (81173) Diagnoses DM type 2 (diabetes mellitus, type 2) E11.9 Pulmonary HTN I27.20 Persistent atrial fibrillation I48.19 CKD (chronic kidney disease) stage 3, GFR 30-59 ml/min N18.30 Assessment & Plan Assessment & Plan (1) DM type 2 (diabetes mellitus, type 2): Code(s): E11.9 - Type 2 diabetes mellitus without complications Category: Medical Plan: A1c is down to 6.5. Patient lost 5 lb on 0.25 mg of Ozempic, she has started 0.5 mg daily 2 weeks ago and has been tolerating medication well. Patient will continue the same dose for a month and then the dose will be increased (2) Pulmonary HTN: Comment: f/u Dr. Brandon Irizarry ,[facility] started on Abrisentan and tadalafil 07/10 Code(s): I27.20 - Pulmonary hypertension, unspecified Category: Medical Plan: Continue current medications follow-up with pulmonology (3) Persistent atrial fibrillation: Code(s): I48.19 - Other persistent atrial fibrillation Category: Medical Plan: Continue current medications and Eliquis for anticoagulation (4) CKD (chronic kidney disease) stage 3, GFR 30-59 ml/min: Comment: Follow-up with nephrology Code(s): N18.30 - Chronic kidney disease, stage 3 unspecified Category: Medical Plan: Avoid nephrotoxins monitor renal function Orders: Orders Complete Blood Count Auto Diff 3 Months E11.9 - Type 2 diabetes mellitus without complications, E78.5 - Hyperlipidemia, unspecified, N18.30 - Chronic kidney disease, stage 3 unspecified Hemoglobin A1c 3 Months E11.9 - Type 2 diabetes mellitus without complications, E78.5 - Hyperlipidemia, unspecified, N18.30 - Chronic kidney disease, stage 3 unspecified Microalbumin, Random (w Creat) 3 Months E11.9 - Type 2 diabetes mellitus without complications, E78.5 - Hyperlipidemia, unspecified, N18.30 - Chronic kidney disease, stage 3 unspecified Urine Culture Today R82.71 - Bacteriuria Comprehensive [place]. Panel Fast 3 Months E11.9 - Type 2 diabetes mellitus without complications, E78.5 - Hyperlipidemia, unspecified, N18.30 - Chronic kidney disease, stage 3 unspecified Lipid Panel 3 Months E11.9 - Type 2 diabetes mellitus without complications, E78.5 - Hyperlipidemia, unspecified, N18.30 - Chronic kidney disease, stage 3 unspecified
--- OUTSIDE RECORDS SUMMARY | 2025-03-25 11:58 | XMS_ITS | Patient Health Record ---
Author Organization [facility] Edward giraldo [place] Address [address] [place] [address] Care Team Providers Care Snack Bar Attendant Name Role Phone Marisela Oscar MD Primary Care Provider Unavaila ble Black, Taylor Unavailable [phone] Allergies No Known Allergies Reason For Referral [...] primary osteoarthritis of the ankle and/or foot (153217380) Primary osteoarthritis, right ankle and foot (M19.071) Active confirmed Problem Localized, primary osteoarthritis of the ankle and/or foot (153948027) Primary osteoarthritis, left ankle and foot (M19.072) Active confirmed Problem Non-pressure ulcer lower limb (980943355) Non-pressure chronic ulcer of other part of left foot limited to breakdown of skin (L97.521) Active confirmed Problem Type II diabetes mellitus without complication (841914298) Type 2 diabetes mellitus without complications (E11.9) Active confirmed Plan Of Treatment Pending Test Test Name Order Date [id number] NAIL, 6 OR MORE 09/29/2021 [id number] Plate 08/14/2019 63942- Debride <25 sq cm 08/28/2019 [id number] DYSTROPHIC NAILS ANY # Insurance Providers Payer Name Payer Address Payer Phone Subscriber Number Group Number Insured Name Patient Relationship to Insured Coverage Start Date Coverage End Date [employer] [place] Medicare Advantage [facility] [address] [place] [address] [id number] Blaire Gold Self - patient is the insured 0 Medical (General) History Medical History History ICD Code Arthritis Back,Hip,and Knee pain Diabetic High blood pressure Keloid/Thick Scar Reflux ( GERD) Measles Mumps Chicken pox A fib Surgical History Surgery Date(Month/Year) hysterectomy 2013 Keliod Ears 70's excision of skin lesion 5th R 08/30/2021
== END 2025-03-25 11:24 | disposition home or self-care (01) ==
LOC: HO.HMCC 10:37
PROVIDERS: PCP Internal Medicine; Visit Provider Internal Medicine
DX: E11.9 Type 2 diabetes mellitus without complications (principal); I27.20 Pulmonary hypertension, unspecified; I48.19 Other persistent atrial fibrillation; N18.30 Chronic kidney disease, stage 3 unspecified

== ENCOUNTER 2025-07-09 10:48 | Outpatient (REF) | payer MEDICARE, MEDICAID, SELFPAY ==
--- OUTSIDE RECORDS SUMMARY | 2025-07-09 10:51 | XMS_ITS | Clinical Summary ---
Author Organization [facility] Address [address] [place] [address] Care Team Providers Care Jet Man Name Role Phone Marisela Oscar MD Primary Care Provider [phone] Claudia Jean-Baptiste MD Unavailable Allergies No known active allergies Medications dapagliflozin 10 MG tablet Take 1 tablet (10 mg total) by mouth. 022 Active digoxin (LANOXIN) 0.125 mg tablet Take 1 tablet (0.125 mg total) by mouth. Active Senna-Time 8.6 MG Tab tablet TAKE 2 TABLETS BY MOUTH AT BEDTIME FOR CONSTIPATION 023 Active apixaban (ELIQUIS) 5 MG tablet Take 1 tablet (5 mg total) by mouth 2 (two) times a day. Active selexipag (UPTRAVI) 600 MCG tabletIndication s:PAH (pulmonary artery hypertension) (HCC) Take 1 tablet (600 mcg total) by mouth 2 (two) times a day. 60 tablet 3 023 Active GaviLAX 17 GM/SCOOP powder DISSOLVE 1 CAPFUL (17G) IN WATER AND DRINK BY MOUTH ONCE DAILY *NC* 023 Active Cholecalciferol (Vitamin D) 50 MCG (1999) tablet TAKE 1 TABLET BY MOUTH 1 TIME EACH DAY. 024 Active clobetasol (TEMOVATE) 0.05 % cream APPLY TOPICALLY ONCE DAILY 024 Active atorvastatin (LIPITOR) 40 MG tabletIndication s:At risk for heart disease,Hyperlip idemia, unspecified hyperlipidemia type Take 1 tablet (40 mg total) by mouth daily. 90 tablet 3 024 Active furosemide (LASIX) 20 MG tabletIndication s:PAH (pulmonary artery hypertension) (HCC) TAKE 3 TABLETS BY MOUTH EVERY DAY 270 tablet 3 025 Active Ozempic, 0.25 or 0.5 MG/DOSE, 2 MG/3ML prefilled pen injection INJECT 0.25 MG (0.368 ML) SUBCUTANEOUSLY EVERY WEEK FOR 4 WEEKS 025 Active Opsynvi 10-40 MG Tab 025 Active spironolactone (ALDACTONE) 25 MG tabletIndication s:PAH (pulmonary artery hypertension) (HCC) Take 0.5 tablets (12.5 mg total) by mouth daily. 45 tablet 3 025 Active Continuous Blood Gluc Rehab Technician (FreeStyle Ziyad 2 [place]) Device See Admin Instructions. 023 2024 Discontinued(T herapy completed) Continuous Blood Gluc Sensor (FreeStyle Ziyad 2 Sensor) Misc 3 TIMES A DAY 023 2024 Discontinued(T herapy completed) tadalafil, PAH, (ADCIRCA) 20 mg tabletIndication s:PAH (pulmonary artery hypertension) (HCC) Take 2 tablets (40 mg total) by mouth daily. 180 tablet 3 023 2024 Discontinued(T herapy completed) spironolactone (ALDACTONE) 25 MG tabletIndication s:PAH (pulmonary artery hypertension) (HCC) Take 1 tablet (25 mg total) by mouth daily. 90 tablet 3 024 2024 Discontinued ambrisentan (LETAIRIS) 5 MG tabletIndication s:PAH (pulmonary artery hypertension) (HCC) TAKE 1 TABLET BY MOUTH 1 TIME A DAY. DO NOT HANDLE IF . 30 tablet 4 024 2024 Discontinued(T herapy completed) Active Problems Problem Noted Date Diagnosed Date Secondary hypercoagulable state 06/28/2025 Primary localized osteoarthrosis of ankle and fo ot 09/09/2023 09/09/2023 PAH (pulmonary artery hypertension) 07/09/2023 Atrial fibrillation 11/27/2022 09/09/2023 Diabetic glomerulonephritis 11/27/202208/193 Endometrial carcinoma 11/27/2022 09/09/2023 Hypertension 11/27/2022 09/09/2023 Obstructive sleep apnea syndrome 11/27/2022 09/09/2023 Stage 3 chronic kidney disease 11/27/2022 1 Type 2 diabetes mellitus without complication 09/09/2023 Encounters Date Type Department Care Team Description 06/30/2025 Telephone [facility] V[facility] [place] [phone] Claudia Jean-Baptiste MD Other 06/30/[address] [facility] Pulmonary [address] [place] [phone] Brandon Irizarry MD 06/28/2025 1:40 PM EDT Office Visit [address] [phone] Claudia Jean-Baptiste MD Hyperlipidemia, unspecified hyperlipidemia type (Primary Dx); PAH (pulmonary artery hypertension) (HCC); Permanent atrial fibrillation (HCC); Essential hypertension ; Secondary hypercoagulable state; Current use of intermediate anticoagulation; Preop cardiovascular exam 06/28/2025 Travel 04/27/2025 9:30 AM EDT Procedure visit [facility]monary [address] [place] [phone] Brandon Irizarry MD Dyspnea, unspecified type 04/27/2025 Travel from Last 3 Months Social History Tobacco Use Types Packs/Day Years Used Date Smoking Tobacco: Unknown Tobacco Cessation:Counseling Given: Not Answered Comments Unknown Sex and Gender Information Value Date Recorded Sex Assigned at Female 07/11/2023 6:56 AM EDT Legal Sex Female 10:06 AM EDT Gender Identity Female 07/11/2023 6:56 AM EDT Sexual Orientation Heterosexual (straight) 07/11 6:56 AM EDT Last Filed Vital Signs Vital Sign Reading Time Taken Comments Blood Pressure 108/68 06/28/2025 1:46 PM EDT Pulse 136 06/28/2025 1:46 PM EDT Temperature 36 C (96.8 F) 02/08/2025 11:00 AM EDT Respiratory Rate 17 07/11/2023 11:10 AM EDT Oxygen Saturation 97% 06/28/2025 1:46 PM EDT Inhaled Oxygen Concentration - - Weight 87 kg (191 lb 12.8 oz) 06/28/2025 1:46 PM EDT Height 162.6 cm (5' 4 ) 06/28/2025 1:46 PM EDT Body Mass Index 32.92 06/28/2025 1:46 PM EDT Plan of Treatment Upcoming Encounters Date Type Department Care Team (Late st Contact Info) Description 08/09/2025 2:00 PM EDT Office Visit [facility] Pul[facility] [place] [address] [place] [phone] Luisana Lomas PA-C [facility] [address] [place] [address] 01/10/2026 2:20 PM EST Office Visit [facility] [place] [address] [place] [phone] Claudia Jean-Baptiste MD [address] [place] [phone] Health Maintenance Due Date Last Done Comments [...] (Females,Ages 65 and older) 2020 COVID-19 Vaccine (8 - 2024-25 season) 2024 07/17/2024, 08/11/2023, 04/12/2023, Additional history exists Influenza Vaccine 06/18/2025 08/11/2023, , 09/19/2021, Additional history exists Creatinine with GFR 02/26/2026 02/26/2025, 02/01/2025, 09/14/2024, Additional history exists Hepatitis B Vaccines Aged Out No long er eligible based on patient's age to complete this topic Procedures Procedure Name Priority Date/Time Associated Diagnosis Comments ECG 12-LEAD Routine 06/28/2025 1:36 PM EDT Hyperlipidemia, unspecified hyperlipidemia type PAH (pulmonary artery hypertension) (HCC) SHAPE TEST Routine 05/02/2025 2:40 PM EDT Dyspnea, unspecified type COMPREHENSIVE METABOLIC PANEL Routine 02/26/2025 9:24 AM EDT PAH (pulmonary artery hypertension) (HCC) Right ventricular failure (HCC) from Last 3 Months or Most Recently Relevant to Health Maintenance Results * ECG 12 lead (06/28/2025 1:36 PM EDT) Ventricular rate 107 BPM EKG [facility] QRS duration 82 ms EKG [facility] Q-T interval 336 ms EKG [facility] QTC calculation (Bazett) 448 ms EKG [facility] R axis -19 degrees EKG [facility] T axis 143 degrees EKG [facility] 06/28/2025 1:36 PM EDT Narrative EKG [facility] - 06/28/2025 2:17 PM EDT Atrial fibrillation with rapid ventricular response Poor R wave progression Abnormal ECG When compared with ECG of 28-Sep-2024 13:27, septal Q waves now present. Confirmed by MD Jean-Baptiste Tracy ([id number]) on 06/28/2025 2:17:24 PM Procedure Note Claudia Jean-Baptiste MD - 06/28/2025 Atrial fibrillation with rapid ventricular response Poor R wave progression Abnormal ECG When compared with ECG of 28-Sep-2024 13:27, septal Q waves now present. Confirmed by MD Jean-Baptiste Tracy ([id number]) on 06/28/2025 2:17:24 PM us Claudia Jean-Baptiste MD ECG ORDERABLES Final Result EKG [facility] * SHAPE TEST (05/02/2025 2:40 PM EDT) Brandon Good MD - 05/02/2025 2:40 PM EDT Brandon Irizarry MD 05/02/2025 2:42 PM Shape Cardiopulmonary Exercise Testing Procedure Date: 04/27/25 Ordering Physician: Brandon Irizarry MD Interpretation Physician: Brandon Irizarry MD Interpretation Date: 05/02/25 Indication for Test: PH monitoring Study Quality:Good; RER: 1.01 Evidence of Desaturation: Yes 96 to 94% Impression: Results suggest evidence of cardiac disease, deconditioning as significant contributors to the patient's functional dyspnea. There are minor or possible contributors of pulmonary vascular disease, restrictive lung disease. In comparison to prior Shape Test, severity assessment score has improved. Trending Parameters specific to Pulmonary Vascular Disease: Date VE/VC02 slope PetC02 Delta PetC02 MPIph Peak GxCap 10/08/23 64 31 0.4 0.4 230 02/19/24 46 29 0.6 488 02/03/25 53 33 -1.1 244 04/27/25 46 29 3.2 263 VE/VC02 slope is high suggestive of space ventilation (or hyperventilation) during exercise. The patient has a peak attained V02 of 12/57% suggesting moderately reduced exercise capacity. Peak HR attained is 97% of predicted. Peak 02 Pulse was 68%. Pulmonary vascular capacitance is moderately reduced. Breathing reserve is normal. Lung stiffness slope is increased. Impression: Based on the above, I am concerned about pulmonary hypertension contributing to the patient's exertional dyspnea. Brandon Irizarry MD Director, Pul[facility]pert[facility] Division of Pulmonary, Critical Care, and Sleep [facility]' us Brandon Irizarry MD AMB ORDERABLE PERFORMABLE Final Result * (ABNORMAL) Comprehensive Metabolic Panel (02/26/2025 9:24 AM EDT) [facility] Glucose 115(H) 65 - 99 mg/dL thereNow Comment: Fasting reference interval For someone without known diabetes, a glucose value between 100 and 125 mg/dL is consistent with prediabetes and should be confirmed with a follow-up test. Blood Urea Nitrogen (BUN) 41(H) 7 - 25 mg/dL thereNow Creatinine 1.62(H) 0.50 - 1.05 mg/dL thereNow Creatinine w/ eGFR 34(L) > OR = 60 mL/min/1. 73m2 thereNow BUN/Creatinine Ratio 25(H) 6 - 22 (calc) thereNow Sodium 140 135 - 146 mmol/L thereNow Potassium 4.1 3.5 - 5.3 mmol/L thereNow Chloride 107 98 - 110 mmol/L thereNow CO2 25 20 - 32 mmol/L thereNow Calcium 9.2 8.6 - 10.4 mg/dL thereNow Protein, Total 6.5 6.1 - 8.1 g/dL thereNow Albumin 4.2 3.6 - 5.1 g/dL thereNow Globulin 2.3 1.9 - 3.7 g/dL (calc) thereNow Albumin/Globulin Ratio 1.8 1.0 - 2.5 (calc) thereNow Bilirubin, Total 0.3 0.2 - 1.2 mg/dL thereNow Alkaline Phosphatase 59 37 - 153 U/L thereNow Aspartate Aminotrans (AST) 11 10 - 35 U/L thereNow Alanine Aminotrans (ALT) 7 6 - 29 U/L thereNow Blood Blood specimen / Unknown 02/26/2025 9:24 AM EDT 02/26/2025 9:25 AM EDT Narrative [facility] - 02/26/2025 10:00 PM EDT FASTING:YES FASTING: YES us Brandon Irizarry MD LAB BLOOD ORDERABLES Final Resul t [facility] [address] [place] [phone] from Last 3 Months or Most Recently Relevant to Health Maintenance Insurance [employer] [place] [employer] MEDICARE [facility] Advance Directives * Full Code (Latest Code Status on File) Date Activated Date Inactivated Comments 07/11/2023 7:23 AM Care Teams Jet Man Relationship Specialty Start Date End Date Marisela Oscar MD [address] [place] [address] PCP - General 05/10/23 Claudia Jean-Baptiste MD [address] [place] [address] [employer] Cardiovascular Disease 09/03/23
--- OUTSIDE RECORDS SUMMARY | 2025-07-09 10:51 | XMS_ITS | Continuity of Care Document ---
Author Organization [facility] Address [address] [facility] [address] [place] [address] Insurance Providers Payer Plan Claims Address Claims Phone Policy Number Group Number Relation Employer Guarantor Name Guarantor Guarantor Address Guarantor Phone [facility], [address], [place] [address] tel:[phone] [id number] Self Blaire Murray [address] [place] [id number] [facility] tel:[phone] [id number] [phone] [id number] [id number] Self Blaire Murray [address] [place] [address] [facility] Medic are [id number] Self Blaire Murray [address] [place] [address] Problems Unknown Problems Results Test Result Date/Time Value / Unit Interp. Refere [facility] Range LIPID PANEL, STANDARD[[id number]] Collected: 03/19/2025 01:42 PM Specimen Received: 03/19/2025 01:44 PM Source: [facility]FASTING: YES CHOLESTEROL, TOTAL [[id number]] 03/20/2025 07:25 PM 134 mg/dL N 200 mg/dL HDL CHOLESTEROL [[id number]] 03/20/2025 07:25 PM 44 mg/dL L > OR = 50 mg/dL TRIGLYCERIDES [[id number]] 03/20/2025 07:25 PM 84 mg/dL N 150 mg/dL LDL-CHOLESTEROL [[id number]] 03/20/2025 07:25 PM 7 4 mg/dL (calc) N Reference range: or = 2 CHD risk factors. LDL-C is now calculated using the Krystal calculation, which is a validated novel method providing better accuracy than the Friedewald equation in the estimation of LDL-C. Amauri SS et al. SHRUTHI. 2013;310(95): 6951-5439 (http://Apogenix.Tap 'n Tap/faq/AIF715) CHOL/HDLC RATIO [[id number]] 03/20/2025 07:25 PM 3.0 (calc) N 5.0 (calc) NON HDL CHOLESTEROL [[id number]] 03/20/2025 07:25 PM 90 mg/dL (calc) N 130 mg/dL (calc) For patients with diabetes p donavan 1 major ASCVD risk factor, treating to a non-HDL-C goal of 100 mg/dL (LDL-C of <70 mg/dL) is considered a therapeutic option. ALBUMIN, RANDOM URINE W/CREA AZAEL[[id number]] Collected: 03/19/2025 01:42 PM Specimen Received: 03/19/2025 01:44 PM Source: [facility]:YESFASTING: YES CREATININE, RANDOM URINE [[id number]] 03/20/2025 07:25 PM 150 mg/dL N 20-275 mg/dL ALBUMIN, URINE [[id number]] 03/20/2025 07:25 PM 3.4 mg/dL N See Note: mg/dL Reference Range:Reference Ra ngeNot established ALBUMIN/CREATININE RATIO, RANDOM URINE [[id number]] 03/20/2025 07:25 PM 23 mg/g creat N 30 m g/g creat The ADA defines abnormalitie s in albuminexcretion as follows: Albuminuria Category Result (mg/g creatinine) Normal to Mildly increased OR = 300 The ADA recommends that at least two of threespecimens collected within a 3-6 month period beabnormal before considering a patient to bewithin a diagnostic category. COMPREHENSIVE METABOLIC PANE L[[id number]] Collected: 03/19/2025 01:42 PM Specimen Received: 03/19/2025 01:44 PM Source: [facility]:YESFASTING: YES GLUCOSE [[id number]] 03/20/2025 07:25 PM 158 mg/dL H 65-99 mg/dL Fasting reference interval F or someone without known diabetes, a glucosevalue >125 mg/dL indicates that they may havediabetes and this should be confirmed with afollow-up test. UREA NITROGEN (BUN) [] 03/20/2025 07:25 PM 39 mg/dL H 7-25 mg/dL CREATININE [] 03/20/2025 07:25 PM 1.73 mg/dL H 0.50-1.05 mg/dL EGFR [[id number]] 03/20/2025 07:25 PM 32 mL/min/1.73m2 L > OR = 60 mL/min/1.73m2 BUN/CREATININE RATIO [[id number]] 03/20/2025 07:25 PM 23 (calc) H 6-22 (calc) SODIUM [[id number]] 03/20/2025 07:25 PM 138 mmol/L N 135-146 mmol/L POTASSIUM [[id number]] 03/20/2025 07:25 PM 4.2 mmol/L N 3.5-5.3 mmol/L CHLORIDE [[id number]] 03/20/2025 07:25 PM 105 mmol/L N 98-110 mmol/L CARBON DIOXIDE [[id number]] 03/20/2025 07:25 PM 24 mmol/L N 20-32 mmol/L CALCIUM [[id number]] 03/20/2025 07:25 PM 9.0 mg/dL N 8.6-10.4 mg/dL PROTEIN, TOTAL [[id number]] 03/20/2025 07:25 PM 6.7 g/dL N 6.1-8.1 g/dL ALBUMIN [[id number]] 03/20/2025 07:25 PM 4.0 g/dL N 3.6-5.1 g/dL GLOBULIN [[id number]] 03/20/2025 07:25 PM 2.7 g/dL (calc) N 1.9-3.7 g/dL (calc) ALBUMIN/GLOBULIN RATIO [[id number]] 03/20/2025 07:25 PM 1.5 (calc) N 1.0-2.5 (jose david c) BILIRUBIN, TOTAL [[id number]] 03/20/2025 07:25 PM 0.3 mg/dL N 0.2-1.2 mg/d L ALKALINE PHOSPHATASE [] 03/20/2025 07:25 PM 62 U/L N 37-153 U/L AST [] 03/20/2025 07:25 PM 9 U/L L 1 0-35 U/L ALT [] 03/20/2025 07:25 PM 7 U/L N 6 -29 U/L HEMOGLOBIN A1c[496] Collected: 03/19/2025 01:42 PM Specimen Received: 03/19/2025 01:44 PM Source: [facility]:YESFASTING: YES HEMOGLOBIN A1c [[id number]] 03/20/2025 07:25 PM 6.7 % H 5.7 % For someone without known di abetes, a hemoglobin M4rvdwcz of 6.5% or greater indicates that they may have diabetes and this should be confirmed with a follow-up test. For someone with known diabetes, a value 7% indicates that their diabetes is well controlled and a value greater than or equal to 7% indicates suboptimal control. A1c targets should be individualized based on duration of diabetes, age, comorbid conditions, and other considerations. Currently, no consensus exists regarding use ofhemoglobin A1c for diagnosis of diabetes for children. Clinical PDF Report [id number] H-1[ClinicalPDFReport1] Collected: 03/19/2025 01:42 PM Specimen Received: 03/19/2025 01:44 PM Source: [facility]:YESFASTING: YES Clinical PDF Report [id number] [ClinicalPDFReport1] INEZ Comp. Metabolic Panel ([id number])[[id number]] Collected: 09/23/2024 06:37 PM Specimen Received: 09/23/2024 05:00 AM Source: [facility] Glucose [[id number]] 09/24/2024 05:44 AM 148 mg/dL H 70-99 mg/dL BUN [[id number]] 09/24/2024 05:42 AM 36 mg/dL H 8-2 7 mg/dL Creatinine [[id number]] 09/24/2024 05:44 AM 1.67 mg/dL H 0.57-1.00 mg/dL eGFR [[id number]] 09/24/2024 05:44 AM 33 mL/min/1.73 L >59 mL/min/1.73 BUN/Creatinine Ratio [[id number]] 09/24/2024 05:44 AM 22 12-28 Sodium [[id number]] 09/24/2024 05:42 AM 138 mmol/L 134-144 mmol/L Potassium [[id number]] 09/24/2024 05:48 AM 4.4 mmol/L 3.5-5.2 mmol/L Chloride [[id number]] 09/24/2024 05:41 AM 104 mmol/L 96-106 mmol/L Carbon Dioxide, Total [[id number]] 09/24/2024 05:41 AM 18 mmol/L L 20-29 mmol/L Calcium [[id number]] 09/24/2024 03:49 AM 8.9 mg/dL 8.7-10.3 mg/dL Protein, Total [[id number]] 09/24/2024 05:52 AM 6.4 g/dL 6.0-8.5 g/dL Albumin [[id number]] 09/24/2024 05:43 AM 4.0 g/dL 3.9-4.9 g/dL Globulin, Total [[id number]] 09/24/2024 05:52 AM 2.4 g/dL 1.5-4.5 g/dL Bilirubin, Total [[id number]] 09/24/2024 03:51 AM 0.2 mg/dL 0.0-1.2 mg/dL Alkaline Phosphatase [[id number]] 09/24/2024 05:44 AM 87 IU/L 44-121 IU/L AST (SGOT) [[id number]] 09/24/2024 05:46 AM 15 IU/L 0-40 IU/L ALT (SGPT) [[id number]] 09/24/2024 05:48 AM 10 IU/L 0-32 IU/L Lipid Panel[[id number]] Collected: 09/23/2024 06:37 PM Specimen Received: 09/23/2024 05:00 AM Source: [facility] Cholesterol, Total [[id number]] 09/24/2024 06:02 AM 149 mg/dL 100-199 mg/d L Triglycerides [[id number]] 09/24/2024 05:54 AM 124 mg/dL 0-149 mg/dL HDL Cholesterol [[id number]] 09/24/2024 05:52 AM 47 mg/dL >39 mg/dL VLDL Cholesterol Jose David [[id number]] 09/24/2024 06:02 AM 22 mg/dL 5-40 mg/dL LDL Chol Calc ([facility]) [[id number]] 09/24/2024 06:02 AM 80 mg/dL 0-99 mg/dL Albumin/Creatinine Ratio,Uri ne[[id number]] Collected: 09/23/2024 06:37 PM Specimen Received: 09/23/2024 05:00 AM Source: [facility] Creatinine, Urine [[id number]] 09/25/2024 07:29 PM 107.7 mg/dL Not Estab. mg/dL Albumin, Urine [[id number]] 09/25/2024 07:40 PM 33.9 ug/mL Not Estab. ug/mL Alb/Creat Ratio [[id number]] 09/25/2024 07:40 PM 31 mg/g creat H 0-29 mg/g creat Normal: 0 - 29 Moderately in creased: 30 - 300 Severely increased: >300 Hemoglobin A1c[[id number]] Collected: 09/23/2024 06:37 PM Specimen Received: 09/23/2024 05:00 AM Source: [facility] Hemoglobin A1c [[id number]] 09/24/2024 04:05 AM 9.1 % H 4.8-5.6 % . Prediabetes: 5.7 - 6.4 Theresa betes: >6.4 Glycemic control for adults with diabetes: 7.0 Allergies, adverse reactions, alerts No known allergies and adverse reactions Medications No administered medications reported Vital Signs No vital signs reported Social History No smoking Hx information available
--- OUTSIDE RECORDS SUMMARY | 2025-07-09 10:51 | XMS_ITS | Patient Health Record ---
Author Organization [facility] Address [address] [place] [address] Care Team Providers Care Press Operator Meat Name Role Phone Marisela Oscar MD Primary Care Provider Unavaila ble Black, Taylor Unavailable [phone] Allergies Allergen (clinical drug ingredient) Drug/Non Drug Allergy documented on EMR Reaction Allergy Type Onset Date Status ibuprofen Advil Unknown Drug Allergy Active Reason For Referral No Information Medications Medication SIG (Take, Route, Frequency, Duration) Notes Start Date End Date Status Eliquis Active Olmesartan Medoxomil 40 MG 1 tablet Oral ly Once a day; Duration: 30 day(s) Active Lisinopril 40 MG 1 tablet Orally Once a day; Duration: 30 day(s) Active metFORMIN HCl 1000 MG 1 tablet with a me al Orally Once a day; Duration: 30 day(s) Active dilTIAZem HCl ER Coated Beads 360 MG 1 capsule Orally Once a day; Duration: 30 day(s) Active Hydralazine-HCTZ Act aman Pradaxa 150 MG 1 capsule Orally Twi ce a day; Duration: 30 day(s) Active Digoxin Active Acetaminophen Extra Strength 500 MG 2 tablet as needed Orally every 6 hrs; Duration: 10 days 08/07/2021 Not-Taking Rosuvastatin Calcium Active Metoprolol Succinate 200 MG 1 capsule Orally Once a day; Duration: 30 day(s) Active Triamterene-HCTZ 37.5-25 MG 1 tablet in the morning Orally Once a day; Duration: 30 day(s) Active Atorvastatin Calcium 80 MG 1 tablet Oral ly Once a day; Duration: 30 day(s) Active Immunizations Vaccine Route Administration [...] primary osteoarthritis of the ankle and/or foot (053096366) Primary osteoarthritis, right ankle and foot (M19.071) Active confirmed Problem Localized, primary osteoarthritis of the ankle and/or foot (512286260) Primary osteoarthritis, left ankle and foot (M19.072) Active confirmed Problem Non-pressure chronic ulcer of other part of left foot limited to breakdown of skin (L97.521) Active confirmed Problem Type II diabetes mellitus without complication (196302561) Type 2 diabetes mellitus without complications (E11.9) Active confirmed Encounters Encounter Location Date Provider Diagnosis [facility] [address] [address] 05/17/2025 [facility] [address] [address] 06/02/2025 Taylor Kenney Plan Of Treatment Pending Test Test Name Order Date [id number] NAIL, 6 OR MORE 09/29/2021 [id number]-Silbmsym Plate 08/14/2019 93724- Debride <25 sq cm 08/28/2019 [id number] DYSTROPHIC NAILS ANY # Next Appt Details Provider Name:Taylor Kenney , 07/14/2025 08:30:00 AM, [address], [place], [address], Insurance Providers Payer Name Payer Address Payer Phone Subscriber Number Group Number Insured Name Patient Relationship to Insured Coverage Start Date Coverage End Date [employer] [place] Medicare Advantage One [facility] [address] [place] [address] [id number] Blaire Gold Self - patient is the insured 0 Medical (General) History Medical History History ICD Code Arthritis Back,Hip,and Knee pain Diabetic High blood pressure Keloid/Thick Scar Reflux ( GERD) Measles Mumps Chicken pox A fib Kidney disease Lung disease Surgical History Surgery Date(Month/Year) hysterectomy 2014 Keliod Ears 70's excision of skin lesion 5th R 08/30/2021
--- OUTSIDE RECORDS SUMMARY | 2025-07-09 10:51 | XMS_ITS | Clinical Summary ---
Author Organization [facility] Address [address] [facility] [place] [address] [place] [address] Care Team Providers Care Thermodynamics Professor Name Role Phone Unavailable Primary Care Provider Unavailabl e Social History Tobacco Use Types Packs/Day Years Used Date Smoking Tobacco: Never Assessed Comments Unknown Sex and Gender Information Value Date Recorded Sex Assigned at Female 04/17/2023 3:05 PM EDT Legal Sex Female 9:34 AM EDT Gender Identity Female 04/17/2023 3:05 PM EDT Sexual Orientation Straight 04/17/2023 3: 05 PM EDT Plan of Treatment Health Maintenance Due Date Last Done Comments Bone Density Scan 1955 CT Colonography 1955 Colonoscopy 1955 Colorectal Cancer Screening 1955 FIT-DNA 1955 FIT 1955 FOBT 1955 Sigmoidoscopy 1955 DTaP/Tdap/Td Vaccines (1 - Tdap) 1974 Mammogram 1995 Pneumococcal Vaccine: 50+ Years (1 of 1 - PCV) 2005 Zoster Vaccines (1 of 2) 2005 COVID-19 Vaccine (5 - season) 2024 08/06/2022, 02/17/2022, 09/15/2021, Additional history exists Depression Screening 11/18/2024 Influenza Vaccine (#1) 2025 , 09/19/2021, 10/10/2020, Additional history exists HIB Vaccines Aged Out No longer eligi ble based on patient's age to complete this topic HPV Vaccines Aged Out No longer eligi ble based on patient's age to complete this topic Hepatitis A Vaccines Aged Out No long er eligible based on patient's age to complete this topic Hepatitis B Vaccines Aged Out No long er eligible based on patient's age to complete this topic IPV Vaccines Aged Out No longer eligi ble based on patient's age to complete this topic Meningococcal B Vaccine Aged Out No l onger eligible based on patient's age to complete this topic Meningococcal Vaccine Aged Out No ed lizbeth eligible based on patient's age to complete this topic Rotavirus Vaccines Aged Out No longer eligible based on patient's age to complete this topic Insurance
--- OUTSIDE RECORDS SUMMARY | 2025-07-09 10:51 | XMS_ITS ---
Author Name [facility] Organization Unknown Results Test Name/Text Value Interpretation Date Range Source AST SerPl-cCnc 11.0 U/L Normal 02/27/2025 10 - 35 [facility] Calcium SerPl-mCnc 9.2 mg/dL Normal 02/27/2025 8.6 - 10.4 [facility] Glucose SerPl-mCnc 115.0 mg/dL Above high normal 02/27/2025 65 - 99 [facility] ALT SerPl-cCnc 7.0 U/L Normal 02/27/2025 6 - 29 [facility] Globulin Ser Calc-mCnc 2.3 g/dL (calc) Normal 02/27/2025 1.9 - 3.7 [facility] eGFRcr SerPlBld CKD-EPI 2020 34.0 mL/min/1.73m2 Below low normal 02/27/2025 - [facility] CO2 SerPl-sCnc 25.0 mmol/L Normal 02/27/2025 20 - 32 QU EST Prot SerPl-mCnc 6.5 g/dL Normal 02/27/2025 6.1 - 8.[address] BUN/Creat SerPl 25.0 (calc) Above high normal 02/27/2025 6 - 22 [facility] Chloride SerPl-sCnc 107.0 mmol/L Normal 02/27/2025 98 - 1 10 [facility] Albumin SerPl-mCnc 4.2 g/dL Normal 02/27/2025 3.6 - 5.1 [facility] Sodium SerPl-sCnc 140.0 mmol/L Normal 02/27/2025 135 - 14 6 [facility] ALP SerPl-cCnc 59.0 U/L Normal 02/27/2025 37 - 153 [facility] Bilirub SerPl-mCnc 0.3 mg/dL Normal 02/27/2025 0.2 - 1.2 [facility] BUN SerPl-mCnc 41.0 mg/dL Above high normal 02/27/2025 7 - 2 5 [facility] Albumin/Glob SerPl 1.8 (calc) Normal 02/27/2025 1 - 2.5 [facility] Potassium SerPl-sCnc 4.1 mmol/L Normal 02/27/2025 3.5 - 5 .3 [facility] Creat SerPl-mCnc 1.62 mg/dL Above high normal 02/27/2025 0.5 - 1.05 [facility] Magnesium SerPl-mCnc 2.2 mg/dL Normal 02/27/2025 1.5 - 2. 5 [facility] NT-proBNP SerPl-mCnc 888.0 pg/mL Above high normal 5 - 125 [facility] History of Medication Use Medication Directions Dispensed Refills Start Date End Date Stat us Opsynvi 10-40 MG Tab 03/24/2025 active Ozempic, 0.25 or 0.5 MG/DOSE, 2 MG/3ML prefilled pen injection INJECT 0.25 MG (0.368 ML) SUBCUTANEOUSLY EVERY WEEK FOR 4 WEEKS 12/30/2024 active atorvastatin (LIPITOR) 40 MG tablet Take 1 tablet (40 mg total) by mouth daily. 10/14/2024 active spironolactone (ALDACTONE) 25 MG tablet Take 1 tablet (25 mg total) by mouth daily. 06/09/2024 4 active selexipag (UPTRAVI) 1400 MCG tablet Take 1 tablet (1,400 mcg total) by mouth 2 (two) times a day. 10/14/2023 active spironolactone (ALDACTONE) 25 MG tablet Take 0.5 tablets (12.5 mg total) by mouth daily. 09/03/2023 4 active furosemide (LASIX) 20 MG tablet Take 3 tablets (60 mg total) by mouth daily. 09/03/2023 active selexipag (UPTRAVI) 600 MCG tablet Take 1 tablet (600 mcg total) by mouth 2 (two) times a day. 09/03/2023 active furosemide (LASIX) 20 MG tablet Take 4 tablets (80 mg total) by mouth daily. 08/21/2023 3 aborted furosemide (LASIX) 20 MG tablet Take 2 tablets (40 mg total) by mouth daily. 08/14/2023 3 active ambrisentan (LETAIRIS) 5 MG tablet TAKE 1 TABLET BY MOUTH 1 TIME A DAY. DO NOT HANDLE IF . 08/02/2023 5 active ambrisentan (LETAIRIS) 5 MG tablet Take 1 tablet (5 mg total) by mouth daily. 07/17/2023 3 active Senna-Time 8.6 MG Tab tablet TAKE 2 TABLETS BY MOUTH AT BEDTIME FOR CONSTIPATION 06/23/2023 active Continuous Blood Gluc D[employer] Associate (FullStoryStyle Ziyad 2 Donaldson) Device See Admin Instructions. 06/13/2023 active apixaban (Eliquis) 5 MG tablet Take 1 tablet (5 mg total) by mouth. 09/24/2022 3 active metoPROLOL SUCCINATE (TOPROL-XL) 200 MG 24 hr tablet Take 1 tablet (200 mg total) by mouth. 3 active Problems Problem Status Onset Date Problem Type Date of Resoluti on Source Atrial fibrillation active 2022-11-27 ProblemAct [facility] Secondary hypercoagulable state active 2025-06-28 ProblemAct [facility] Diabetic glomerulonephritis active 2022-11-27 ProblemAct [facility] Hypertension active 2022-11-27 ProblemAct [facility] Endometrial carcinoma active 2022-11-27 ProblemAct [facility] PAH (pulmonary artery hypertension) active 2023-07-09 ProblemAct [facility] Obstructive sleep apnea syndrome active 2022-11-27 ProblemAct [facility] Type 2 diabetes mellitus without complication active 2022-11-27 ProblemAct [facility] Stage 3 chronic kidney disease active 2022-11-27 ProblemAct [facility] Primary localized osteoarthrosis of ankle and foot active 2023-09-09 ProblemAct [facility] Encounters Encounter Type Encounter Reason Primary Diagnosis Location Date Ambulatory Hyperlipidemia, unspecified Hyperlipidemia, unspecified [facility] 06/28/2025 Ambulatory Dyspnea, unspecified Dyspnea, unspecified [facility] 04/27/2025 Ambulatory Secondary pulmonary arterial hypertension Secondary pulmonary arterial hypertension [facility] 02/08/2025 Ambulatory Dyspnea, unspecified Dyspnea, unspecified [facility] 02/03/2025 Ambulatory [facility] 10/30/2024 Ambulatory Secondary pulmonary arterial hypertension Secondary pulmonary arterial hypertension [facility] 09/28/2024 Ambulatory Secondary pulmonary arterial hypertension Secondary pulmonary arterial hypertension [facility] 09/21/2024 Ambulatory Secondary pulmonary arterial hypertension Secondary pulmonary arterial hypertension [facility] 03/31/2024 Ambulatory Secondary pulmonary arterial hypertension Secondary pulmonary arterial hypertension [facility] 03/16/2024 Ambulatory Dyspnea, unspecified Dyspnea, unspecified [facility] 02/19/2024 Ambulatory [facility] 02/13/2024 Ambulatory Secondary pulmonary arterial hypertension Secondary pulmonary arterial hypertension [facility] 12/09/2023 Ambulatory Secondary pulmonary arterial hypertension Secondary pulmonary arterial hypertension [facility] 10/15/2023 Ambulatory Dyspnea, unspecified Dyspnea, unspecified [facility] 10/08/2023 Ambulatory Secondary pulmonary arterial hypertension Secondary pulmonary arterial hypertension [facility] 09/09/2023 Ambulatory Chronic diastolic (congestive) heart failure Chronic diastolic (congestive) heart failure [facility] 09/03/2023 Inpatient Secondary pulmonary arterial hypertension Secondary pulmonary arterial hypertension [facility] 07/11/2023 Ambulatory Secondary pulmonary arterial hypertension Secondary pulmonary arterial hypertension [facility] 07/09/2023 Care Team Organization Name Specialty Phone Email Start Date End Da te [facility] Marisela Oscar Primary Care 02/04/2025 [facility] MARISELA OSCAR Primary Care 07/11/2023 [facility] Marisela Oscar Primary Care 07/08/2023 07/08/20
--- OUTSIDE RECORDS SUMMARY | 2025-07-09 10:51 | XMS_ITS | Clinical Summary ---
Author Organization [facility] Address [address] [place] [phone] Phone Care Team Providers Care Yarn Comber Name Role Phone Marisela Oscar MD Primary Care Provider [phone] Allergies No known active allergies Medications acetaminophen (TYLENOL) 500 MG tablet Take 2 tablets by mouth every 6 (six) hours if needed 1 Active digoxin (LANOXIN) 125 MCG tablet Take 0.125 mg by mouth every other day Active Eliquis 5 MG tablet Take 5 mg by mouth 2 (two) times a day 2 Active Farxiga 10 MG tablet Take 10 mg by mouth 1 (one) time each day 2 Active furosemide (LASIX) 20 MG tablet Take 60 mg by mouth 1 (one) time each day Active spironolactone (ALDACTONE) 25 MG tablet Take 25 mg by mouth 1 (one) time each day Active Uptravi 200 & 800 MCG tablet therapy pack Take by mouth 3 Active Opsynvi 10-40 MG tablet 5 Active atorvastatin (LIPITOR) 40 MG tablet Take 40 mg by mouth 1 (one) time each day Active Ozempic, 0.25 or 0.5 MG/DOSE, 2 MG/3ML solution pen-injector INJECT 0.25 MG (0.368 ML) SUBCUTANEOUSLY EVERY WEEK FOR 4 WEEKS 5 Active Active Problems Problem Noted Date Diagnosed Date 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 11/27/2022 Type 2 diabetes mellitus without complication Chronic kidney disease stage 3B 11/27/2022 Diabetic glomerulonephritis 11/27/2022 Hypertension 11/27/2022 Obstructive sleep apnea syndrome 11/27/2022 Atrial fibrillation, not otherwise specified 08/2023 Renal scarring 11/27/2022 Endometrial carcinoma 11/27/2022 Family History Medical History Relation Comments Cancer [...] Sex Female 8:37 AM EDT Gender Identity Female 03/29/2025 2:42 PM EDT Sexual Orientation Straight 03/29/2025 2: 42 PM EDT Last Filed Vital Signs Vital Sign Reading Time Taken Comments Blood Pressure 130/74 04/05/2025 10:28 AM EDT Pulse 89 04/05/2025 10:28 AM EDT Temperature - - Respiratory Rate - - Oxygen Saturation 95% 04/05/2025 10:28 AM EDT Inhaled Oxygen Concentration - - Weight 89.5 kg (197 lb 6.4 oz) 04/05/2025 10:28 AM EDT Height 162.6 cm (5' 4 ) 10/01/2024 9:58 AM EST Body Mass Index 33.88 10/01/2024 9:58 AM EST Plan of Treatment Upcoming Encounters Date Type Department Care Team (Late st Contact Info) Description 10/04/2025 10:00 AM EST Office Visit [facility] [address] [phone] Torsten Burris MD [address] [address] Health Maintenance Due Date Last Done Comments Breast Cancer Screening 1955 Pneumococcal Vaccine: 50+ Years (1 of 2 - PCV) 1974 Colorectal Cancer Screening: Annual FOBT 2004 Colorectal Cancer Screening: Colonoscopy 2004 Colorectal Cancer Screening: Sigmoidoscopy 2004 Diabetes: Ophthalmology Exam 08/23/2022 Diabetes: Pedal Pulse Checked 08/23/2022 Diabetes: Sensory Foot Exam 08/23/2022 Diabetes: Visual Foot Exam 08/23/2022 Diabetes: Hemoglobin A1C 06/14/2023 03/15/2023 Influenza Vaccine (#1) 2025 0, 08/01/2018 Hepatitis B Vaccine Aged Out No longe r eligible based on patient's age to complete this topic Procedures Procedure Name Priority Date/Time Associated Diagnosis Comments HEMOGLOBIN A1C Routine 03/15/2023 10:00 AM EDT from Last 3 Months or Most Recently Relevant to Health Maintenance Results * (ABNORMAL) Hemoglobin A1c (03/15/2023 10:00 AM EDT) Hemoglobin A1C 6.9(H) (4.0-5.6) % [facility] Comment: MONITORING: In known diabetic patients, hemoglobin A1c targets should be discussed with health care provider. DIAGNOSTIC USE: The [place] Diabetes Association (ADA) and the World Health [...] Supplement 1 Testing performed or reported by [facility], a Service of [facility], [address] [place] [address] Beverley Moulton MD, Mystery Shopper [facility]# [id number] 03/15/2023 10:0 0 AM EDT 03/15/2023 10:03 AM EDT us Torsten Burris MD LAB BLOOD ORDERABLES Final Re sult [facility] from Last 3 Months or Most Recently Relevant to Health Maintenance Insurance [facility] Member Subscriber Plan / Payer (Ef fective 2024-Present) Name:Lelo Murraygail Relation to Subscriber:Self Name:Blaire Murray Payer ID:Not on file Type:Not on file Address: [address] [phone] Medicaid [place] Care Teams Yarn Comber Relationship Specialty Start Date End Date Marisela Oscar MD [address] [place] [address] PCP - General Internal Medicine 08/23/22
[2025-07-09 14:39] LABS: MANUAL DIFF FLAG NO
[2025-07-09 14:41] LABS: Hematocrit 36.9 % (37.0-47.0); Hemoglobin 11.6 g/dl (12.0-16.0); Imm Gran Abs Auto 0.02 X10*3/uL (0.00-0.03); Imm Gran Pct Auto 0.3 % (0.0-0.4); Lymphocytes Absolute Auto 2.5 X10*3/uL (1.2-4.9); Mean Corpuscular HGB Conc 31.4 g/dl (31.0-35.0); Mean Corpuscular Hemoglobin 30.1 pg (27.0-33.0); Mean Corpuscular Volume 95.8 fL (80.0-98.0); NRBC Abs Auto 0.000 X10*3/uL (0.0-0.012); NRBC Pct Auto 0.0 /100WBC (0.0-0.2); Platelet Count 248 X10*3/uL (160-400); Red Blood Count 3.85 X10*6/uL (4.20-5.50); White Blood Count 7.6 X10*3/uL (4.8-10.8)
[2025-07-09 15:02] LABS: Hemoglobin A1C 169.3883 umol/L; Total Hemoglobin (HGBA1C) 3151.9089 umol/L
[2025-07-09 15:09] LABS: Alanine Aminotransferase 11 U/L (0-31); Albumin Level 4.2 g/dL (3.5-5.0); Alkaline Phosphatase 68 U/L (39-117); Anion Gap 12 (12-20); Aspartate Amino Transferase 20 U/L (5-31); Blood Urea Nitrogen 39 mg/dL (9-16); Calcium 8.9 mg/dL (8.4-10.2); Carbon Dioxide 22 mmol/L (22-29); Chloride 112 mmol/L (96-108); Cholesterol 134 mg/dL (<200); Estimated Glomerular Filt Rate 31; HDL Cholesterol 35 mg/dL (>40); Potassium 4.2 mmol/L (3.3-5.1); Sodium 142 mmol/L (135-145); Total Protein 7.0 g/dL (6.5-8.0); Triglycerides 85 mg/dL (<150)
[2025-07-09 15:31] LABS: Microalbum/Creatinine Ratio Ur 44.7 ug/mg cr (<30)
== END 2025-07-09 10:49 | disposition home or self-care (01) ==
LOC: HO.HMGCLDS 10:48
PROVIDERS: PCP Internal Medicine; Visit Provider Internal Medicine
DX: E11.22 Type 2 diabetes mellitus with diabetic chronic kidney disease (principal); N18.30 Chronic kidney disease, stage 3 unspecified; E78.5 Hyperlipidemia, unspecified
CPT/HCPCS: 36415; 80053; 80061; 82043; 82570; 83036; 85025

== ENCOUNTER 2025-07-13 11:17 | Outpatient (AMB) | payer MEDICARE, MEDICAID, SELFPAY ==
[2025-07-13 11:52] VITALS: BP 118/78; PULSE 131; RESP 16; TEMP 37.2; O2SAT 97; BMI 32.6
--- NOTE | 2025-07-13 11:52 | MHC.PC.OV ---
Vital Signs 07/13/25 11:52 Height 5 ft 4 in Weight 190 lb BMI 32.6 BP 118/78 Blood Pressure Location Lt brachial Position Sitting Respiration 16 Pulse 131 H Pulse Source Pulse Oximeter Temp 99.0 F Temp Source Oral Pulse Oximetry (%) 97 Oxygen Delivery Method Room Air Intake Visit Reasons: 3 months follow up Product Advisor Required: No Allergies No Known Allergies Allergy (Verified 07/13/25 11:53) Medication List - Last Reconciled 07/13/25 by Marisela Oscar MD apixaban (Eliquis) 5 mg PO BID atorvastatin 40 mg PO BEDTIME blood-glucose meter check glucose once a day cholecalciferol (vitamin D3) 50 mcg PO DAILY clobetasol 0.05% 1 appl topical DAILY coenzyme Q10 (H2Q CoQ10) 200 mg dapagliflozin propanediol (Farxiga) 10 mg PO DAILY digoxin 125 mcg PO DAILY ferrous sulfate 325 mg PO DAILY FreeStyle Ziyad 2 [place] (flash glucose scanning reader) As directed NS FreeStyle Ziyad 2 Sensor (flash glucose sensor) Test blood sugar TID, change sensor every 14 days NS furosemide 60 mg PO DAILY macitentan-tadalafil 10-40 mg (Opsynvi) 1 tab PO DAILY magnesium oxide 400 mg PO BEDTIME Ozempic (semaglutide) 0.5 mg (0.736 mL) subcut QWEEK NS polyethylene glycol 3350 (Gavilax) 17 grams PO DAILY selexipag (Uptravi) 1,400 mcg PO DAILY sennosides (Natural Senna Laxative) 17.2 mg (2 x 8.6 mg) PO BEDTIME spironolactone 12.5 mg (1/2 x 25 mg) PO DAILY 90 days Tobacco use date assessed: 07/13/25 Fall risk assessment: No Falls in past year Last assessed Fall Risk: 07/13/25 Dental Screening Dental Screen Date: 07/13/25 Did you have a dental visit in the last 12 months?: Yes Did you have a dental problem in the last 6 months where you did not have access to dental care?: No Was dental information given to patient?: Patient has dentist HPI 3 months follow up HPI Details Pt presents for F/U of DM2, hyperlipid, pul HTN, CKD 3, persistent A FIB. Pt is established with pulmonary hypertension specialist at [facility] Medical History History of uterine cancer GERD (gastroesophageal reflux disease) Lumbar and sacral spondyloarthritis Hip pain, bilateral CKD (chronic kidney disease) stage 3, GFR 30-59 ml/min Dysplastic nevus Palpitations Endometrial ca Diastolic dysfunction ASB (asymptomatic bacteriuria) Morbid obesity Hyperlipidemia Hypertension SUE on CPAP Surgical History Hx of cardiac cath S/P MARGARITA (total abdominal hysterectomy) H/O colonoscopy History of total abdominal hysterectomy and bilateral salpingo-oophorectomy Family History Father No problems noted. Mother HTN (hypertension) Diabetes mellitus Breast cancer Social History Household Members: Spouse Housing: House Are you a primary acute care occupational therapist to a significant other at home: No Do you presently have visiting nurse or other home services: No Alcohol intake: current Alcohol intake frequency: holidays/special occasions only Patient Tobacco Use Status: Never used Tobacco e-Cigarette/Vaping Use: Never Used Advance Directives Date on File: 02/12/23 service: No Current occupational status: retired Current occupation: rt handed Cognitive needs: No Hearing needs: No Vision needs: Yes Questionnaire Thrive Questionnaire Date Thrive assessed: 12/30/24 I am a: Patient What is your living situation today?: I have a steady place to live Within the past 12 months, did the food you bought not last and you didn't have the money to get more?: Never true Within the past 12 months, did you worry whether your food would run out before you got money to buy more?: Sometimes True Do you have trouble paying for medicines?: No Do you have trouble getting transportation to medical appointments?: No Do you have trouble paying your heating and electricity bill?: Yes Do you have trouble taking care of your child, family member or friend?: No Do you have trouble with day-to-day activities such as bathing, preparing meals, shopping, managing finances, etc.?: No Are you currently unemployed and looking for a job?: No Are you interested in more education?: No Please select the resources that you would like help with: Utilities Currently or been in a relationship where the following occur: No concerns reported THRIVE Score: 2 GAEL-7 AMB Questionnaire GAEL-7 Date GAEL - 7 assessed: 12/30/24 Source: Developed by Drs. Waston Pop, Zara Kinney, Josh Weiss and colleagues, with an educational hollie from [employer]. Review of Systems Const All systems reviewed & are unremarkable except as noted in HPI and below Eyes Reports no additional complaints ENT Reports no additional complaints Card Reports no additional complaints Resp Reports no additional complaints GI Reports no additional complaints Reports no additional complaints Physical exam (Primary Care) Vital Signs: Last Vital Signs Temp 99.0 F 07/13/25 11:52 Pulse 131 H 07/13/25 11:52 Resp 16 07/13/25 11:52 BP 118/78 07/13/25 11:52 Pulse Ox 97 07/13/25 11:52 Oxygen Delivery Method Room Air 07/13/25 11:52 BMI result Body Mass Index 32.6 Tobacco/Smoking Status: Tobacco use Status Tobacco use date assessed 07/13/25 07/13/25 11:57 Patient Tobacco Use Status Never used Tobacco 07/13/25 11:57 e-Cigarette/Vaping Use Never Used 07/13/25 11:57 Thrive Assessment: Date of Thrive Assessment Date Thrive assessed 12/30/24 07/13/25 11:57 Currently or been in a relationship where the following occur: No concerns reported Const General: no acute distress HENMT Ears: hearing grossly normal bilaterally Throat: Yes posterior oropharynx normal Eyes General: appearance normal, both eyes and all related structures Neck Neck: Yes no lymphadenopathy and Yes supple Resp Effort & Inspection: normal respiratory effort Auscultation: clear to auscultation bilaterally Cardio Rate: tachycardic Rhythm: abnormal rhythm regularly irregular Heart sounds: S1 normal heart sound present and S2 normal heart sound present GI Inspection: Yes normal to inspection Palpation (GI): Soft to palpation Percussion: Yes normal to percussion Auscultation: normal bowel sounds Extrem General: Yes no clubbing, cyanosis or edema Coding Level of Care Code Est Pt Level 4 (59876) Diagnoses Pulmonary HTN I27.20 Persistent atrial fibrillation I48.19 Hyperlipidemia E78.5 DM type 2 (diabetes mellitus, type 2) E11.9 Assessment & Plan Assessment & Plan (1) Pulmonary HTN: Comment: f/u Dr. Brandon Irizarry ,[facility] started on Abrisentan and tadalafil 07/10 Code(s): I27.20 - Pulmonary hypertension, unspecified Category: Medical Plan: Follow-up with pulmonary hypertension specialist at [facility] (2) Persistent atrial fibrillation: Code(s): I48.19 - Other persistent atrial fibrillation Category: Medical Plan: EKG showed AFib with a heart rate of 110. Patient has been taking digoxin renal adjusted, metoprolol 25 mg will be added. Patient will follow-up in 1 week for EKG and blood pressure check (3) Hyperlipidemia: Code(s): E78.5 - Hyperlipidemia, unspecified Category: Medical Plan: Continue statin (4) DM type 2 (diabetes mellitus, type 2): Code(s): E11.9 - Type 2 diabetes mellitus without complications Category: Medical Plan: A1c is 7.1 up from 6.5. ADA diet regular exercise discussed with the patient increase Ozempic to 1 mg weekly Medications: New ferrous sulfate 325 mg PO DAILY 90 tabs 0RF metoprolol succinate ER 25 mg PO DAILY 30 tabs 0RF magnesium oxide 400 mg PO BEDTIME 90 caps 0RF Ozempic (semaglutide) 1 mg (0.75 mL) subcut QWEEK 3 mL 1RF NS
--- OUTSIDE RECORDS SUMMARY | 2025-07-13 12:14 | XMS_ITS | Patient Health Record ---
Author Organization [facility] Address [address] [place] [address] Care Team Providers Care Aircraft Machinist Helper Name Role Phone Marisela Oscar MD Primary Care Provider Unavaila ble Black, Taylor Unavailable [phone] Allergies Allergen (clinical drug ingredient) Drug/Non Drug [...] primary osteoarthritis of the ankle and/or foot (054320948) Primary osteoarthritis, right ankle and foot (M19.071) Active confirmed Problem Localized, primary osteoarthritis of the ankle and/or foot (800525464) Primary osteoarthritis, left ankle and foot (M19.072) Active confirmed Problem Non-pressure chronic ulcer of other part of left foot limited to breakdown of skin (L97.521) Active confirmed Problem Type II diabetes mellitus without complication (655601516) Type 2 diabetes mellitus without complications (E11.9) Active confirmed Encounters Encounter Location Date Provider Diagnosis [facility] [address] [address] 05/17/2025 [facility] [address] [address] 06/02/2025 Taylor Kenney Plan Of Treatment Pending Test Test Name Order Date [id number] NAIL, 6 OR MORE 09/29/2021 [id number] Plate 08/14/2019 16527- Debride <25 sq cm 08/28/2019 [id number] DYSTROPHIC NAILS ANY # Next Appt Details Provider Name:Taylor Kenney , 07/14/2025 08:30:00 AM, [address], [place], [address], Insurance Providers Payer Name Payer Address Payer Phone Subscriber Number Group Number Insured Name Patient Relationship to Insured Coverage Start Date Coverage End Date [employer] [place] Medicare Advantage [facility] [address] [place] [address] [id number] Blaire Gold Self - patient is the insured 0 Medical (General) History Medical History History ICD Code Arthritis Back,Hip,and Knee pain Diabetic High blood pressure Keloid/Thick Scar Reflux ( GERD) Measles Mumps Chicken pox A fib Kidney disease Lung disease Surgical History Surgery Date(Month/Year) hysterectomy 2014 Keliod Ears 70's excision of skin lesion 5th R 08/30/2021
--- OUTSIDE RECORDS SUMMARY | 2025-07-13 12:14 | XMS_ITS | Clinical Summary ---
Author Organization [facility] Address [address] [place] [address] Care Team Providers Care Bushler Name Role Phone Marisela Oscar MD Primary Care Provider [phone] Claudia Jean-Baptiste MD Unavailable [phone] Allergies No known active allergies Medications dapagliflozin [...] tablet 3 025 Active Continuous Blood Gluc Medical Assisting Program Director (FreeStyle Ziyad 2 [place]) Device See Admin Instructions. 023 2024 Discontinued(T [...] Encounters Date Type Department Care Team Description 07/09/2025 Telephone [facility] Pulmonary [address] [phone] Brandon Irizarry MD 06/30/2025 Telephone [facility] Vascular [address] [address] Claudia Jean-Baptiste MD Other 06/30/2025 Telephone [facility] Pulmonary [address] [place] [phone] Brandon Irizarry MD 06/28/2025 1:40 PM EDT Office Visit [address] [phone] Claudia Jean-Baptiste MD Hyperlipidemia, unspecified hyperlipidemia type (Primary Dx); PAH (pulmonary artery hypertension) (HCC); Permanent atrial fibrillation (HCC); Essential hypertension ; Secondary hypercoagulable state; Current use of care home anticoagulation; Preop cardiovascular exam 06/28/2025 Travel 04/27/2025 9:30 AM EDT Procedure visit [facility] Pulmonary [address] [place] [phone] Brandon Irizarry MD Dyspnea, unspecified type 04/27/2025 [...] Description 08/09/2025 2:00 PM EDT Office Visit [facility] [place] [address] [place] [phone] Luisana Lomas PA-C [address] [place] [address] 01/10/2026 2:20 PM EST Office Visit [facility] Heart & Vascular [place] [address] [phone] Claudia Jean-Baptiste MD [address] [place] [address] Health Maintenance Due Date Last Done Comments Advance Care Planning 1955 Hepatitis C Virus Screening 1955 Foot Exam [...] (Females,Ages 65 and older) 2020 COVID-19 Vaccine ( season) 2024 07/17/2024, 08/11/2023, 04/12/2023, Additional history [...] PM EDT) Ventricular rate 107 BPM EKG [facility] QRS duration 82 ms EKG [facility] Q-T interval 336 ms EKG [facility] QTC calculation (Bazett) 448 ms EKG [facility] R axis -19 degrees EKG [facility] T axis 143 degrees EKG [facility] 06/28/2025 1:36 PM EDT Narrative EKG [facility] - 06/28/2025 2:17 PM EDT Atrial fibrillation with rapid ventricular response Poor R wave progression Abnormal ECG When compared with ECG of 28-Sep-2024 13:27, septal Q waves now present. Confirmed by MD Estiven, Claudia ([id number]) on 06/28/2025 2:17:24 PM Procedure Note Claudia Jean-Baptiste MD - 06/28/2025 Atrial fibrillation with rapid ventricular response Poor R wave progression Abnormal ECG When compared with ECG of 28-Sep-2024 13:27, septal Q waves now present. Confirmed by MD Jean-Baptiste Tracy ([id number]) on 06/28/2025 2:17:24 PM us Claudia Jean-Baptiste MD ECG ORDERABLES Final Result EKG [facility] * SHAPE TEST (05/02/2025 2:40 PM EDT) Narrative Brandon Irizarry MD - 05/02/2025 2:40 PM EDT Brandon [...] Comprehensive Metabolic Panel (02/26/2025 9:24 AM EDT) Glucose 115(H) 65 - 99 mg/dL [facility] Comment: Fasting reference interval For someone without known diabetes, a glucose value between 100 and 125 mg/dL is consistent with prediabetes and should be confirmed with a follow-up test. Blood Urea Nitrogen (BUN) 41(H) 7 - 25 mg/dL [facility] Creatinine 1.62(H) 0.50 - 1.05 mg/dL [facility] Creatinine w/ eGFR 34(L) > OR = 60 mL/min/1. 73m2 [facility] BUN/Creatinine Ratio 25(H) 6 - 22 (calc) [facility] Sodium 140 135 - 146 mmol/L [facility] Potassium 4.1 3.5 - 5.3 mmol/L [facility] Chloride 107 98 - 110 mmol/L [facility] CO2 25 20 - 32 mmol/L [facility] Calcium 9.2 8.6 - 10.4 mg/dL [facility] Protein, Total 6.5 6.1 - 8.1 g/dL [facility] Albumin 4.2 3.6 - 5.1 g/dL [facility] Globulin 2.3 1.9 - 3.7 g/dL (calc) [facility] Albumin/Globulin Ratio 1.8 1.0 - 2.5 (calc) [facility] Bilirubin, Total 0.3 0.2 - 1.2 mg/dL [facility] Alkaline Phosphatase 59 37 - 153 U/L [facility] Aspartate Aminotrans (AST) 11 10 - 35 U/L [facility] Alanine Aminotrans (ALT) 7 6 - 29 U/L [facility] Blood Blood specimen / Unknown 02/26/2025 9:24 AM EDT 02/26/2025 9:25 AM EDT Narrative [facility] - 02/26/2025 10:00 PM EDT FASTING:YES FASTING: YES Brandon Irizarry MD LAB BLOOD ORDERABLES Final Resul t [facility] [address] [place] [address] from Last 3 Months or Most Recently Relevant to Health Maintenance Insurance [employer] [place] MGD MEDICARE [facility] Advance Directives * Full Code (Latest Code Status on File) Date Activated Date Inactivated Comments 07/11/2023 7:23 AM Care Teams Bushler Relationship Specialty Start Date End Date Marisela Oscar MD [address] [place] [address] PCP - General 05/10/23 Claudia Jean-Baptiste MD [address] [place] [address] Primary State Trooper Cardiovascular Disease 09/03/23
--- OUTSIDE RECORDS SUMMARY | 2025-07-13 12:14 | XMS_ITS | Encounter Summary ---
Author Organization [facility] Address [address] [place] [address] Care Team Providers Care Chief Projectionist Name Role Phone Marisela Oscar MD Primary Care Provider [phone] Claudia Jean-Baptiste MD Unavailable [phone] Reason for Visit * Reason Comments Advice Only Encounter Details Date Type Department Care Team (Late Contact Info) Description 10/21/2024 Telephone [facility] Pulmonary [address] [place] [phone] Brandon Irizarry MD [address] [address] Advice Only Social History Tobacco Use Types Packs/Day Years Used Date Smoking Tobacco: Unknown Comments Unknown Sex and Gender Information Value Date Recorded Sex Assigned at Female 07/11/2023 6:56 AM EDT Legal Sex Female 10:06 AM EDT Gender Identity Female 07/11/2023 6:56 AM EDT Sexual Orientation Heterosexual (straight) 07/11 6:56 AM EDT documented as of this encounter Plan of Treatment Upcoming Encounters Date Type Department Care Team (Late Contact Info) Description 08/09/2025 2:00 PM EDT Office Visit [facility] Pulmonary [address] [phone] Luisana Lomas PA-C [address] [address] 01/10/2026 2:20 PM EST Office Visit [facility] Heart & Vascular [facility] [address] [place] [phone] Claudia Jean-Baptiste MD [address] [place] [address] documented as of this encounter Visit Diagnoses Not on filedocumented in this encounter Care Teams Chief Projectionist Relationship Specialty Start Date End Date Marisela Oscar MD [address] [place] [address] PCP - General 05/10/23 Claudia Jean-Baptiste MD [address] [place] [address] Primary Field Operations Technician Cardiovascular Disease 09/03/23 documented as of this encounter
--- OUTSIDE RECORDS SUMMARY | 2025-07-13 12:14 | XMS_ITS | Encounter Summary ---
Author Organization [facility] Address [address] [place] [address] Care Team Providers Care Cable Braider Name Role Phone Marisela Oscar MD Primary Care Provider [phone] Claudia Jean-Baptiste MD Unavailable [phone] Encounter Details Date Type Department Care Team (Late st Contact Info) Description 07/09/[address] [phone] Brandon Irizarry MD [address] [place] [address] Social History Tobacco Use Types Packs/Day Years Used Date Smoking Tobacco: Unknown Comments Unknown Sex and Gender Information Value Date Recorded Sex Assigned at Female 07/11/2023 6:56 AM EDT Legal Sex Female 10:06 AM EDT Gender Identity Female 07/11/2023 6:56 AM EDT Sexual Orientation Heterosexual (straight) 07/11 6:56 AM EDT documented as of this encounter Miscellaneous Notes * Telephone Encounter - Blane Anthony MA - 07/09/2025 2:10 PM EDT Phone number is [phone] * Telephone Encounter - Blane Anthony MA - 07/09/2025 1:56 PM EDT No, they did not. * Telephone Encounter - Blane Anthony MA - 07/09/2025 11:28 AM EDT Orthopedic surgery called our office in regards to this patient , they stated patient needs pulmonary clearance for her surgery that is scheduled on 09/13/2025 . documented in this encounter Plan of Treatment Upcoming Encounters Date Type Department Care Team (Late st Contact Info) Description 08/09/2025 2:00 PM EDT Office Visit [facility] Pulmonary [place] [address] [place] [phone] Luisana Lomas PA-C [address] [place] [address] 01/10/2026 2:20 PM EST Office Visit [facility] [place] [address] [place] [phone] Claudia Jean-Baptiste MD [address] [place] [address] documented as of this encounter Visit Diagnoses Not on filedocumented in this encounter Care Teams Cable Braider Relationship Specialty Start Date End Date Marisela Oscar MD [address] [place] [address] PCP - General 05/10/23 Claudia Jean-Baptiste MD [address] [place] [address] Primary Artist Consultant Cardiovascular Disease 09/03/23 documented as of this encounter
--- OUTSIDE RECORDS SUMMARY | 2025-07-13 12:14 | XMS_ITS | Clinical Summary ---
Author Organization [facility] Address [address] [place] [phone] Phone Care Team Providers Care Corrugator Helper Name Role Phone Marisela Oscar MD Primary Care Provider [phone] Allergies No known active allergies Medications acetaminophen [...] Visit [facility] [address] [phone] Torsten Burris MD [address] [address] Health Maintenance Due Date Last [...] AM EDT) Hemoglobin A1C 6.9(H) (4.0-5.6) % [facility] Comment: MONITORING: In known diabetic patients, hemoglobin A1c targets should be discussed with health care provider. DIAGNOSTIC USE: The [place] Diabetes Association (ADA) and the World Health [...] Supplement 1 Testing performed or reported by [facility], a Service of [facility], [address] [place] [address] Beverley Moulton MD, City Superintendent [facility]# [id number] 03/15/2023 10:0 0 AM EDT 03/15/2023 10:03 AM EDT us Torsten Burris MD LAB BLOOD ORDERABLES Final Re sult [facility] from Last 3 Months or Most Recently Relevant to Health Maintenance Insurance [facility] Member Subscriber Plan / Payer (Ef fective 2024-Present) Name:Lelo Murraygail Relation to Subscriber:Self Name:Blaire Murray Payer ID:Not on file Type:Not on file Address: [address] [phone] Medicaid [place] Care Teams Corrugator Helper Relationship Specialty Start Date End Date Marisela Oscar MD [address] [place] [address] PCP - General Internal Medicine 08/23/22
--- OUTSIDE RECORDS SUMMARY | 2025-07-13 12:14 | XMS_ITS | Encounter Summary ---
Author Organization [facility] Address [address] [place] [address] Care Team Providers Care Hogshead Hand Name Role Phone Marisela Oscar MD Primary Care Provider [phone] Claudia Jean-Baptiste MD Unavailable [phone] Encounter Details Date Type Department Care Team (Late Contact Info) Description 08/09/2023 Scanned Document [facility] Pulmonary [address] [phone] Pulmonology, Scan Social History Tobacco Use Types [...] Description 08/09/2025 2:00 PM EDT Office Visit [facility] Pulmonary [address] [phone] Luisana Lomas PA-C [address] [place] [address] 01/10/2026 2:20 PM EST Office Visit [facility] [place] [address] [phone] Claudia Jean-Baptiste MD [address] [place] [address] documented as of this encounter Visit Diagnoses Not on filedocumented in this encounter Care Teams Hogshead Hand Relationship Specialty Start Date End Date Marisela Oscar MD [address] [place] [address] PCP - General 05/10/23 Claudia Jean-Baptiste MD [address] [place] [address] Primary Regular Senior Care Provider Cardiovascular Disease 09/03/23 documented as of this encounter
--- OUTSIDE RECORDS SUMMARY | 2025-07-13 12:14 | XMS_ITS | Encounter Summary ---
Author Organization [facility] Address [address] [place] [address] Care Team Providers Care Data Architect Manager Name Role Phone Marisela Oscar MD Primary Care Provider [phone] Claudia Jean-Baptiste MD Unavailable [phone] Encounter Details Date Type Department Care Team (Late Contact Info) Description 05/10/2023 Scanned Document [facility] Pulmonary [address] [phone] Pulmonary, Scan Social History Tobacco Use Types [...] Description 08/09/2025 2:00 PM EDT Office Visit [facility] Pulmonary [address] [phone] Luisana Lomas PA-C [address] [place] [address] 01/10/2026 2:20 PM EST Office Visit [facility] Heart & Vascular [place] [address] [place] [address] Claudia Jean-Baptiste MD [address] [place] [address] documented as of this encounter Visit Diagnoses Not on filedocumented in this encounter Care Teams Data Architect Manager Relationship Specialty Start Date End Date Marisela Oscar MD [address] [place] [address] PCP - General 05/10/23 Claudia Jean-Baptiste MD [address] [place] [address] Primary Home Designer Cardiovascular Disease 09/03/23 documented as of this encounter
--- OUTSIDE RECORDS SUMMARY | 2025-07-13 12:14 | XMS_ITS | Encounter Summary ---
Author Organization [facility] Address [address] [place] [address] Care Team Providers Care Underwriting Clerks Supervisor Name Role Phone Marisela Oscar MD Primary Care Provider [phone] Claudia Jean-Baptiste MD Unavailable [phone] Encounter Details Date Type Department Care Team (Late st Contact Info) Description 09/21/2024 Scanned Document [facility] Pulmonary [address] [place] [phone] Raheem Lynne, RN [address] [address] Social History Tobacco Use Types Packs/Day Years [...] Description 08/09/2025 2:00 PM EDT Office Visit [facility] Pulmonary [address] [phone] Luisana Lomas PA-C [address] [address] 01/10/2026 2:20 PM EST Office Visit [facility] [address] [place] [phone] Claudia Jean-Baptiste MD [address] [place] [address] documented as of this encounter Visit Diagnoses Not on filedocumented in this encounter Care Teams Underwriting Clerks Supervisor Relationship Specialty Start Date End Date Marisela Oscar MD [address] [place] [address] PCP - General 05/10/23 Claudia Jean-Baptiste MD [address] [place] [address] Primary Leadite Man Cardiovascular Disease 09/03/23 documented as of this encounter
--- OUTSIDE RECORDS SUMMARY | 2025-07-13 12:14 | XMS_ITS | Continuity of Care Document ---
Author Organization [facility] Address [address] [facility] [address] [place] [address] Insurance Providers Payer Plan Claims Address Claims Phone Policy Number Group Number Relation Employer Guarantor Name Guarantor Guarantor Address Guarantor Phone [facility], [address] [address] tel:[phone] [id number] Self Blaire Murray [address] [place] [address] [facility] tel:[phone] [phone] Self Blaire Murray [address] [place] [address] [facility] Medic are [id number] [phone] [id number] [id number] Self Blaire Murray [address] [place] [address] Problems Unknown Problems Results Test Result Date/Time Value / Unit Interp. Refere [facility] Range LIPID PANEL, STANDARD[[id number]] Collected: 03/19/2025 01:42 PM Specimen Received: 03/19/2025 01:44 PM Source: [facility]ST[facility]:YESFASTING: YES CHOLESTEROL, TOTAL [[id number]] 03/20/2025 07:25 PM 134 mg/dL N 200 mg/dL HDL CHOLESTEROL [[id number]] 03/20/2025 07:25 PM 44 mg/dL L > OR = 50 mg/dL TRIGLYCERIDES [[id number]] 03/20/2025 07:25 PM 84 mg/dL N 150 mg/dL LDL-CHOLESTEROL [[id number]] 03/20/2025 07:25 PM 7 4 mg/dL (calc) N Reference range: or = 2 CHD risk factors. LDL-C is now calculated using the Krystal calculation, which is a validated novel method providing better accuracy than the Friedewald equation in the estimation of LDL-C. Amauri SS et al. SHRUTHI. 2013;310(59): 5714-1396 (http://Studyplaces.[employer]/faq/KEU321) CHOL/HDLC RATIO [[id number]] 03/20/2025 07:25 PM 3.0 (calc) N 5.0 (calc) NON HDL CHOLESTEROL [[id number]] 03/20/2025 07:25 PM 90 mg/dL (calc) N 130 mg/dL (calc) For patients with diabetes p donavan 1 major ASCVD risk factor, treating to a non-HDL-C goal of 100 mg/dL (LDL-C of <70 mg/dL) is considered a therapeutic option. ALBUMIN, RANDOM URINE W/CREA AZAEL[[id number]] Collected: 03/19/2025 01:42 PM Specimen Received: 03/19/2025 01:44 PM Source: [facility]ST[facility]:YESFASTING: YES CREATININE, RANDOM URINE [[id number]] 03/20/2025 07:25 PM 150 mg/dL N 20-275 mg/dL ALBUMIN, URINE [[id number]] 03/20/2025 07:25 PM 3.4 mg/dL N See Note: mg/dL Reference Range:Reference Ra ngeNot established ALBUMIN/CREATININE RATIO, RANDOM URINE [[id number]] 03/20/2025 07:25 PM 23 mg/g creat N 30 m g/g creat The ADA defines abnormalitie s in albuminexcretion as follows: Albuminuria Category Result (mg/g creatinine) Normal to Mildly increased OR = 300 The ADA recommends that at least two of threespecimens collected within a 3-6 month period beabnormal before considering a patient to bewithin a diagnostic category. COMPREHENSIVE METABOLIC PANE L[[id number]] Collected: 03/19/2025 01:42 PM Specimen Received: 03/19/2025 01:44 PM Source: [facility]STING:YESFASTING: YES GLUCOSE [[id number]] 03/20/2025 07:25 PM 158 mg/dL H 65-99 mg/dL Fasting reference interval F or someone without known diabetes, a glucosevalue >125 mg/dL indicates that they may havediabetes and this should be confirmed with afollow-up test. UREA NITROGEN (BUN) [] 03/20/2025 07:25 PM 39 mg/dL H 7-25 mg/dL CREATININE [] 03/20/2025 07:25 PM 1.73 mg/dL H 0.50-1.05 mg/dL EGFR [[id number]] 03/20/2025 07:25 PM 32 mL/min/1.73m2 L > OR = 60 mL/min/1.73m2 BUN/CREATININE RATIO [[id number]] 03/20/2025 07:25 PM 23 (calc) H 6-22 (calc) SODIUM [[id number]] 03/20/2025 07:25 PM 138 mmol/L N 135-146 mmol/L POTASSIUM [[id number]] 03/20/2025 07:25 PM 4.2 mmol/L N 3.5-5.3 mmol/L CHLORIDE [[id number]] 03/20/2025 07:25 PM 105 mmol/L N 98-110 mmol/L CARBON DIOXIDE [[id number]] 03/20/2025 07:25 PM 24 mmol/L N 20-32 mmol/L CALCIUM [[id number]] 03/20/2025 07:25 PM 9.0 mg/dL N 8.6-10.4 mg/dL PROTEIN, TOTAL [[id number]] 03/20/2025 07:25 PM 6.7 g/dL N 6.1-8.1 g/dL ALBUMIN [[id number]] 03/20/2025 07:25 PM 4.0 g/dL N 3.6-5.1 g/dL GLOBULIN [[id number]] 03/20/2025 07:25 PM 2.7 g/dL (calc) N 1.9-3.7 g/dL (calc) ALBUMIN/GLOBULIN RATIO [[id number]] 03/20/2025 07:25 PM 1.5 (calc) N 1.0-2.5 (jose david c) BILIRUBIN, TOTAL [[id number]] 03/20/2025 07:25 PM 0.3 mg/dL N 0.2-1.2 mg/d L ALKALINE PHOSPHATASE [] 03/20/2025 07:25 PM 62 U/L N 37-153 U/L AST [] 03/20/2025 07:25 PM 9 U/L L 1 0-35 U/L ALT [] 03/20/2025 07:25 PM 7 U/L N 6 -29 U/L HEMOGLOBIN A1c[496] Collected: 03/19/2025 01:42 PM Specimen Received: 03/19/2025 01:44 PM Source: [facility]FASTING:YESFASTING: YES HEMOGLOBIN A1c [[id number]] 03/20/2025 07:25 PM 6.7 % H 5.7 % For someone without known di abetes, a hemoglobin M1qtacbc of 6.5% or greater indicates that they [...] of diabetes for children. Clinical PDF Report [id number] H-1[ClinicalPDFReport1] Collected: 03/19/2025 01:42 PM Specimen Received: 03/19/2025 01:44 PM Source: [facility]FASTING:YESFASTING: YES Clinical PDF Report [id number] [ClinicalPDFReport1] INEZ Comp. Metabolic Panel (14)[[id number]] Collected: 09/23/2024 06:37 PM Specimen Received: 09/23/2024 05:00 AM Source: [facility] Glucose [[id number]] 09/24/2024 05:44 AM 148 mg/dL H 70-99 mg/dL BUN [[id number]] 09/24/2024 05:42 AM 36 mg/dL H 8-2 7 mg/dL Creatinine [[id number]] 09/24/2024 05:44 AM 1.67 mg/dL H 0.57-1.00 mg/dL eGFR [[id number]] 09/24/2024 05:44 AM 33 mL/min/1.73 L >59 mL/min/1.73 BUN/Creatinine Ratio [[id number]] 09/24/2024 05:44 AM 22 12-28 Sodium [[id number]] 09/24/2024 05:42 AM 138 mmol/L 134-144 mmol/L Potassium [[id number]] 09/24/2024 05:48 AM 4.4 mmol/L 3.5-5.2 mmol/L Chloride [[id number]] 09/24/2024 05:41 AM 104 mmol/L 96-106 mmol/L Carbon Dioxide, Total [[id number]] 09/24/2024 05:41 AM 18 mmol/L L 20-29 mmol/L Calcium [[id number]] 09/24/2024 03:49 AM 8.9 mg/dL 8.7-10.3 mg/dL Protein, Total [[id number]] 09/24/2024 05:52 AM 6.4 g/dL 6.0-8.5 g/dL Albumin [[id number]] 09/24/2024 05:43 AM 4.0 g/dL 3.9-4.9 g/dL Globulin, Total [[id number]] 09/24/2024 05:52 AM 2.4 g/dL 1.5-4.5 g/dL Bilirubin, Total [[id number]] 09/24/2024 03:51 AM 0.2 mg/dL 0.0-1.2 mg/dL Alkaline Phosphatase [[id number]] 09/24/2024 05:44 AM 87 IU/L 44-121 IU/L AST (SGOT) [[id number]] 09/24/2024 05:46 AM 15 IU/L 0-40 IU/L ALT (SGPT) [[id number]] 09/24/2024 05:48 AM 10 IU/L 0-32 IU/L Lipid Panel[[id number]] Collected: 09/23/2024 06:37 PM Specimen Received: 09/23/2024 05:00 AM Source: [facility] Cholesterol, Total [[id number]] 09/24/2024 06:02 AM 149 mg/dL 100-199 mg/d L Triglycerides [[id number]] 09/24/2024 05:54 AM 124 mg/dL 0-149 mg/dL HDL Cholesterol [[id number]] 09/24/2024 05:52 AM 47 mg/dL >39 mg/dL VLDL Cholesterol Jose David [[id number]] 09/24/2024 06:02 AM 22 mg/dL 5-40 mg/dL LDL Chol Calc ([facility]) [[id number]] 09/24/2024 06:02 AM 80 mg/dL 0-99 mg/dL Albumin/Creatinine Ratio,Uri ne[[id number]] Collected: 09/23/2024 06:37 PM Specimen Received: 09/23/2024 05:00 AM Source: [facility] Creatinine, Urine [[id number]] 09/25/2024 07:29 PM 107.7 mg/dL Not Estab. mg/dL Albumin, Urine [[id number]] 09/25/2024 07:40 PM 33.9 ug/mL Not Estab. ug/mL Alb/Creat Ratio [[id number]] 09/25/2024 07:40 PM 31 mg/g creat H 0-29 mg/g creat Normal: 0 - 29 Moderately in creased: 30 - 300 Severely increased: >300 Hemoglobin A1c[[id number]] Collected: 09/23/2024 06:37 PM Specimen Received: 09/23/2024 05:00 AM Source: [facility] Hemoglobin A1c [[id number]] 09/24/2024 04:05 AM 9.1 % H 4.8-5.6 % . Prediabetes: 5.7 - 6.4 Theresa betes: >6.4 Glycemic control for adults with diabetes: 7.0 Allergies, adverse reactions, alerts No known allergies and adverse reactions Medications No administered medications reported Vital Signs No vital signs reported Social History No smoking Hx information available
== END 2025-07-13 14:43 | disposition home or self-care (01) ==
LOC: HO.HMCC 11:18
PROVIDERS: PCP Internal Medicine; Visit Provider Internal Medicine
DX: I27.20 Pulmonary hypertension, unspecified (principal); I48.19 Other persistent atrial fibrillation; E78.5 Hyperlipidemia, unspecified; E11.9 Type 2 diabetes mellitus without complications

== ENCOUNTER → 2025-07-13 11:17 | Outpatient (BNVA) | payer MEDICARE, MEDICAID, SELFPAY | PROVIDERS: PCP Internal Medicine; Visit Provider Internal Medicine | DX: E11.22 Type 2 diabetes mellitus with diabetic chronic kidney disease (principal); I12.9 Hypertensive chronic kidney disease with stage 1 through stage 4 chronic kidney disease, or unspecified chronic kidney disease; E78.5 Hyperlipidemia, unspecified; N18.30 Chronic kidney disease, stage 3 unspecified; I27.20 Pulmonary hypertension, unspecified; I48.19 Other persistent atrial fibrillation | CPT/HCPCS: 99212 ==

== ENCOUNTER 2025-07-23 10:21 | Outpatient (AMB) | payer MEDICARE, MEDICAID, SELFPAY ==
[2025-07-23 10:29] VITALS: BP 90/60; PULSE 112; RESP 17; TEMP 36.8; O2SAT 95; BMI 32.6
--- NOTE | 2025-07-23 10:29 | A.OFFPC_ITS ---
Vital Signs 07/23/25 10:29 Height 5 ft 4 in Weight 190 lb BMI 32.6 BP 90/60 Blood Pressure Location Lt brachial Position Sitting Respiration 17 Pulse 112 H Pulse Source Pulse Oximeter Temp 98.2 F Temp Source Oral Pulse Oximetry (%) 95 Oxygen Delivery Method Room Air Intake Visit Reasons: 1 week follow up per DR. Oscar Intake Note: P Allergies No Known Allergies Allergy (Verified 07/23/25 10:30) Medication List - Last Reconciled 07/23/25 by Marisela Oscar MD apixaban (Eliquis) 5 mg PO BID atorvastatin 40 mg PO BEDTIME blood-glucose meter check glucose once a day cholecalciferol (vitamin D3) 50 mcg PO DAILY clobetasol 0.05% 1 appl topical DAILY coenzyme Q10 (H2Q CoQ10) 200 mg dapagliflozin propanediol (Farxiga) 10 mg PO DAILY digoxin 125 mcg PO DAILY ferrous sulfate 325 mg PO DAILY FreeStyle Ziyad 2 [place] (flash glucose scanning reader) As directed NS FreeStyle Ziyad 2 Sensor (flash glucose sensor) Test blood sugar TID, change sensor every 14 days NS furosemide 60 mg PO DAILY macitentan-tadalafil 10-40 mg (Opsynvi) 1 tab PO DAILY magnesium oxide 400 mg PO BEDTIME metoprolol succinate ER 25 mg PO DAILY Ozempic (semaglutide) 0.5 mg (0.736 mL) subcut QWEEK NS Ozempic (semaglutide) 1 mg (0.75 mL) subcut QWEEK NS polyethylene glycol 3350 (Gavilax) 17 grams PO DAILY selexipag (Uptravi) 1,400 mcg PO DAILY sennosides (Natural Senna Laxative) 17.2 mg (2 x 8.6 mg) PO BEDTIME spironolactone 12.5 mg (1/2 x 25 mg) PO DAILY 90 days Tobacco use date assessed: 07/23/25 Fall risk assessment: No Falls in past year Last assessed Fall Risk: 07/23/25 Dental Screening Dental Screen Date: 07/13/25 HPI 1 week follow up per DR. Oscar HPI Details Patient presents for the follow-up. She has been taking metoprolol for AFib with rapid ventricular rate. Patient denies any palpitations lightheadedness chest pain shortness or breath. Type 2 diabetes is well- controlled on current medications. she is established with data programmer for diabetic foot care. Patient has hammertoe foot deformity and pre ulcerative skin lesions on the right foot. It is medically necessary for the patient to obtain diabetic shoes. [facility] Medical History History of uterine cancer GERD (gastroesophageal reflux disease) Lumbar and sacral spondyloarthritis Hip pain, bilateral CKD (chronic kidney disease) stage 3, GFR 30-59 ml/min Dysplastic nevus Palpitations Endometrial ca Diastolic dysfunction ASB (asymptomatic bacteriuria) Morbid obesity Hyperlipidemia Hypertension SUE on CPAP Surgical History Hx of cardiac cath S/P MARGARITA (total abdominal hysterectomy) H/O colonoscopy History of total abdominal hysterectomy and bilateral salpingo-oophorectomy Family History Father No problems noted. Mother HTN (hypertension) Diabetes mellitus Breast cancer Social History Household Members: Spouse Housing: House Are you a primary account executive healthcare to a significant other at home: No Do you presently have visiting nurse or other home services: No Alcohol intake: current Alcohol intake frequency: holidays/special occasions only Patient Tobacco Use Status: Never used Tobacco e-Cigarette/Vaping Use: Never Used Advance Directives Date on File: 02/12/23 service: No Current occupational status: retired Current occupation: rt handed Cognitive needs: No Hearing needs: No Vision needs: Yes Questionnaire Thrive Questionnaire Date Thrive assessed: 12/30/24 I am a: Patient What is your living situation today?: I have a steady place to live Within the past 12 months, did the food you bought not last and you didn't have the money to get more?: Never true Within the past 12 months, did you worry whether your food would run out before you got money to buy more?: Sometimes True Do you have trouble paying for medicines?: No Do you have trouble getting transportation to medical appointments?: No Do you have trouble paying your heating and electricity bill?: Yes Do you have trouble taking care of your child, family member or friend?: No Do you have trouble with day-to-day activities such as bathing, preparing meals, shopping, managing finances, etc.?: No Are you currently unemployed and looking for a job?: No Are you interested in more education?: No Please select the resources that you would like help with: Utilities Currently or been in a relationship where the following occur: No concerns reported THRIVE Score: 2 GAEL-7 AMB Questionnaire GAEL-7 Date GAEL - 7 assessed: 12/30/24 Source: Developed by Drs. Watson Pop, Zara Kinney, Josh Weiss and colleagues, with an educational hollie from [employer]. Review of Systems Const All systems reviewed & are unremarkable except as noted in HPI and below Eyes Reports no additional complaints ENT Reports no additional complaints Card Reports no additional complaints Resp Reports no additional complaints GI Reports no additional complaints Reports no additional complaints Physical exam (Primary Care) Vital Signs: Last Vital Signs Temp 98.2 F 07/23/25 10:29 Pulse 112 H 07/23/25 10:29 Resp 17 07/23/25 10:29 BP 90/60 07/23/25 10:29 Pulse Ox 95 07/23/25 10:29 Oxygen Delivery Method Room Air 07/23/25 10:29 BMI result Body Mass Index 32.6 Tobacco/Smoking Status: Tobacco use Status Tobacco use date assessed 07/23/25 07/23/25 10:33 Patient Tobacco Use Status Never used Tobacco 07/23/25 10:33 e-Cigarette/Vaping Use Never Used 07/23/25 10:33 Thrive Assessment: Date of Thrive Assessment Date Thrive assessed 12/30/24 07/23/25 10:33 Currently or been in a relationship where the following occur: No concerns reported Const General: no acute distress HENMT Head: Yes normal to inspection General nose exam: Normal external nose present Eyes General: appearance normal, both eyes and all related structures Neck Neck: Yes supple Cardio Rhythm: abnormal rhythm irregularly irregular Heart sounds: S1 normal heart sound present and S2 normal heart sound present GI Inspection: Yes normal to inspection Palpation (GI): Soft to palpation Percussion: Yes normal to percussion Auscultation: normal bowel sounds Coding Level of Care Code Est Pt Level 4 (70451) Diagnoses Pulmonary HTN I27.20 Persistent atrial fibrillation I48.19 DM type 2 (diabetes mellitus, type 2) E11.9 CKD (chronic kidney disease) stage 3, GFR 30-59 ml/min N18.30 Assessment & Plan Assessment & Plan (1) Pulmonary HTN: Comment: f/u Dr. Brandon Irizarry ,[facility] started on Abrisentan and tadalafil 07/10 Code(s): I27.20 - Pulmonary hypertension, unspecified Category: Medical Plan: Continue current medications follow-up with pulmonology (2) Persistent atrial fibrillation: Code(s): I48.19 - Other persistent atrial fibrillation Category: Medical Plan: Continue Eliquis for anticoagulation , digoxin and metoprolol for rate control. EKG showed AFib with a heart rate of 86 today, check 3 day Holter. Patient was advised to decrease furosemide to 40 mg from 60 a day because of borderline low blood pressure. Follow-up in 1 month (3) DM type 2 (diabetes mellitus, type 2): Code(s): E11.9 - Type 2 diabetes mellitus without complications Category: Medical Plan: A1c was 7.1, ADA diet increase exercise continue current medications discussed with the patient. it is medically necessary for patient to have diabetic shoes for hammertoe foot deformity and preulcerative skin lesions in the right foot (4) CKD (chronic kidney disease) stage 3, GFR 30-59 ml/min: Comment: Follow-up with nephrology Code(s): N18.30 - Chronic kidney disease, stage 3 unspecified Category: Medical Plan: Decrease furosemide to 40 mg from 60 because of borderline low blood pressure and worsening prerenal kidney disease Orders: Orders AMB EKG-In Office Today I10 - Essential (primary) hypertension, I27.20 - Pulmonary hypertension, unspecified, I48.19 - Other persistent atrial fibrillation Basic Metabolic Panel 4 Weeks N18.30 - Chronic kidney disease, stage 3 unspecified ECG 3 day holter monitor Today I48.19 - Other persistent atrial fibrillation B Type Natriuretic Peptide 4 Weeks N18.30 - Chronic kidney disease, stage 3 unspecified
--- OUTSIDE RECORDS SUMMARY | 2025-07-23 11:25 | XMS_ITS | Encounter Summary ---
Author Organization [facility] Address [address] [place] [address] Care Team Providers Care Size Maker Name Role Phone Marisela Oscar MD Primary Care Provider [phone] Claudia Jean-Baptiste MD Unavailable [phone] Encounter Details Date Type Department Care Team (Late Contact Info) Description 05/10/[address] [facility] Pulmonary [address] [phone] Pulmonary, Scan Social History Tobacco Use Types [...] Description 08/09/2025 2:00 PM EDT Office Visit [facility] Pulmonary [address] [phone] Luisana Lomas PA-C [address] [place] [address] 01/10/2026 2:20 PM EST Office Visit [facility] [place] [address] [place] [phone] Claudia Jean-Baptiste MD [address] [place] [address] documented as of this encounter Visit Diagnoses Not on filedocumented in this encounter Care Teams Size Maker Relationship Specialty Start Date End Date Marisela Oscar MD [address] [place] [address] PCP - General 05/10/23 Claudia Jean-Baptiste MD [address] [place] [address] Primary Home School Liaison Officer Cardiovascular Disease 09/03/23 documented as of this encounter
--- OUTSIDE RECORDS SUMMARY | 2025-07-23 11:25 | XMS_ITS | Encounter Summary ---
Author Organization [facility] Address [address] [place] [address] Care Team Providers Care Stove Tender Name Role Phone Marisela Oscar MD Primary Care Provider [phone] Claudia Jean-Baptiste MD Unavailable [phone] Encounter Details Date Type Department Care Team (Late st Contact Info) Description 09/21/[address] [facility] Pulmonary [address] [place] [phone] Raheem Lynne, RN [address] [address] Social History Tobacco Use Types Packs/Day Years [...] Description 08/09/2025 2:00 PM EDT Office Visit [facility] Pulmonary [address] [phone] Luisana Lomas PA-C [address] [address] 01/10/2026 2:20 PM EST Office Visit [facility] [address] [place] [phone] Claudia Jean-Baptiste MD [address] [place] [address] documented as of this encounter Visit Diagnoses Not on filedocumented in this encounter Care Teams Stove Tender Relationship Specialty Start Date End Date Marisela Oscar MD [address] [place] [address] PCP - General 05/10/23 Claudia Jean-Baptiste MD [address] [place] [address] Primary Kerfer Machine Operator Cardiovascular Disease 09/03/23 documented as of this encounter
--- OUTSIDE RECORDS SUMMARY | 2025-07-23 11:25 | XMS_ITS | Continuity of Care Document ---
Author Organization [facility] Address [address] [facility] [address] [place] [address] Insurance Providers Payer Plan Claims Address Claims Phone Policy Number Group Number Relation Employer Guarantor Name Guarantor Guarantor Address Guarantor Phone [facility], [address], [place] [address] tel:[phone] [id number] [phone] Self Blaire Murray [address] [place] [address] [facility] tel:[phone] [phone] [id number] [phone] Self Blaire Murray [address] [place] [address] [facility] Medic are [id number] [id number] [phone] Self Blaire Murray [address] [place] [address] Problems Unknown Problems Results Test Result Date/Time Value / Unit Interp. Refere [facility] Range LIPID PANEL, STANDARD[[id number]] Collected: 03/19/2025 01:42 PM Specimen Received: 03/19/2025 01:44 PM Source: QuestFASTING:YESFASTING: YES CHOLESTEROL, TOTAL [[id number]] 03/20/2025 07:25 PM 134 mg/dL N 200 mg/dL HDL CHOLESTEROL [[id number]] 03/20/2025 07:25 PM 44 mg/dL L > OR = 50 mg/dL TRIGLYCERIDES [[id number]] 03/20/2025 07:25 PM 84 mg/dL N 150 mg/dL LDL-CHOLESTEROL [[id number]] 03/20/2025 07:25 PM 7 4 mg/dL (calc) N Reference range: or = 2 CHD risk factors. LDL-C is now calculated using the Krystal calculation, which is a validated novel method providing better accuracy than the Friedewald equation in the estimation of LDL-C. Amauri SS et al. SHRUTHI. 2013;310(52): 2250-2377 (http://[employer]/faq/WKB587) CHOL/HDLC RATIO [[id number]] 03/20/2025 07:25 PM 3.0 (calc) N 5.0 (calc) NON HDL CHOLESTEROL [[id number]] 03/20/2025 07:25 PM 90 mg/dL (calc) N 130 mg/dL (calc) For patients with diabetes p donavan 1 major ASCVD risk factor, treating to a non-HDL-C goal of 100 mg/dL (LDL-C of <70 mg/dL) is considered a therapeutic option. ALBUMIN, RANDOM URINE W/CREA AZAEL[[id number]] Collected: 03/19/2025 01:42 PM Specimen Received: 03/19/2025 01:44 PM Source: [facility]FASTING:YESFASTING: YES CREATININE, RANDOM URINE [[id number]] 03/20/2025 07:25 PM 150 mg/dL N 20-275 mg/dL ALBUMIN, URINE [[id number]] 03/20/2025 07:25 PM 3.4 mg/dL N See Note: mg/dL Reference Range:Reference Ra ngeNot established ALBUMIN/CREATININE RATIO, RANDOM URINE [[id number]] 03/20/2025 07:25 PM 23 mg/g creat N 30 m g/g creat The ADA defines abnormalitie s in albuminexcretion as follows: Albuminuria Category Result (mg/g creatinine) Normal to Mildly increased OR = 300 The ADA recommends that at least two of threespecimens collected within a 3-6 month period beabnormal before considering a patient to bewithin a diagnostic category. COMPREHENSIVE METABOLIC PANE L[[id number]] Collected: 03/19/2025 01:42 PM Specimen Received: 03/19/2025 01:44 PM Source: [facility]FASTING:YESFASTING: YES GLUCOSE [[id number]] 03/20/2025 07:25 PM 158 mg/dL H 65-99 mg/dL Fasting reference interval F or someone without known diabetes, a glucosevalue >125 mg/dL indicates that they may havediabetes and this should be confirmed with afollow-up test. UREA NITROGEN (BUN) [] 03/20/2025 07:25 PM 39 mg/dL H 7-25 mg/dL CREATININE [] 03/20/2025 07:25 PM 1.73 mg/dL H 0.50-1.05 mg/dL EGFR [[id number]] 03/20/2025 07:25 PM 32 mL/min/1.73m2 L > OR = 60 mL/min/1.73m2 BUN/CREATININE RATIO [[id number]] 03/20/2025 07:25 PM 23 (calc) H 6-22 (calc) SODIUM [[id number]] 03/20/2025 07:25 PM 138 mmol/L N 135-146 mmol/L POTASSIUM [[id number]] 03/20/2025 07:25 PM 4.2 mmol/L N 3.5-5.3 mmol/L CHLORIDE [[id number]] 03/20/2025 07:25 PM 105 mmol/L N 98-110 mmol/L CARBON DIOXIDE [[id number]] 03/20/2025 07:25 PM 24 mmol/L N 20-32 mmol/L CALCIUM [[id number]] 03/20/2025 07:25 PM 9.0 mg/dL N 8.6-10.4 mg/dL PROTEIN, TOTAL [[id number]] 03/20/2025 07:25 PM 6.7 g/dL N 6.1-8.1 g/dL ALBUMIN [[id number]] 03/20/2025 07:25 PM 4.0 g/dL N 3.6-5.1 g/dL GLOBULIN [[id number]] 03/20/2025 07:25 PM 2.7 g/dL (calc) N 1.9-3.7 g/dL (calc) ALBUMIN/GLOBULIN RATIO [[id number]] 03/20/2025 07:25 PM 1.5 (calc) N 1.0-2.5 (jose david c) BILIRUBIN, TOTAL [[id number]] 03/20/2025 07:25 PM 0.3 mg/dL N 0.2-1.2 mg/d L ALKALINE PHOSPHATASE [] 03/20/2025 07:25 PM 62 U/L N 37-153 U/L AST [] 03/20/2025 07:25 PM 9 U/L L 1 0-35 U/L ALT [] 03/20/2025 07:25 PM 7 U/L N 6 -29 U/L HEMOGLOBIN A1c[496] Collected: 03/19/2025 01:42 PM Specimen Received: 03/19/2025 01:44 PM Source: [facility]FASTING:YESFASTING: YES HEMOGLOBIN A1c [[id number]] 03/20/2025 07:25 PM 6.7 % H 5.7 % For someone without known di abetes, a hemoglobin M8lraxsl of 6.5% or greater indicates that they [...] of diabetes for children. Clinical PDF Report [id number] H-1[ClinicalPDFReport1] Collected: 03/19/2025 01:42 PM Specimen Received: 03/19/2025 01:44 PM Source: [facility]FASTING:YESFASTING: YES Clinical PDF Report [id number] [ClinicalPDFReport1] INEZ Comp. Metabolic Panel (14)[[id number]] Collected: 09/23/2024 06:37 PM Specimen Received: 09/23/2024 05:00 AM Source: [facility] Glucose [[id number]] 09/24/2024 05:44 AM 148 mg/dL H 70-99 mg/dL BUN [[id number]] 09/24/2024 05:42 AM 36 mg/dL H 8-2 7 mg/dL Creatinine [[id number]] 09/24/2024 05:44 AM 1.67 mg/dL H 0.57-1.00 mg/dL eGFR [[id number]] 09/24/2024 05:44 AM 33 mL/min/1.73 L >59 mL/min/1.73 BUN/Creatinine Ratio [[id number]] 09/24/2024 05:44 AM 22 12-28 Sodium [[id number]] 09/24/2024 05:42 AM 138 mmol/L 134-144 mmol/L Potassium [[id number]] 09/24/2024 05:48 AM 4.4 mmol/L 3.5-5.2 mmol/L Chloride [[id number]] 09/24/2024 05:41 AM 104 mmol/L 96-106 mmol/L Carbon Dioxide, Total [790809] 09/24/2024 05:41 AM 18 mmol/L L 20-29 mmol/L Calcium [[id number]] 09/24/2024 03:49 AM 8.9 mg/dL 8.7-10.3 mg/dL Protein, Total [[id number]] 09/24/2024 05:52 AM 6.4 g/dL 6.0-8.5 g/dL Albumin [[id number]] 09/24/2024 05:43 AM 4.0 g/dL 3.9-4.9 g/dL Globulin, Total [[id number]] 09/24/2024 05:52 AM 2.4 g/dL 1.5-4.5 g/dL Bilirubin, Total [[id number]] 09/24/2024 03:51 AM 0.2 mg/dL 0.0-1.2 mg/dL Alkaline Phosphatase [[id number]] 09/24/2024 05:44 AM 87 IU/L 44-121 IU/L AST (SGOT) [[id number]] 09/24/2024 05:46 AM 15 IU/L 0-40 IU/L ALT (SGPT) [069690] 09/24/2024 05:48 AM 10 IU/L 0-32 IU/L Lipid Panel[[id number]] Collected: 09/23/2024 06:37 PM Specimen Received: 09/23/2024 05:00 AM Source: [facility] Cholesterol, Total [[id number]] 09/24/2024 06:02 AM 149 mg/dL 100-199 mg/d L Triglycerides [[id number]] 09/24/2024 05:54 AM 124 mg/dL 0-149 mg/dL HDL Cholesterol [[id number]] 09/24/2024 05:52 AM 47 mg/dL >39 mg/dL VLDL Cholesterol Jose David [[id number]] 09/24/2024 06:02 AM 22 mg/dL 5-40 mg/dL LDL Chol Calc ([facility]) [[id number]] 09/24/2024 06:02 AM 80 mg/dL 0-99 mg/dL Albumin/Creatinine Ratio,Uri ne[527254] Collected: 09/23/2024 06:37 PM Specimen Received: 09/23/2024 05:00 AM Source: [facility] Creatinine, Urine [[id number]] 09/25/2024 07:29 PM 107.7 mg/dL Not Estab. mg/dL Albumin, Urine [[id number]] 09/25/2024 07:40 PM 33.9 ug/mL Not Estab. ug/mL Alb/Creat Ratio [[id number]] 09/25/2024 07:40 PM 31 mg/g creat H 0-29 mg/g creat Normal: 0 - 29 Moderately in creased: 30 - 300 Severely increased: >300 Hemoglobin A1c[[id number]] Collected: 09/23/2024 06:37 PM Specimen Received: 09/23/2024 05:00 AM Source: [facility] Hemoglobin A1c [[id number]] 09/24/2024 04:05 AM 9.1 % H 4.8-5.6 % . Prediabetes: 5.7 - 6.4 Theresa betes: >6.4 Glycemic control for adults with diabetes: 7.0 Allergies, adverse reactions, alerts No known allergies and adverse reactions Medications No administered medications reported Vital Signs No vital signs reported Social History No smoking Hx information available
--- OUTSIDE RECORDS SUMMARY | 2025-07-23 11:25 | XMS_ITS | Encounter Summary ---
Author Organization [facility] Address [address] [place] [address] Care Team Providers Care Freight Brakeman Name Role Phone Marisela Oscar MD Primary Care Provider [phone] Claudia Jean-Baptiste MD Unavailable [phone] Reason for Visit * Reason Comments Advice Only Encounter Details Date Type Department Care Team (Late Contact Info) Description 10/21/2024 Telephone [facility] Pulmonary [address] [place] [phone] Brandon Irizarry MD [address] [address] Advice Only Social History Tobacco Use Types [...] Description 08/09/2025 2:00 PM EDT Office Visit [facility] Pulmonary [address] [phone] Luisana Lomas PA-C [address] [address] 01/10/2026 2:20 PM EST Office Visit [facility] [address] [place] [phone] Claudia Jean-Baptiste MD [address] [place] [address] documented as of this encounter Visit Diagnoses Not on filedocumented in this encounter Care Teams Freight Brakeman Relationship Specialty Start Date End Date Marisela Oscar MD [address] [place] [address] PCP - General 05/10/23 Claudia Jean-Baptiste MD [address] [place] [address] Primary Payroll Accounting Specialist Cardiovascular Disease 09/03/23 documented as of this encounter
--- OUTSIDE RECORDS SUMMARY | 2025-07-23 11:25 | XMS_ITS | Clinical Summary ---
Author Organization [facility] Address [address] [place] [address] Care Team Providers Care Sharepoint Designer Developer Name Role Phone Marisela Oscar MD Primary Care Provider [phone] Claudia Jean-Baptiste MD Unavailable [phone] Allergies No known active allergies Medications [...] tablet 3 025 Active Continuous Blood Gluc License Clerk (FreeStyle Ziyad 2 [place]) Device See Admin Instructions. 023 2024 Discontinued(T [...] Type Department Care Team Description 07/09/2025 Telephone [facility] Pulmonary [address] [phone] Brandon Irizarry MD 06/30/2025 Telephone [facility] Vascular [address] [phone] Claudia Jean-Baptiste MD Other 06/30/2025 Telephone [facility] Pulmonary [address] [place] [phone] Brandon Irizarry MD 06/28/2025 1:40 PM EDT Office Visit [address] [phone] Claudia Jean-Baptiste MD Hyperlipidemia, unspecified hyperlipidemia type (Primary Dx); PAH (pulmonary artery hypertension) (HCC); Permanent atrial fibrillation (HCC); Essential hypertension ; Secondary hypercoagulable state; Current use of correction anticoagulation; Preop cardiovascular exam 06/28/2025 Travel 04/27/2025 9:30 AM EDT Procedure visit [facility] Pulmonary [address] [place] [phone] Brandon Irizarry MD Dyspnea, unspecified type 04/27/2025 [...] Description 08/09/2025 2:00 PM EDT Office Visit [facility] [place] [address] [place] [phone] Luisana Lomas PA-C [address] [place] [address] 01/10/2026 2:20 PM EST Office Visit [facility] [place] [address] [phone] Claudia [place]-Baptiste MD [address] [place] [address] Health Maintenance Due Date Last Done Comments [...] (2 - Shavon risk series) 03/24/2021 02/24/2021 Influenza Vaccine 06/18/2025 07/19/2020, 08/01/2018 Creatinine with GFR 02/26/2026 02/26/2025, 02/01/2025, 09/14/2024, [...] PM EDT) Ventricular rate 107 BPM EKG [facility] QRS duration 82 ms EKG [facility] Q-T interval 336 ms EKG [facility] QTC calculation (Bazett) 448 ms EKG [facility] R axis -19 degrees EKG [facility] T axis 143 degrees EKG [facility] 06/28/2025 1:36 PM EDT Narrative EKG [facility] - 06/28/2025 2:17 PM EDT Atrial [...] Jean-Baptiste MD ECG ORDERABLES Final Result EKG [facility] * SHAPE TEST (05/02/2025 2:40 PM [...] Division of Pulmonary, Critical Care, and Sleep [facility]' us Brandon Irizarry MD AMB ORDERABLE PERFORMABLE Final Result * (ABNORMAL) Comprehensive Metabolic Panel (02/26/2025 9:24 AM EDT) Glucose 115(H) 65 - 99 mg/dL [facility] Comment: Fasting reference interval For someone without known diabetes, a glucose value between 100 and 125 mg/dL is consistent with prediabetes and should be confirmed with a follow-up test. Blood Urea Nitrogen (BUN) 41(H) 7 - 25 mg/dL [facility] Creatinine 1.62(H) 0.50 - 1.05 mg/dL [facility] Creatinine w/ eGFR 34(L) > OR = 60 mL/min/1. 73m2 [facility] BUN/Creatinine Ratio 25(H) 6 - 22 (calc) [facility] Sodium 140 135 - 146 mmol/L [facility] Potassium 4.1 3.5 - 5.3 mmol/L [facility] Chloride 107 98 - 110 mmol/L [facility] CO2 25 20 - 32 mmol/L [facility] Calcium 9.2 8.6 - 10.4 mg/dL [facility] Protein, Total 6.5 6.1 - 8.1 g/dL [facility] Albumin 4.2 3.6 - 5.1 g/dL [facility] Globulin 2.3 1.9 - 3.7 g/dL (calc) [facility] Albumin/Globulin Ratio 1.8 1.0 - 2.5 (calc) [facility] Bilirubin, Total 0.3 0.2 - 1.2 mg/dL [facility] Alkaline Phosphatase 59 37 - 153 U/L [facility] Aspartate Aminotrans (AST) 11 10 - 35 U/L [facility] Alanine Aminotrans (ALT) 7 6 - 29 U/L [facility] Blood Blood specimen / Unknown 02/26/2025 9:24 AM EDT 02/26/2025 9:25 AM EDT Narrative [facility] - 02/26/2025 10:00 PM EDT FASTING:YES FASTING: YES us Brandon Irizarry MD LAB BLOOD ORDERABLES Final Resul t [facility] [employer] [address] [place] [address] from Last 3 Months or Most Recently Relevant to Health Maintenance Insurance [employer]GD MEDICARE [facility] Advance Directives * Full Code (Latest Code Status on File) Date Activated Date Inactivated Comments 07/11/2023 7:23 AM Care Teams Sharepoint Designer Developer Relationship Specialty Start Date End Date Marisela Oscar MD [address] [place] [address] PCP - General 05/10/23 Claudia Jean-Baptiste MD [address] [place] [address] Primary Instructional Services Librarian Cardiovascular Disease 09/03/23
--- OUTSIDE RECORDS SUMMARY | 2025-07-23 11:25 | XMS_ITS | Clinical Summary ---
Author Organization [facility] Address [address] [place] [phone] Phone Care Team Providers Care Entry Level Installation Technician Name Role Phone Marisela Oscar MD Primary Care Provider [phone] Allergies No known active allergies Medications acetaminophen [...] Visit [facility] [address] [phone] Torsten Burris MD [address] [phone] Health Maintenance Due Date Last [...] AM EDT) Hemoglobin A1C 6.9(H) (4.0-5.6) % [facility] Comment: MONITORING: In known diabetic patients, hemoglobin A1c targets should be discussed with health care provider. DIAGNOSTIC USE: The [place] Diabetes Association (ADA) and the World Health [...] Supplement 1 Testing performed or reported by [facility], a Service of [facility], [address] [place] [address] Beverley Moulton MD, Sales Service Technician [facility]# [id number] 03/15/2023 10:0 0 AM EDT 03/15/2023 10:03 AM EDT us Torsten Burris MD LAB BLOOD ORDERABLES Final Re sult [facility] from Last 3 Months or Most Recently Relevant to Health Maintenance Insurance [facility] Member Subscriber Plan / Payer (Ef fective 2024-Present) Name:Lelo Murraygail Relation to Subscriber:Self Name:Blaire Murray Payer ID:Not on file Type:Not on file Address: [address] [phone] Medicaid [place] Care Teams Entry Level Installation Technician Relationship Specialty Start Date End Date Marisela Oscar MD [address] [place] [address] PCP - General Internal Medicine 08/23/22
--- OUTSIDE RECORDS SUMMARY | 2025-07-23 11:25 | XMS_ITS | Patient Health Record ---
Author Organization [facility] Address [address] [place] [address] Care Team Providers Care Brand Sales Manager Name Role Phone Marisela Oscar MD Primary Care Provider Unavaila ble Black, Taylor Unavailable [phone] Allergies Allergen (clinical drug ingredient) Drug/Non Drug Allergy documented on EMR Reaction Allergy Type Onset Date Status ibuprofen Advil Unknown Drug Allergy Active Results Component Value Reference Range Notes HEMOGLOBIN A1C (GLYCOHEMOGLO BIN) Reviewed date:07/14/2025 08:21:06 AM Interpretation: Performing Lab: Notes/Report: HEMOGLOBIN A1C % (HH) 7.2 Reason For Referral No Information Medications Medication SIG (Take, Route, Frequency, Duration) Notes Start Date End Date Status Pradaxa 150 MG 1 capsule Orally Twi ce a day; Duration: 30 day(s) Not-Taking Eliquis Active Acetaminophen Extra Strength 500 MG 2 tablet as needed Orally every 6 hrs; Duration: 10 days 08/07/2021 Not-Taking Extra Depth Orthopedic Shoes (1 Pair) with Customized Heat Molded Multidensity Innersoles (3 Pair) as directed Dx: NIDDM (E11.9), Hammertoe Foot Deformity (M20.41,M20.42), Preulcerative Skin Lesion(s) (L85.1) 07/14/2025 Active CoQ-10 Active dilTIAZem HCl ER Coated Beads 360 MG 1 capsule Orally Once a day; Duration: 30 day(s) Not-Taking Digoxin Active Furosemide Active Hydralazine-HCTZ Not -Taking Spironolactone Activ e Rosuvastatin Calcium Not-Taking Iron Active Atorvastatin Calcium 80 MG 1 tablet Orally Once a day; Duration: 30 day(s) Active Farxiga Active Metoprolol Succinate 200 MG 1 capsule Orally Once a day; Duration: 30 day(s) Active Vitamin D3 Active metFORMIN HCl 1000 MG 1 tablet with a me al Orally Once a day; Duration: 30 day(s) Not-Taking Tylenol Active Triamterene-HCTZ 37.5-25 MG 1 tablet in the morning Orally Once a day; Duration: 30 day(s) Not-Taking Uptravi Active Olmesartan Medoxomil 40 MG 1 tablet Orally Once a day; Duration: 30 day(s) Not-Taking Opsynvi Active Lisinopril 40 MG 1 tablet Orally Once a day; Duration: 30 day(s) Not-Taking Immunizations Vaccine Route Administration Date Status Comme nts Influenza Unknown 09/08/2024 Administered Social History Tobacco Use: Social History Observation Description Date Details (start date - stop date) Never Smoker NA - NA Tobacco use other than smoking: Question Answer Notes Are you an other tobacco user? No Tobacco Control (Standard) Question Answer Notes Tobacco use: Nonsmoker Additional Findings: Tobacco non-user Current no nsmoker AUDIT-C (Standard) Question Answer Notes Did you have a [...] (0 point) How often did you have six o r more drinks on one occasion in the past year? 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 Vital Signs Blood pressure diastolic 75 mm Hg 07/14/2025 Height 5 ft 4 in in 07/14/2025 Blood pressure systolic 120 mm Hg 07/14/2025 Weight 189 lbs 07/14/2025 BMI 32.44 kg/m2 07/14/2025 Procedures Procedure Date Ordered Date Performed Result Body Sit e 45772-Fhwtpczm Plate 07/14/2025 N/A Encounters Encounter [facility] Date [facility] [phone] 07/14/2025 Taylor Kenney Ingrown nail L60.0 ; Other hammer toe(s) (acquired), right foot M20.41 ; Pain in right toe(s) M79.674 ; Pain in left toe(s) M79.675 ; Type 2 diabetes mellitus without complication E11.9 ; Other hammer toe(s) (acquired), left foot M20.42 and Diabetes mellitus with kidney disease E11.[address] [facility] [phone] 05/17/2025 Taylor Kenney [facility] [phone] 06/02/2025 Taylor Kenney Assessments Encounter Date Diagnosis (ICD Code) Assessment Notes Treatment Notes Treatment Clinical Notes Section Notes 07/14/2025 Other hammer toe(s) (acquired), right foot (ICD-10 - M20.41) Patient Educated with: DIABETIC FOOT CARE INSTRUCTIONS.p df (DIABETIC FOOT CARE INSTRUCTIONS.p df) 07/14/2025 Ingrown nail (ICD-10 - L60.0) 07/14/2025 Pain in right toe(s) (ICD-10 - M79.674) 07/14/2025 Pain in left toe(s) (ICD-10 - M79.675) 07/14/2025 Type 2 diabetes mellitus without complication (ICD-10 - E11.9) 07/14/2025 Other hammer toe(s) (acquired), left foot (ICD-10 - M20.42) 07/14/2025 Diabetes mellitus with kidney disease (ICD-10 - E11.21) Plan Of Treatment Pending Test Test Name Order Date [id number]-PZFGWHE NAIL, 6 OR MORE 09/29/2021 04420-Qlkjixau Plate 07/14/2025 69811-Zdzthmvx Plate 08/14/2019 98744- Debride <25 sq cm 08/28/2019 L0780-NIGHEODP DYSTROPHIC NAILS ANY # Next Appt Details Provider Name:Taylor Kenney , 07/27/2025 02:15:00 PM, [address] [place] [address], [place], [phone], Insurance Providers Payer Name Payer Address Payer Phone Subscriber Number Group Number Insured Name Patient Relationship to Insured Coverage Start Date Coverage End Date [employer] [place] [employer]vantage [address] [place] [address] [phone] [id number] Blaire Gold Self - patient is the insured 4 Medical (General) History Medical History History ICD Code Arthritis Back,Hip,and Knee pain Diabetic High blood pressure Keloid/Thick Scar Reflux ( GERD) Measles Mumps Chicken pox A fib Kidney disease Lung disease Surgical History Surgery Date(Month/Year) hysterectomy 2014 Keliod Ears 70's excision of skin lesion 5th R 08/30/2021
--- OUTSIDE RECORDS SUMMARY | 2025-07-23 11:25 | XMS_ITS | Encounter Summary ---
Author Organization [facility] Address [address] [place] [address] Care Team Providers Care Wood Polisher Name Role Phone Marisela Oscar MD Primary Care Provider Claudia Jean-Baptiste MD Unavailable [phone] Encounter Details Date Type Department Care Team (Late Contact Info) Description 08/09/2023 Scanned Document [facility] Pulmonary [address] [phone] Pulmonology, Scan Social History Tobacco Use Types [...] Description 08/09/2025 2:00 PM EDT Office Visit [facility] Pulmonary [address] [phone] Luisana Lomas PA-C [address] [place] [address] 01/10/2026 2:20 PM EST Office Visit [facility] [place] [address] [phone] Claudia Jean-Baptiste MD [address] [place] [address] documented as of this encounter Visit Diagnoses Not on filedocumented in this encounter Care Teams Wood Polisher Relationship Specialty Start Date End Date Marisela Oscar MD [address] [place] [address] PCP - General 05/10/23 Claudia [place]-Baptiste MD [address] [place] [address] Primary Wind Technician Cardiovascular Disease 09/03/23 documented as of this encounter
--- OUTSIDE RECORDS SUMMARY | 2025-07-23 11:25 | XMS_ITS | Encounter Summary ---
Author Organization Formerly [facility] Address [address] [place] [address] Care Team Providers Care Nuclear Process Engineer Name Role Phone Marisela Oscar MD Primary Care Provider [phone] Claudia Jean-Baptiste MD Unavailable [phone] Encounter Details Date Type Department Care Team (Late st Contact Info) Description 07/09/[address] [phone] [place] Irizarry MD [address] [place] [address] Social History Tobacco Use Types Packs/Day Years [...] 07/09/2025 2:10 PM EDT Phone number is [phone] * Telephone Encounter - Blane Anthony MA [...] 08/09/2025 2:00 PM EDT Office Visit [facility] [place] [address] [place] [address] Luisana Lomas PA-C [address] [place] [address] 01/10/2026 2:20 PM EST Office Visit [facility] [place] [address] [place] [phone] Claudia Jean-Baptiste MD [address] [place] [address] documented as of this encounter Visit Diagnoses Not on filedocumented in this encounter Care Teams Nuclear Process Engineer Relationship Specialty Start Date End Date Marisela Oscar MD [address] [place] [address] PCP - General 05/10/23 Claudia Jean-Baptiste MD [address] [place] [address] Primary Sweet Potato Disintegrator Cardiovascular Disease 09/03/23 documented as of this encounter
== END 2025-07-23 11:22 | disposition home or self-care (01) ==
LOC: HO.HMCC 10:22
PROVIDERS: PCP Internal Medicine; Visit Provider Internal Medicine
DX: I27.20 Pulmonary hypertension, unspecified (principal); I48.19 Other persistent atrial fibrillation; E11.9 Type 2 diabetes mellitus without complications; N18.30 Chronic kidney disease, stage 3 unspecified

== ENCOUNTER → 2025-07-23 10:21 | Outpatient (BNVA) | payer MEDICARE, MEDICAID, SELFPAY | PROVIDERS: PCP Internal Medicine; Visit Provider Internal Medicine | DX: E11.22 Type 2 diabetes mellitus with diabetic chronic kidney disease (principal); I48.91 Unspecified atrial fibrillation; I27.20 Pulmonary hypertension, unspecified; I48.19 Other persistent atrial fibrillation; N18.30 Chronic kidney disease, stage 3 unspecified | CPT/HCPCS: 99212 ==

== ENCOUNTER → 2025-08-02 09:14 | Outpatient (REF) | payer MEDICARE, MEDICAID, SELFPAY ==
--- NOTE | 2025-08-02 09:16 | HM_ITS ---
* Total monitoring time 3 days. * Underlying rhythm is atrial fibrillation with an average rate of 92/Min. * About 23% of the time, rate > 100/Min. * Rare ventricular ectopy. * No significant pauses or high-grade AV blocks. * No patient markers or diary events. MTDD
--- OUTSIDE RECORDS SUMMARY | 2025-08-02 10:53 | XMS_ITS | Clinical Summary ---
Author Organization [facility] Address [address] [place] [address] Care Team Providers Care Office Equipment Mechanic Name Role Phone Marisela Oscar MD Primary Care Provider [phone] Claudia Jean-Baptiste MD Unavailable [phone] Allergies No known active allergies Medications dapagliflozin 10 MG tablet Take 1 tablet (10 mg total) by mouth. 10/09/20 22 Active digoxin (LANOXIN) 0.125 mg tablet Take 1 tablet (0.125 mg total) by mouth. Active Senna-Time 8.6 MG Tab tablet TAKE 2 TABLETS BY MOUTH AT BEDTIME FOR CONSTIPATION 06/23/20 23 Active apixaban (ELIQUIS) 5 MG tablet Take 1 tablet (5 mg total) by mouth 2 (two) times a day. Active selexipag (UPTRAVI) 600 MCG tabletIndications: PAH (pulmonary artery hypertension) (HCC) Take 1 tablet (600 mcg total) by mouth 2 (two) times a day. 60 tablet 3 09/03/20 23 Active GaviLAX 17 GM/SCOOP powder DISSOLVE 1 CAPFUL (17G) IN WATER AND DRINK BY MOUTH ONCE DAILY *NC* 08/01/20 23 Active Cholecalciferol (Vitamin D) 50 MCG (1999) tablet TAKE 1 TABLET BY MOUTH 1 TIME EACH DAY. 01/10/20 24 Active clobetasol (TEMOVATE) 0.05 % cream APPLY TOPICALLY ONCE DAILY 01/13/20 24 Active atorvastatin (LIPITOR) 40 MG tabletIndications: At risk for heart disease,Hyperlipid emia, unspecified hyperlipidemia type Take 1 tablet (40 mg total) by mouth daily. 90 tablet 3 10/14/20 24 Active furosemide (LASIX) 20 MG tabletIndications: PAH (pulmonary artery hypertension) (HCC) TAKE 3 TABLETS BY MOUTH EVERY DAY 270 tablet 3 12/15/19 25 Active Ozempic, 0.25 or 0.5 MG/DOSE, 2 MG/3ML prefilled pen injection INJECT 0.25 MG (0.368 ML) SUBCUTANEOUSLY EVERY WEEK FOR 4 WEEKS 12/30/19 25 Active Opsynvi 10-40 MG Tab 03/24/20 25 Active spironolactone (ALDACTONE) 25 MG tabletIndications: PAH (pulmonary artery hypertension) (HCC) Take 0.5 tablets (12.5 mg total) by mouth daily. 45 tablet 3 06/28/20 25 Active Active Problems Problem Noted Date Diagnosed [...] Type Department Care Team Description 07/09/[address] [facility] Pul[facility] [place] [address] [place] [address] [place] Irizarry MD 06/30/2025 Telephone [facility] [place] [address] [address] Claudia Jean-Baptiste MD Other 06/30/[address] [facility] Pulmonary [address] [place] [phone] [place] Irizarry MD 06/28/2025 1:40 PM EDT Office Visit [facility] [place] [address] [address] Claudia Jean-Baptiste MD Hyperlipidemia, unspecified hyperlipidemia type (Primary Dx); PAH (pulmonary artery hypertension) (HCC); Permanent atrial fibrillation (HCC); Essential hypertension ; Secondary hypercoagulable state; Current use of mcfp anticoagulation; Preop cardiovascular exam 06/28/2025 Travel from Last 3 Months Social History [...] Description 08/09/2025 2:00 PM EDT Office Visit [facility] [place] [address] [place] [address] Luisana Lomas PA-C [address] [place] [address] 01/10/2026 2:20 PM EST Office Visit [facility] [place] [address] [address] Claudia Jean-Baptiste MD [address] [place] [address] Health Maintenance Due Date Last Done Comments [...] PM EDT) Ventricular rate 107 BPM EKG [facility] QRS duration 82 ms EKG [facility] Q-T interval 336 ms EKG [facility] QTC calculation (Bazett) 448 ms EKG [facility] R axis -19 degrees EKG [facility] T axis 143 degrees EKG [facility] 06/28/2025 1:36 PM EDT Narrative EKG [facility] - 06/28/2025 2:17 PM EDT Atrial [...] Claudia Jean-Baptiste MD ECG ORDERABLES Final Result [facility] * SHAPE TEST (05/02/2025 2:40 PM [...] 0.4 230 02/19/24 46 29 0.6 488 3/19/25 53 33 -1.1 244 04/27/25 46 29 [...] Division of Pulmonary, Critical Care, and Sleep [facility]' us [place] Irizarry MD AMB ORDERABLE PERFORMABLE Final Result * (ABNORMAL) Comprehensive Metabolic Panel (02/26/2025 9:24 AM EDT) Glucose 115(H) 65 - 99 mg/dL [facility] Comment: Fasting reference interval For someone without known diabetes, a glucose value between 100 and 125 mg/dL is consistent with prediabetes and should be confirmed with a follow-up test. Blood Urea Nitrogen (BUN) 41(H) 7 - 25 mg/dL [facility] Creatinine 1.62(H) 0.50 - 1.05 mg/dL [facility] Creatinine w/ eGFR 34(L) > OR = 60 mL/min/1. 73m2 [facility] BUN/Creatinine Ratio 25(H) 6 - 22 (calc) [facility] Sodium 140 135 - 146 mmol/L [facility] Potassium 4.1 3.5 - 5.3 mmol/L [facility] Chloride 107 98 - 110 mmol/L [facility] CO2 25 20 - 32 mmol/L [facility] Calcium 9.2 8.6 - 10.4 mg/dL [facility] Protein, Total 6.5 6.1 - 8.1 g/dL [facility] Albumin 4.2 3.6 - 5.1 g/dL [facility] Globulin 2.3 1.9 - 3.7 g/dL (calc) [facility] Albumin/Globulin Ratio 1.8 1.0 - 2.5 (calc) [facility] Bilirubin, Total 0.3 0.2 - 1.2 mg/dL [facility] Alkaline Phosphatase 59 37 - 153 U/L [facility] Aspartate Aminotrans (AST) 11 10 - 35 U/L [facility] Alanine Aminotrans (ALT) 7 6 - 29 U/L [facility] Blood Blood specimen / Unknown 02/26/2025 9:24 AM EDT 02/26/2025 9:25 AM EDT Narrative [facility] - 02/26/2025 10:00 PM EDT FASTING:YES FASTING: YES [place] Irizarry MD LAB BLOOD ORDERABLES Final Resul t [facility] [address] [place] [phone] from Last 3 Months or Most Recently Relevant to Health Maintenance Insurance [facility] MEDICARE [facility] Advance Directives * Full Code (Latest Code Status on File) Date Activated Date Inactivated Comments 07/11/2023 7:23 AM Care Teams Office Equipment Mechanic Relationship Specialty Start Date End Date Marisela Oscar MD [address] [place] [address] PCP - General 05/10/23 Claudia Jean-Baptiste MD [address] [place] [address] Primary Multi Share Program Coordinator Cardiovascular Disease 09/03/23
--- OUTSIDE RECORDS SUMMARY | 2025-08-02 10:53 | XMS_ITS | Encounter Summary ---
Author Organization [facility] Address [address] [place] [address] Care Team Providers Care Trailer Driver Name Role Phone Marisela Oscar MD Primary Care Provider Claudia Jean-Baptiste MD Unavailable [phone] Encounter Details Date Type Department Care Team (Late Contact Info) Description 05/10/2023 Scanned Document [facility] Pulmonary [address] [address] Pulmonary, Scan Social History Tobacco Use Types [...] Description 08/09/2025 2:00 PM EDT Office Visit [facility] Pulmonary [address] [phone] Luisana Lomas PA-C [address] [place] [address] 01/10/2026 2:20 PM EST Office Visit [facility] [place] [address] [place] [address] Claudia Jean-Baptiste MD [address] [place] [address] documented as of this encounter Visit Diagnoses Not on filedocumented in this encounter Care Teams Trailer Driver Relationship Specialty Start Date End Date Marisela Oscar MD [address] [place] [address] PCP - General 05/10/23 Claudia Jean-Baptiste MD [address] [place] [address] Primary Chicken Tender Cardiovascular Disease 09/03/23 documented as of this encounter
--- OUTSIDE RECORDS SUMMARY | 2025-08-02 10:53 | XMS_ITS | Encounter Summary ---
Author Organization [facility] Address [address] [place] [address] Care Team Providers Care Wound Nurse Name Role Phone Marisela Oscar MD Primary Care Provider [phone] Claudia Jean-Baptiste MD Unavailable [phone] Reason for Visit * Reason Comments Advice Only Encounter Details Date Type Department Care Team (Late Contact Info) Description 10/21/2024 Telephone [facility] Pulmonary [address] [place] [phone] [place] Irizarry MD [address] [address] Advice Only Social History Tobacco Use Types [...] Description 08/09/2025 2:00 PM EDT Office Visit [facility] Pulmonary [address] [phone] Luisana Lomas PA-C [address] [address] 01/10/2026 2:20 PM EST Office Visit [facility] [place] [address] [place] [phone] Claudia Jean-Baptiste MD [address] [place] [address] documented as of this encounter Visit Diagnoses Not on filedocumented in this encounter Care Teams Wound Nurse Relationship Specialty Start Date End Date Marisela Oscar MD [address] [place] [address] PCP - General 05/10/23 Claudia Jean-Baptiste MD [address] [place] [address] Primary Internet Sourcer Cardiovascular Disease 09/03/23 documented as of this encounter
--- OUTSIDE RECORDS SUMMARY | 2025-08-02 10:53 | XMS_ITS | Patient Health Record ---
Author Organization [facility] Address [address] [place] [address] Care Team Providers Care Pest Control Worker Helper Name Role Phone Marisela Oscar MD Primary Care Provider Unavaila ble Black, Taylor Unavailable [phone] Allergies Allergen (clinical drug ingredient) Drug/Non Drug [...] Duration) Notes Start Date End Date Status Atorvastatin Calcium 80 MG 1 tablet Orally Once a day; Duration: 30 day(s) Active Acetaminophen Extra Strength 500 MG 2 tablet as needed Orally every 6 hrs; Duration: 10 days 08/07/2021 Not-Taking Pradaxa 150 MG 1 capsule Orally Twi ce a day; Duration: 30 day(s) Not-Taking Uptravi Active Rosuvastatin Calcium Not-Taking Spironolactone Activ e Hydralazine-HCTZ Not -Taking Furosemide Active Extra Depth Orthopedic Shoes (1 Pair) with Customized Heat Molded Multidensity Innersoles (3 Pair) as directed Dx: NIDDM (E11.9), Hammertoe Foot Deformity (M20.41,M20.42), Preulcerative Skin Lesion(s) (L85.1) 07/14/2025 Active Farxiga Active Metoprolol Succinate 200 MG 1 capsule Orally Once a day; Duration: 30 day(s) Active CoQ-10 Active Triamterene-HCTZ 37.5-25 MG 1 tablet in the morning Orally Once a day; Duration: 30 day(s) Not-Taking Tylenol Active metFORMIN HCl 1000 MG 1 tablet with a me al Orally Once a day; Duration: 30 day(s) Not-Taking Vitamin D3 Active Lisinopril 40 MG 1 tablet Orally Once a day; Duration: 30 day(s) Not-Taking Opsynvi Active Olmesartan Medoxomil 40 MG 1 tablet Orally Once a day; Duration: 30 day(s) Not-Taking Iron Active Eliquis Active Digoxin Active dilTIAZem HCl ER Coated Beads 360 [...] Problem Acquired hammer toe of right foot (710099464527220 5) Other hammer toe(s) (acquired), right foot (M20.41) Active confirmed Problem Acquired hammer toe of left foot (429103128670492 3) Other hammer toe(s) (acquired), left foot (M20.42) Active confirmed Problem Type II diabetes mellitus without complication (866099276) Type 2 diabetes mellitus without complication (E11.9) Active confirmed Problem Ulcer of toe of left foot (disorder) (652993082029392 02) Skin ulcer of toe of left foot, limited to breakdown of skin (L97.521) Active confirmed Problem Diabetic renal disease (457934198) 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) Active confirmed Vital Signs Blood pressure diastolic 75 mm Hg 07/27/2025 Height 5ft 4in in 07/27/2025 Blood pressure systolic 120 mm Hg 07/27/2025 Weight 189 lbs 07/27/2025 BMI 32.44 kg/m2 07/27/2025 Procedures Procedure Date Ordered Date Performed Result Body Sit e 23128-Edkvoqum Plate 07/14/2025 N/A 52026- Debride <25 sq cm 07/27/2025 N/A Encounters Encounter Location Date Provider Diagnosis [address] [address] 07/14/2025 Taylor Black Ingrown nail L60.0 ; Other hammer toe(s) (acquired), right foot M20.41 ; Pain in right toe(s) M79.674 ; Pain in left toe(s) M79.675 ; Type 2 diabetes mellitus without complication E11.9 ; Other hammer toe(s) (acquired), left foot M20.42 and Diabetes mellitus with kidney disease E11.[address] [address] 07/27/2025 Taylor Black Skin ulcer of toe of left foot, limited to breakdown of skin L97.[address] [address] 05/17/2025 [facility] [address] 06/02/2025 Taylor Black Assessments Encounter Date Diagnosis (ICD Code) Assessment Notes Treatment Notes Treatment Clinical Notes Section Notes 07/14/2025 Other hammer toe(s) (acquired), right foot (ICD-10 - M20.41) Patient Educated with: DIABETIC FOOT CARE INSTRUCTIONS.p df (DIABETIC FOOT CARE INSTRUCTIONS.p df) 07/14/2025 Ingrown nail (ICD-10 - L60.0) 07/27/2025 Skin ulcer of toe of left foot, limited to breakdown of skin (ICD-10 - L97.521) Patient Educated with: WOUND CARE INSTRUCTIONS.p df (WOUND CARE INSTRUCTIONS.p df) 07/14/2025 Pain in right toe(s) (ICD-10 - M79.674) 07/14/2025 Pain in left toe(s) (ICD-10 - M79.675) 07/14/2025 Type 2 diabetes mellitus without complication (ICD-10 - E11.9) 07/14/2025 Other hammer toe(s) (acquired), left foot (ICD-10 - M20.42) 07/14/2025 Diabetes mellitus with kidney disease (ICD-10 - E11.21) Plan Of Treatment Pending Test Test Name Order Date [id number]-WYHIDQI NAIL, 6 OR MORE 09/29/2021 11889-Ncsumxfb Plate 07/14/2025 77730-Owpdwbyf Plate 08/14/2019 57474- Debride <25 sq cm 08/28/2019 61325- Debride <25 sq cm 07/27/2025 X4000-EXWHWAPH DYSTROPHIC NAILS ANY # Next Appt Details Provider Name:Taylor Kenney , 10/27/2025 02:30:00 PM, [address] [facility], [place], [address], Insurance Providers Payer Name Payer Address Payer Phone Subscriber Number Group Number Insured Name Patient Relationship to Insured Coverage Start Date Coverage End Date [employer] [place] [employer]vantage [facility] [address] [place] [address] [id number] Blaire Gold Self - patient is the insured 4 Medical (General) History Medical History History ICD Code Arthritis Back,Hip,and Knee pain Diabetic High blood pressure Keloid/Thick Scar Reflux ( GERD) Measles Mumps Chicken pox A fib Kidney disease Lung disease Surgical History Surgery Date(Month/Year) 1980/1982 hysterectomy 2014 Keliod Ears 70's excision of skin lesion 5th R 08/30/2021
--- OUTSIDE RECORDS SUMMARY | 2025-08-02 10:53 | XMS_ITS | Encounter Summary ---
Author Organization [facility] Address [address] [place] [address] Care Team Providers Care Actuarial Analyst Name Role Phone Marisela Oscar MD Primary Care Provider Claudia Jean-Baptiste MD Unavailable [phone] Encounter Details Date Type Department Care Team (Late st Contact Info) Description 09/21/2024 Scanned Document [facility] Pulmonary [address] [place] [phone] Raheem Lynne, RN [address] [address] Social History Tobacco Use Types Packs/Day Years [...] 08/09/2025 2:00 PM EDT Office Visit [facility] Pulmonary [address] [phone] Luisana Lomas PA-C [address] [address] 01/10/2026 2:20 PM EST Office Visit [facility] [address] [place] [phone] Claudia Jean-Baptiste MD [address] [place] [address] documented as of this encounter Visit Diagnoses Not on filedocumented in this encounter Care Teams Actuarial Analyst Relationship Specialty Start Date End Date Marisela Oscar MD [address] [place] [address] PCP - General 05/10/23 Claudia Jean-Baptiste MD [address] [place] [address] Primary Brazer Helper Induction Cardiovascular Disease 09/03/23 documented as of this encounter
--- OUTSIDE RECORDS SUMMARY | 2025-08-02 10:53 | XMS_ITS | Encounter Summary ---
Author Organization [facility] Address [address] [place] [address] Care Team Providers Care Behavior Analyst Name Role Phone Marisela Oscar MD Primary Care Provider [phone] Claudia Jean-Baptiste MD Unavailable [phone] Encounter Details Date Type Department Care Team (Late st Contact Info) Description 07/09/[address] [phone] [place] Irizarry MD [address] [place] [address] Social History Tobacco Use Types Packs/Day Years [...] 07/09/2025 2:10 PM EDT Phone number is [phone] * Telephone Encounter - Blane Anthony MA [...] 08/09/2025 2:00 PM EDT Office Visit [facility] Pul[facility] [place] [address] [place] [address] Luisana Lomas PA-C [address] [place] [address] 01/10/2026 2:20 PM EST Office Visit [facility] [place] [address] [place] [phone] Claudia Jean-Baptiste MD [address] [place] [address] documented as of this encounter Visit Diagnoses Not on filedocumented in this encounter Care Teams Behavior Analyst Relationship Specialty Start Date End Date Marisela Oscar MD [address] [place] [address] PCP - General 05/10/23 Claudia Jean-Baptiste MD [address] [place] [address] Primary Faculty Instructor Cardiovascular Disease 09/03/23 documented as of this encounter
--- OUTSIDE RECORDS SUMMARY | 2025-08-02 10:53 | XMS_ITS | Continuity of Care Document ---
Author Organization [facility] Address [address] [place] [address] Insurance Providers Payer Plan Claims Address Claims Phone Policy Number Group Number Relation Employer Guarantor Name Guarantor Guarantor Address Guarantor Phone [facility], [address], [place] [address] tel:[phone] [id number] [phone] [id number] Self Blaire Murray [address] [place] [address] [facility] tel:[phone] [phone] [id number] [id number] Self Blaire Murray [address] [place] [address] [facility] Medic are [id number] Self Blaire Murray [address] [place] [address] Problems Unknown Problems Results Test Result Date/Time Value / Unit Interp. Refere [facility] Range LIPID PANEL, STANDARD[7600] Collected: 03/19/2025 01:42 PM Specimen Received: 03/19/2025 01:44 PM Source: QuestFASTING:YESFASTING: YES CHOLESTEROL, TOTAL [[id number]] 03/20/2025 07:25 PM 134 mg/dL N 200 mg/dL HDL CHOLESTEROL [[id number]] 03/20/2025 07:25 PM 44 mg/dL L > OR = 50 mg/dL TRIGLYCERIDES [[id number]] 03/20/2025 07:25 PM 84 mg/dL N 150 mg/dL LDL-CHOLESTEROL [[id number]] 03/20/2025 07:25 PM 7 4 mg/dL (calc) N Reference range: or = 2 CHD risk factors. LDL-C is now calculated using the Krystal calculation, which is a validated novel method providing better accuracy than the Friedewald equation in the estimation of LDL-C. Amauri SS et al. SHRUTHI. 2013;310(58): 9878-2471 (http://Chemclin.C2C REI Software/faq/ABB939) CHOL/HDLC RATIO [[id number]] 03/20/2025 07:25 PM 3.0 (calc) N 5.0 (calc) NON HDL CHOLESTEROL [[id number]] 03/20/2025 07:25 PM 90 mg/dL (calc) N 130 mg/dL (calc) For patients with diabetes p donavan 1 major ASCVD risk factor, treating to a non-HDL-C goal of 100 mg/dL (LDL-C of <70 mg/dL) is considered a therapeutic option. ALBUMIN, RANDOM URINE W/CREA AZAEL[[id number]] Collected: 03/19/2025 01:42 PM Specimen Received: 03/19/2025 01:44 PM Source: QuestFASTING:YESFASTING: YES CREATININE, RANDOM URINE [[id number]] 03/20/2025 07:25 PM 150 mg/dL N 20-275 mg/dL ALBUMIN, URINE [[id number]] 03/20/2025 07:25 PM 3.4 mg/dL N See Note: mg/dL Reference Range:Reference Ra ngeNot established ALBUMIN/CREATININE RATIO, RANDOM URINE [[id number]] 03/20/2025 07:25 PM 23 mg/g creat N 30 m g/g creat The ADA defines abnormalitie s in albuminexcretion as follows: Albuminuria Category Result (mg/g creatinine) Normal to Mildly increased OR = 300 The ADA recommends that at least two of threespecimens collected within a 3-6 month period beabnormal before considering a patient to bewithin a diagnostic category. COMPREHENSIVE METABOLIC PANE L[[id number]] Collected: 03/19/2025 01:42 PM Specimen Received: 03/19/2025 01:44 PM Source: QuestFASTING:YESFASTING: YES GLUCOSE [[id number]] 03/20/2025 07:25 PM 158 mg/dL H 65-99 mg/dL Fasting reference interval F or someone without known diabetes, a glucosevalue >125 mg/dL indicates that they may havediabetes and this should be confirmed with afollow-up test. UREA NITROGEN (BUN) [] 03/20/2025 07:25 PM 39 mg/dL H 7-25 mg/dL CREATININE [] 03/20/2025 07:25 PM 1.73 mg/dL H 0.50-1.05 mg/dL EGFR [[id number]] 03/20/2025 07:25 PM 32 mL/min/1.73m2 L > OR = 60 mL/min/1.73m2 BUN/CREATININE RATIO [[id number]] 03/20/2025 07:25 PM 23 (calc) H 6-22 (calc) SODIUM [[id number]] 03/20/2025 07:25 PM 138 mmol/L N 135-146 mmol/L POTASSIUM [[id number]] 03/20/2025 07:25 PM 4.2 mmol/L N 3.5-5.3 mmol/L CHLORIDE [[id number]] 03/20/2025 07:25 PM 105 mmol/L N 98-110 mmol/L CARBON DIOXIDE [[id number]] 03/20/2025 07:25 PM 24 mmol/L N 20-32 mmol/L CALCIUM [[id number]] 03/20/2025 07:25 PM 9.0 mg/dL N 8.6-10.4 mg/dL PROTEIN, TOTAL [[id number]] 03/20/2025 07:25 PM 6.7 g/dL N 6.1-8.1 g/dL ALBUMIN [[id number]] 03/20/2025 07:25 PM 4.0 g/dL N 3.6-5.1 g/dL GLOBULIN [[id number]] 03/20/2025 07:25 PM 2.7 g/dL (calc) N 1.9-3.7 g/dL (calc) ALBUMIN/GLOBULIN RATIO [[id number]] 03/20/2025 07:25 PM 1.5 (calc) N 1.0-2.5 (jose david c) BILIRUBIN, TOTAL [[id number]] 03/20/2025 07:25 PM 0.3 mg/dL N 0.2-1.2 mg/d L ALKALINE PHOSPHATASE [] 03/20/2025 07:25 PM 62 U/L N 37-153 U/L AST [] 03/20/2025 07:25 PM 9 U/L L 1 0-35 U/L ALT [] 03/20/2025 07:25 PM 7 U/L N 6 -29 U/L HEMOGLOBIN A1c[496] Collected: 03/19/2025 01:42 PM Specimen Received: 03/19/2025 01:44 PM Source: QuestFASTING:YESFASTING: YES HEMOGLOBIN A1c [[id number]] 03/20/2025 07:25 PM 6.7 % H 5.7 % For someone without known di abetes, a hemoglobin B3tsqvgk of 6.5% or greater indicates that they [...] of diabetes for children. Clinical PDF Report [id number] H-1[ClinicalPDFReport1] Collected: 03/19/2025 01:42 PM Specimen Received: 03/19/2025 01:44 PM Source: QuestFASTING:YESFASTING: YES Clinical PDF Report [id number] [ClinicalPDFReport1] INEZ Comp. Metabolic Panel (14)[[id number]] Collected: 09/23/2024 06:37 PM Specimen Received: 09/23/2024 05:00 AM Source: [facility] Glucose [[id number]] 09/24/2024 05:44 AM 148 mg/dL H 70-99 mg/dL BUN [[id number]] 09/24/2024 05:42 AM 36 mg/dL H 8-2 7 mg/dL Creatinine [[id number]] 09/24/2024 05:44 AM 1.67 mg/dL H 0.57-1.00 mg/dL eGFR [[id number]] 09/24/2024 05:44 AM 33 mL/min/1.73 L >59 mL/min/1.73 BUN/Creatinine Ratio [[id number]] 09/24/2024 05:44 AM 22 12-28 Sodium [000010] 09/24/2024 05:42 AM 138 mmol/L 134-144 mmol/L Potassium [[id number]] 09/24/2024 05:48 AM 4.4 mmol/L 3.5-5.2 mmol/L Chloride [815286] 09/24/2024 05:41 AM 104 mmol/L 96-106 mmol/L Carbon Dioxide, Total [[id number]] 09/24/2024 05:41 AM 18 mmol/L L 20-29 mmol/L Calcium [379206] 09/24/2024 03:49 AM 8.9 mg/dL 8.7-10.3 mg/dL Protein, Total [[id number]] 09/24/2024 05:52 AM 6.4 g/dL 6.0-8.5 g/dL Albumin [[id number]] 09/24/2024 05:43 AM 4.0 g/dL 3.9-4.9 g/dL Globulin, Total [801483] 09/24/2024 05:52 AM 2.4 g/dL 1.5-4.5 g/dL Bilirubin, Total [677117] 09/24/2024 03:51 AM 0.2 mg/dL 0.0-1.2 mg/dL Alkaline Phosphatase [290436] 09/24/2024 05:44 AM 87 IU/L 44-121 IU/L AST (SGOT) [[id number]] 09/24/2024 05:46 AM 15 IU/L 0-40 IU/L ALT (SGPT) [048283] 09/24/2024 05:48 AM 10 IU/L 0-32 IU/L Lipid Panel[[id number]] Collected: 09/23/2024 06:37 PM Specimen Received: 09/23/2024 05:00 AM Source: [facility] Cholesterol, Total [[id number]] 09/24/2024 06:02 AM 149 mg/dL 100-199 mg/d L Triglycerides [630228] 09/24/2024 05:54 AM 124 mg/dL 0-149 mg/dL HDL Cholesterol [052384] 09/24/2024 05:52 AM 47 mg/dL >39 mg/dL VLDL Cholesterol Jose David [[id number]] 09/24/2024 06:02 AM 22 mg/dL 5-40 mg/dL LDL Chol Calc ([facility]) [[id number]] 09/24/2024 06:02 AM 80 mg/dL 0-99 mg/dL Albumin/Creatinine Ratio,Uri ne[[id number]] Collected: 09/23/2024 06:37 PM Specimen Received: 09/23/2024 05:00 AM Source: [facility] Creatinine, Urine [[id number]] 09/25/2024 07:29 PM 107.7 mg/dL Not Estab. mg/dL Albumin, Urine [[id number]] 09/25/2024 07:40 PM 33.9 ug/mL Not Estab. ug/mL Alb/Creat Ratio [044987] 09/25/2024 07:40 PM 31 mg/g creat H 0-29 mg/g creat Normal: 0 - 29 Moderately i ncreased: 30 - 300 Severely increased: >300 Hemoglobin A1c[[id number]] Collected: 09/23/2024 06:37 PM Specimen Received: 09/23/2024 05:00 AM Source: [facility] Hemoglobin A1c [[id number]] 09/24/2024 04:05 AM 9.1 % H 4.8-5.6 % . Prediabetes: 5.7 - 6.4 Theresa betes: >6.4 Glycemic control for adults with diabetes: 7.0 Allergies, adverse reactions, alerts No known allergies and adverse reactions Medications No administered medications reported Vital Signs No vital signs reported Social History No smoking Hx information available
--- OUTSIDE RECORDS SUMMARY | 2025-08-02 10:53 | XMS_ITS | Encounter Summary ---
Author Organization [facility] Address [address] [place] [address] Care Team Providers Care Switchboard Operator Receptionist Name Role Phone Marisela Oscar MD Primary Care Provider [phone] Claudia Jean-Baptiste MD Unavailable [phone] Encounter Details Date Type Department Care Team (Late Contact Info) Description 08/09/2023 Scanned Document [facility] Pulmonary [address] [address] Pulmonology, Scan Social History Tobacco Use Types [...] 08/09/2025 2:00 PM EDT Office Visit [facility] [address] [phone] Luisana Lomas PA-C [address] [place] [address] 01/10/2026 2:20 PM EST Office Visit [facility] [place] [address] [address] Claudia Jean-Baptiste MD [address] [place] [address] documented as of this encounter Visit Diagnoses Not on filedocumented in this encounter Care Teams Switchboard Operator Receptionist Relationship Specialty Start Date End Date Marisela Oscar MD [address] [place] [address] PCP - General 05/10/23 Claudia Jean-Baptiste MD [address] [place] [address] Primary Furnace Worker Cardiovascular Disease 09/03/23 documented as of this encounter
--- OUTSIDE RECORDS SUMMARY | 2025-08-02 10:53 | XMS_ITS | Clinical Summary ---
Author Organization [facility] Address [address] [place] [address] Phone Care Team Providers Care Grant Officer Name Role Phone Marisela Oscar MD Primary Care Provider [phone] Allergies No known active allergies Medications acetaminophen [...] [facility] [address] [phone] Torsten Burris MD [address] [address] Health Maintenance Due Date Last [...] AM EDT) Hemoglobin A1C 6.9(H) (4.0-5.6) % [facility] Comment: MONITORING: In known diabetic patients, hemoglobin A1c targets should be discussed with health care provider. DIAGNOSTIC USE: The [place] Diabetes Association (ADA) and the World Health [...] Supplement 1 Testing performed or reported by [facility], a Service of [facility], [address] [place] [address] Beverley Moulton MD, Vascular Surgery Physician [facility]# [id number] 03/15/2023 10:0 0 AM EDT 03/15/2023 10:03 AM EDT us Torsten Burris MD LAB BLOOD ORDERABLES Final Re sult [facility] from Last 3 Months or Most Recently Relevant to Health Maintenance Insurance [facility] Member Subscriber Plan / Payer (Ef fective 2024-Present) Name:Lelo Murraygail Relation to Subscriber:Self Name:Blaire Murray Payer ID:Not on file Type:Not on file Address: [address] [phone] Medicaid [place] Care Teams Grant Officer Relationship Specialty Start Date End Date Marisela Oscar MD [address] [place] [address] PCP - General Internal Medicine 08/23/22
== END ==
LOC: HO.CARD 09:14
PROVIDERS: PCP Internal Medicine; Visit Provider Internal Medicine
DX: I48.19 Other persistent atrial fibrillation (principal)
CPT/HCPCS: 93242

== ENCOUNTER → 2025-08-02 09:16 | Outpatient (BNV) | payer MEDICARE, MEDICAID, SELFPAY | PROVIDERS: PCP Internal Medicine; Visit Provider Internal Medicine | DX: I49.3 Ventricular premature depolarization (principal); I48.91 Unspecified atrial fibrillation | CPT/HCPCS: 93244 ==

== ENCOUNTER 2025-08-23 08:13 | Outpatient (REF) | payer MEDICARE, MEDICAID, SELFPAY ==
--- OUTSIDE RECORDS SUMMARY | 2025-08-23 08:30 | XMS_ITS | Clinical Summary ---
Author Organization [facility] Address [address] [place] [phone] Phone Care Team Providers Care Landscape And Yardwork Laborer Name Role Phone Marisela Oscar MD Primary Care Provider [phone] Allergies No known active allergies Medications acetaminophen [...] Visit [facility] [address] [phone] Torsten Burris MD [address] [address] Health Maintenance Due Date Last [...] AM EDT) Hemoglobin A1C 6.9(H) (4.0-5.6) % [facility] Comment: MONITORING: In known diabetic patients, hemoglobin A1c targets should be discussed with health care provider. DIAGNOSTIC USE: The [place] Diabetes Association (ADA) and the World Health [...] Supplement 1 Testing performed or reported by [facility], a Service of [facility], [address] [place] [address] Beverley Moulton MD, Associate Application Developer [facility]# [id number] 03/15/2023 10:0 0 AM EDT 03/15/2023 10:03 AM EDT us Torsten Burris MD LAB BLOOD ORDERABLES Final Re sult [facility] from Last 3 Months or Most Recently Relevant to Health Maintenance Insurance [facility] Member Subscriber Plan / Payer (Ef fective 2024-Present) Name:Lelo Murraygail Relation to Subscriber:Self Name:Blaire Murray Payer ID:Not on file Type:Not on file Address: [address] [phone] Medicaid [place] Care Teams Landscape And Yardwork Laborer Relationship Specialty Start Date End Date Marisela Oscar MD [address] [place] [address] PCP - General Internal Medicine 08/23/22
--- OUTSIDE RECORDS SUMMARY | 2025-08-23 08:30 | XMS_ITS | Encounter Summary ---
Author Organization [facility] Address [address] [place] [address] Care Team Providers Care Hebrew Cantor Name Role Phone Marisela Oscar MD Primary Care Provider [phone] Claudia Jean-Baptiste MD Unavailable [phone] Encounter Details Date Type Department Care Team (Late st Contact Info) Description 07/09/[address] [address] Brandon Irizarry MD [address] [place] [address] Social History Tobacco Use Types Packs/Day Years [...] 07/09/2025 2:10 PM EDT Phone number is [phone] * Telephone Encounter - Blane Anthony MA [...] Care Team (Late st Contact Info) Description 11/09/2025 2:20 PM EST Office Visit [facility] Pul[facility] [place] [address] [facility] [address] [place] [phone] Luisana Lomas PA-C [address] [facility] [address] [place] [address] 01/10/2026 2:20 PM EST Office Visit [facility] [place] [address] [phone] Claudia Jean-Baptiste MD [address] [place] [address] documented as of this encounter Visit Diagnoses Not on filedocumented in this encounter Care Teams Hebrew Cantor Relationship Specialty Start Date End Date Marisela Oscar MD [address] [place] [address] PCP - General 05/10/23 Claudia Jean-Baptiste MD [address] [place] [address] Primary Manager Night Cardiovascular Disease 09/03/23 documented as of this encounter
--- OUTSIDE RECORDS SUMMARY | 2025-08-23 08:30 | XMS_ITS | Encounter Summary ---
Author Organization [facility] Address [address] [place] [address] Care Team Providers Care Supervisor Inventory Merchandising Name Role Phone Marisela Oscar MD Primary Care Provider [phone] Claudia Jean-Baptiste MD Unavailable [phone] Encounter Details Date Type Department Care Team (Late st Contact Info) Description 08/09/2023 Scanned Document [facility] Pulmonary [address] [address] Pulmonology, Scan Social History Tobacco Use Types [...] Department Care Team (Late Contact Info) Description 11/09/2025 2:20 PM EST Office Visit [facility] Pulmonary [address] [place] [phone] Luisana Lomas PA-C [address] [place] [address] 01/10/2026 2:20 PM EST Office Visit [facility] [place] [address] [phone] Claudia Jean-Baptiste MD [address] [place] [address] documented as of this encounter Visit Diagnoses Not on filedocumented in this encounter Care Teams Supervisor Inventory Merchandising Relationship Specialty Start Date End Date Marisela Oscar MD [address] [place] [address] PCP - General 05/10/23 Claudia Jean-Baptiste MD [address] [place] [address] Primary Associate Dean Cardiovascular Disease 09/03/23 documented as of this encounter
--- OUTSIDE RECORDS SUMMARY | 2025-08-23 08:30 | XMS_ITS | Encounter Summary ---
Author Organization [facility] Address [address] [place] [address] Care Team Providers Care Block Press Operator Name Role Phone Marisela Oscar MD Primary Care Provider [phone] Claudia Jean-Baptiste MD Unavailable [phone] Encounter Details Date Type Department Care Team (Late st Contact Info) Description 09/21/2024 Scanned Document [facility] Pulmonary [address] [place] [phone] Raheem Lynne, RN [address] [address] Social History Tobacco Use Types Packs/Day Years [...] Description 11/09/2025 2:20 PM EST Office Visit [facility] Pulmonary [address] [place] [phone] Luisana Lomas PA-C [address] [address] 01/10/2026 2:20 PM EST Office Visit [facility] [address] [place] [phone] Claudia Jean-Baptiste MD [address] [place] [address] documented as of this encounter Visit Diagnoses Not on filedocumented in this encounter Care Teams Block Press Operator Relationship Specialty Start Date End Date Marisela Oscar MD [address] [place] [address] PCP - General 05/10/23 Claudia Jean-Baptiste MD [address] [place] [address] Primary Composition Stone Applicator Cardiovascular Disease 09/03/23 documented as of this encounter
--- OUTSIDE RECORDS SUMMARY | 2025-08-23 08:30 | XMS_ITS | Encounter Summary ---
Author Organization [facility] Address [address] [place] [address] Care Team Providers Care Canine Service Instructor Trainer Name Role Phone Marisela Oscar MD Primary Care Provider [phone] Claudia Jean-Baptiste MD Unavailable [phone] Encounter Details Date Type Department Care Team (Late st Contact Info) Description 05/10/2023 Scanned Document [facility] Pulmonary [address] [address] Pulmonary, Scan Social History Tobacco Use Types [...] Description 11/09/2025 2:20 PM EST Office Visit [facility] Pulmonary [address] [place] [phone] Luisana Lomas PA-C [address] [place] [address] 01/10/2026 2:20 PM EST Office Visit [facility] [place] [address] [address] Claudia Jean-Baptiste MD [address] [place] [address] documented as of this encounter Visit Diagnoses Not on filedocumented in this encounter Care Teams Canine Service Instructor Trainer Relationship Specialty Start Date End Date Marisela Oscar MD [address] [place] [address] PCP - General 05/10/23 Claudia Jean-Baptiste MD [address] [place] [address] Primary Outside Installer Apprentice Cardiovascular Disease 09/03/23 documented as of this encounter
--- OUTSIDE RECORDS SUMMARY | 2025-08-23 08:30 | XMS_ITS | Patient Health Record ---
Author Organization [facility] Address [address] [place] [address] Care Team Providers Care Senior Speech Pathologist Name Role Phone Marisela Oscar MD Primary Care Provider Unavaila ble Black, Taylor Unavailable [phone] Allergies Allergen (clinical drug ingredient) Drug/Non Drug [...] Problem Acquired hammer toe of right foot (734711217390678 5) Other hammer toe(s) (acquired), right foot (M20.41) Active confirmed Problem Acquired hammer toe of left foot (574883999132835 3) Other hammer toe(s) (acquired), left foot (M20.42) Active confirmed Problem Type II diabetes mellitus without complication (035957894) Type 2 diabetes mellitus without complication (E11.9) Active confirmed Problem Ulcer of toe of left foot (disorder) (216775941656859 02) Skin ulcer of toe of left foot, limited to breakdown of skin (L97.521) Active confirmed Problem 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 Vital Signs Blood pressure diastolic 75 mm Hg 07/27/2025 Height 5ft 4in in 07/27/2025 Blood pressure systolic 120 mm Hg 07/27/2025 Weight 189 lbs 07/27/2025 BMI 32.44 kg/m2 07/27/2025 Procedures Procedure Date Ordered Date Performed Result Body Sit e 91638-Fluvsshl Plate 07/14/2025 N/A 64808- Debride <25 sq cm 07/27/2025 N/A Encounters Encounter Location Date Provider Diagnosis [address] [address] 07/14/2025 Taylor Black Ingrown nail L60.0 ; Other hammer toe(s) (acquired), right foot M20.41 ; Pain in right toe(s) M79.674 ; Pain in left toe(s) M79.675 ; Type 2 diabetes mellitus without complication E11.9 ; Other hammer toe(s) (acquired), left foot M20.42 and Diabetes mellitus with kidney disease E11.[address] [address] 07/27/2025 Taylor Black Skin ulcer of toe of left foot, limited to breakdown of skin L97.[address] [address] 05/17/2025 [facility] [address] 06/02/2025 Taylor Black Assessments Encounter Date Diagnosis [...] Treatment Pending Test Test Name Order Date [id number]-FJLBBAS NAIL, 6 OR MORE 09/29/2021 24940-Gyqyektd Plate 07/14/2025 67039-Hxidsmog Plate 08/14/2019 47496- Debride <25 sq cm 08/28/2019 76693- Debride <25 sq cm 07/27/2025 F8408-AQMTQBFX DYSTROPHIC NAILS ANY # Next Appt Details Provider Name:Taylor Kenney , 10/27/2025 02:30:00 PM, [address] [facility], [place], [address], Insurance Providers Payer Name Payer Address Payer Phone Subscriber Number Group Number Insured Name Patient Relationship to Insured Coverage Start Date Coverage End Date [employer] [place] [employer] Advantage [facility] [address] [place] [address] [phone] [id number] Blaire Gold Self - patient is the [...]
--- OUTSIDE RECORDS SUMMARY | 2025-08-23 08:30 | XMS_ITS | Encounter Summary ---
Author Organization [facility] Address [address] [place] [address] Care Team Providers Care Construction Plumber Name Role Phone Marisela Oscar MD Primary Care Provider [phone] Claudia Jean-Baptiste MD Unavailable [phone] Encounter Details Date Type Department Care Team (Latest Contact Info) Description 08/23/2025 Travel Social History Tobacco Use Types Packs/Day Years [...] Description 11/09/2025 2:20 PM EST Office Visit [facility] [address] [place] [address] Luisana Lomas PA-C [address] [facility] [address] [place] [address] 01/10/2026 2:20 PM EST Office Visit [facility] [place] [address] [phone] Claudia Jean-Baptiste MD [address] [place] [address] documented as of this encounter Visit Diagnoses Not on filedocumented in this encounter Care Teams Construction Plumber Relationship Specialty Start Date End Date Marisela Oscar MD [address] [place] [address] PCP - General 05/10/23 Claudia Jean-Baptiste MD [address] [place] [address] Primary Unit Supervisor Cardiovascular Disease 09/03/23 documented as of this encounter
--- OUTSIDE RECORDS SUMMARY | 2025-08-23 08:30 | XMS_ITS | Clinical Summary ---
Author Organization [facility] Address [address] [place] [id number] Care Team Providers Care Planer Tailer Name Role Phone Marisela Oscar MD Primary Care Provider [phone] Claudia Jean-Baptiste MD Unavailable [phone] Allergies No known active allergies Medications [...] 23 Active Cholecalciferol (Vitamin D) 50 MCG (1999 [...] daily. 45 tablet 3 06/28/20 25 Active metoPROLOL SUCCINATE (TOPROL-XL) 25 MG 24 hr tablet Take 1 tablet (25 mg total) by mouth. 08/07/20 25 Active ferrous sulfate 325 (65 FE) MG tablet 325 MG ORALLY DAILY 07/13/20 25 Active Active Problems Problem Noted Date [...] Encounters Date Type Department Care Team Description 08/23/2025 Travel 08/10/2025 Orders Only [facility] Pulmonary [address] [place] [phone] Luisana Lomas PA-C 08/09/2025 2:00 PM EDT Office Visit [facility] Pulmonary [place] [address] [place] [address] Luisana Lomas PA-C PAH (pulmonary artery hypertension) (HCC) (Primary Dx); Dyspnea, unspecified type; Obstructive sleep apnea syndrome 08/09/2025 Travel 08/06/2025 Orders Only [facility] Pulmonary [address] [place] [phone] Luisana Lomas PA-C PAH (pulmonary artery hypertension) (HCC) (Primary Dx); Right ventricular failure (HCC) 07/09/2025 Telephone [facility] Pulmonary [address] [phone] Brandon Irizarry MD 06/30/[address] [phone] Claudia Jean-Baptiste MD Other 06/30/2025 Telephone [facility] Pulmonary [address] [place] [phone] Brandon Irizarry MD 06/28/2025 1:40 PM EDT Office Visit [address] [phone] Claudia Jean-Baptiste MD Hyperlipidemia, unspecified hyperlipidemia type (Primary Dx); PAH (pulmonary artery hypertension) (HCC); Permanent atrial fibrillation (HCC); Essential hypertension ; Secondary hypercoagulable state; Current use of terminologist anticoagulation; Preop cardiovascular exam 06/28/2025 Travel from [...] Sign Reading Time Taken Comments Blood Pressure 120/80 08/09/2025 2:02 PM EDT Pulse 104 08/09/2025 2:02 PM EDT Temperature 36.5 C (97.7 F) 08/09/2025 2:02 PM EDT Respiratory Rate 17 07/11/2023 11:10 AM EDT Oxygen Saturation 98% 08/09/2025 2:02 PM EDT Inhaled Oxygen Concentration - - Weight 84.8 kg (187 lb) 08/09/2025 2:02 PM EDT Height 157.5 cm (5' 2 ) 08/09/2025 2:02 PM EDT Body Mass Index 34.2 08/09/2025 2:02 PM EDT Plan of Treatment Upcoming Encounters Date Type Department Care Team (Late st Contact Info) Description 11/09/2025 2:20 PM EST Office Visit [facility] Pulmonary [place] [address] [facility] [address] [place] [phone] Luisana Lomas PA-C [address] [facility] [address] [place] [address] 01/10/2026 2:20 PM EST Office Visit [facility] [place] [address] [phone] Claudia Jean-Baptiste MD [address] [place] [id number] Health Maintenance Due Date Last Done Comments [...] Vaccine 06/18/2025 07/19/2020, 08/01/2018 Creatinine with GFR 08/06/2026 08/06/2025, 02/26/2025, 02/01/2025, Additional history exists Hepatitis B Vaccines Aged Out No long er eligible based on patient's age to complete this topic Procedures Procedure Name Priority Date/Time Associated Diagnosis Comments SIX MINUTE WALK Routine 08/09/2025 9:01 AM EDT MAGNESIUM Routine 08/06/2025 9:37 AM EDT PAH (pulmonary artery hypertension) (HCC) Right ventricular failure (HCC) BASIC METABOLIC PANEL Routine 08/06/2025 9:37 AM EDT PAH (pulmonary artery hypertension) (HCC) Right ventricular failure (HCC) PROBNP, N-TERMINAL Routine 08/06/2025 9: 37 AM EDT PAH (pulmonary artery hypertension) (HCC) Right ventricular failure (HCC) ECG 12-LEAD Routine 06/28/2025 1:36 PM EDT Hyperlipidemia, unspecified hyperlipidemia type PAH (pulmonary artery hypertension) (HCC) from Last 3 Months Results * Six minute walk (08/09/2025 9:01 AM EDT) us Luisana Lomas PA-C PROCEDURE/MINOR SURGICAL OR DERABLES Final Result * (ABNORMAL) proBNP, N-terminal (08/06/2025 9:37 AM EDT) Probnp, N Terminal 893(H) <125 pg/mL [facility] [employer] Blood Blood specimen / Unknown 08/06/2025 9:37 AM EDT 08/06/2025 9:37 AM EDT Narrative [facility] - 08/07/2025 7:11 AM EDT FASTING:YES FASTING: YES us Brandon Irizrary MD LAB BLOOD ORDERABLES Final Resul t [facility] [address] [place] [phone] * Magnesium (08/06/2025 9:37 AM EDT) Magnesium 2.1 1.5 - 2.5 mg/dL [facility] Blood Blood specimen / Unknown 08/06/2025 9:37 AM EDT 08/06/2025 9:37 AM EDT Narrative [employer] [facility] - 08/07/2025 7:11 AM EDT FASTING:YES FASTING: YES Brandon Irizarry MD LAB BLOOD ORDERABLES Final Resul t [facility] [address] [place] [address] * (ABNORMAL) Basic metabolic panel (08/06/2025 9:37 AM EDT) Glucose 98 65 - 99 mg/dL [facility] Comment: Fasting reference interval Blood Urea Nitrogen (BUN) 31(H) 7 - 25 mg/dL [facility] Creatinine 1.77(H) 0.60 - 1.00 mg/dL [facility] Creatinine w/ eGFR 31(L) > OR = 60 mL/min/1.7 3m2 [facility] BUN/Creatinine Ratio 18 6 - 22 (calc) [facility] Sodium 139 135 - 146 mmol/L [facility] Potassium 4.3 3.5 - 5.3 mmol/L [facility] Chloride 109 98 - 110 mmol/L [facility] CO2 23 20 - 32 mmol/L [facility] Calcium 8.8 8.6 - 10.4 mg/dL [facility] Blood Blood specimen / Unknown 08/06/2025 9:37 AM EDT 08/06/2025 9:37 AM EDT Narrative [employer] - 08/07/2025 7:11 AM EDT FASTING:YES FASTING: YES Brandon Irizarry MD LAB BLOOD ORDERABLES Final Resul t [facility] [address] [place] [phone] * ECG 12 lead (06/28/2025 1:36 PM EDT) Ventricular rate 107 BPM EKG [facility] QRS duration 82 ms EKG [facility] Q-T interval 336 ms EKG [facility] QTC calculation (Bazett) 448 ms EKG [facility] R axis -19 degrees EKG [facility] T axis 143 degrees [facility] 06/28/2025 1:36 PM EDT Narrative EKG [facility] - 06/28/2025 2:17 PM EDT Atrial [...] Jean-Baptiste Tracy ([id number]) on 06/28/2025 2:17:24 PM Claudia Jean-Baptiste MD ECG ORDERABLES Final Result Performing Organization Address City/[facility]/ZIP Co de Phone Number [facility] from Last 3 Months Insurance [facility] MEDIC[facility] Advance Directives * Full Code (Latest Code Status on File) Date Activated Date Inactivated Comments 07/11/2023 7:23 AM Care Teams Planer Tailer Relationship Specialty Start Date End Date Marisela Oscar MD [address] [place] [address] PCP - General 05/10/23 Claudia Jean-Baptiste MD [address] [place] [address] Primary Associate Of Science In Nursing Cardiovascular Disease 09/03/23
--- OUTSIDE RECORDS SUMMARY | 2025-08-23 08:30 | XMS_ITS | Clinical Summary ---
Author Organization [facility] Address [address] [facility] [address] [address] [place] [address] Care Team Providers Care Machine Pan Greaser Name Role Phone Unavailable Primary Care Provider [...] 1955 FIT-DNA 1955 FIT 1955 FOBT 1955 Lipid Panel 1955 Sigmoidoscopy 1955 DTaP/Tdap/Td Vaccines (1 - Tdap) 1974 Mammogram 1995 Pneumococcal Vaccine: 50+ Years (1 of 1 - PCV) 2005 Zoster Vaccines (1 of 2) 2005 Depression Screening 11/18/2024 COVID-19 Vaccine (5 - 2024- season) 2025 08/06/2022, 02/17/2022, 09/15/2021, Additional history exists Influenza Vaccine (#1) 2025 , 09/19/2021, 10/10/2020, [...]
[2025-08-23 10:40] LABS: Anion Gap 13 (12-20); Blood Urea Nitrogen 29 mg/dL (9-16); Calcium 9.0 mg/dL (8.4-10.2); Carbon Dioxide 24 mmol/L (22-29); Chloride 110 mmol/L (96-108); Estimated Glomerular Filt Rate 33; Potassium 4.5 mmol/L (3.3-5.1); Sodium 142 mmol/L (135-145)
[2025-08-23 10:50] LABS: NT Pro B Type Natriuretic Pept 1419.7 pg/mL (<300)
== END 2025-08-23 08:14 | disposition home or self-care (01) ==
LOC: HO.HMGCLDS 08:13
PROVIDERS: PCP Internal Medicine; Visit Provider Internal Medicine
DX: N18.30 Chronic kidney disease, stage 3 unspecified (principal)
CPT/HCPCS: 36415; 80048; 83880

== ENCOUNTER 2025-08-26 10:47 | Outpatient (AMB) | payer MEDICARE, MEDICAID, SELFPAY ==
--- NOTE | 2025-08-26 10:48 | MHC.PC.OV ---
Vital Signs 08/26/25 10:49 Height 5 ft 4 in Weight 194 lb BMI 33.3 BP 124/76 Blood Pressure Location Rt brachial Position Sitting Respiration 18 Pulse 96 Pulse Source Pulse Oximeter Temp 98.3 F Temp Source Oral Pulse Oximetry (%) 98 Oxygen Delivery Method Room Air Intake Visit Reasons: 1 month f/up Allergies No Known Allergies Allergy (Verified 08/26/25 10:50) Medication List - Last Reconciled 08/26/25 by Marisela Oscar MD apixaban (Eliquis) 5 mg PO BID atorvastatin 40 mg PO BEDTIME blood-glucose meter check glucose once a day cholecalciferol (vitamin D3) 50 mcg PO DAILY clobetasol 0.05% 1 appl topical DAILY coenzyme Q10 (H2Q CoQ10) 200 mg dapagliflozin propanediol (Farxiga) 10 mg PO DAILY digoxin 125 mcg PO DAILY ferrous sulfate 325 mg PO DAILY [employer] 2 [place] (flash glucose scanning reader) As directed NS [employer]ad 2 Sensor (flash glucose sensor) Test blood sugar TID, change sensor every 14 days NS furosemide 60 mg PO DAILY macitentan-tadalafil 10-40 mg (Opsynvi) 1 tab PO DAILY magnesium oxide 400 mg PO BEDTIME metoprolol succinate ER 25 mg PO BID Ozempic (semaglutide) 1 mg (0.75 mL) subcut QWEEK NS polyethylene glycol 3350 (Gavilax) 17 grams PO DAILY selexipag (Uptravi) 1,400 mcg PO DAILY sennosides (Natural Senna Laxative) 17.2 mg (2 x 8.6 mg) PO BEDTIME spironolactone 12.5 mg (1/2 x 25 mg) PO DAILY 90 days Tobacco use date assessed: 08/26/25 Fall risk assessment: No Falls in past year Last assessed Fall Risk: 08/26/25 Dental Screening Dental Screen Date: 07/13/25 HPI 1 month f/up HPI Details Pt presents for the follow-up Holter monitor. She will have R knee replacement surgery at [facility] on 09/13. Patient had echocardiogram at [facility] showing worsening pulmonary hypertension and new medication in injection form will be started. Patient denies chest pain shortness or breath palpitations. [facility] Medical History Pulmonary HTN History of uterine cancer GERD (gastroesophageal reflux disease) Lumbar and sacral spondyloarthritis Hip pain, bilateral CKD (chronic kidney disease) stage 3, GFR 30-59 ml/min Dysplastic nevus Palpitations Endometrial ca Diastolic dysfunction ASB (asymptomatic bacteriuria) Morbid obesity Hyperlipidemia Hypertension SUE on CPAP Surgical History Hx of cardiac cath S/P MARGARITA (total abdominal hysterectomy) H/O colonoscopy History of total abdominal hysterectomy and bilateral salpingo-oophorectomy Family History Father No problems noted. Mother HTN (hypertension) Diabetes mellitus Breast cancer Social History Household Members: Spouse Housing: House Are you a primary healthcare interpreter to a significant other at home: No Do you presently have visiting nurse or other home services: No Alcohol intake: current Alcohol intake frequency: holidays/special occasions only Patient Tobacco Use Status: Never used Tobacco e-Cigarette/Vaping Use: Never Used Advance Directives Date on File: 02/12/23 service: No Current occupational status: retired Current occupation: rt handed Cognitive needs: No Hearing needs: No Vision needs: Yes Questionnaire PHQ-9 Over the last 2 weeks, how often have you been bothered by any of the following problems? 1. Little interest or pleasure in doing things: not at all 2. Feeling down, depressed, or hopeless: not at all 3. Trouble falling or staying asleep, or sleeping too much: not at all 4. Feeling tired or having little energy: not at all 5. Poor appetite or overeating: not at all 6. Feeling bad about yourself - or that you are a failure or have let yourself or your family down: not at all 7. Trouble concentrating on things, such as reading the newspaper or watching television: not at all 8. Moving or speaking so slowly that other people could have noticed. Or the opposite - being so fidgety or restless that you have been moving around a lot more than usual: not at all 9. Thoughts that you would be better off or of hurting yourself in some way: not at all Total score: 0 Depression Screening Interpretation: Negative Depression Screening Done: Yes Source: Developed by Drs. [place] Pop, Zara Kinney, Josh Weiss and colleagues, with an educational hollie from [employer]. Thrive Questionnaire Date Thrive assessed: 12/30/24 I am a: Patient What is your living situation today?: I have a steady place to live Within the past 12 months, did the food you bought not last and you didn't have the money to get more?: Never true Within the past 12 months, did you worry whether your food would run out before you got money to buy more?: Sometimes True Do you have trouble paying for medicines?: No Do you have trouble getting transportation to medical appointments?: No Do you have trouble paying your heating and electricity bill?: Yes Do you have trouble taking care of your child, family member or friend?: No Do you have trouble with day-to-day activities such as bathing, preparing meals, shopping, managing finances, etc.?: No Are you currently unemployed and looking for a job?: No Are you interested in more education?: No Please select the resources that you would like help with: Utilities Currently or been in a relationship where the following occur: No concerns reported THRIVE Score: 2 GAEL-7 AMB Questionnaire GAEL-7 Date GAEL - 7 assessed: 12/30/24 Feeling nervous, anxious, or on edge: 0 = Not at all Not being able to stop or control worryin = Not at all Worrying too much about different things: 0 = Not at all Trouble relaxin = Not at all Being so restless that it is hard to sit still: 0 = Not at all Becoming easily annoyed or irritable: 0 = Not at all Feeling afraid as if something awful might happen: 0 = Not at all Total GAEL-7 score (0-4 normal; 5-9 mild; 10-14 moderate; 15-21 severe): 0 Source: Developed by Drs. [place] Pop, Zara Kinney, Josh Weiss and colleagues, with an educational hollie from [employer]. Review of Systems Const All systems reviewed & are unremarkable except as noted in HPI and below Eyes Reports no additional complaints ENT Reports no additional complaints Card Reports no additional complaints Resp Reports no additional complaints GI Reports no additional complaints Musc Reports no additional complaints Physical exam (Primary Care) Vital Signs: Last Vital Signs Temp 98.3 F 08/26/25 10:49 Pulse 96 08/26/25 10:49 Resp 18 08/26/25 10:49 BP 124/76 08/26/25 10:49 Pulse Ox 98 08/26/25 10:49 Oxygen Delivery Method Room Air 08/26/25 10:49 BMI result Body Mass Index 33.3 Tobacco/Smoking Status: Tobacco use Status Tobacco use date assessed 08/26/25 08/26/25 10:53 Patient Tobacco Use Status Never used Tobacco 08/26/25 10:53 e-Cigarette/Vaping Use Never Used 08/26/25 10:53 PHQ-9: PHQ-9 Score PHQ-9: Total score 0 08/26/25 10:53 Depression Screening Interpretation: Negative Thrive Assessment: Date of Thrive Assessment Date Thrive assessed 12/30/24 08/26/25 10:53 Currently or been in a relationship where the following occur: No concerns reported Const General: no acute distress HENMT Head: Yes normal to inspection Face and sinus: Yes normal facial exam Eyes General: appearance normal, both eyes and all related structures Neck Neck: Yes supple Resp Effort & Inspection: normal respiratory effort Auscultation: clear to auscultation bilaterally Cardio Rhythm: abnormal rhythm irregularly irregular Heart sounds: S1 normal heart sound present and S2 normal heart sound present Extrem General: Yes no clubbing, cyanosis or edema Coding Level of Care Code Est Pt Level 4 (71905) Diagnoses Persistent atrial fibrillation I48.19 Pulmonary HTN I27.20 DM type 2 (diabetes mellitus, type 2) E11.9 CKD (chronic kidney disease) stage 3, GFR 30-59 ml/min N18.30 Assessment & Plan Assessment & Plan (1) Persistent atrial fibrillation: Comment: Echo 08/2025 [place] EF 55-60%, LAE, mild MR,RV pressure 44 mmHg (increase from 32 mmHg in 09/2024), Holter 07/2025 [place] average heart rate 92 per minute, 23% heart rate more than 100 Code(s): I48.19 - Other persistent atrial fibrillation Category: Medical Plan: Heart rate is not well controlled and metoprolol will be increased to 25 mg twice a day. Patient will continue digoxin and level will be checked (2) Pulmonary HTN: Comment: f/u Dr. Brandon Irizarry ,[facility] started on Abrisentan and tadalafil 07/10 Code(s): I27.20 - Pulmonary hypertension, unspecified Category: Medical Plan: Follow-up with [facility] (3) DM type 2 (diabetes mellitus, type 2): Code(s): E11.9 - Type 2 diabetes mellitus without complications Category: Medical Plan: A1c was 7.1. Ozempic was increased to 1 mg weekly and patient has been taking Farxiga. ADA diet increase physical activity discussed with the patient follow-up in 2 months with a fasting labs (4) CKD (chronic kidney disease) stage 3, GFR 30-59 ml/min: Comment: Follow-up with nephrology Code(s): N18.30 - Chronic kidney disease, stage 3 unspecified Category: Medical Plan: Avoid nephrotoxins monitor renal function Orders: Orders Digoxin Today I48.19 - Other persistent atrial fibrillation Lipid Panel 6 Weeks E11.9 - Type 2 diabetes mellitus without complications, E78.5 - Hyperlipidemia, unspecified, I48.19 - Other persistent atrial fibrillation Hemoglobin A1c 6 Weeks E11.9 - Type 2 diabetes mellitus without complications, E78.5 - Hyperlipidemia, unspecified, I48.19 - Other persistent atrial fibrillation Complete Blood Count Auto Diff 6 Weeks E11.9 - Type 2 diabetes mellitus without complications, E78.5 - Hyperlipidemia, unspecified, I48.19 - Other persistent atrial fibrillation Microalbumin, Random (w Creat) 6 Weeks E11.9 - Type 2 diabetes mellitus without complications, E78.5 - Hyperlipidemia, unspecified, I48.19 - Other persistent atrial fibrillation Comprehensive [place]. Panel Fast 6 Weeks E11.9 - Type 2 diabetes mellitus without complications, E78.5 - Hyperlipidemia, unspecified, I48.19 - Other persistent atrial fibrillation Medications: Changed From metoprolol succinate ER 25 mg PO DAILY 90 tabs 0RF To metoprolol succinate ER 25 mg PO BID 180 tabs 2RF
[2025-08-26 10:49] VITALS: BP 124/76; PULSE 96; RESP 18; TEMP 36.8; O2SAT 98; BMI 33.3
--- OUTSIDE RECORDS SUMMARY | 2025-08-26 11:32 | XMS_ITS | Continuity of Care Document ---
[facility] Organization [facility] Address [address] [facility] [address] [place] [address] Insurance Providers Payer Plan Claims Address Claims Phone Policy Number Group Number Relation Employer Guarantor Name Guarantor Guarantor Address Guarantor Phone [facility], [address] [address] tel:[phone] Self Blaire Murray [address] [place] [address] [facility] tel:[phone] [phone] [id number] [phone] Self Blaire Murray [address] [place] [address] [facility] MEDICA [facility] Medic are [id number] [id number] [id number] Self Blaire Murray [address] [place] [address] Problems Unknown Problems Results Test Result Date/Time Value / Unit Interp. Refere [facility] Range LIPID PANEL, STANDARD[7600] Collected: 03/19/2025 01:42 PM Specimen Received: 03/19/2025 01:44 PM Source: QuestFASTING:YESFASTING: YES CHOLESTEROL, TOTAL [[id number]] 03/20/2025 07:25 PM 134 mg/dL N 200 mg/dL HDL CHOLESTEROL [[id number]] 03/20/2025 07:25 PM 44 mg/dL L > OR = 50 mg/dL TRIGLYCERIDES [[id number]] 03/20/2025 07:25 PM 84 mg/dL N 150 mg/dL LDL-CHOLESTEROL [[id number]] 03/20/2025 07:25 PM 7 4 mg/dL (calc) N Reference range: or = 2 CHD risk factors. LDL-C is now calculated using the Krystal calculation, which is a validated novel method providing better accuracy than the Friedewald equation in the estimation of LDL-C. Amauri SS et al. SHRUTHI. 2013;310(57): 0178-5664 (http://Twiigg.LocalVox Media/faq/QRC975) CHOL/HDLC RATIO [[id number]] 03/20/2025 07:25 PM 3.0 (calc) N 5.0 (calc) NON HDL CHOLESTEROL [[id number]] 03/20/2025 07:25 PM 90 mg/dL (calc) N 130 mg/dL (calc) For patients with diabetes p donavan 1 major ASCVD risk factor, treating to a non-HDL-C goal of 100 mg/dL (LDL-C of <70 mg/dL) is considered a therapeutic option. ALBUMIN, RANDOM URINE W/CREA AZAEL[[id number]] Collected: 03/19/2025 01:42 PM Specimen Received: 03/19/2025 01:44 PM Source: QuestFASTING:YESFASTING: YES CREATININE, RANDOM URINE [[id number]] 03/20/2025 07:25 PM 150 mg/dL N 20-275 mg/dL ALBUMIN, URINE [[id number]] 03/20/2025 07:25 PM 3.4 mg/dL N See Note: mg/dL Reference Range:Reference Ra ngeNot established ALBUMIN/CREATININE RATIO, RANDOM URINE [[id number]] 03/20/2025 07:25 PM 23 mg/g creat N 30 m g/g creat The ADA defines abnormalitie s in albuminexcretion as follows: Albuminuria Category Result (mg/g creatinine) Normal to Mildly increased OR = 300 The ADA recommends that at least two of threespecimens collected within a 3-6 month period beabnormal before considering a patient to bewithin a diagnostic category. COMPREHENSIVE METABOLIC PANE L[[id number]] Collected: 03/19/2025 01:42 PM Specimen Received: 03/19/2025 01:44 PM Source: QuestFASTING:YESFASTING: YES GLUCOSE [[id number]] 03/20/2025 07:25 PM 158 mg/dL H 65-99 mg/dL Fasting reference interval F or someone without known diabetes, a glucosevalue >125 mg/dL indicates that they may havediabetes and this should be confirmed with afollow-up test. UREA NITROGEN (BUN) [] 03/20/2025 07:25 PM 39 mg/dL H 7-25 mg/dL CREATININE [] 03/20/2025 07:25 PM 1.73 mg/dL H 0.50-1.05 mg/dL EGFR [[id number]] 03/20/2025 07:25 PM 32 mL/min/1.73m2 L > OR = 60 mL/min/1.73m2 BUN/CREATININE RATIO [[id number]] 03/20/2025 07:25 PM 23 (calc) H 6-22 (calc) SODIUM [[id number]] 03/20/2025 07:25 PM 138 mmol/L N 135-146 mmol/L POTASSIUM [[id number]] 03/20/2025 07:25 PM 4.2 mmol/L N 3.5-5.3 mmol/L CHLORIDE [[id number]] 03/20/2025 07:25 PM 105 mmol/L N 98-110 mmol/L CARBON DIOXIDE [[id number]] 03/20/2025 07:25 PM 24 mmol/L N 20-32 mmol/L CALCIUM [[id number]] 03/20/2025 07:25 PM 9.0 mg/dL N 8.6-10.4 mg/dL PROTEIN, TOTAL [[id number]] 03/20/2025 07:25 PM 6.7 g/dL N 6.1-8.1 g/dL ALBUMIN [[id number]] 03/20/2025 07:25 PM 4.0 g/dL N 3.6-5.1 g/dL GLOBULIN [[id number]] 03/20/2025 07:25 PM 2.7 g/dL (calc) N 1.9-3.7 g/dL (calc) ALBUMIN/GLOBULIN RATIO [[id number]] 03/20/2025 07:25 PM 1.5 (calc) N 1.0-2.5 (jose david c) BILIRUBIN, TOTAL [[id number]] 03/20/2025 07:25 PM 0.3 mg/dL N 0.2-1.2 mg/d L ALKALINE PHOSPHATASE [] 03/20/2025 07:25 PM 62 U/L N 37-153 U/L AST [] 03/20/2025 07:25 PM 9 U/L L 1 0-35 U/L ALT [] 03/20/2025 07:25 PM 7 U/L N 6 -29 U/L HEMOGLOBIN A1c[496] Collected: 03/19/2025 01:42 PM Specimen Received: 03/19/2025 01:44 PM Source: [facility]FASTING:YESFASTING: YES HEMOGLOBIN A1c [[id number]] 03/20/2025 07:25 PM 6.7 % H 5.7 % For someone without known di abetes, a hemoglobin V3qmhcdh of 6.5% or greater indicates that they [...] of diabetes for children. Clinical PDF Report [id number] H-1[ClinicalPDFReport1] Collected: 03/19/2025 01:42 PM Specimen Received: 03/19/2025 01:44 PM Source: [facility]FASTING:YESFASTING: YES Clinical PDF Report [id number] [ClinicalPDFReport1] INEZ Comp. Metabolic Panel (14)[[id number]] Collected: 09/23/2024 06:37 PM Specimen Received: 09/23/2024 05:00 AM Source: [facility] Glucose [[id number]] 09/24/2024 05:44 AM 148 mg/dL H 70-99 mg/dL BUN [[id number]] 09/24/2024 05:42 AM 36 mg/dL H 8-2 7 mg/dL Creatinine [[id number]] 09/24/2024 05:44 AM 1.67 mg/dL H 0.57-1.00 mg/dL eGFR [[id number]] 09/24/2024 05:44 AM 33 mL/min/1.73 L >59 mL/min/1.73 BUN/Creatinine Ratio [[id number]] 09/24/2024 05:44 AM 22 12-28 Sodium [[id number]] 09/24/2024 05:42 AM 138 mmol/L 134-144 mmol/L Potassium [[id number]] 09/24/2024 05:48 AM 4.4 mmol/L 3.5-5.2 mmol/L Chloride [[id number]] 09/24/2024 05:41 AM 104 mmol/L 96-106 mmol/L Carbon Dioxide, Total [[id number]] 09/24/2024 05:41 AM 18 mmol/L L 20-29 mmol/L Calcium [[id number]] 09/24/2024 03:49 AM 8.9 mg/dL 8.7-10.3 mg/dL Protein, Total [[id number]] 09/24/2024 05:52 AM 6.4 g/dL 6.0-8.5 g/dL Albumin [[id number]] 09/24/2024 05:43 AM 4.0 g/dL 3.9-4.9 g/dL Globulin, Total [[id number]] 09/24/2024 05:52 AM 2.4 g/dL 1.5-4.5 g/dL Bilirubin, Total [[id number]] 09/24/2024 03:51 AM 0.2 mg/dL 0.0-1.2 mg/dL Alkaline Phosphatase [[id number]] 09/24/2024 05:44 AM 87 IU/L 44-121 IU/L AST (SGOT) [[id number]] 09/24/2024 05:46 AM 15 IU/L 0-40 IU/L ALT (SGPT) [[id number]] 09/24/2024 05:48 AM 10 IU/L 0-32 IU/L Lipid Panel[[id number]] Collected: 09/23/2024 06:37 PM Specimen Received: 09/23/2024 05:00 AM Source: [facility] Cholesterol, Total [[id number]] 09/24/2024 06:02 AM 149 mg/dL 100-199 mg/d L Triglycerides [[id number]] 09/24/2024 05:54 AM 124 mg/dL 0-149 mg/dL HDL Cholesterol [[id number]] 09/24/2024 05:52 AM 47 mg/dL >39 mg/dL VLDL Cholesterol Jose David [[id number]] 09/24/2024 06:02 AM 22 mg/dL 5-40 mg/dL LDL Chol Calc ([facility]) [[id number]] 09/24/2024 06:02 AM 80 mg/dL 0-99 mg/dL Albumin/Creatinine Ratio,Uri ne[[id number]] Collected: 09/23/2024 06:37 PM Specimen Received: 09/23/2024 05:00 AM Source: [facility] Creatinine, Urine [[id number]] 09/25/2024 07:29 PM 107.7 mg/dL Not Estab. mg/dL Albumin, Urine [[id number]] 09/25/2024 07:40 PM 33.9 ug/mL Not Estab. ug/mL Alb/Creat Ratio [[id number]] 09/25/2024 07:40 PM 31 mg/g creat H 0-29 mg/g creat Normal: 0 - 29 Moderately i ncreased: 30 - 300 Severely increased: >300 Hemoglobin A1c[[id number]] Collected: 09/23/2024 06:37 PM Specimen Received: 09/23/2024 05:00 AM Source: [facility] Hemoglobin A1c [[id number]] 09/24/2024 04:05 AM 9.1 % H 4.8-5.6 % . Prediabetes: 5.7 - 6.4 Theresa betes: >6.4 Glycemic control for adults with diabetes: 7.0 Allergies, adverse reactions, alerts No known allergies and adverse reactions Medications No administered medications reported Vital Signs No vital signs reported Social History No smoking Hx information available
== END 2025-08-26 11:19 | disposition home or self-care (01) ==
LOC: HO.HMCC 10:47
PROVIDERS: PCP Internal Medicine; Visit Provider Internal Medicine
DX: I48.19 Other persistent atrial fibrillation (principal); I27.20 Pulmonary hypertension, unspecified; E11.9 Type 2 diabetes mellitus without complications; N18.30 Chronic kidney disease, stage 3 unspecified

== ENCOUNTER 2025-08-26 10:47 | Outpatient (REF) | payer MEDICARE, MEDICAID, SELFPAY ==
[2025-08-26 14:33] LABS: Digoxin 0.8 ng/mL (0.8-2.0)
== END 2025-08-26 10:48 | disposition home or self-care (01) ==
LOC: HO.HMGCLDS 10:47
PROVIDERS: PCP Internal Medicine; Visit Provider Internal Medicine
DX: I48.19 Other persistent atrial fibrillation (principal); I27.20 Pulmonary hypertension, unspecified; E11.22 Type 2 diabetes mellitus with diabetic chronic kidney disease; N18.30 Chronic kidney disease, stage 3 unspecified; Z79.01 Long term (current) use of anticoagulants; Z79.899 Other long term (current) drug therapy
CPT/HCPCS: 36415; 80162; 96127; 99212

== ENCOUNTER 2025-10-04 11:03 | Outpatient (REF) | payer MEDICARE, MEDICAID, SELFPAY ==
[2025-10-04 13:06] LABS: MANUAL DIFF FLAG NO
[2025-10-04 13:35] LABS: Hematocrit 34.7 % (37.0-47.0); Hemoglobin 10.6 g/dl (12.0-16.0); Imm Gran Abs Auto 0.01 X10*3/uL (0.00-0.03); Imm Gran Pct Auto 0.2 % (0.0-0.4); Lymphocytes Absolute Auto 2.1 X10*3/uL (1.2-4.9); Mean Corpuscular HGB Conc 30.5 g/dl (31.0-35.0); Mean Corpuscular Hemoglobin 30.1 pg (27.0-33.0); Mean Corpuscular Volume 98.6 fL (80.0-98.0); NRBC Abs Auto 0.000 X10*3/uL (0.0-0.012); NRBC Pct Auto 0.0 /100WBC (0.0-0.2); Platelet Count 349 X10*3/uL (160-400); Red Blood Count 3.52 X10*6/uL (4.20-5.50); White Blood Count 6.5 X10*3/uL (4.8-10.8)
[2025-10-04 13:41] LABS: Microalbum/Creatinine Ratio Ur 35.8 ug/mg cr (<30)
[2025-10-04 14:24] LABS: Alanine Aminotransferase 9 U/L (0-31); Albumin Level 4.0 g/dL (3.5-5.0); Alkaline Phosphatase 61 U/L (39-117); Anion Gap 11 (12-20); Aspartate Amino Transferase 19 U/L (5-31); Blood Urea Nitrogen 35 mg/dL (9-16); Calcium 9.3 mg/dL (8.4-10.2); Carbon Dioxide 24 mmol/L (22-29); Chloride 109 mmol/L (96-108); Cholesterol 156 mg/dL (<200); Estimated Glomerular Filt Rate 26; HDL Cholesterol 43 mg/dL (>40); Potassium 4.6 mmol/L (3.3-5.1); Sodium 139 mmol/L (135-145); Total Protein 7.1 g/dL (6.5-8.0); Triglycerides 104 mg/dL (<150)
== END 2025-10-04 11:04 | disposition home or self-care (01) ==
LOC: HO.HMGCLDS 11:03
PROVIDERS: PCP Internal Medicine; Visit Provider Internal Medicine
DX: I48.19 Other persistent atrial fibrillation (principal); E11.9 Type 2 diabetes mellitus without complications; E78.5 Hyperlipidemia, unspecified
CPT/HCPCS: 36415; 80053; 80061; 82043; 82570; 83036; 85025

== ENCOUNTER 2025-10-07 11:18 | Outpatient (AMB) | payer MEDICARE, MEDICAID, SELFPAY ==
[2025-10-07 11:25] VITALS: BP 124/78; PULSE 93; O2SAT 97; BMI 32.3
--- NOTE | 2025-10-07 11:25 | MHC.PC.OV ---
Vital Signs 10/07/25 11:25 Height 5 ft 4 in Weight 188 lb BMI 32.3 BP 124/78 Blood Pressure Location Lt brachial Position Sitting Pulse 93 Pulse Source Pulse Oximeter Pulse Oximetry (%) 97 Intake Visit Reasons: 6 week follow up Allergies No Known Allergies Allergy (Verified 10/07/25 11:25) Tobacco use date assessed: 08/26/25 Fall risk assessment: No Falls in past year Last assessed Fall Risk: 10/07/25 Dental Screening Dental Screen Date: 07/13/25 HPI 6 week follow up HPI Details Patient presents for the follow-up. She underwent right total knee arthroplasty 2 months ago and has been in physical therapy. Patient has been ambulating with a walker and making slow progress. Type 2 diabetes hypertension hyperlipidemia stable on current medications. [facility] Medical History Pulmonary HTN History of uterine cancer GERD (gastroesophageal reflux disease) Lumbar and sacral spondyloarthritis Hip pain, bilateral CKD (chronic kidney disease) stage 3, GFR 30-59 ml/min Dysplastic nevus Palpitations Endometrial ca Diastolic dysfunction ASB (asymptomatic bacteriuria) Morbid obesity Hyperlipidemia SUE on CPAP Surgical History (Updated 10/07/25 @ 11:34 by Robert Basurto CMA) S/P knee replacement Hx of cardiac cath S/P MARGARITA (total abdominal hysterectomy) H/O colonoscopy History of total abdominal hysterectomy and bilateral salpingo-oophorectomy Family History Father No problems noted. Mother HTN (hypertension) Diabetes mellitus Breast cancer Social History Household Members: Spouse Housing: House Are you a primary critical care transport nurse to a significant other at home: No Do you presently have visiting nurse or other home services: No Alcohol intake: current Alcohol intake frequency: holidays/special occasions only Patient Tobacco Use Status: Never used Tobacco e-Cigarette/Vaping Use: Never Used Advance Directives Date on File: 02/12/23 service: No Current occupational status: retired Current occupation: rt handed Cognitive needs: No Hearing needs: No Vision needs: Yes Questionnaire Thrive Questionnaire Date Thrive assessed: 12/30/24 I am a: Patient What is your living situation today?: I have a steady place to live Within the past 12 months, did the food you bought not last and you didn't have the money to get more?: Never true Within the past 12 months, did you worry whether your food would run out before you got money to buy more?: Sometimes True Do you have trouble paying for medicines?: No Do you have trouble getting transportation to medical appointments?: No Do you have trouble paying your heating and electricity bill?: Yes Do you have trouble taking care of your child, family member or friend?: No Do you have trouble with day-to-day activities such as bathing, preparing meals, shopping, managing finances, etc.?: No Are you currently unemployed and looking for a job?: No Are you interested in more education?: No Please select the resources that you would like help with: Utilities Currently or been in a relationship where the following occur: No concerns reported THRIVE Score: 2 GAEL-7 AMB Questionnaire GAEL-7 Date GAEL - 7 assessed: 12/30/24 Source: Developed by Drs. Watson Pop, Zara Kinney, Josh Weiss and colleagues, with an educational hollie from [employer]. Review of Systems Const All systems reviewed & are unremarkable except as noted in HPI and below ENT Reports no additional complaints Card Reports no additional complaints Resp Reports no additional complaints GI Reports no additional complaints Reports no additional complaints Physical exam (Primary Care) Vital Signs: Last Vital Signs Pulse 93 10/07/25 11:25 BP 124/78 10/07/25 11:25 Pulse Ox 97 10/07/25 11:25 BMI result Body Mass Index 32.3 Tobacco/Smoking Status: Tobacco use Status Tobacco use date assessed 08/26/25 10/07/25 11:27 Patient Tobacco Use Status Never used Tobacco 10/07/25 11:27 e-Cigarette/Vaping Use Never Used 10/07/25 11:27 Thrive Assessment: Date of Thrive Assessment Date Thrive assessed 12/30/24 10/07/25 11:27 Currently or been in a relationship where the following occur: No concerns reported Const General: no acute distress HENMT Face and sinus: Yes normal facial exam Neck Neck: Yes no lymphadenopathy Resp Effort & Inspection: normal respiratory effort Auscultation: clear to auscultation bilaterally Cardio Rhythm: regular rhythm Heart sounds: S1 normal heart sound present and S2 normal heart sound present GI Inspection: Yes normal to inspection Palpation (GI): Soft to palpation Percussion: Yes normal to percussion Auscultation: normal bowel sounds Coding Level of Care Code Est Pt Level 4 (16106) Diagnoses Persistent atrial fibrillation I48.19 Pulmonary HTN I27.20 CKD (chronic kidney disease) stage 3, GFR 30-59 ml/min N18.30 DM type 2 (diabetes mellitus, type 2) E11.9 Assessment & Plan Assessment & Plan (1) Persistent atrial fibrillation: Comment: Echo 08/2025 [place] EF 55-60%, LAE, mild MR,RV pressure 44 mmHg (increase from 32 mmHg in 09/2024), Holter 07/2025 AFib average heart rate 92 per minute, 23% heart rate more than 100 Code(s): I48.19 - Other persistent atrial fibrillation Category: Medical Plan: Because of concern of digoxin toxicity with advanced kidney disease digoxin will be decreased to 0.125 mg every other day and metoprolol increased to 75 mg a day. Digoxin level will be checked Patient will follow-up in 1 month (2) Pulmonary HTN: Comment: f/u Dr. Brandon Irizarry ,[facility] started on Abrisentan and tadalafil 07/10 Code(s): I27.20 - Pulmonary hypertension, unspecified Category: Medical Plan: Continue current medications (3) CKD (chronic kidney disease) stage 3, GFR 30-59 ml/min: Comment: Follow-up with nephrology Code(s): N18.30 - Chronic kidney disease, stage 3 unspecified Category: Medical Plan: Monitor renal function avoid nephrotoxins (4) DM type 2 (diabetes mellitus, type 2): Code(s): E11.9 - Type 2 diabetes mellitus without complications Category: Medical Plan: A1c is 6.5. Continue Farxiga and Ozempic Orders: Orders Comprehensive [place]. Panel Fast 1 Month I27.20 - Pulmonary hypertension, unspecified, I48.19 - Other persistent atrial fibrillation, N18.30 - Chronic kidney disease, stage 3 unspecified Digoxin 1 Month I27.20 - Pulmonary hypertension, unspecified, I48.19 - Other persistent atrial fibrillation, N18.30 - Chronic kidney disease, stage 3 unspecified
--- OUTSIDE RECORDS SUMMARY | 2025-10-07 17:31 | XMS_ITS | Continuity of Care Document ---
Author Organization [facility] Address [address] [facility] [address] [place] [address] Insurance Providers Payer Plan Claims Address Claims Phone Policy Number Group Number Relation Employer Guarantor Name Guarantor Guarantor Address Guarantor Phone [facility], [address], [place] [address] tel:[id number] [id number] Self Blaire Murray [address] [place] [address] [facility] tel:[phone] [id number] [phone] Self Blaire Murray [address] [place] [address] [facility] MEDICA [facility] Medic are [id number] [id number] [phone] Self Blaire Murray [address] [place] [id number] Problems Unknown Problems Results Test Result Date/Time Value / Unit Interp. Refere [facility] Range LIPID PANEL, STANDARD[7600] Collected: 03/19/2025 01:42 PM Specimen Received: 03/19/2025 01:44 PM Source: QuestFASTING:YESFASTING: YES CHOLESTEROL, TOTAL [[id number]] 03/20/2025 07:25 PM 134 mg/dL N 200 mg/dL HDL CHOLESTEROL [[id number]] 03/20/2025 07:25 PM 44 mg/dL L > OR = 50 mg/dL TRIGLYCERIDES [[id number]] 03/20/2025 07:25 PM 84 mg/dL N 150 mg/dL LDL-CHOLESTEROL [[id number]] 03/20/2025 07:25 PM 7 4 mg/dL (calc) N Reference range: or = 2 CHD risk factors. LDL-C is now calculated using the Krystal calculation, which is a validated novel method providing better accuracy than the Friedewald equation in the estimation of LDL-C. Amauri SS et al. SHRUTHI. 2013;310(10): 8922-8212 (http://Beyond Oblivion.Lotour.com/faq/AGF753) CHOL/HDLC RATIO [[id number]] 03/20/2025 07:25 PM 3.0 (calc) N 5.0 (calc) NON HDL CHOLESTEROL [[id number]] 03/20/2025 07:25 PM 90 mg/dL (calc) N 130 mg/dL (calc) For patients with diabetes p donavan 1 major ASCVD risk factor, treating to a non-HDL-C goal of 100 mg/dL (LDL-C of <70 mg/dL) is considered a therapeutic option. ALBUMIN, RANDOM URINE W/CREA AZAEL[6517] Collected: 03/19/2025 01:42 PM Specimen Received: 03/19/2025 01:44 PM Source: QuestFASTING:YESFASTING: YES CREATININE, RANDOM URINE [[id number]] 03/20/2025 07:25 PM 150 mg/dL N 20-275 mg/dL ALBUMIN, URINE [[id number]] 03/20/2025 07:25 PM 3.4 mg/dL N See Note: mg/dL Reference Range:Reference Ra ngeNot established ALBUMIN/CREATININE RATIO, RANDOM URINE [[id number]] 03/20/2025 07:25 PM 23 mg/g creat N 30 m g/g creat The ADA defines abnormalitie s in albuminexcretion as follows: Albuminuria Category Result (mg/g creatinine) Normal to Mildly increased OR = 300 The ADA recommends that at least two of threespecimens collected within a 3-6 month period beabnormal before considering a patient to bewithin a diagnostic category. COMPREHENSIVE METABOLIC PANE L[[id number]] Collected: 03/19/2025 01:42 PM Specimen Received: 03/19/2025 01:44 PM Source: QuestFASTING:YESFASTING: YES GLUCOSE [[id number]] 03/20/2025 07:25 PM 158 mg/dL H 65-99 mg/dL Fasting reference interval F or someone without known diabetes, a glucosevalue >125 mg/dL indicates that they may havediabetes and this should be confirmed with afollow-up test. UREA NITROGEN (BUN) [] 03/20/2025 07:25 PM 39 mg/dL H 7-25 mg/dL CREATININE [] 03/20/2025 07:25 PM 1.73 mg/dL H 0.50-1.05 mg/dL EGFR [[id number]] 03/20/2025 07:25 PM 32 mL/min/1.73m2 L > OR = 60 mL/min/1.73m2 BUN/CREATININE RATIO [[id number]] 03/20/2025 07:25 PM 23 (calc) H 6-22 (calc) SODIUM [[id number]] 03/20/2025 07:25 PM 138 mmol/L N 135-146 mmol/L POTASSIUM [[id number]] 03/20/2025 07:25 PM 4.2 mmol/L N 3.5-5.3 mmol/L CHLORIDE [[id number]] 03/20/2025 07:25 PM 105 mmol/L N 98-110 mmol/L CARBON DIOXIDE [[id number]] 03/20/2025 07:25 PM 24 mmol/L N 20-32 mmol/L CALCIUM [[id number]] 03/20/2025 07:25 PM 9.0 mg/dL N 8.6-10.4 mg/dL PROTEIN, TOTAL [[id number]] 03/20/2025 07:25 PM 6.7 g/dL N 6.1-8.1 g/dL ALBUMIN [[id number]] 03/20/2025 07:25 PM 4.0 g/dL N 3.6-5.1 g/dL GLOBULIN [[id number]] 03/20/2025 07:25 PM 2.7 g/dL (calc) N 1.9-3.7 g/dL (calc) ALBUMIN/GLOBULIN RATIO [[id number]] 03/20/2025 07:25 PM 1.5 (calc) N 1.0-2.5 (jose david c) BILIRUBIN, TOTAL [[id number]] 03/20/2025 07:25 PM 0.3 mg/dL N 0.2-1.2 mg/d L ALKALINE PHOSPHATASE [] 03/20/2025 07:25 PM 62 U/L N 37-153 U/L AST [] 03/20/2025 07:25 PM 9 U/L L 1 0-35 U/L ALT [] 03/20/2025 07:25 PM 7 U/L N 6 -29 U/L HEMOGLOBIN A1c[496] Collected: 03/19/2025 01:42 PM Specimen Received: 03/19/2025 01:44 PM Source: QuestFASTING:YESFASTING: YES HEMOGLOBIN A1c [[id number]] 03/20/2025 07:25 PM 6.7 % H 5.7 % For someone without known di abetes, a hemoglobin J1cvvmfe of 6.5% or greater indicates that they [...] of diabetes for children. Clinical PDF Report [id number] H-1[ClinicalPDFReport1] Collected: 03/19/2025 01:42 PM Specimen Received: 03/19/2025 01:44 PM Source: [facility]FASTING:YESFASTING: YES Clinical PDF Report [id number] [ClinicalPDFReport1] [facility] Comp. Metabolic Panel (14)[3 [id number]] Collected: 09/23/2024 06:37 PM Specimen Received: 09/23/2024 05:00 AM Source: [facility] Glucose [[id number]] 09/24/2024 05:44 AM 148 mg/dL H 70-99 mg/dL BUN [[id number]] 09/24/2024 05:42 AM 36 mg/dL H 8-2 7 mg/dL Creatinine [[id number]] 09/24/2024 05:44 AM 1.67 mg/dL H 0.57-1.00 mg/dL eGFR [[id number]] 09/24/2024 05:44 AM 33 mL/min/1.73 L >59 mL/min/1.73 BUN/Creatinine Ratio [[id number]] 09/24/2024 05:44 AM 22 12-28 Sodium [[id number]] 09/24/2024 05:42 AM 138 mmol/L 134-144 mmol/L Potassium [[id number]] 09/24/2024 05:48 AM 4.4 mmol/L 3.5-5.2 mmol/L Chloride [[id number]] 09/24/2024 05:41 AM 104 mmol/L 96-106 mmol/L Carbon Dioxide, Total [584476] 09/24/2024 05:41 AM 18 mmol/L L 20-29 mmol/L Calcium [036715] 09/24/2024 03:49 AM 8.9 mg/dL 8.7-10.3 mg/dL Protein, Total [[id number]] 09/24/2024 05:52 AM 6.4 g/dL 6.0-8.5 g/dL Albumin [645592] 09/24/2024 05:43 AM 4.0 g/dL 3.9-4.9 g/dL Globulin, Total [929583] 09/24/2024 05:52 AM 2.4 g/dL 1.5-4.5 g/dL Bilirubin, Total [901205] 09/24/2024 03:51 AM 0.2 mg/dL 0.0-1.2 mg/dL Alkaline Phosphatase [[id number]] 09/24/2024 05:44 AM 87 IU/L 44-121 IU/L AST (SGOT) [[id number]] 09/24/2024 05:46 AM 15 IU/L 0-40 IU/L ALT (SGPT) [529815] 09/24/2024 05:48 AM 10 IU/L 0-32 IU/L Lipid Panel[[id number]] Collected: 09/23/2024 06:37 PM Specimen Received: 09/23/2024 05:00 AM Source: [facility] Cholesterol, Total [[id number]] 09/24/2024 06:02 AM 149 mg/dL 100-199 mg/d L Triglycerides [[id number]] 09/24/2024 05:54 AM 124 mg/dL 0-149 mg/dL HDL Cholesterol [[id number]] 09/24/2024 05:52 AM 47 mg/dL >39 mg/dL VLDL Cholesterol Jose David [[id number]] 09/24/2024 06:02 AM 22 mg/dL 5-40 mg/dL LDL Chol Calc ([facility]) [[id number]] 09/24/2024 06:02 AM 80 mg/dL 0-99 mg/dL Albumin/Creatinine Ratio,Uri ne[[id number]] Collected: 09/23/2024 06:37 PM Specimen Received: 09/23/2024 05:00 AM Source: [facility] Creatinine, Urine [[id number]] 09/25/2024 07:29 PM 107.7 mg/dL Not Estab. mg/dL Albumin, Urine [[id number]] 09/25/2024 07:40 PM 33.9 ug/mL Not Estab. ug/mL Alb/Creat Ratio [[id number]] 09/25/2024 07:40 PM 31 mg/g creat H 0-29 mg/g creat Normal: 0 - 29 Moderately i ncreased: 30 - 300 Severely increased: >300 Hemoglobin A1c[[id number]] Collected: 09/23/2024 06:37 PM Specimen Received: 09/23/2024 05:00 AM Source: [facility] Hemoglobin A1c [[id number]] 09/24/2024 04:05 AM 9.1 % H 4.8-5.6 % . Prediabetes: 5.7 - 6.4 Theresa betes: >6.4 Glycemic control for adults with diabetes: 7.0 Allergies, adverse reactions, alerts No known allergies and adverse reactions Medications No administered medications reported Vital Signs No vital signs reported Social History No smoking Hx information available
== END 2025-10-07 12:38 | disposition home or self-care (01) ==
LOC: HO.HMCC 11:19
PROVIDERS: PCP Internal Medicine; Visit Provider Internal Medicine
DX: I48.19 Other persistent atrial fibrillation (principal); I27.20 Pulmonary hypertension, unspecified; N18.30 Chronic kidney disease, stage 3 unspecified; E11.9 Type 2 diabetes mellitus without complications

== ENCOUNTER → 2025-10-07 11:18 | Outpatient (BNVA) | payer MEDICARE, MEDICAID, SELFPAY | PROVIDERS: PCP Internal Medicine; Visit Provider Internal Medicine | DX: I48.19 Other persistent atrial fibrillation (principal); I12.9 Hypertensive chronic kidney disease with stage 1 through stage 4 chronic kidney disease, or unspecified chronic kidney disease; E11.22 Type 2 diabetes mellitus with diabetic chronic kidney disease; N18.30 Chronic kidney disease, stage 3 unspecified; I27.20 Pulmonary hypertension, unspecified; Z96.651 Presence of right artificial knee joint; Z79.899 Other long term (current) drug therapy; Z79.85 Long-term (current) use of injectable non-insulin antidiabetic drugs | CPT/HCPCS: 99212 ==

== ENCOUNTER 2025-11-05 10:56 | Outpatient (REF) | payer MEDICARE, MEDICAID, SELFPAY ==
--- OUTSIDE RECORDS SUMMARY | 2025-10-27 09:30 | XMS_ITS ---
Author Organization [facility] Address [address] [place] [address] Care Team Providers Care Log Scaler Name Role Phone Marisela Oscar MD Primary Care Provider Unavaila Taylor Chacon [phone] Encounters Encounter Location Date Provider Diagnosis [address] [address] 10/27/2025 Taylor Kenney Plan Of Treatment No Information Progress Notes * Isrrael SERRATOOB:1955 (70 yo F)Acc No.[id number]:10/27/2025 Progress Note Patient: Blaire VANEGAS Provider: Sachi Kenney DPM :1955 A ge:70 Y S ex:Female Date:10/27/2025 Address:[address] [place], [place] [id number] Pcp:Marisela Oscar MD Subjective: * Chief Complaints: * * Medical History: Objective: * Vitals: Assessment: Plan: * Treatment: * Images: * The named appointment provid er may or may not be the originator of this progress note, and it is not deemed complete until electronically signed by the appointment provider. Sign off status: Pending * Provider: Sachi Kenney DPM Date: 12/28/2024 Generated for Printi jessee/Faanna/eTransmitting on: 01/06/2025 12:49 PM EST
--- OUTSIDE RECORDS SUMMARY | 2025-11-05 12:49 | XMS_ITS | Encounter Summary ---
Author Organization [facility] Address [address] [id number] Care Team Providers Care Wire Frame Lampshade Maker Name Role Phone Marisela Oscar MD Primary Care Provider [phone] Claudia Jean-Baptiste MD Unavailable [phone] Encounter Details Date Type Department Care Team (Late st Contact Info) Description 09/21/2024 Scanned Document [facility] [address] [place] [phone] Raheem Lynne, RN [address] [address] Social History Tobacco Use Types Packs/Day Years [...] Care Team (Late st Contact Info) Description 12/13/2025 3:40 PM EST Office Visit [facility] [address] [phone] Luisana Lomas PA-C [address] [address] 01/10/2026 2:20 PM EST Office Visit [facility] [place] [address] [place] [phone] Claudia Jean-Baptiste MD [address] [place] [address] documented as of this encounter Visit Diagnoses Not on filedocumented in this encounter Care Teams Wire Frame Lampshade Maker Relationship Specialty Start Date End Date Marisela Oscar MD [address] [place] [address] PCP - General 05/10/23 Claudia Jean-Baptiste MD [address] [place] [address] Primary 3Rd Grade Reading Teacher Cardiovascular Disease 09/03/23 documented as of this encounter
--- OUTSIDE RECORDS SUMMARY | 2025-11-05 12:49 | XMS_ITS | Encounter Summary ---
Author Organization [facility] Address [address] [place], [place] [id number] Care Team Providers Care Shipping Receiving Manager Name Role Phone Marisela Oscar MD Primary Care Provider [phone] Claudia Jean-Baptiste MD Unavailable [phone] Encounter Details Date Type Department Care Team (Late st Contact Info) Description 05/10/2023 Scanned Document [facility] Pulmonary [address] [address] Pulmonary, Scan Social History Tobacco [...] Department Care Team (Late Contact Info) Description 12/13/2025 3:40 PM EST Office Visit [facility] Pulmonary [address] [phone] Luisana Lomas PA-C [address] [place] [address] 01/10/2026 2:20 PM EST Office Visit [facility] Heart & Vascular [place] [address] [phone] Claudia Jean-Baptiste MD [address] [place] [address] documented as of this encounter Visit Diagnoses Not on filedocumented in this encounter Care Teams Shipping Receiving Manager Relationship Specialty Start Date End Date Marisela Oscar MD [address] [place] [address] PCP - General 05/10/23 Claudia Jean-Baptiste MD [address] [place] [address] Primary Scaler Cardiovascular Disease 09/03/23 documented as of this encounter
--- OUTSIDE RECORDS SUMMARY | 2025-11-05 12:49 | XMS_ITS | Encounter Summary ---
Author Organization [facility] Address [address] [place] [address] Care Team Providers Care Underground Electrician Name Role Phone Marisela Oscar MD Primary Care Provider [phone] Claudia Jean-Baptiste MD Unavailable [phone] Encounter Details Date Type Department Care Team (Late st Contact Info) Description 09/20/2025 Scanned Document [facility] [place] [address] [place] [address] [address] [place] [phone] Pulmonology, Scan Social History Tobacco Use Types [...] Description 12/13/2025 3:40 PM EST Office Visit [facility] [place] [address] [place] [phone] Luisana Lomas PA-C [address] [place] [address] 01/10/2026 2:20 PM EST Office Visit [facility] Heart & Vascular [place] [address] [phone] Claudia Jean-Baptiste MD [address] [place] [address] documented as of this encounter Visit Diagnoses Not on filedocumented in this encounter Care Teams Underground Electrician Relationship Specialty Start Date End Date Marisela Oscar MD [address] [place] [address] PCP - General 05/10/23 Claudia Jean-Baptiste MD [address] [place] [address] Primary Healthcare Manager Cardiovascular Disease 09/03/23 documented as of this encounter
--- OUTSIDE RECORDS SUMMARY | 2025-11-05 12:49 | XMS_ITS | Continuity of Care Document ---
Author Organization [facility] Address [address] [facility] [address] [place] [address] Insurance Providers Payer Plan Claims Address Claims Phone Policy Number Group Number Relation Employer Guarantor Name Guarantor Guarantor Address Guarantor Phone [facility], [address], [place] [address] tel:[phone] [id number] Self Blaire Murray [address] [place] [address] [facility] tel:[phone] [id number] [phone] [id number] Self Blaire Murray [address] [place] [address] [facility] Medic are [id number] Self Blaire Murray [address] [place] [address] Problems Unknown Problems Results Test Result Date/Time Value / Unit Interp. Refere [facility] Range LIPID PANEL, STANDARD[[id number]] Collected: 03/19/2025 01:42 PM Specimen Received: 03/19/2025 01:44 PM Source: [facility]ST[facility]:YESFASTING: YES CHOLESTEROL, TOTAL [[id number]] 03/20/2025 07:25 PM 134 mg/dL N 200 mg/dL HDL CHOLESTEROL [[id number]] 03/20/2025 07:25 PM 44 mg/dL L > OR = 50 mg/dL TRIGLYCERIDES [[id number]] 03/20/2025 07:25 PM 84 mg/dL N 150 mg/dL LDL-CHOLESTEROL [[id number]] 03/20/2025 07:25 PM 7 4 mg/dL (calc) N Reference range: or = 2 CHD risk factors. LDL-C is now calculated using the Krystal calculation, which is a validated novel method providing better accuracy than the Friedewald equation in the estimation of LDL-C. Amauri SS et al. SHRUTHI. 2013;310(25): 4519-5489 (http://Link Trigger.Celletra/faq/KLE760) CHOL/HDLC RATIO [[id number]] 03/20/2025 07:25 PM 3.0 (calc) N 5.0 (calc) NON HDL CHOLESTEROL [[id number]] 03/20/2025 07:25 PM 90 mg/dL (calc) N 130 mg/dL (calc) For patients with diabetes p donavan 1 major ASCVD risk factor, treating to a non-HDL-C goal of 100 mg/dL (LDL-C of <70 mg/dL) is considered a therapeutic option. ALBUMIN, RANDOM URINE W/CREA AZAEL[[id number]] Collected: 03/19/2025 01:42 PM Specimen Received: 03/19/2025 01:44 PM Source: [facility]FASTING:YESFASTING: YES CREATININE, RANDOM URINE [[id number]] 03/20/2025 07:25 PM 150 mg/dL N 20-275 mg/dL ALBUMIN, URINE [[id number]] 03/20/2025 07:25 PM 3.4 mg/dL N See Note: mg/dL Reference Range:Reference Ra ngeNot established ALBUMIN/CREATININE RATIO, RANDOM URINE [[id number]] 03/20/2025 07:25 PM 23 mg/g creat N 30 m g/g creat The ADA defines abnormalitie s in albuminexcretion as follows: Albuminuria Category Result (mg/g creatinine) Normal to Mildly increased OR = 300 The ADA recommends that at least two of threespecimens collected within a 3-6 month period beabnormal before considering a patient to bewithin a diagnostic category. COMPREHENSIVE METABOLIC PANE L[[id number]] Collected: 03/19/2025 01:42 PM Specimen Received: 03/19/2025 01:44 PM Source: [facility]FASTING:YESFASTING: YES GLUCOSE [[id number]] 03/20/2025 07:25 PM 158 mg/dL H 65-99 mg/dL Fasting reference interval F or someone without known diabetes, a glucosevalue >125 mg/dL indicates that they may havediabetes and this should be confirmed with afollow-up test. UREA NITROGEN (BUN) [] 03/20/2025 07:25 PM 39 mg/dL H 7-25 mg/dL CREATININE [] 03/20/2025 07:25 PM 1.73 mg/dL H 0.50-1.05 mg/dL EGFR [[id number]] 03/20/2025 07:25 PM 32 mL/min/1.73m2 L > OR = 60 mL/min/1.73m2 BUN/CREATININE RATIO [[id number]] 03/20/2025 07:25 PM 23 (calc) H 6-22 (calc) SODIUM [[id number]] 03/20/2025 07:25 PM 138 mmol/L N 135-146 mmol/L POTASSIUM [[id number]] 03/20/2025 07:25 PM 4.2 mmol/L N 3.5-5.3 mmol/L CHLORIDE [[id number]] 03/20/2025 07:25 PM 105 mmol/L N 98-110 mmol/L CARBON DIOXIDE [[id number]] 03/20/2025 07:25 PM 24 mmol/L N 20-32 mmol/L CALCIUM [[id number]] 03/20/2025 07:25 PM 9.0 mg/dL N 8.6-10.4 mg/dL PROTEIN, TOTAL [[id number]] 03/20/2025 07:25 PM 6.7 g/dL N 6.1-8.1 g/dL ALBUMIN [[id number]] 03/20/2025 07:25 PM 4.0 g/dL N 3.6-5.1 g/dL GLOBULIN [[id number]] 03/20/2025 07:25 PM 2.7 g/dL (calc) N 1.9-3.7 g/dL (calc) ALBUMIN/GLOBULIN RATIO [[id number]] 03/20/2025 07:25 PM 1.5 (calc) N 1.0-2.5 (jose david c) BILIRUBIN, TOTAL [[id number]] 03/20/2025 07:25 PM 0.3 mg/dL N 0.2-1.2 mg/d L ALKALINE PHOSPHATASE [] 03/20/2025 07:25 PM 62 U/L N 37-153 U/L AST [] 03/20/2025 07:25 PM 9 U/L L 1 0-35 U/L ALT [] 03/20/2025 07:25 PM 7 U/L N 6 -29 U/L HEMOGLOBIN A1c[496] Collected: 03/19/2025 01:42 PM Specimen Received: 03/19/2025 01:44 PM Source: [facility]FASTING:YESFASTING: YES HEMOGLOBIN A1c [[id number]] 03/20/2025 07:25 PM 6.7 % H 5.7 % For someone without known di abetes, a hemoglobin B0hmarhs of 6.5% or greater indicates that they [...] of diabetes for children. Clinical PDF Report [id number] H-1[ClinicalPDFReport1] Collected: 03/19/2025 01:42 PM Specimen Received: 03/19/2025 01:44 PM Source: [facility]FASTING:YESFASTING: YES Clinical PDF Report [id number] [ClinicalPDFReport1] INEZ Comp. Metabolic Panel (14)[[id number]] Collected: 09/23/2024 06:37 PM Specimen Received: 09/23/2024 05:00 AM Source: [facility] Glucose [[id number]] 09/24/2024 05:44 AM 148 mg/dL H 70-99 mg/dL BUN [[id number]] 09/24/2024 05:42 AM 36 mg/dL H 8-2 7 mg/dL Creatinine [[id number]] 09/24/2024 05:44 AM 1.67 mg/dL H 0.57-1.00 mg/dL eGFR [[id number]] 09/24/2024 05:44 AM 33 mL/min/1.73 L >59 mL/min/1.73 BUN/Creatinine Ratio [[id number]] 09/24/2024 05:44 AM 22 12-28 Sodium [100340] 09/24/2024 05:42 AM 138 mmol/L 134-144 mmol/L Potassium [867997] 09/24/2024 05:48 AM 4.4 mmol/L 3.5-5.2 mmol/L Chloride [775662] 09/24/2024 05:41 AM 104 mmol/L 96-106 mmol/L Carbon Dioxide, Total [149989] 09/24/2024 05:41 AM 18 mmol/L L 20-29 mmol/L Calcium [[id number]] 09/24/2024 03:49 AM 8.9 mg/dL 8.7-10.3 mg/dL Protein, Total [[id number]] 09/24/2024 05:52 AM 6.4 g/dL 6.0-8.5 g/dL Albumin [[id number]] 09/24/2024 05:43 AM 4.0 g/dL 3.9-4.9 g/dL Globulin, Total [[id number]] 09/24/2024 05:52 AM 2.4 g/dL 1.5-4.5 g/dL Bilirubin, Total [605171] 09/24/2024 03:51 AM 0.2 mg/dL 0.0-1.2 mg/dL Alkaline Phosphatase [557016] 09/24/2024 05:44 AM 87 IU/L 44-121 IU/L AST (SGOT) [247393] 09/24/2024 05:46 AM 15 IU/L 0-40 IU/L ALT (SGPT) [286509] 09/24/2024 05:48 AM 10 IU/L 0-32 IU/L Lipid Panel[[id number]] Collected: 09/23/2024 06:37 PM Specimen Received: 09/23/2024 05:00 AM Source: [facility] Cholesterol, Total [[id number]] 09/24/2024 06:02 AM 149 mg/dL 100-199 mg/d L Triglycerides [569776] 09/24/2024 05:54 AM 124 mg/dL 0-149 mg/dL HDL Cholesterol [[id number]] 09/24/2024 05:52 AM 47 mg/dL >39 mg/dL VLDL Cholesterol Jose David [[id number]] 09/24/2024 06:02 AM 22 mg/dL 5-40 mg/dL LDL Chol Calc ([facility]) [[id number]] 09/24/2024 06:02 AM 80 mg/dL 0-99 mg/dL Albumin/Creatinine Ratio,Uri ne[[id number]] Collected: 09/23/2024 06:37 PM Specimen Received: 09/23/2024 05:00 AM Source: [facility] Creatinine, Urine [[id number]] 09/25/2024 07:29 PM 107.7 mg/dL Not Estab. mg/dL Albumin, Urine [[id number]] 09/25/2024 07:40 PM 33.9 ug/mL Not Estab. ug/mL Alb/Creat Ratio [[id number]] 09/25/2024 07:40 PM 31 mg/g creat H 0-29 mg/g creat Normal: 0 - 29 Moderately i ncreased: 30 - 300 Severely increased: >300 Hemoglobin A1c[[id number]] Collected: 09/23/2024 06:37 PM Specimen Received: 09/23/2024 05:00 AM Source: [facility] Hemoglobin A1c [[id number]] 09/24/2024 04:05 AM 9.1 % H 4.8-5.6 % . Prediabetes: 5.7 - 6.4 Theresa betes: >6.4 Glycemic control for adults with diabetes: 7.0 Allergies, adverse reactions, alerts No known allergies and adverse reactions Medications No administered medications reported Vital Signs No vital signs reported Social History No smoking Hx information available
--- OUTSIDE RECORDS SUMMARY | 2025-11-05 12:49 | XMS_ITS | Patient Health Record ---
Author Organization [facility] Address [address] [place] [address] Care Team Providers Care Diamond Merchant Name Role Phone Marisela Osacr MD Primary Care Provider Unavaila ble Black, Taylor Unavailable [phone] Allergies Allergen (clinical drug ingredient) Drug/Non Drug [...] Problem Acquired hammer toe of right foot (579074667145089 5) Other hammer toe(s) (acquired), right foot (M20.41) Active confirmed Problem Acquired hammer toe of left foot (305294596914570 3) Other hammer toe(s) (acquired), left foot (M20.42) Active confirmed Problem Type II diabetes mellitus without complication (820701306) Type 2 diabetes mellitus without complication (E11.9) Active confirmed Problem Ulcer of toe of left foot (disorder) (495513546745871 02) Skin ulcer of toe of left foot, limited to breakdown of skin (L97.521) Active confirmed Problem Diabetic renal disease (497311214) 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 [address] [facility] Taylor Black Ingrown nail L60.0 ; Other hammer toe(s) (acquired), right foot M20.41 ; Pain in right toe(s) M79.674 ; Pain in left toe(s) M79.675 ; Type 2 diabetes mellitus without complication E11.9 ; Other hammer toe(s) (acquired), left foot M20.42 and Diabetes mellitus with kidney disease E11.[address] [address] 07/27/2025 Taylor Black Skin ulcer of toe of left foot, limited to breakdown of skin L97.521 [facility] [address] 05/17/2025 Taylor [facility] [address] 06/02/2025 Taylor Black [facility] [address] [address] 10/07/2025 Taylor Black Assessments Encounter Date Diagnosis (ICD [...] Treatment Pending Test Test Name Order Date 01188-TPRVNYR NAIL, 6 OR MORE 09/29/2021 04939-Pfrljekk Plate 07/14/2025 31477-Hnbzdjjn Plate 08/14/2019 99491- Debride <25 sq cm 08/28/2019 87736- Debride <25 sq cm 07/27/2025 Y5545-TRQIQQIQ DYSTROPHIC NAILS ANY # Insurance Providers Payer Name Payer Address Payer Phone Subscriber Number Group Number Insured Name Patient Relationship to Insured Coverage Start Date Coverage End Date [employer] [place] [employer]vantage [facility] [address] [place] [address] [id number] Blaire Gold Self - patient is the insured 4 Medical (General) History Medical History History ICD Code Arthritis Back,Hip,and Knee pain Diabetic High blood pressure Keloid/Thick Scar Reflux ( GERD) Measles Mumps Chicken pox A fib Kidney disease Lung disease Surgical History Surgery Date(Month/Year) hysterectomy 2014 Keliod Ears 70's excision of skin lesion 5th R 08/30/2021
--- OUTSIDE RECORDS SUMMARY | 2025-11-05 12:49 | XMS_ITS | Encounter Summary ---
Author Organization [facility] Address [address] [place] [address] Care Team Providers Care Stage Builder Name Role Phone aMrisela Oscar MD Primary Care Provider Claudia Jean-Baptiste MD Unavailable [phone] Encounter Details Date Type Department Care Team (Late st Contact Info) Description 09/20/2025 Scanned Document [facility] [place] [address] [place] [address] [address] [place] [phone] Pulmonology, Scan Social History Tobacco Use Types [...] Description 12/13/2025 3:40 PM EST Office Visit [facility] [place] [address] [place] [phone] Luisana Lomas PA-C [address] [place] [address] 01/10/2026 2:20 PM EST Office Visit [facility] Heart & Vascular [place] [address] [phone] Claudia Jean-Baptiste MD [address] [place] [address] documented as of this encounter Visit Diagnoses Not on filedocumented in this encounter Care Teams Stage Builder Relationship Specialty Start Date End Date Marisela Oscar MD [address] [place] [address] PCP - General 05/10/23 Claudia Jean-Baptiste MD [address] [place] [address] Primary Milling Machine Set Up Operator Cardiovascular Disease 09/03/23 documented as of this encounter
--- OUTSIDE RECORDS SUMMARY | 2025-11-05 12:49 | XMS_ITS | Encounter Summary ---
Author Organization [facility] Address [address] [place] [address] Care Team Providers Care Iron Pellet Tester Name Role Phone Marisela Oscar MD Primary Care Provider [phone] Claudia Jean-Baptiste MD Unavailable [phone] Encounter Details Date Type Department Care Team (Late st Contact Info) Description 08/09/2023 Scanned Document [facility] Pulmonary [address] [address] Pulmonology, Scan Social History Tobacco [...] Description 12/13/2025 3:40 PM EST Office Visit [facility] Pulmonary [address] [phone] Luisana Lomas PA-C [address] [place] [address] 01/10/2026 2:20 PM EST Office Visit [facility] Heart & V[facility] [place] [address] [phone] Claudia Jean-Baptiste MD [address] [place] [address] documented as of this encounter Visit Diagnoses Not on filedocumented in this encounter Care Teams Iron Pellet Tester Relationship Specialty Start Date End Date Marisela Oscar MD [address] [place] [address] PCP - General 05/10/23 Claudia Jean-Baptiste MD [address] [place] [address] Primary Kitchen Food Assembler Cardiovascular Disease 09/03/23 documented as of this encounter
--- OUTSIDE RECORDS SUMMARY | 2025-11-05 12:49 | XMS_ITS | Clinical Summary ---
Author Organization [facility] Address [address] [place] [address] Care Team Providers Care Flotation Tender Helper Name Role Phone Marisela Oscar MD Primary Care Provider [phone] Claudia Jean-Baptiste MD Unavailable Allergies No known [...] mouth 2 (two) times a day. Active GaviLAX 17 GM/SCOOP powder DISSOLVE 1 CAPFUL (17G) IN WATER AND DRINK BY MOUTH ONCE DAILY *NC* 08/01/20 23 Active Cholecalciferol (Vitamin D) 50 MCG (1999 UT) tablet TAKE 1 TABLET BY MOUTH 1 TIME EACH DAY. 01/10/20 24 Active clobetasol (TEMOVATE) 0.05 % cream APPLY TOPICALLY ONCE DAILY 01/13/20 24 Active furosemide (LASIX) 20 MG tabletIndications: PAH (pulmonary artery hypertension) (HCC) TAKE 3 TABLETS BY MOUTH EVERY DAY 270 tablet 3 12/15/19 25 Active Ozempic, 0.25 or 0.5 MG/DOSE, 2 MG/3ML prefilled pen injection INJECT 0.25 MG (0.368 ML) SUBCUTANEOUSLY EVERY WEEK FOR 4 WEEKS 12/30/19 25 Active spironolactone (ALDACTONE) 25 MG tabletIndications: PAH (pulmonary artery hypertension) (HCC) Take 0.5 tablets (12.5 mg total) by mouth daily. 45 tablet 3 06/28/20 25 Active metoPROLOL SUCCINATE (TOPROL-XL) 25 MG 24 hr tablet Take 1 tablet (25 mg total) by mouth. 08/07/20 25 Active ferrous sulfate 325 (65 FE) MG tablet 325 MG ORALLY DAILY 07/13/20 25 Active atorvastatin (LIPITOR) 40 MG tabletIndications: At risk for heart disease,Hyperlipid emia, unspecified hyperlipidemia type TAKE 1 TABLET BY MOUTH EVERY DAY 90 tablet 1 08/30/20 25 Active selexipag (UPTRAVI) 1400 MCG tabletIndications: PAH (pulmonary artery hypertension) (HCC) Take 1 tablet (1,400 mcg total) by mouth 2 (two) times a day. 60 tablet 11 09/03/20 25 Active Opsynvi 10-40 MG TabIndications:PAH (pulmonary artery hypertension) (HCC) TAKE 1 TABLET BY MOUTH 1 TIME A DAY 30 tablet 11 09/24/20 25 Active Active Problems Problem Noted Date [...] Encounters Date Type Department Care Team Description 10/27/2025 Documentation [facility] [place] [address] [place] [address] [address] [place] [phone] Raheem Lynne RN 10/05/2025 Documentation [facility] [place] [address] [place] [phone] Raheem Lynne RN 09/20/2025 Scanned Document [facility] [place] [address] [place] [phone] Pulmonology, Scan 09/20/2025 Scanned Document [facility] [place] [address] [place] [phone] Pulmonology, Scan 08/09/2025 2:00 PM EDT Office Visit [facility] [address] [phone] Luisana Lomas PA-C PAH (pulmonary artery hypertension) (HCC) (Primary Dx); Dyspnea, unspecified type; Obstructive sleep apnea syndrome from Last 3 Months Social History Tobacco [...] Description 12/13/2025 3:40 PM EST Office Visit [address] [phone] Luisana Lomas PA-C [address] [place] [address] [address] [place] [address] 01/10/2026 2:20 PM EST Office Visit [facility] [place] [address] [place] [address] Claudia Jean-Baptiste MD [address] [place] [address] Health Maintenance Due Date Last Done Comments Advance Care Planning 1955 Hepatitis C Virus Screening 1955 Foot Exam 1965 Hemoglobin A1C 1965 Lipid Panel 1965 Ophthalmology Exam 1965 Microalbumin/Creatinine Ratio Urine 1973 DTaP/Tdap/Td Vaccines (1 - Tdap) 1974 Pneumococcal Vaccines 50+ (1 of 2 - PCV) 1974 Zoster (Shingles) Vaccine (1 of 2) 1974 Mammogram 1995 Colonoscopy 2000 RSV Vaccine 50 years and older and Patients (1 - Risk 50-74 years 1-dose series) 2005 DXA Bone Density (Females,Ages 65 and older) 2020 COVID-19 Vaccine (2 - Shavon risk series) 03/24/2021 02/24/2021 Influenza Vaccine 06/18/2025 07/19/2020, 08/01/2018 Creatinine with GFR 08/06/2026 08/06/2025, 02/26/2025, 02/01/2025, Additional history exists Hepatitis B Vaccines Aged Out No long er eligible based on patient's age to complete this topic Procedures Procedure Name Priority Date/Time Associated Diagnosis Comments COMPLETE BLOOD COUNT, WITH DIFFERENTIAL Routine 10/25/2025 9:37 AM EST PAH (pulmonary artery hypertension) (HCC) Right ventricular failure (HCC) Blood tests prior to treatment or procedure COMPLETE BLOOD COUNT, WITH DIFFERENTIAL Routine 09/30/2025 9:32 AM EST PAH (pulmonary artery hypertension) (HCC) Right ventricular failure (HCC) Blood tests prior to treatment or procedure ECHOCARDIOGRAM (TTE) COMPREHENSIVE (CONTRAST PRN) Routine 08/23/2025 7:18 AM EDT Dyspnea, unspecified type PAH (pulmonary artery hypertension) (HCC) SIX MINUTE WALK Routine 08/09/2025 9:01 AM EDT MAGNESIUM Routine 08/06/2025 9:37 AM EDT PAH (pulmonary artery hypertension) (HCC) Right ventricular failure (HCC) BASIC METABOLIC PANEL Routine 08/06/2025 9:37 AM EDT PAH (pulmonary artery hypertension) (HCC) Right ventricular failure (HCC) PROBNP, N-TERMINAL Routine 08/06/2025 9: 37 AM EDT PAH (pulmonary artery hypertension) (HCC) Right ventricular failure (HCC) from Last 3 Months Results * Complete Blood Count, with Differential (10/25/2025 9:37 AM EST) Only the most recent of2 resultswithin the time period is included. White Blood Cell Count 7.6 3.8 - 10.8 Thousand/u L [facility] Red Blood Cell Count 4.16 3.80 - 5.10 Million/uL [facility] Hemoglobin 13.0 11.7 - 15.5 g/dL [facility] Hematocrit 39.9 35.9 - 46.0 % [facility] [employer] MCV 95.9 81.4 - 101.7 fL [facility] MCH 31.3 27.0 - 33.0 pg [facility] [employer] MCHC 32.6 31.6 - 35.4 g/dL [facility] RDW 13.2 11.0 - 15.0 % [facility] Platelet Count 259 140 - 400 Thousand/u L [facility] MPV 10.4 7.5 - 12.5 fL [facility] Abs Neutrophils Auto 4,378 1,500 - 7,800 cells/uL [facility] Abs Lymphocytes Auto 2,303 850 - 3,900 cells/uL [facility] Abs Monocytes Auto 570 200 - 950 cells/uL [facility] Abs Eosinophils Auto 327 15 - 500 cells/uL [facility] Abs Basophils Auto 23 0 - 200 cells/uL [facility] Neutrophils Auto 57.6 % [facility] Lymphocytes Auto 30.3 % [facility] Monocytes Auto 7.5 % [facility] Eosinophils Auto 4.3 % [facility] Basophils Auto 0.3 % [facility] Blood Blood specimen / Unknown 10/25/2025 9:37 AM EST 10/25/2025 9:37 AM EST Narrative [facility] - 10/25/2025 11:46 PM EST FASTING:YES FASTING: YES Brandon Irizarry MD LAB BLOOD ORDERABLES Final Resul t Performing Organization Address City/State/[facility] Co de Phone Number [facility] [address] [place] [phone] * ECHOCARDIOGRAM COMPREHENSIVE (08/23/2025 7:18 AM EDT) MV E' Septal Velocity 5.04 cm/s MV E' Septal Velocity Mean 5.04 cm/s MV E' Lateral Velocity 9.03 cm/s MV E' Lateral Velocity Mean 9.03 cm/s IVS (F:0.6-0.9, M:0.6-1.0) 1.2 cm IVS Mean (F:0.6-0.9, M:0.6-1.0) 1.2 cm LVOT peak grayson 1.1 m/s LVOT peak grayson mean 1.1 m/s LVIDD (F:3.8-5.2, M:4.2-5.8) 4.5 cm LVIDD Mean (F:3.8-5.2, M:4.2-5.8) 4.5 cm LVIDS (F:2.2-3.5, M:2.5-4.0) 3.0 cm LVIDS (F:2.2-3.5, M:2.5-4.0) 3.0 cm PW (F:0.6-0.9, M:0.6-1.0) 1.1 cm PW Mean (F:0.6-0.9, M:0.6-1.0) 1.1 cm Ao peak grayson 1.5 m/s Ao peak grayson mean 1.5 m/s E wave decelartion time 207 ms E wave decelartion time mean 207 ms MV Peak E-Wave 146.0 cm/s MV Peak E-Wave Mean 146.0 Centimeter Per Second Pulmonic Valve Regurgitant End Diastolic Velocity 1.7 m/s Pulmonic Valve Regurgitant End Diastolic Velocity Mean 1.7 m/s TR Peak Grayson 3.2 m/s TR Peak Grayson Mean 2.9 m/s Sinuses of Valsalva 2.6 cm Sinuses of Valsalva Mean 2.6 cm Ascending aorta 2.7 cm Ascending aorta mean 2.7 cm LV mass 186.4 g LV RWT 0.49 E/E' Lateral 16.2 E/E' Septal 29.0 E/E' Average 22.6 AV LVOT peak gradient 4.8 mmHg AV peak gradient 9.0 mmHg E/E' ratio 16.17 TR Peak Gradient 41 mmHg RV Free wall pk S' 9.7 cm/s Tapse 2.5 cm Est. RA pres 3 mmHg RVSP 44 mmHg PASP 44.0 mmHg PA EDP 14.6 mmHg Anatomical Region Laterality Modality Heart Ultrasound Narrative 08/23/2025 10:43 PM EDT The left ventricle is normal in size. There is mild concentric hypertrophy. Left ventricular systolic function is normal with an estimated ejection fraction of 55-59%. No wall motion abnormalities are present. Left atrial filling pressure is elevated. The right ventricle is normal in size. Right ventricular systolic function is normal. Normal tricuspid annular plane systolic excursion (TAPSE) >1.6 cm. Normal systolic excursion velocity by TDI (>9.5 cm/s). The left atrial cavity is severely dilated. SHANTA 58.1ml/m2 Right atrial cavity is moderately dilated. There is mild tricuspid regurgitation. The estimated right ventricular systolic pressure is normal at 44 mmHg. Compared to previous study on 09/21/2024, there has been an interval increase in the right ventricular systolic pressure, increasing from 32 mmhg (normal) to 44 mm hg (mild to moderately elevatr. There is no other significant change. Technical Details Overall the study quality was adequate. Left Ventricle The left ventricle is normal in size. There is mild concentric hypertrophy. Left ventricular systolic function is normal with an estimated ejection fraction of 55-59%. No wall motion abnormalities are present. Left atrial filling pressure is elevated. Right Ventricle The right ventricle is normal in size. Right ventricular systolic function is normal. Normal tricuspid annular plane systolic excursion (TAPSE) >1.6 cm. Normal systolic excursion velocity by TDI (>9.5 cm/s). Left Atrium The left atrial cavity is severely dilated. SHANTA 58.1ml/m2 Right Atrium Right atrial cavity is moderately dilated. Based on IVC diameter and collapse, right atrial pressure is estimated to be normal (3 mmHg). Mitral Valve The mitral valve is structurally normal. There is mild mitral posterior annular calcification. There is trace mitral regurgitation. Tricuspid Valve The tricuspid valve is structurally normal. There is mild tricuspid regurgitation. The estimated right ventricular systolic pressure is normal at 44 mmHg. Aortic Valve The aortic valve is tricuspid. There is trace aortic regurgitation. There is no aortic valve stenosis. Pulmonic Valve The pulmonic valve is structurally normal. There is mild pulmonic regurgitation. Ascending Aorta The aortic root and ascending aorta are normal in dimension. Pericardium There is no pericardial effusion. Prior Study Compared to previous study on 09/21/2024, there has been an interval increase in the right ventricular systolic pressure, increasing from 32 mmhg to 44 mm hg. There is no other significant change. Wall Scoring Baseline Score Index: 1.00 The left ventricular wall motion is normal. us Luisana SHAVER-C CV ECHO ORDERABLES Final Re sult * Six minute walk (08/09/2025 9:01 AM EDT) us Luisana SHAVER-C PROCEDURE/MINOR SURGICAL OR DERABLES Final Result * (ABNORMAL) proBNP, N-terminal (08/06/2025 9:37 AM EDT) Probnp, N Terminal 893(H) <125 pg/mL [facility] Blood Blood specimen / Unknown 08/06/2025 9:37 AM EDT 08/06/2025 9:37 AM EDT Narrative [employer] - 08/07/2025 7:11 AM EDT FASTING:YES FASTING: YES Brandon Irizarry MD LAB BLOOD ORDERABLES Final Resul t Performing Organization Address [facility] de Phone Number [id number] [place] [phone] * Magnesium (08/06/2025 9:37 AM EDT) Magnesium 2.1 1.5 - 2.5 mg/dL [facility] Blood Blood specimen / Unknown 08/06/2025 9:37 AM EDT 08/06/2025 9:37 AM EDT Narrative [employer] - 08/07/2025 7:11 AM EDT FASTING:YES FASTING: YES us Brandon Irizarry MD LAB BLOOD ORDERABLES Final Resul t Performing Organization Address [facility] de Phone Number [facility] [address] [place] [phone] * (ABNORMAL) Basic metabolic panel (08/06/2025 9:37 AM EDT) Glucose 98 65 - 99 mg/dL [facility] Comment: Fasting reference interval Blood Urea Nitrogen (BUN) 31(H) 7 - 25 mg/dL [facility] Creatinine 1.77(H) 0.60 - 1.00 mg/dL [facility] Creatinine w/ eGFR 31(L) > OR = 60 mL/min/1.7 3m2 [facility] BUN/Creatinine Ratio 18 6 - 22 (calc) [facility] Sodium 139 135 - 146 mmol/L [facility] Potassium 4.3 3.5 - 5.3 mmol/L [facility] Chloride 109 98 - 110 mmol/L [facility] CO2 23 20 - 32 mmol/L [employer] Calcium 8.8 8.6 - 10.4 mg/dL [facility] [employer] Blood Blood specimen / Unknown 08/06/2025 9:37 AM EDT 08/06/2025 9:37 AM EDT Narrative [facility] - 08/07/2025 7:11 AM EDT FASTING:YES FASTING: YES Brandon Irizarry MD LAB BLOOD ORDERABLES Final Resul t [id number] [address] [place] [phone] from Last 3 Months Insurance [employer] MEDICARE Advance Directives * Full Code (Latest Code Status on File) Date Activated Date Inactivated Comments 07/11/2023 7:23 AM Care Teams Flotation Tender Helper Relationship Specialty Start Date End Date Marisela Oscar MD [address] [place] [id number] PCP - General 05/10/23 Claudia Jean-Baptiste MD [address] [place] [address] Primary Childbirth Educator Cardiovascular Disease 09/03/23
--- OUTSIDE RECORDS SUMMARY | 2025-11-05 12:49 | XMS_ITS | Clinical Summary ---
Author Organization [facility] Address [address] [place] [address] Care Team Providers Care Broadcast Engineer Name Role Phone Unavailable Primary Care Provider Unavailabl e Social History Tobacco Use Types Packs/Day Years Used Date Smoking Tobacco: Never Assessed Comments Unknown Sex and Gender Information Value Date Recorded Sex Assigned at Female 04/17/2023 3:05 PM EDT Legal Sex Female 9:34 AM EDT Gender Identity Female 04/17/2023 3:05 PM EDT Sexual Orientation Straight 04/17/2023 3: 05 PM EDT Plan of Treatment Not on file [place] [address] [place] [address]
--- OUTSIDE RECORDS SUMMARY | 2025-11-05 12:49 | XMS_ITS | Clinical Summary ---
Author Organization [facility] Address [address] [place] [phone] Phone Care Team Providers Care Coordinator Integrated Marketing Name Role Phone Marisela Oscar MD Primary Care Provider Allergies Active Allergy Reactions Criticality Noted Date Comments Ibuprofen Other (see comments) 10/04/2025 Medications acetaminophen (TYLENOL) 500 MG tablet Take [...] EVERY WEEK FOR 4 WEEKS 5 Active metoprolol succinate XL (TOPROL XL) 50 MG 24 hr tablet Take 50 mg by mouth 1 (one) time each day Active Active Problems Problem Noted Date Diagnosed Date Primary pulmonary hypertension 10/03/2025 Secondary hypercoagulable state 06/28/2025 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 11/27/2022 Type 2 diabetes mellitus without complication Chronic kidney disease stage 3B 11/27/2022 Diabetic glomerulonephritis 11/27/2022 Hypertension 11/27/2022 Obstructive sleep apnea syndrome 11/27/2022 Atrial fibrillation, not otherwise specified 08/2023 Renal scarring 11/27/2022 Endometrial carcinoma 11/27/2022 Encounters Date Type Department Care Team Description 10/06/2025 Orders Only [facility] [address] [place] [address] [address] [place] [phone] Torsten Burris MD Chronic kidney disease stage 3B (HCC); Diabetic glomerulonephritis (HCC); Atrial fibrillation, not otherwise specified (HCC); Endometrial carcinoma (HCC); Hypertension; 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); Obstructive sleep apnea syndrome; Renal scarring; Type 2 diabetes mellitus without complication (HCC) 10/04/2025 10:00 AM EST Office Visit [facility] [address] [phone] Torsten Burris MD Chronic kidney disease stage 3B (HCC) (Primary Dx); Diabetic glomerulonephritis (HCC); Atrial fibrillation, not otherwise specified (HCC); Endometrial carcinoma (HCC); Hypertension; 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); Renal scarring; Type 2 diabetes mellitus without complication, not otherwise specified (HCC) from Last 3 Months Family History Medical [...] Sign Reading Time Taken Comments Blood Pressure 122/80 10/04/2025 9:51 AM EST Pulse 85 10/04/2025 9:51 AM EST Temperature - - Respiratory Rate - - Oxygen Saturation 98% 10/04/2025 9:51 AM EST Inhaled Oxygen Concentration - - Weight 84.8 kg (187 lb) 10/04/2025 9:51 AM EST Height 162.6 cm (5' 4 ) 10/01/2024 9:58 AM EST Body Mass Index 32.1 10/01/2024 9:58 AM EST Plan of Treatment Upcoming Encounters Date Type Department Care Team (Late st Contact Info) Description 04/04/2026 10:00 AM EDT Office Visit [facility] [address] [phone] Torsten Burris MD [address] [phone] Health Maintenance Due Date Last Done Comments [...] A1C 06/14/2023 03/15/2023 Influenza Vaccine (#1) 2025 , 07/19/2020, 08/01/2018 Hepatitis B Vaccine Aged Out No longe r eligible based on patient's age to complete this topic Procedures Procedure Name Priority Date/Time Associated Diagnosis Comments PROTEIN / CREATININE RATIO, URINE Routine 09/30/2025 9:32 AM EST Chronic kidney disease stage 3B (HCC) Diabetic glomerulonephritis (HCC) Atrial fibrillation, not otherwise specified (HCC) Endometrial carcinoma (HCC) Hypertension 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) Obstructive sleep apnea syndrome Renal scarring Type 2 diabetes mellitus without complication (HCC) CBC AND DIFFERENTIAL Routine 09/30/2025 9:32 AM EST Chronic kidney disease stage 3B (HCC) Diabetic glomerulonephritis (HCC) Atrial fibrillation, not otherwise specified (HCC) Endometrial carcinoma (HCC) Hypertension 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) Obstructive sleep apnea syndrome Renal scarring Type 2 diabetes mellitus without complication (HCC) VITAMIN D 25 HYDROXY Routine 09/30/2025 9:32 AM EST Chronic kidney disease stage 3B (HCC) Diabetic glomerulonephritis (HCC) Atrial fibrillation, not otherwise specified (HCC) Endometrial carcinoma (HCC) Hypertension 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) Obstructive sleep apnea syndrome Renal scarring Type 2 diabetes mellitus without complication (HCC) PTH, INTACT Routine 09/30/2025 9:32 AM EST Chronic kidney disease stage 3B (HCC) Diabetic glomerulonephritis (HCC) Atrial fibrillation, not otherwise specified (HCC) Endometrial carcinoma (HCC) Hypertension 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) Obstructive sleep apnea syndrome Renal scarring Type 2 diabetes mellitus without complication (HCC) PHOSPHATE ( PHOSPHORUS) Routine 09/30/2025 9:32 AM EST Chronic kidney disease stage 3B (HCC) Diabetic glomerulonephritis (HCC) Atrial fibrillation, not otherwise specified (HCC) Endometrial carcinoma (HCC) Hypertension 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) Obstructive sleep apnea syndrome Renal scarring Type 2 diabetes mellitus without complication (HCC) MAGNESIUM Routine 09/30/2025 9:32 AM EST Chronic kidney disease stage 3B (HCC) Diabetic glomerulonephritis (HCC) Atrial fibrillation, not otherwise specified (HCC) Endometrial carcinoma (HCC) Hypertension 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) Obstructive sleep apnea syndrome Renal scarring Type 2 diabetes mellitus without complication (HCC) URIC ACID Routine 09/30/2025 9:32 AM EST Chronic kidney disease stage 3B (HCC) Diabetic glomerulonephritis (HCC) Atrial fibrillation, not otherwise specified (HCC) Endometrial carcinoma (HCC) Hypertension 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) Obstructive sleep apnea syndrome Renal scarring Type 2 diabetes mellitus without complication (HCC) COMPREHENSIVE METABOLIC PANEL Routine 09/30/2025 9:32 AM EST Chronic kidney disease stage 3B (HCC) Diabetic glomerulonephritis (HCC) Atrial fibrillation, not otherwise specified (HCC) Endometrial carcinoma (HCC) Hypertension 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) Obstructive sleep apnea syndrome Renal scarring Type 2 diabetes mellitus without complication (HCC) TYPE AND SCREEN Routine 09/30/2025 9:32 AM EST Chronic kidney disease stage 3B (HCC) Diabetic glomerulonephritis (HCC) Atrial fibrillation, not otherwise specified (HCC) Endometrial carcinoma (HCC) Hypertension 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) Obstructive sleep apnea syndrome Renal scarring Type 2 diabetes mellitus without complication (HCC) HEMOGLOBIN A1C Routine 03/15/2023 10:00 AM EDT from Last 3 Months or Most Recently Relevant to Health Maintenance Results * (ABNORMAL) Protein, Total, Random Urine w/Creatinine (Protein/Creat Ratio) (09/30/2025 9:32 AM EST) Creatinine, Ur 168 20 - 275 mg/dL [facility] Urine Protein/Creat inine Ratio 262(H) 24 - 184 mg/g creat [email or web address] Protein/Creat inine Ratio, Urine 0.262(H) 0.024 - 0.184 mg/mg creat [email or web address] Protein Urine Random 44(H) 5 - 24 mg/dL [facility] Urine specimen (specimen) Urine specimen obtained by clean catch procedure / Unknown 09/30/2025 9:32 AM EST 09/30/2025 9:32 AM EST Narrative [facility] - 10/01/2025 6:02 PM EST FASTING:YES FASTING: YES Resulting Agency Comment Performing Organization Information: Site ID: [id number] Name: [facility] Address: [address] [place] [phone] Director: Vitaliy Leonard Torsten Burris MD LAB URINE ORDERABLES Final Re sult Performing Organization Address City/[facility]/ZIP Co de Phone Number [facility] [address] [place] [phone] * Vitamin D 25 Hydroxy (09/30/2025 9:32 AM EST) Vitamin D, 25-OH, Total, IA 50 30 - 100 ng/mL [facility] Comment: Vitamin D Status 25-OH Vitamin D: Deficiency: <20 ng/mL Insufficiency: 20 - 29 ng/mL Optimal: > or = 30 ng/mL For 25-OH Vitamin D testing on patients on D2-supplementation and patients for whom quantitation of D2 and D3 fractions is required, the [facility](TM) 25-OH VIT D, (D2,D3), LC/MS/MS is recommended: order code 83552 (patients >2yrs). See Note 1 Note 1 For additional information, please refer to http://education.[employer]/faq/FGS095 (This link is being provided for informational/ educational purposes only.) Blood specimen (specimen) Venous blood / Unknown 09/30/2025 9:32 AM EST 09/30/2025 9:32 AM EST Narrative [facility] - 10/01/2025 6:02 PM EST FASTING:YES FASTING: YES Resulting Agency Comment Performing Organization Information: Site ID: [id number] Name: [facility] Address: [address] [place] [phone] Director: Vitaliy Leonard Torsten Burris MD LAB BLOOD ORDERABLES Final Re sult [facility] [address] [place] [phone] * (ABNORMAL) CBC and Differential (09/30/2025 9:32 AM EST) WBC 7.9 3.8 - 10.8 Thousand /uL [email or web address] [employer] RBC 3.36(L) 3.80 - 5.10 Million/ uL [facility] [employer] [employer] Hemoglobin 10.3(L) 11.7 - 15.5 g/dL [facility] Hematocrit 32.5(L) 35.0 - 45.0 % [facility] MCV 96.7 80.0 - 100.0 fL [facility] MCH 30.7 27.0 - 33.0 pg [facility] MCHC 31.7(L) 32.0 - 36.0 g/dL [facility] Comment: For adults, a slight decrease in the calculated MCHC value (in the range of 30 to 32 g/dL) is most likely not clinically significant; however, it should be interpreted with caution in correlation with other red cell parameters and the patient's clinical condition. RDW 13.0 11.0 - 15.0 % [email or web address] Platelets 423(H) 140 - 400 Thousand /uL [email or web address] MPV 9.6 7.5 - 12.5 fL [facility] Neutrophils Absolute 4,076 1,500 - 7,800 cells/uL [facility] Band Neutrophils Absolute, Manual Count CANCELED 0 - 750 cells/uL [facility] Comment:Result canceled by t he ancillary. Metamyelocytes Absolute CANCELED 0 cells/uL [facility] Comment:Result canceled by t he ancillary. Absolute Myelocytes CANCELED 0 cells/uL [facility] Comment:Result canceled by t he ancillary. Absolute Promyelocytes CANCELED 0 cells/uL [email or web address] Comment:Result canceled by t he ancillary. Lymphocytes Absolute 2,670 850 - 3,900 cells/uL [facility] Monocytes Absolute 743 200 - 950 cells/uL [facility] Eosinophils Absolute 348 15 - 500 cells/uL [facility] Basophils Absolute 63 0 - 200 cells/uL [facility] Blasts Absolute CANCELED 0 cells/uL [facility] Comment:Result canceled by t he ancillary. NRBC Absolute CANCELED 0 cells/uL [facility] Comment:Result canceled by t he ancillary. Neutrophils Relative 51.6 % [facility] Bands Absolute CANCELED % [facility] Comment:Result canceled by t he ancillary. Metamyelocytes Percent CANCELED % [facility] Comment:Result canceled by t he ancillary. Myelocytes Relative CANCELED % [facility] Comment:Result canceled by t he ancillary. Promyelocytes Relative CANCELED % [facility] Comment:Result canceled by t he ancillary. Lymphocytes 33.8 % [facility] Variant lymphocytes/100 WBC (Bld) CANCELED 0 - 10 % [facility] Comment:Result canceled by t he ancillary. Monocytes 9.4 % [facility] Eosinophils 4.4 % [facility] Basophils Relative 0.8 % [facility] Blasts CANCELED % [facility] Comment:Result canceled by t he ancillary. nRBC CANCELED 0 /100 WBC [facility] Comment:Result canceled by t he ancillary. Comment(s) CANCELED [facility] Comment:Result canceled by t he ancillary. Blood specimen (specimen) Venous blood / Unknown 09/30/2025 9:32 AM EST 09/30/2025 9:32 AM EST Narrative [facility] - 10/01/2025 6:02 PM EST FASTING:YES FASTING: YES Resulting Agency Comment Performing Organization Information: Site ID: [id number] Name: [email or web address] Address: [address] [place] [phone] Director: Vitaliy Leonard us Torsten Burris MD LAB BLOOD ORDERABLES Final Re sult Performing Organization Address [facility] de Phone Number [facility] [address] [place] [phone] * Type and screen (09/30/2025 9:32 AM EST) ABO Grouping B [facility] Blood specimen (specimen) Venous blood / Unknown 09/30/2025 9:32 AM EST 09/30/2025 9:32 AM EST Narrative [facility] - 10/01/2025 6:02 PM EST FASTING:YES FASTING: YES Resulting Agency Comment Performing Organization Information: Site ID: [id number] Name: [facility] Address: [address] [place] [phone] Director: Vitaliy Leonard us Torsten Burris MD LAB BLOOD BANK TEST ORDERABLE S Final Result Performing Organization Address [facility] de Phone Number [facility] [address] [place] [phone] * Uric Acid (09/30/2025 9:32 AM EST) Pathologist [facility] Uric Acid 6.9 2.5 - 7.0 mg/dL [facility] Comment: Therapeutic target for gout patients: <6.0 mg/dL Blood specimen (specimen) Venous blood / Unknown 09/30/2025 9:32 AM EST 09/30/2025 9:32 AM EST Narrative [facility] - 10/01/2025 6:02 PM EST FASTING:YES FASTING: YES Resulting Agency Comment Performing Organization Information: Site ID: [id number] Name: [facility] Address: [address] [place] [phone] Director: Vitaliy Leonard us Torsten Burris MD LAB BLOOD ORDERABLES Final Re sult Performing Organization Address [facility] de Phone Number [facility] [address] [place] [phone] * (ABNORMAL) Phosphorus (09/30/2025 9:32 AM EST) Phosphorus 4.7(H) 2.1 - 4.3 mg/dL [facility] Blood specimen (specimen) Venous blood / Unknown 09/30/2025 9:32 AM EST 09/30/2025 9:32 AM EST Narrative [facility] - 10/01/2025 6:02 PM EST FASTING:YES FASTING: YES Resulting Agency Comment Performing Organization Information: Site ID: [id number] Name: [facility] Address: [address] [place] [phone] Director: Vitaliy Leonard us Torsten Burris MD LAB BLOOD ORDERABLES Final Re sult [facility] [address] [place] [phone] * (ABNORMAL) PTH, Intact (09/30/2025 9:32 AM EST) Parathyroid Hormone, Intact 131(H) 16 - 77 pg/mL [facility] Comment: Interpretive Guide Intact PTH Calcium ------- Normal Parathyroid Normal Normal Hypoparathyroidism Low or Low Normal Low Hyperparathyroidism Primary Normal or High High Secondary High Normal or Low Tertiary High High Non-Parathyroid Hypercalcemia Low or Low Normal High Blood specimen (specimen) Venous blood / Unknown 09/30/2025 9:32 AM EST 09/30/2025 9:32 AM EST Narrative [facility] - 10/01/2025 6:02 PM EST FASTING:YES FASTING: YES Resulting Agency Comment Performing Organization Information: Site ID: [id number] Name: [facility] Address: [address] [place] [phone] Director: Vitaliy Leonard us Torsten Burris MD LAB BLOOD ORDERABLES Final Re sult Performing Organization Address [facility] de Phone Number [facility] [address] [place] [phone] * Magnesium (09/30/2025 9:32 AM EST) [facility] Magnesium 2.2 1.5 - 2.5 mg/dL [facility] Blood specimen (specimen) Venous blood / Unknown 09/30/2025 9:32 AM EST 09/30/2025 9:32 AM EST Narrative [facility] - 10/01/2025 6:02 PM EST FASTING:YES FASTING: YES Resulting Agency Comment Performing Organization Information: Site ID: [id number] Name: [facility] Address: [address] [place] [phone] Director: Vitaliy Leonard Torsten Burris MD LAB BLOOD ORDERABLES Final Re sult Performing Organization Address [facility] de Phone Number [facility] [address] [place] [phone] * (ABNORMAL) Comprehensive Metabolic Panel (09/30/2025 9:32 AM EST) [facility] Glucose 104(H) 65 - 99 mg/dL [facility] Comment: Fasting reference interval For someone without known diabetes, a glucose value between 100 and 125 mg/dL is consistent with prediabetes and should be confirmed with a follow-up test. BUN 35(H) 7 - 25 mg/dL [facility] Creatinine 1.97(H) 0.60 - 1.00 mg/dL [facility] eGFR CKD-EPI CR 2020 27(L) > OR = 60 mL/min/1. 73m2 [facility] BUN/Creatinine Ratio 18 6 - 22 (calc) [facility] Sodium 138 135 - 146 mmol/L [facility] Potassium 5.1 3.5 - 5.3 mmol/L [facility] Chloride 104 98 - 110 mmol/L [email or web address] Bicarbonate (CO2) 25 20 - 32 mmol/L [facility] Calcium 9.4 8.6 - 10.4 mg/dL [facility] Total Protein 6.7 6.1 - 8.1 g/dL [facility] Albumin 3.9 3.6 - 5.1 g/dL [email or web address] Globulin, Total 2.8 1.9 - 3.7 g/dL (calc) [email or web address] A/G Ratio 1.4 1.0 - 2.5 (calc) [email or web address] Total Bilirubin 0.3 0.2 - 1.2 mg/dL [email or web address] Alkaline Phosphatase 53 37 - 153 U/L [email or web address] AST (SGOT) 10 10 - 35 U/L [email or web address] ALT (SGPT) 5(L) 6 - 29 U/L [facility] Blood specimen (specimen) Venous blood / Unknown 09/30/2025 9:32 AM EST 09/30/2025 9:32 AM EST Narrative [facility] - 10/01/2025 6:02 PM EST FASTING:YES FASTING: YES Resulting Agency Comment Performing Organization Information: Site ID: [id number] Name: [facility] Address: [address] [place] [phone] Director: Vitaliy Leonard Torsten Burris MD LAB BLOOD ORDERABLES Final Re sult [facility] [address] [place] [phone] * (ABNORMAL) Hemoglobin A1c (03/15/2023 10:00 AM EDT) Hemoglobin A1C 6.9(H) (4.0-5.6) % [facility] Comment: MONITORING: In known diabetic patients, hemoglobin A1c targets should be discussed with health care provider. DIAGNOSTIC USE: The [place] [employer] (ADA) and the World Health [...] Supplement 1 Testing performed or reported by [facility], a Service of [facility], [address] [place] [address] Beverley Moulton MD, Transfer Operator [facility]# [id number] 03/15/2023 10:0 0 AM EDT 03/15/2023 10:03 AM EDT us Torsten Burris MD LAB BLOOD ORDERABLES Final Re sult [facility] from Last 3 Months or Most Recently Relevant to Health Maintenance [place] [address] Member Subscriber Plan / Payer (Ef fective 2024-Present) Name:Blaire Murray Relation to Subscriber:Self Name:Blaire Murray Payer ID:Not on file Type:Not on file Address: [address] [phone] Medicaid [place] Care Teams Coordinator Integrated Marketing Relationship Specialty Start Date End Date Marisela Oscar MD [facility] [place] [address] PCP - General Internal Medicine 08/23/22
--- OUTSIDE RECORDS SUMMARY | 2025-11-05 12:49 | XMS_ITS ---
Author Organization [facility] Address [address] [place] [address] Care Team Providers Care Materials Recycler Name Role Phone Marisela Oscar MD Primary Care Provider [phone] Claudia Jean-Baptiste MD Unavailable [phone] Active Problems Problem Noted Date Diagnosed Date Secondary hypercoagulable state 06/28/2025 Primary localized osteoarthrosis of ankle and fo ot 09/09/2023 09/09/2023 PAH (pulmonary artery hypertension) 07/09/2023 Atrial fibrillation 11/27/2022 09/09/2023 Diabetic glomerulonephritis 11/27/2022 1001/2023 Endometrial carcinoma 11/27/2022 09/09/2023 Hypertension 11/27/2022 09/09/2023 Obstructive sleep apnea syndrome 11/27/2022 09/09/2023 Stage 3 chronic kidney disease 11/27/2022 1 Type 2 diabetes mellitus without complication 09/09/2023 Current Treatment and Therapy Plans No current plan information found. Past Treatment and Therapy Plans No past plan information found. Lifetime Dose Tracking * Chemical Lifetime Dose Automatic Entry Manual Entr y Fluoro Time 16.6 minutes 0 minutes 16.6 minutes
[2025-11-05 16:13] LABS: Alanine Aminotransferase 8 U/L (0-31); Albumin Level 4.2 g/dL (3.5-5.0); Alkaline Phosphatase 71 U/L (39-117); Anion Gap 12 (12-20); Aspartate Amino Transferase 20 U/L (5-31); Blood Urea Nitrogen 29 mg/dL (9-16); Calcium 9.6 mg/dL (8.4-10.2); Carbon Dioxide 25 mmol/L (22-29); Chloride 108 mmol/L (96-108); Estimated Glomerular Filt Rate 30; Potassium 4.2 mmol/L (3.3-5.1); Sodium 141 mmol/L (135-145); Total Protein 7.1 g/dL (6.5-8.0)
[2025-11-05 16:39] LABS: Digoxin 0.4 ng/mL (0.8-2.0)
== END 2025-11-05 10:57 | disposition home or self-care (01) ==
LOC: HO.HMGCLDS 10:56
PROVIDERS: PCP Internal Medicine; Visit Provider Internal Medicine
DX: I48.19 Other persistent atrial fibrillation (principal); I27.20 Pulmonary hypertension, unspecified; N18.30 Chronic kidney disease, stage 3 unspecified
CPT/HCPCS: 36415; 80053; 80162

== ENCOUNTER 2025-11-09 11:55 | Outpatient (AMB) | payer MEDICARE, MEDICAID, SELFPAY ==
--- OUTSIDE RECORDS SUMMARY | 2025-10-27 09:30 | XMS_ITS ---
Author Organization [facility] Address [address] [place] [address] Care Team Providers Care Reel Repairer Name Role Phone Marisela Oscar MD Primary Care Provider Unavaila Taylor Chacon [phone] Encounters Encounter Location Date Provider Diagnosis [address] [address] 10/27/2025 Taylor Kenney Plan Of Treatment No Information Progress Notes * Isrrael SERRATOOB:1955 (70 yo F)Acc No.[id number]:10/27/2025 Progress Note Patient: Blaire VANEGAS Provider: Sachi Kenney DPM :1955 A ge:70 Y S ex:Female Date:10/27/2025 Address:[address] [place], [place] [id number] Pcp:Marisela Oscar MD Subjective: * Chief Complaints: * * Medical History: Objective: * Vitals: Assessment: Plan: * Treatment: * Images: * The named appointment provid er may or may not be the originator of this progress note, and it is not deemed complete until electronically signed by the appointment provider. Sign off status: Pending * Provider: Sachi Kenney DPM Date: 12/28/2024 Generated for Sophiei jessee/Lori/eTransmitting on: 01/10/2025 01:08 PM EST
--- NOTE | 2025-11-09 12:02 | MHC.PC.OV ---
Vital Signs 11/09/25 12:03 Height 5 ft 4 in Weight 187 lb BMI 32.1 BP 122/78 Blood Pressure Location Lt brachial Position Sitting Pulse 110 H Pulse Source Pulse Oximeter Pulse Oximetry (%) 98 Intake Visit Reasons: 1m follow up Allergies No Known Allergies Allergy (Verified 11/09/25 12:03) Medication List - Last Reconciled 11/09/25 by Marisela Oscar MD apixaban (Eliquis) 5 mg PO BID atorvastatin 40 mg PO BEDTIME blood-glucose meter check glucose once a day cholecalciferol (vitamin D3) 50 mcg PO DAILY coenzyme Q10 (H2Q CoQ10) 200 mg dapagliflozin propanediol (Farxiga) 10 mg PO DAILY digoxin 125 mcg PO DAILY FreeStyle Ziyad 2 [place] (flash glucose scanning reader) As directed NS FreeStyle Ziyda 2 Sensor (flash glucose sensor) Test blood sugar TID, change sensor every 14 days NS furosemide 60 mg PO DAILY macitentan-tadalafil 10-40 mg (Opsynvi) 1 tab PO DAILY metoprolol succinate ER 50 mg PO DAILY Ozempic (semaglutide) 1 mg (0.75 mL) subcut QWEEK NS polyethylene glycol 3350 (Gavilax) 17 grams PO DAILY selexipag (Uptravi) mcg PO sennosides (Natural Senna Laxative) 17.2 mg (2 x 8.6 mg) PO BEDTIME sotatercept-csrk (Winrevair) mg subcut spironolactone 12.5 mg (1/2 x 25 mg) PO DAILY 90 days Tobacco use date assessed: 08/26/25 Dental Screening Dental Screen Date: 07/13/25 HPI 1m follow up HPI Details Patient presents for the follow-up of type 2 diabetes hypertension pulmonary hypertension chronic kidney disease stage 3 chronic AFib. She has been working with physical therapy after right knee replacement surgery ambulating with a cane. [facility] Medical History Pulmonary HTN History of uterine cancer GERD (gastroesophageal reflux disease) Lumbar and sacral spondyloarthritis Hip pain, bilateral CKD (chronic kidney disease) stage 3, GFR 30-59 ml/min Dysplastic nevus Palpitations Endometrial ca Diastolic dysfunction ASB (asymptomatic bacteriuria) Morbid obesity Hyperlipidemia SUE on CPAP Surgical History S/P knee replacement Hx of cardiac cath S/P MARGARITA (total abdominal hysterectomy) H/O colonoscopy History of total abdominal hysterectomy and bilateral salpingo-oophorectomy Family History Father No problems noted. Mother HTN (hypertension) Diabetes mellitus Breast cancer Social History Household Members: Spouse Housing: House Are you a primary memory care director to a significant other at home: No Do you presently have visiting nurse or other home services: No Alcohol intake: current Alcohol intake frequency: holidays/special occasions only Patient Tobacco Use Status: Never used Tobacco e-Cigarette/Vaping Use: Never Used Advance Directives Date on File: 02/12/23 service: No Current occupational status: retired Current occupation: rt handed Cognitive needs: No Hearing needs: No Vision needs: Yes Questionnaire Thrive Questionnaire Date Thrive assessed: 12/30/24 I am a: Patient What is your living situation today?: I have a steady place to live Within the past 12 months, did the food you bought not last and you didn't have the money to get more?: Never true Within the past 12 months, did you worry whether your food would run out before you got money to buy more?: Sometimes True Do you have trouble paying for medicines?: No Do you have trouble getting transportation to medical appointments?: No Do you have trouble paying your heating and electricity bill?: Yes Do you have trouble taking care of your child, family member or friend?: No Do you have trouble with day-to-day activities such as bathing, preparing meals, shopping, managing finances, etc.?: No Are you currently unemployed and looking for a job?: No Are you interested in more education?: No Please select the resources that you would like help with: Utilities Currently or been in a relationship where the following occur: No concerns reported THRIVE Score: 2 GAEL-7 AMB Questionnaire GAEL-7 Date GAEL - 7 assessed: 12/30/24 Source: Developed by Drs. Watson Pop, Zara Kinney, Josh Weiss and colleagues, with an educational hollie from [employer] ([employer]). Review of Systems Const All systems reviewed & are unremarkable except as noted in HPI and below Eyes Reports no additional complaints ENT Reports no additional complaints Card Reports no additional complaints Resp Reports no additional complaints GI Reports no additional complaints Reports no additional complaints Physical exam (Primary Care) Vital Signs: Last Vital Signs Pulse 110 H 11/09/25 12:03 BP 122/78 11/09/25 12:03 Pulse Ox 98 11/09/25 12:03 BMI result Body Mass Index 32.1 Tobacco/Smoking Status: Tobacco use Status Tobacco use date assessed 08/26/25 11/09/25 12:04 Patient Tobacco Use Status Never used Tobacco 11/09/25 12:04 e-Cigarette/Vaping Use Never Used 11/09/25 12:04 Thrive Assessment: Date of Thrive Assessment Date Thrive assessed 12/30/24 11/09/25 12:04 Currently or been in a relationship where the following occur: No concerns reported Const General: no acute distress HENMT Teeth and gingiva: dentition normal Neck Neck: Yes supple Resp Effort & Inspection: normal respiratory effort Auscultation: clear to auscultation bilaterally Cardio Rate: tachycardic Rhythm: abnormal rhythm irregularly irregular Heart sounds: S1 normal heart sound present and S2 normal heart sound present GI Inspection: Yes normal to inspection Palpation (GI): Soft to palpation Percussion: Yes normal to percussion Auscultation: normal bowel sounds Coding Level of Care Code Est Pt Level 4 (15007) Diagnoses Persistent atrial fibrillation I48.19 Hyperlipidemia E78.5 Pulmonary HTN I27.20 DM type 2 (diabetes mellitus, type 2) E11.9 Assessment & Plan Assessment & Plan (1) Persistent atrial fibrillation: Comment: Echo 08/2025 [place] EF 55-60%, LAE, mild MR,RV pressure 44 mmHg (increase from 32 mmHg in 09/2024), Holter 07/2025 AFib average heart rate 92 per minute, 23% heart rate more than 100 Code(s): I48.19 - Other persistent atrial fibrillation Category: Medical Plan: Patient has persistent elevated heart rate over 100 despite increasing dose of metoprolol. Digoxin level is subtherapeutic and she was advised to take digoxin 125 mcg daily. Digoxin level will be rechecked in 3 weeks. Patient will discuss Holter report with her manager sales and marketing Dr. Jean-Baptiste in [place] and will obtain results of the most recent echocardiogram done by Cardiology (2) Hyperlipidemia: Code(s): E78.5 - Hyperlipidemia, unspecified Category: Medical Plan: Continue statin (3) Pulmonary HTN: Comment: f/u Dr. Brandon Irizarry ,[facility] started on Abrisentan and tadalafil 07/10 Code(s): I27.20 - Pulmonary hypertension, unspecified Category: Medical Plan: Continue current medications follow-up with [facility] (4) DM type 2 (diabetes mellitus, type 2): Code(s): E11.9 - Type 2 diabetes mellitus without complications Category: Medical Plan: A1c is 6.6. Continue ADA diet increase physical activity continue Ozempic and Farxiga, follow-up in 2 months with fasting labs before Orders: Orders Basic Metabolic Panel 3 Weeks I48.19 - Other persistent atrial fibrillation Digoxin 3 Weeks I48.19 - Other persistent atrial fibrillation Comprehensive [place]. Panel Fast 2 Months E11.9 - Type 2 diabetes mellitus without complications, E78.5 - Hyperlipidemia, unspecified, I48.19 - Other persistent atrial fibrillation, N18.30 - Chronic kidney disease, stage 3 unspecified Hemoglobin A1c 2 Months E11.9 - Type 2 diabetes mellitus without complications, E78.5 - Hyperlipidemia, unspecified, I48.19 - Other persistent atrial fibrillation, N18.30 - Chronic kidney disease, stage 3 unspecified Lipid Panel 2 Months E11.9 - Type 2 diabetes mellitus without complications, E78.5 - Hyperlipidemia, unspecified, I48.19 - Other persistent atrial fibrillation, N18.30 - Chronic kidney disease, stage 3 unspecified Microalbumin, Random (w Creat) 2 Months E11.9 - Type 2 diabetes mellitus without complications, E78.5 - Hyperlipidemia, unspecified, I48.19 - Other persistent atrial fibrillation, N18.30 - Chronic kidney disease, stage 3 unspecified TSH reflex Free T4 2 Months E11.9 - Type 2 diabetes mellitus without complications, E78.5 - Hyperlipidemia, unspecified, I48.19 - Other persistent atrial fibrillation, N18.30 - Chronic kidney disease, stage 3 unspecified Complete Blood Count Auto Diff 2 Months E11.9 - Type 2 diabetes mellitus without complications, E78.5 - Hyperlipidemia, unspecified, I48.19 - Other persistent atrial fibrillation, N18.30 - Chronic kidney disease, stage 3 unspecified Digoxin 2 Months E11.9 - Type 2 diabetes mellitus without complications, E78.5 - Hyperlipidemia, unspecified, I48.19 - Other persistent atrial fibrillation, N18.30 - Chronic kidney disease, stage 3 unspecified
[2025-11-09 12:03] VITALS: BP 122/78; PULSE 110; O2SAT 98; BMI 32.1
--- OUTSIDE RECORDS SUMMARY | 2025-11-09 13:08 | XMS_ITS | Encounter Summary ---
Author Organization [facility] Address [address] [place] [address] Care Team Providers Care Central Office Repairer Supervisor Name Role Phone Marisela Oscar MD Primary Care Provider [phone] Claudia Jean-Baptiste MD Unavailable [phone] Encounter Details Date Type Department Care Team (Late st Contact Info) Description 09/20/2025 Scanned Document [facility] [place] [address] [place] [address] [address] [place] [phone] Pulmonology, Scan Social History Tobacco Use Types [...] Description 12/13/2025 3:40 PM EST Office Visit [facility] [place] [address] [place] [phone] Luisana Lomas PA-C [address] [place] [address] 01/10/2026 2:20 PM EST Office Visit [facility] [place] [address] [phone] Claudia Jean-Baptiste MD [address] [place] [address] documented as of this encounter Visit Diagnoses Not on filedocumented in this encounter Care Teams Central Office Repairer Supervisor Relationship Specialty Start Date End Date Marisela Oscar MD [address] [place] [address] PCP - General 05/10/23 Claudia Jean-Baptiste MD [address] [place] [address] Primary Physical Medicine Physician Cardiovascular Disease 09/03/23 documented as of this encounter
--- OUTSIDE RECORDS SUMMARY | 2025-11-09 13:08 | XMS_ITS | Encounter Summary ---
Author Organization [facility] Address [address] [place] [address] Care Team Providers Care Senior Designer/Art Director Name Role Phone Marisela Oscar MD Primary Care Provider [phone] Claudia Jean-Baptiste MD Unavailable [phone] Encounter Details Date Type Department Care Team (Late st Contact Info) Description 11/08/2025 Scanned Document [facility] Pul[facility] [place] [address] [place] [address] [address] [place] [phone] Pulmonology, Scan Social History Tobacco Use Types [...] 3:40 PM EST Office Visit [facility] Pul[facility] [place] [address] [place] [phone] Luisana Lomas PA-C [address] [place] [address] 01/10/2026 2:20 PM EST Office Visit [facility] [place] [address] [phone] Claudia Jean-Baptiste MD [address] [place] [address] documented as of this encounter Visit Diagnoses Not on filedocumented in this encounter Care Teams Senior Designer/Art Director Relationship Specialty Start Date End Date Marisela Oscar MD [address] [place] [address] PCP - General 05/10/23 Claudia Jean-Baptiste MD [address] [place] [address] Primary Egg Factory Worker Cardiovascular Disease 09/03/23 documented as of this encounter
--- OUTSIDE RECORDS SUMMARY | 2025-11-09 13:08 | XMS_ITS | Clinical Summary ---
Author Organization [facility] Address [address] [facility] [address] [place] [address] Care Team Providers Care Hospice Physician Name Role Phone Unavailable Primary Care Provider [...] Plan of Treatment Not on file [place] [address] [place] [address]
--- OUTSIDE RECORDS SUMMARY | 2025-11-09 13:08 | XMS_ITS | Clinical Summary ---
Author Organization [facility] Address [address] [place] [phone] Phone Care Team Providers Care Cruise Staff Member Name Role Phone Marisela Oscar MD Primary Care Provider [phone] Allergies Active Allergy Reactions Criticality Noted Date [...] Orders Only [facility] [address] [place] [address] [address] [place] [address] Torsten Burris MD Chronic kidney disease stage 3B (HCC); Diabetic glomerulonephritis (HCC); Atrial fibrillation, not otherwise specified (HCC); Endometrial carcinoma (HCC); Hypertension; 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); Obstructive sleep apnea syndrome; Renal scarring; Type 2 diabetes mellitus without complication (HCC) 10/04/2025 10:00 AM EST Office Visit [facility] [address] [phone] Torsten Burris MD Chronic kidney disease stage [...] Office Visit [facility] [address] [phone] Torsten Burris MD [address] [phone] Health Maintenance Due Date Last Done Comments [...] 168 20 - 275 mg/dL [facility] Urine Protein/Creat inine Ratio 262(H) 24 - 184 mg/g creat [facility] Protein/Creat inine Ratio, Urine 0.262(H) 0.024 - 0.184 mg/mg creat [facility] Protein Urine Random 44(H) 5 - 24 mg/dL [facility] Urine specimen (specimen) Urine specimen obtained by clean catch procedure / Unknown 09/30/2025 9:32 AM EST 09/30/2025 9:32 AM EST Narrative [facility] - 10/01/2025 6:02 PM EST FASTING:YES FASTING: YES Resulting Agency Comment Performing Organization Information: Site ID: [id number] Name: [facility] [employer] Address: [address] [place] [phone] Director: Vitaliy Leonard Torsten Burris MD LAB URINE ORDERABLES Final Re sult Performing Organization Address City/[facility]/ZIP Co de Phone Number [facility] [employer] [address] [place] [phone] * Vitamin D 25 Hydroxy (09/30/2025 9:32 AM EST) Vitamin D, 25-OH, Total, IA 50 30 - 100 ng/mL [facility] [employer] Comment: Vitamin D Status 25-OH Vitamin D: Deficiency: <20 ng/mL Insufficiency: 20 - 29 ng/mL Optimal: > or = 30 ng/mL For 25-OH Vitamin D testing on patients on D2-supplementation and patients for whom quantitation of D2 and D3 fractions is required, the [facility]ure[facility](TM) 25-OH VIT D, (D2,D3), LC/MS/MS is recommended: order code [id number] (patients >2yrs). See Note 1 Note 1 For additional information, please refer to http://education.[employer]/faq/CEE264 (This link is being provided for informational/ educational purposes only.) Blood specimen (specimen) Venous blood / Unknown 09/30/2025 9:32 AM EST 09/30/2025 9:32 AM EST Narrative [facility] - 10/01/2025 6:02 PM EST FASTING:YES FASTING: YES Resulting Agency Comment Performing Organization Information: Site ID: [id number] Name: [facility] [place] [employer] Address: [address] [place] [phone] Director: Vitaliy Leonard Torsten Burris MD LAB BLOOD ORDERABLES Final Re sult [facility] [employer] [address] [place] [phone] * (ABNORMAL) CBC and Differential (09/30/2025 9:32 AM EST) WBC 7.9 3.8 - 10.8 Thousand /uL [facility] RBC 3.36(L) 3.80 - 5.10 Million/ uL [facility] Hemoglobin 10.3(L) 11.7 - 15.5 g/dL [facility] Hematocrit 32.5(L) 35.0 - 45.0 % [facility] MCV 96.7 80.0 - 100.0 fL [facility] [facility] MCH 30.7 27.0 - 33.0 pg [facility] MCHC 31.7(L) 32.0 - 36.0 g/dL [facility] Comment: For adults, a slight decrease in the calculated MCHC value (in the range of 30 to 32 g/dL) is most likely not clinically significant; however, it should be interpreted with caution in correlation with other red cell parameters and the patient's clinical condition. RDW 13.0 11.0 - 15.0 % [facility] Platelets 423(H) 140 - 400 Thousand /uL [facility] MPV 9.6 7.5 - 12.5 fL [facility] [employer] [facility] Neutrophils Absolute 4,076 1,500 - 7,800 cells/uL [facility] [employer] [facility] Band Neutrophils Absolute, Manual Count CANCELED 0 - 750 cells/uL [facility] [facility] Comment:Result canceled by t he ancillary. Metamyelocytes Absolute CANCELED 0 cells/uL [facility] Comment:Result canceled by t he ancillary. Absolute Myelocytes CANCELED 0 cells/uL [facility] Comment:Result canceled by t he ancillary. Absolute Promyelocytes CANCELED 0 cells/uL [facility] Comment:Result canceled by t he ancillary. Lymphocytes Absolute 2,670 850 - 3,900 cells/uL [facility] [employer] [facility] Monocytes Absolute 743 200 - 950 cells/uL [facility] [employer] Eosinophils Absolute 348 15 - 500 cells/uL [facility] Basophils Absolute 63 0 - 200 cells/uL [facility] Blasts Absolute CANCELED 0 cells/uL [facility] Comment:Result canceled by t he ancillary. NRBC Absolute CANCELED 0 cells/uL [facility] Comment:Result canceled by t he ancillary. Neutrophils Relative 51.6 % [facility] Bands Absolute CANCELED % [facility] Comment:Result canceled by t he ancillary. Metamyelocytes Percent CANCELED % [facility] Comment:Result canceled by t he ancillary. Myelocytes Relative CANCELED % [facility] Comment:Result canceled by t he ancillary. Promyelocytes Relative CANCELED % [facility] Comment:Result canceled by t he ancillary. Lymphocytes 33.8 % [facility] Variant lymphocytes/100 WBC (Bld) CANCELED 0 - 10 % [facility] Comment:Result canceled by t he ancillary. Monocytes 9.4 % [facility] Eosinophils 4.4 % [facility] Basophils Relative 0.8 % [facility] [place] [facility] Blasts CANCELED % [facility] Comment:Result canceled by t he ancillary. nRBC CANCELED 0 /100 WBC [facility] Comment:Result canceled by t he ancillary. Comment(s) CANCELED [facility] Comment:Result canceled by t he ancillary. Blood specimen (specimen) Venous blood / Unknown 09/30/2025 9:32 AM EST 09/30/2025 9:32 AM EST Narrative [facility] - 10/01/2025 6:02 PM EST FASTING:YES FASTING: YES Resulting Agency Comment Performing Organization Information: Site ID: [id number] Name: [facility] Address: [address] [place] [phone] Director: Vitaliy Leonard us Torsten Burris MD LAB BLOOD ORDERABLES Final Re sult Performing Organization Address [facility] de Phone Number [facility] [place] [employer] [address] [place] [phone] * Type and screen (09/30/2025 9:32 AM EST) ABO Grouping B [facility] [facility] Blood specimen (specimen) Venous blood / Unknown 09/30/2025 9:32 AM EST 09/30/2025 9:32 AM EST Narrative [facility] - 10/01/2025 6:02 PM EST FASTING:YES FASTING: YES Resulting Agency Comment Performing Organization Information: Site ID: [id number] Name: [facility] [place] [employer] Address: [address] [place] [phone] Director: Vitaliy Leonard us Torsten Burris MD LAB BLOOD BANK TEST ORDERABLE S Final Result Performing Organization Address [facility] de Phone Number [facility] [place] [employer] [address] [place] [phone] * Uric Acid (09/30/2025 9:32 AM EST) Pathologist [facility] Uric Acid 6.9 2.5 - 7.0 mg/dL [facility] [employer] Comment: Therapeutic target for gout patients: <6.0 mg/dL Blood specimen (specimen) Venous blood / Unknown 09/30/2025 9:32 AM EST 09/30/2025 9:32 AM EST Narrative [facility] - 10/01/2025 6:02 PM EST FASTING:YES FASTING: YES Resulting Agency Comment Performing Organization Information: Site ID: [id number] Name: [facility] [place] [employer] Address: [address] [place] [phone] Director: Vitaliy Leonard us Torsten Burris MD LAB BLOOD ORDERABLES Final Re sult Performing Organization Address [facility] de Phone Number [facility] [place] [employer] [address] [place] [phone] * (ABNORMAL) Phosphorus (09/30/2025 9:32 AM EST) Phosphorus 4.7(H) 2.1 - 4.3 mg/dL [facility] [employer] Blood specimen (specimen) Venous blood / Unknown 09/30/2025 9:32 AM EST 09/30/2025 9:32 AM EST Narrative [facility] - 10/01/2025 6:02 PM EST FASTING:YES FASTING: YES Resulting Agency Comment Performing Organization Information: Site ID: [id number] Name: [facility] [place] [employer] Address: [address] [place] [phone] Director: Vitaliy Leonard us Torsten Burris MD LAB BLOOD ORDERABLES Final Re sult [facility] [employer] [address] [place] [phone] * (ABNORMAL) PTH, Intact (09/30/2025 9:32 AM EST) Parathyroid Hormone, Intact 131(H) 16 - 77 pg/mL [facility] [employer] Comment: Interpretive Guide Intact PTH Calcium ------- [...] Performing Organization Information: Site ID: [id number] Name: [facility] [employer] Address: [address] [place] [phone] Director: Vitaliy Leonard us Torsten Burris MD LAB BLOOD ORDERABLES Final Re sult Performing Organization Address [facility] de Phone Number [employer] [facility] [address] [place] [phone] * Magnesium (09/30/2025 9:32 AM EST) [facility] Magnesium 2.2 1.5 - 2.5 mg/dL [facility] [employer] Blood specimen (specimen) Venous blood / Unknown 09/30/2025 9:32 AM EST 09/30/2025 9:32 AM EST Narrative [facility] - 10/01/2025 6:02 PM EST FASTING:YES FASTING: YES Resulting Agency Comment Performing Organization Information: Site ID: [id number] Name: [facility] [employer] Address: [address] [place] [phone] Director: Vitaliy Leonard Torsten Burris MD LAB BLOOD ORDERABLES Final Re sult Performing Organization Address [facility] de Phone Number [employer] [facility] [employer] [address] [place] [phone] * (ABNORMAL) Comprehensive Metabolic Panel (09/30/2025 9:32 AM EST) [facility] Glucose 104(H) 65 - 99 mg/dL [facility] [employer] Comment: Fasting reference interval For someone without known diabetes, a glucose value between 100 and 125 mg/dL is consistent with prediabetes and should be confirmed with a follow-up test. BUN 35(H) 7 - 25 mg/dL [facility] [employer] Creatinine 1.97(H) 0.60 - 1.00 mg/dL [facility] [employer] eGFR CKD-EPI CR 2020 27(L) > OR = 60 mL/min/1. 73m2 [facility] [employer] BUN/Creatinine Ratio 18 6 - 22 (calc) [facility] Sodium 138 135 - 146 mmol/L [facility] [employer] Potassium 5.1 3.5 - 5.3 mmol/L [facility] [place] [employer] Chloride 104 98 - 110 mmol/L [facility] Bicarbonate (CO2) 25 20 - 32 mmol/L [facility] Calcium 9.4 8.6 - 10.4 mg/dL [facility] Total Protein 6.7 6.1 - 8.1 g/dL [facility] Albumin 3.9 3.6 - 5.1 g/dL [facility] [place] [employer] [facility] Globulin, Total 2.8 1.9 - 3.7 g/dL (calc) [facility] A/G Ratio 1.4 1.0 - 2.5 (calc) [facility] Total Bilirubin 0.3 0.2 - 1.2 mg/dL [facility] Alkaline Phosphatase 53 37 - 153 U/L [facility] AST (SGOT) 10 10 - 35 U/L [facility] ALT (SGPT) 5(L) 6 - 29 U/L [facility] Blood specimen (specimen) Venous blood / Unknown 09/30/2025 9:32 AM EST 09/30/2025 9:32 AM EST Narrative [facility] - 10/01/2025 6:02 PM EST FASTING:YES FASTING: YES Resulting Agency Comment Performing Organization Information: Site ID: [id number] Name: [facility] Address: [address] [place] [phone] Director: Vitaliy Leonard Torsten Burris MD LAB BLOOD ORDERABLES Final Re sult [facility] [address] [place] [phone] * (ABNORMAL) Hemoglobin A1c (03/15/2023 10:00 AM EDT) Hemoglobin A1C 6.9(H) (4.0-5.6) % [facility] Comment: MONITORING: In known diabetic patients, hemoglobin A1c targets should be discussed with health care provider. DIAGNOSTIC USE: The [place] Diabetes Association (ADA) and the World Health [...] Supplement 1 Testing performed or reported by [facility], a Service of [facility], [address] [place] [address] Beverley Moulton MD, Director Health [facility]# [id number] 03/15/2023 10:0 0 AM EDT 03/15/2023 10:03 AM EDT us Torsten Burris MD LAB BLOOD ORDERABLES Final Re sult [facility] from Last 3 Months or Most Recently Relevant to Health Maintenance [place] [address] Member Subscriber Plan / Payer (Ef fective 2024-Present) Name:Blaire Murray Relation to Subscriber:Self Name:Blaire Murray Payer ID:Not on file Type:Not on file Address: [address] [phone] Medicaid [place] Care Teams Cruise Staff Member Relationship Specialty Start Date End Date Marisela Oscar MD [facility] [place] [address] PCP - General Internal Medicine 08/23/22
--- OUTSIDE RECORDS SUMMARY | 2025-11-09 13:08 | XMS_ITS | Encounter Summary ---
Author Organization [facility] Address [address] [place], [place] [address] Care Team Providers Care Bleacher Operator Name Role Phone Marisela Oscar MD Primary Care Provider [phone] Claudia Jean-Baptiste MD Unavailable Encounter Details Date Type Department Care Team (Late st Contact Info) Description 11/08/2025 Scanned Document [facility] [address] [address] Pulmonary, Scan Social History Tobacco [...] PM EST Office Visit [facility] [address] [phone] Luisana Lomas PA-C [address] [place] [address] 01/10/2026 2:20 PM EST Office Visit [facility] [place] [address] [phone] Claudia Jean-Baptiste MD [address] [place] [address] documented as of this encounter Visit Diagnoses Not on filedocumented in this encounter Care Teams Bleacher Operator Relationship Specialty Start Date End Date Marisela Oscar MD [address] [place] [address] PCP - General 05/10/23 Claudia Jean-Baptiste MD [address] [place] [address] Primary Honey Producer Cardiovascular Disease 09/03/23 documented as of this encounter
--- OUTSIDE RECORDS SUMMARY | 2025-11-09 13:08 | XMS_ITS | Encounter Summary ---
Author Organization [facility] Address [address] [place] [address] Care Team Providers Care Escrow Manager Name Role Phone Marisela Oscar MD Primary Care Provider [phone] Claudia Jean-Baptiste MD Unavailable [phone] Encounter Details Date Type Department Care Team (Late st Contact Info) Description 09/20/2025 Scanned Document [facility] [place] [address] [place] [address] [address] [place] [phone] Pulmonology, Scan Social History Tobacco Use Types [...] Description 12/13/2025 3:40 PM EST Office Visit [facility] [place] [address] [place] [phone] Luisana Lomas PA-C [address] [place] [address] 01/10/2026 2:20 PM EST Office Visit [facility] [place] [address] [phone] Claudia Jean-Baptiste MD [address] [place] [address] documented as of this encounter Visit Diagnoses Not on filedocumented in this encounter Care Teams Escrow Manager Relationship Specialty Start Date End Date Marisela Oscar MD [address] [place] [address] PCP - General 05/10/23 Claudia Jean-Baptiste MD [address] [place] [address] Primary Search Lead Cardiovascular Disease 09/03/23 documented as of this encounter
--- OUTSIDE RECORDS SUMMARY | 2025-11-09 13:08 | XMS_ITS | Patient Health Record ---
Author Organization [facility] Address [address] [place] [address] Care Team Providers Care Plant Technician/Control Room Operator Name Role Phone Marisela Oscar MD Primary Care Provider Unavaila ble Black, Taylor Unavailable [phone] Allergies Allergen (clinical drug ingredient) Drug/Non Drug [...] Problem Acquired hammer toe of right foot (189991396225174 5) Other hammer toe(s) (acquired), right foot (M20.41) Active confirmed Problem Acquired hammer toe of left foot (736149476996894 3) Other hammer toe(s) (acquired), left foot (M20.42) Active confirmed Problem Type II diabetes mellitus without complication (469158378) Type 2 diabetes mellitus without complication (E11.9) Active confirmed Problem Ulcer of toe of left foot (disorder) (597295554243406 02) Skin ulcer of toe of left foot, limited to breakdown of skin (L97.521) Active confirmed Problem Diabetic renal disease (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 Vital Signs Blood pressure diastolic 75 mm Hg 07/27/2025 Height 5ft 4in in 07/27/2025 Blood pressure systolic 120 mm Hg 07/27/2025 Weight 189 lbs 07/27/2025 BMI 32.44 kg/m2 07/27/2025 Procedures Procedure Date Ordered Date Performed Result Body Sit e 16565-Vippxtca Plate 07/14/2025 N/A 75834- Debride <25 sq cm 07/27/2025 N/A Encounters Encounter Location Date Provider Diagnosis [facility] [address] 07/14/2025 Taylor Black Ingrown nail L60.0 ; Other hammer toe(s) (acquired), right foot M20.41 ; Pain in right toe(s) M79.674 ; Pain in left toe(s) M79.675 ; Type 2 diabetes mellitus without complication E11.9 ; Other hammer toe(s) (acquired), left foot M20.42 and Diabetes mellitus with kidney disease E11.[address] [address] 07/27/2025 Taylor Black Skin ulcer of toe of left foot, limited to breakdown of skin L97.521 [facility] [address] 05/17/2025 Taylor Pablito [facility] [address] 06/02/2025 Taylor Black [facility] [address] [address] 10/07/2025 Taylor Black Assessments Encounter Date Diagnosis [...] Treatment Pending Test Test Name Order Date 05504-FABROCL NAIL, 6 OR MORE 09/29/2021 85981-Timprptu Plate 07/14/2025 14517-Uovyosht Plate 08/14/2019 65095- Debride <25 sq cm 08/28/2019 39100- Debride <25 sq cm 07/27/2025 [id number] DYSTROPHIC NAILS ANY # Insurance Providers Payer Name Payer Address Payer Phone Subscriber Number Group Number Insured Name Patient Relationship to Insured Coverage Start Date Coverage End Date [employer] [place] [employer] [facility] [address] [place] [address] [id number] Blaire Gold Self - patient is the insured 4 Medical (General) History Medical History History ICD Code Arthritis Back,Hip,and Knee pain Diabetic High blood pressure Keloid/Thick Scar Reflux ( GERD) Measles Mumps Chicken pox A fib Kidney disease Lung disease Surgical History Surgery Date(Month/Year) hysterectomy 2014 Keliod Ears 70's excision of skin lesion 5th R 08/30/2021
--- OUTSIDE RECORDS SUMMARY | 2025-11-09 13:08 | XMS_ITS ---
Author Organization [facility] Address [address] [place] [address] Care Team Providers Care Flat Optical Element Maker Name Role Phone Marisela Oscar MD Primary Care Provider [phone] Claudia Jean-Baptiste MD Unavailable [phone] Active Problems Problem Noted Date Diagnosed [...]
--- OUTSIDE RECORDS SUMMARY | 2025-11-09 13:08 | XMS_ITS | Encounter Summary ---
Author Organization [facility] Address [address] [place], [place] [phone] Care Team Providers Care Iron Handler Name Role Phone Marisela Oscar MD Primary Care Provider Claudia Jean-Baptiste MD Unavailable [phone] Encounter Details Date Type Department Care Team (Late st Contact Info) Description 05/10/2023 Scanned Document [facility] Pul[facility] [address] [address] Pulmonary, Scan Social History Tobacco [...] Description 12/13/2025 3:40 PM EST Office Visit [facility] Pulmonary [address] [phone] Luisana Lomas PA-C [address] [place] [address] 01/10/2026 2:20 PM EST Office Visit [facility] [place] [address] [phone] Claudia Jean-Baptiste MD [address] [place] [address] documented as of this encounter Visit Diagnoses Not on filedocumented in this encounter Care Teams Iron Handler Relationship Specialty Start Date End Date Marisela Oscar MD [address] [place] [address] PCP - General 05/10/23 Claudia Jean-Baptiste MD [address] [place] [address] Primary Senior Painter Cardiovascular Disease 09/03/23 documented as of this encounter
--- OUTSIDE RECORDS SUMMARY | 2025-11-09 13:08 | XMS_ITS | Encounter Summary ---
Author Organization [facility] Address [address] [id number] Care Team Providers Care Qa Manager Name Role Phone Marisela Oscar MD Primary Care Provider [phone] Claudia Jean-Baptiste MD Unavailable [phone] Encounter Details Date Type Department Care Team (Late st Contact Info) Description 09/21/[address] [facility] Pulmonary [address] [place] [phone] Raheem Lynne, RN [address] [address] Social History Tobacco Use Types Packs/Day Years [...] Description 12/13/2025 3:40 PM EST Office Visit [facility] Pulmonary [address] [phone] Luisana Lomas PA-C [address] [address] 01/10/2026 2:20 PM EST Office Visit [facility] [place] [address] [place] [phone] Claudia Jean-Baptiste MD [address] [place] [address] documented as of this encounter Visit Diagnoses Not on filedocumented in this encounter Care Teams Qa Manager Relationship Specialty Start Date End Date Marisela Oscar MD [address] [place] [address] PCP - General 05/10/23 Claudia Jean-Baptiste MD [address] [place] [address] Primary Research Professional Cardiovascular Disease 09/03/23 documented as of this encounter
--- OUTSIDE RECORDS SUMMARY | 2025-11-09 13:08 | XMS_ITS | Clinical Summary ---
Author Organization [facility]ly [facility] Address [address] [place] [address] Care Team Providers Care Groundman Name Role Phone Marisela Oscar MD Primary Care Provider [phone] Claudia Jean-Baptiste MD Unavailable [phone] Allergies No known active allergies Medications [...] Encounters Date Type Department Care Team Description 11/08/2025 Scanned Document [facility] [place] [address] [facility] [address] [place] [phone] Pulmonary, Scan 11/08/2025 Scanned Document [facility] [address] [place] [phone] Pulmonology, Scan 10/27/2025 Documentation [facility] [place] [address] [place] [address] Raheem Lynne RN 10/05/2025 Documentation [facility] [place] [address] [place] [address] Raheem Lynne RN 09/20/2025 Scanned Document [facility] [place] [address] [place] [address] Pulmonology, Scan 09/20/2025 Scanned Document [facility] [place] [address] [place] [phone] Pulmonology, Scan from Last 3 Months Social History Tobacco [...] Description 12/13/2025 3:40 PM EST Office Visit [facility] [place] [address] [place] [phone] Luisana Lomas PA-C [address] [place] [address] 01/10/2026 2:20 PM EST Office Visit [facility] [place] [address] [place] [address] Claudia Jean-Baptiste MD [address] [place] [address] Health Maintenance Due Date Last Done Comments [...] unspecified type PAH (pulmonary artery hypertension) (HCC) BASIC METABOLIC PANEL Routine 08/06/2025 9:37 AM EDT PAH (pulmonary artery hypertension) (HCC) Right ventricular failure (HCC) from Last 3 Months or Most Recently Relevant to Health Maintenance Results * Complete Blood Count, with Differential (10/25/2025 9:37 AM EST) Only the most recent of2 resultswithin the time period is included. White Blood Cell Count 7.6 3.8 - 10.8 Thousand/u L [facility] Red Blood Cell Count 4.16 3.80 - 5.10 Million/uL [facility] Hemoglobin 13.0 11.7 - 15.5 g/dL [facility] Hematocrit 39.9 35.9 - 46.0 % [facility] MCV 95.9 81.4 - 101.7 fL [facility] MCH 31.3 27.0 - 33.0 pg [facility] MCHC 32.6 31.6 - 35.4 g/dL [facility] RDW 13.2 11.0 - 15.0 % [facility] Platelet Count 259 140 - 400 Thousand/u L [facility] MPV 10.4 7.5 - 12.5 fL [facility] Abs Neutrophils Auto 4,378 1,500 - 7,800 cells/uL [facility] Abs Lymphocytes Auto 2,303 850 - 3,900 cells/uL [facility] Abs Monocytes Auto 570 200 - 950 cells/uL [facility] Abs Eosinophils Auto 327 15 - 500 cells/uL [facility] Abs Basophils Auto 23 0 - 200 cells/uL [facility] Neutrophils Auto 57.6 % [facility] Lymphocytes Auto 30.3 % [facility] Monocytes Auto 7.5 % [facility] Eosinophils Auto 4.3 % [facility] Basophils Auto 0.3 % [facility] Blood Blood specimen / Unknown 10/25/2025 9:37 AM EST 10/25/2025 9:37 AM EST Narrative [facility] - 10/25/2025 11:46 PM EST FASTING:YES FASTING: YES us Brandon Irizarry MD LAB BLOOD ORDERABLES Final Resul t [facility] [address] [place] [phone] * ECHOCARDIOGRAM COMPREHENSIVE (08/23/2025 7:18 AM EDT) [...] The left ventricular wall motion is normal. Luisana Lomas PA-C CV ECHO ORDERABLES Final Re sult * (ABNORMAL) Basic metabolic panel (08/06/2025 9:37 AM EDT) Glucose 98 65 - 99 mg/dL [facility] Comment: Fasting reference interval Blood Urea Nitrogen (BUN) 31(H) 7 - 25 mg/dL [facility] Creatinine 1.77(H) 0.60 - 1.00 mg/dL [facility] Creatinine w/ eGFR 31(L) > OR = 60 mL/min/1.7 3m2 [facility] BUN/Creatinine Ratio 18 6 - 22 (calc) [facility] Sodium 139 135 - 146 mmol/L [facility] Potassium 4.3 3.5 - 5.3 mmol/L [facility] Chloride 109 98 - 110 mmol/L [facility] CO2 23 20 - 32 mmol/L [facility] Calcium 8.8 8.6 - 10.4 mg/dL [facility] Blood Blood specimen / Unknown 08/06/2025 9:37 AM EDT 08/06/2025 9:37 AM EDT Narrative [facility] - 08/07/2025 7:11 AM EDT FASTING:YES FASTING: YES us Brandon Irizarry MD LAB BLOOD ORDERABLES Final Resul t [employer] [address] [place] [phone] from Last 3 Months or Most Recently Relevant to Health Maintenance Insurance [facility] MEDICARE Advance Directives * Full Code (Latest Code Status on File) Date Activated Date Inactivated Comments 07/11/2023 7:23 AM Care Teams Groundman Relationship Specialty Start Date End Date Marisela Oscar MD [address] [place] [address] PCP - General 05/10/23 Claudia Jean-Baptiste MD [address] [place] [address] Primary District Traffic Chief Cardiovascular Disease 09/03/23
--- OUTSIDE RECORDS SUMMARY | 2025-11-09 13:08 | XMS_ITS | Encounter Summary ---
Author Organization [facility] Address [address] [place] [address] Care Team Providers Care Veterinary Radiologist Name Role Phone Marisela Oscar MD Primary Care Provider [phone] Claudia Jean-Baptiste MD Unavailable [phone] Encounter Details Date Type Department Care Team (Late st Contact Info) Description 08/09/2023 Scanned Document [facility] Pulmonary [address] [address] Pulmonology, Scan Social History Tobacco [...] Description 12/13/2025 3:40 PM EST Office Visit [facility] Pulmonary [address] [phone] Luisana Lomas PA-C [address] [place] [address] 01/10/2026 2:20 PM EST Office Visit [facility] [place] [address] [phone] Claudia Jean-Baptiste MD [address] [place] [address] documented as of this encounter Visit Diagnoses Not on filedocumented in this encounter Care Teams Veterinary Radiologist Relationship Specialty Start Date End Date Marisela Oscar MD [address] [place] [address] PCP - General 05/10/23 Claudia Jean-Baptiste MD [address] [place] [address] Primary Integrated Circuit Fabricator Cardiovascular Disease 09/03/23 documented as of this encounter
== END 2025-11-09 12:39 | disposition home or self-care (01) ==
LOC: HO.HMCC 11:56
PROVIDERS: PCP Internal Medicine; Visit Provider Internal Medicine
DX: I48.19 Other persistent atrial fibrillation (principal); E78.5 Hyperlipidemia, unspecified; I27.20 Pulmonary hypertension, unspecified; E11.9 Type 2 diabetes mellitus without complications

== ENCOUNTER → 2025-11-09 11:55 | Outpatient (BNVA) | payer MEDICARE, MEDICAID, SELFPAY | PROVIDERS: PCP Internal Medicine; Visit Provider Internal Medicine | DX: I48.19 Other persistent atrial fibrillation (principal); E11.22 Type 2 diabetes mellitus with diabetic chronic kidney disease; I12.9 Hypertensive chronic kidney disease with stage 1 through stage 4 chronic kidney disease, or unspecified chronic kidney disease; N18.30 Chronic kidney disease, stage 3 unspecified; I27.20 Pulmonary hypertension, unspecified; Z96.651 Presence of right artificial knee joint; Z79.899 Other long term (current) drug therapy; Z79.85 Long-term (current) use of injectable non-insulin antidiabetic drugs | CPT/HCPCS: 99212 ==